=== PATIENT | male | born 1980 | race Caucasian/White ===

== ENCOUNTER → 2018-05-21 10:04 | Outpatient (CLI) | payer OTHER, SELFPAY ==
[2018-05-21 12:56] LABS: ALB/GLOB Ratio 1.1 RATIO (0.9-2.4); AST(SGOT) 20 U/L (15-37); Alanine Aminotransfer ALT/SGPT 34 U/L (16-61); Albumin, Serum 3.8 g/dL (3.2-5.0); Alkaline Phosphatase 89 U/L (45-117); Anion Gap 10 (5-15); BUN 19 mg/dL (7-18); BUN/Creat Ratio 19.7 RATIO (10-20); Chloride 105 mmol/L (98-107); Cholesterol 210 mg/dL (200); Creatinine, Serum 0.96 mg/dL (0.70-1.30); EST Glomerular Filtration Rate 94 mL/min (>60); Est Glom Filt Rate - Afr Amer 113 mL/min (>60); Globulin 3.5 g/dL (2.2-4.2); Glucose 100 mg/dL (74-106); High Density Lipoprotein 38 mg/dL; Potassium 3.9 mmol/L (3.5-5.1); Protein, Total 7.3 g/dL (6.4-8.2); Sodium Level 142 mmol/L (136-145); Triglycerides 190 mg/dL; Very Low Density Lipoprotein 38 mg/dL (5-40)
== END ==
PROVIDERS: Family Provider Family Medicine; PCP Family Medicine; Visit Provider Family Medicine
DX: E78.5 Hyperlipidemia, unspecified (principal)
CPT/HCPCS: 36415; 80053; 80061

== ENCOUNTER → 2018-12-18 00:30 | Outpatient (CLI) | payer OTHER, SELFPAY | PROVIDERS: Family Provider Family Medicine; PCP Family Medicine; Referring Provider Clinical Nurse Specialist Acute Care; Visit Provider Clinical Nurse Specialist Acute Care | DX: G47.10 Hypersomnia, unspecified (principal); G47.26 Circadian rhythm sleep disorder, shift work type | CPT/HCPCS: 95810 ==

== ENCOUNTER → 2019-03-20 10:08 | Outpatient (CLI) | payer OTHER, SELFPAY ==
[2017-10-09 11:15] VITALS: BMI 29.3
--- NOTE | 2019-03-20 10:14 | RAD_ITS ---
STUDY: X-RAY - RIGHT WRIST REASON FOR EXAM: Male, 39 years old. Wrist pain TECHNIQUE: 3 view(s) of the wrist were obtained. COMPARISON: None. FINDINGS: Normal visualized distal radius and ulna. Normal radiocarpal articulation. Normal distal radioulnar articulation. Normal carpal bones. Normal carpal articulations. Normal carpometacarpal articulation of the thumb. Normal second through fifth carpometacarpal articulations. Normal visualized metacarpal bones. The soft tissue structures are unremarkable. RAD/Wrist min 3 Views IMPRESSION: Normal x-ray examination of the wrist. Electronically Signed: Robert Sheppard DO at 8:36 EDT Tel , Service support ,
== END ==
PROVIDERS: Family Provider Family Medicine; PCP Family Medicine; Referring Provider Family Medicine; Visit Provider Family Medicine
DX: M25.531 Pain in right wrist (principal)
CPT/HCPCS: 73110

== ENCOUNTER → 2019-04-02 07:29 | Outpatient (CLI) | payer OTHER, SELFPAY ==
--- NOTE | 2019-04-02 07:45 | MRI_ITS ---
STUDY: MRI RIGHT WRIST WITHOUT CONTRAST REASON FOR EXAM: Male, 39 years old. Wrist pain, numbness, and tingling. TECHNIQUE: Standardized fat and water weighted pulse sequences were obtained in all 3 orthogonal planes. COMPARISON: None. FINDINGS: Normal visualized distal radius and ulna. Normal distal radioulnar Articulation (DRUJ). Normal triangular fibrocartilaginous complex (TFCC). Small erosions of the proximal aspect of the capitate and hamate. Normal radiocarpal, intercarpal and midcarpal articulations. Normal pisotriquetral articulation. Normal visualized interosseous scapholunate ligament. Normal visualized dorsal (extrinsic) ligaments. Normal visualized volar (extrinsic) ligaments. Normal extensor tendons. Normal flexor tendons. Normal carpal tunnel with a normal median nerve. Normal carpometacarpal articulation of the thumb. Normal second through fifth carpometacarpal articulations. Normal visualized metacarpal bones. There is no demonstrated soft tissue abnormality. MRI/Upper Ext Joint Only(Routine) IMPRESSION: Small erosions of the capitate and hamate but no other internal derangement or evidence of ganglion cyst. Electronically Signed: Jaciel Schwartz MD at 12:44 EDT Tel , Service support ,
== END ==
PROVIDERS: Family Provider Family Medicine; PCP Family Medicine; Referring Provider Family Medicine; Visit Provider Family Medicine
DX: M67.439 Ganglion, unspecified wrist (principal)
CPT/HCPCS: 73221

== ENCOUNTER → 2019-05-03 13:12 | Outpatient (CLI) | payer OTHER, SELFPAY ==
[2019-05-03 13:55] LABS: Amphetamine Urine VISTA POSITIVE (<1000 ng/mL); Barbiturate Urine VISTA NEGATIVE (< 200 ng/mL); Benzodiazepine Urine VISTA NEGATIVE (< 200 ng/mL); Cocaine Urine VISTA NEGATIVE (< 300 ng/mL); Ecstacy Urine VISTA NEGATIVE (< 500 ng/mL); Methadone Urine VISTA NEGATIVE (< 300 ng/mL); PCP Urine VISTA NEGATIVE (< 25 ng/mL); THC Urine VISTA NEGATIVE (< 50 ng/mL); Vista UDS pH Range 6
== END ==
PROVIDERS: Family Provider Family Medicine; PCP Family Medicine; Visit Provider Clinical Nurse Specialist Acute Care
DX: G47.10 Hypersomnia, unspecified (principal)
CPT/HCPCS: 80307

== ENCOUNTER → 2019-05-25 14:27 | Outpatient (CLI) | payer OTHER, SELFPAY ==
[2019-05-25 12:02] VITALS: BMI 29.3
== END ==
PROVIDERS: Family Provider Family Medicine; PCP Family Medicine; Referring Provider Physician Assistant; Visit Provider Physician Assistant
DX: J02.9 Acute pharyngitis, unspecified (principal)
CPT/HCPCS: 87081

== ENCOUNTER 2019-05-26 03:19 | Emergency (ER) | payer OTHER, SELFPAY ==
[2019-05-25 12:02] VITALS: BMI 29.3
[2019-05-26 03:20] VITALS: BP 146/91; PULSE 62; RESP 18; TEMP 36.6; O2SAT 98; BMI 29.1
--- NOTE | 2019-05-26 03:37 | ED.DCSUM_ITS ---
- ER Visit Summary Date of Service: 05/26/19 Chief Complaint: Allergic reaction History of Present Illness: The patient is a 39 M who presents with an allergic reaction. Symptoms began about 2 to 3 hours ago. He went to an urgent care yesterday for sore throat and was started on methylprednisolone. Tonight he began to have itching on both of his hands. He used the betamethasone steroid cream to see if this would help. He believes this may have made it worse. He also has developed hives. No fevers. No difficulty breathing. No nausea or vomiting. He does have a history of allergy to betamethasone. Physical Examination: Afebrile vitals unremarkable No distress Heart regular rate and rhythm Lungs are clear Abdomen soft Urticaria noted over the torso and arms Test Results: Not indicated Emergency Department Course and Treatment: Patient has previously tolerated Kenalog so was given intramuscular Kenalog here with some improvement of symptoms. He was advised to stop the methylprednisolone and was discharged home. He understands to return for new or worsening symptoms. Treatment Plan: [] Disposition: Discharge Impression: Allergic reaction This note was generated with [employer] dictation software. It may contain incorrect words, spelling, and punctuation that were not noted in review of the chart prior to signing ED Disposition - Plan for ED Patient: Referrals: Dmitry Aragon MD [Primary Care Provider] -
[2019-05-26] MEDS: Triamcinolone Acetonide 40 MG/ML Vial IM (04:01)
[2019-05-26 04:03] VITALS: BP 133/80; PULSE 77; RESP 16; O2SAT 96
--- NOTE | 2019-05-26 04:51 | ED.DEP ---
ED Disposition - Plan for ED Patient: Instructions: ALLERGIC REACTION, Drug Referrals: Dmitry Aragon MD [Primary Care Provider] -
[2019-05-26 04:58] VITALS: BP 126/83; PULSE 70; RESP 16; O2SAT 100
== END 2019-05-26 05:01 | disposition home or self-care (01) ==
LOC: ED 03:44
PROVIDERS: Emergency Provider Emergency Medicine; Family Provider Family Medicine; PCP Family Medicine
DX: T78.40XA Allergy, unspecified, initial encounter (principal); J02.9 Acute pharyngitis, unspecified; Z72.0 Tobacco use
CPT/HCPCS: 99282; A4216

== ENCOUNTER 2019-05-26 14:37 | Emergency (ER) | payer OTHER, SELFPAY ==
[2019-05-26 03:20] VITALS: BMI 29.1
[2019-05-26 14:38] VITALS: BP 129/81; PULSE 88; RESP 18; TEMP 36.6; O2SAT 98; BMI 29.2
[2019-05-26] MEDS: Famotidine 20 MG Tablet PO (15:34)
[2019-05-26] MEDS: DiphenhydrAMINE 50 MG/ML Syringe IV (15:40)
[2019-05-26 16:24] LABS: Internal QC Validated? YES +Cl - CLEAR BKGD; Monotest Negative (Negative)
--- NOTE | 2019-05-26 16:39 | ED.DCSUM_ITS ---
History of Present Illness Informant: Patient Narrative: 39-year-old male with no past medical history presents with concern for allergic reactions. States that last week he had a URI and was treated with prednisone 4 days ago. He states following taking that he began working out in hives and having pruritus. Was seen here last night given Kenalog. Continues to have itching and hives. Denies any fever, chills, shortness of breath, wheezing, difficulty swallowing. <Zachary Houser - Last Filed: 05/26/19 16:39> <Mitch Lambert - Last Filed: 05/26/19 23:30> Chief Complaint: Allergic Reaction Past Medical History Prior records reviewed: Yes Past Medical History: None Smoking Status: Never smoker <Zachary Houser - Last Filed: 05/26/19 16:39> <Mitch Lambert - Last Filed: 05/26/19 23:30> - Allergies and Home Meds Allergies/Adverse Reactions: Allergies betamethasone [From Celestone] Allergy (Verified 05/26/19 14:40) Unknown betamethasone sodium phosphate [From Celestone] Allergy (Verified 05/26/19 14:40) Unknown methyprednisolone Adverse Reaction (Uncoded 05/26/19 14:40) Hives Primary Care Physician: Dmitry Aragon MD [Primary Care Provider] - Review of Systems General: Denies: Chills, Fever, Sweats Eyes: Denies: Visual changes - bilaterally, Diplopia ENT: Denies: Rhinorrhea, Sore throat Cardiovascular: Denies: Chest pain, Palpitations Respiratory: Denies: Dyspnea, Cough, Dyspnea on exertion Gastrointestinal: Denies: Abdominal pain, Nausea, Vomiting, Diarrhea, Melena, Hematochezia Genitourinary: Denies: Dysuria, Hematuria, Frequency Musculoskeletal: Denies: Back pain, Extremity Pain Skin: Reports: Rash. Denies: Wounds Neurological: Denies: Headache, Weakness, Numbness <Zachary Houser - Last Filed: 05/26/19 16:39> Physical Exam Vital Signs/Narrative: Vital Signs Temp Pulse Resp BP Pulse Ox 05/26/19 14:38 98 F 88 18 129/81 H 98 Inital Vital Signs reviewed: Yes General: Well nourished, Well developed, No Acute Distress Head: Normocephalic, Atraumatic Eyes: Perrl, EOMI ENT: Moist mucous membranes, No rhinorrhea Neck: Supple, Nontender Cardiovascular: Regular rate, Regular rhythm, No murmurs Respiratory: No distress, CTA bilaterally, Chest nontender Abdomen: Soft, Nontender, Nondistended, Normal bowel sounds Back: Nontender, Normal Inspection Extremities: Nontender, No edema Skin: Normal color, - - Extensive urticarial rash. No surrounding cellulitis. Neurological: Alert, Oriented x3, Cranial nerves II-XII grossly intact, Normal Strength, Normal Sensation Psychological: Normal affect, Normal Mood <Zachary Hosuer - Last Filed: 05/26/19 16:39> Diagnostic/Tx/Re-eval - Medical Decision Making Appears well nontoxic. Vital signs within normal limits. Patient given IV Benadryl as well as Pepcid. Almost complete resolution of the rash. He will be given Pepcid and Benadryl for home and asked to follow-up with his primary care provider. Asked to return for new or worsening symptoms. Patient agrees with this plan and discharged home in stable condition. Home stable. Impression: Urticaria <Zachary Houser - Last Filed: 05/26/19 16:39> - Medical Decision Making I saw the patient independently and in conjunction with the resident. Patient presents with a diffuse itchy rash. Worse after exposure to steroids. He has been taking Benadryl, but it is not helping. Denies eye or mucous membrane involvement. Denies any other associated symptoms. Patient has wheals over his body and extremities. Palms and soles are unremarkable. HEENT exam unremarkable. Afebrile. Patient was treated with histamine blockers. Symptoms improved. Discontinue steroid use. Continue Benadryl and H2 anushka. Follow- up with primary care. <Mitch Lambert - Last Filed: 05/26/19 23:30> ED Disposition <Zachary Houser - Last Filed: 05/26/19 16:39> <Mitch Lambert - Last Filed: 05/26/19 23:30> - Plan for ED Patient: Disposition: Non-Skill NC/Intermediate Care Diagnosis: Allergic urticaria Instructions: ALLERGIC REACTION, Other (General) Prescriptions: DiphenhydrAMINE [Benadryl] 25 mg PO TID PRN PRN #20 cap PRN Reason: Itching Prescription Printed Famotidine [Pepcid] 20 mg PO BID #28 tab Prescription Printed Referrals: Dmitry Aragon MD [Primary Care Provider] -
[2019-05-26 16:47] VITALS: BP 113/68; PULSE 62; RESP 15; O2SAT 98
== END 2019-05-26 16:56 | disposition intermediate care facility (04) ==
PROVIDERS: Emergency Provider Emergency Medicine; Family Provider Family Medicine; PCP Family Medicine
DX: L50.0 Allergic urticaria (principal)
CPT/HCPCS: 86308; 99283; A4216

== ENCOUNTER → 2019-05-27 10:46 | Outpatient (CLI) | payer OTHER, SELFPAY ==
[2019-05-26 14:38] VITALS: BMI 29.2
[2019-05-27 12:26] LABS: Absolute Lymphocyte Count 2.33 X10^3/uL (0.83-4.51); Absolute Neutrophil Count 4.7 X10^3/uL (2.0-7.7); Basophil# 0.09 X10^3/uL; Basophil% 1.2 % (0-1); Eosinophil# 0.08 X10^3/uL; Hematocrit 49.5 % (40-54); Hemoglobin 16.3 g/dL (13.0-16.5); Lymphocyte # 2.33 X10^3/ul (4.0); Lymphocyte % 30.2 % (19-41); Mean Corp Hgb Conc 32.9 g/dL (32-36); Mean Corpuscular Hgb 29.1 pg (27.0-32.0); Mean Corpuscular Volume 88.4 fL (80-94); Mean Platelet Vol. 10.6 fl (6.2-12.0); Monocyte# 0.46 X10^3/uL; NRBC Flagged by Analyzer 0 % (0-5); POSITIVE MORPHOLOGY YES; Platelet Count 282 K/mm3 (150-450); RBC Distribution Width SD 38.5 fl (35.1-43.9); White Blood Count 7.7 K/mm3 (4.4-11.0)
[2019-05-27 12:39] LABS: Anion Gap 7 (5-15); BUN 21 mg/dL (7-18); BUN/Creat Ratio 17.8 RATIO (10-20); Calcium,Total 9.4 mg/dL (8.5-10.1); Chloride 103 mmol/L (98-107); Creatinine, Serum 1.18 mg/dL (0.70-1.30); EST Glomerular Filtration Rate 74 mL/min (>60); Est Glom Filt Rate - Afr Amer 89 mL/min (>60); Glucose 101 mg/dL (74-106); Potassium 4.1 mmol/L (3.5-5.1); Sodium Level 140 mmol/L (136-145)
[2019-05-27 13:09] LABS: Differential Indicated SCAN CRITERIA MET
[2019-05-27 13:10] LABS: Reactive Lymphocyte RARE
[2019-05-30 06:07] LABS: Immunoglobulin A 201 mg/dL (90-386); Immunoglobulin G 983 mg/dL (700-1600); Immunoglobulin M 66 mg/dL (20-172)
[2019-05-30 08:09] LABS: Immunoglobulin E 746 IU/mL (6-495)
== END ==
PROVIDERS: Family Provider Family Medicine; PCP Family Medicine; Visit Provider Nurse Practitioner Family
DX: T14.90XA Injury, unspecified, initial encounter (principal); W57.XXXA Bitten or stung by nonvenomous insect and other nonvenomous arthropods, initial encounter; Y93.9 Activity, unspecified; Y92.89 Other specified places as the place of occurrence of the external cause; Y99.8 Other external cause status
CPT/HCPCS: 36415; 80048; 82784; 82785; 85025

== ENCOUNTER → 2019-06-12 07:02 | Outpatient (CLI) | payer OTHER, SELFPAY ==
[2019-05-26 14:38] VITALS: BMI 29.2
--- NOTE | 2019-06-12 11:48 | NEURO ---
NCS and/or EMG Patient Report Ordering Doctor: Tristan Luu DATE OF SERVICE: 06/12/19 This is a nerve conduction study of the right upper extremity performed on this 39-year-old male with numbness tingling and weakness for 1 year. No history of neck pain or diabetes. Right upper extremity sensory and motor nerve conduction studies performed demonstrating moderate to severe prolongation of the median motor and sensory distal latency with absence of the median sensory response to digit 2. The ulnar motor and sensory and radial sensory responses normal. The median F wave is prolonged compared to the ulnar F-wave. Impression abnormal nerve conduction study of the right upper extremity consistent with moderate to severe carpal tunnel syndrome at the wrist. Dictated, not proofread
== END ==
PROVIDERS: Family Provider Family Medicine; PCP Family Medicine; Referring Provider Surgery; Visit Provider Surgery
DX: M25.531 Pain in right wrist (principal)
CPT/HCPCS: 95909

== ENCOUNTER → 2019-07-30 13:14 | Outpatient (CLI) | payer OTHER, SELFPAY ==
[2019-07-04 09:33] VITALS: BMI 29.2
[2019-07-30 14:57] LABS: Lyme Ab Screen Interpretation REF LAB
[2019-07-30 15:07] LABS: Absolute Lymphocyte Count 1.56 X10^3/uL (0.83-4.51); Absolute Neutrophil Count 5.5 X10^3/uL (2.0-7.7); Basophil# 0.04 X10^3/uL; Basophil% 0.5 % (0-1); Eosinophil# 0.12 X10^3/uL; Eosinophils% 1.6 % (0-5); Hematocrit 50.6 % (40-54); Hemoglobin 16.9 g/dL (13.0-16.5); Lymphocyte # 1.56 X10^3/ul (4.0); Lymphocyte % 20.4 % (19-41); Mean Corp Hgb Conc 33.4 g/dL (32-36); Mean Corpuscular Hgb 29.5 pg (27.0-32.0); Mean Corpuscular Volume 88.5 fL (80-94); Monocyte# 0.36 X10^3/uL; Monocyte% 4.7 % (0-10); NRBC Flagged by Analyzer 0 % (0-5); Neutrophil # 5.54 X10^3/uL (2.7-7.7); Neutrophil % 72.3 % (47-70); Platelet Count 268 K/mm3 (150-450); RBC Distribution Width CV 12.6 % (11.6-14.6); RBC Distribution Width SD 40.9 fl (35.1-43.9); Red Blood Count 5.72 M/mm3 (4.6-6.2); White Blood Count 7.7 K/mm3 (4.4-11.0)
[2019-08-01 21:06] LABS: Lyme Scn Total Ab w/Rflx <0.91 ISR (0.00-0.90)
== END ==
PROVIDERS: Visit Provider Family Medicine
DX: B88.2 Other arthropod infestations (principal)
CPT/HCPCS: 36415; 85025; 86618

== ENCOUNTER 2019-08-26 09:02 | Day surgery (SDC) | payer OTHER, SELFPAY ==
[2019-07-04 09:33] VITALS: BMI 29.2
[2019-08-26 09:24] VITALS: BP 129/83; PULSE 88; RESP 18; TEMP 36.8; O2SAT 100; BMI 30.4
[2019-08-26] MEDS: Lactated Ringers 1,000 ML 75 ML IV (09:57)
--- NOTE | 2019-08-26 10:02 | HP.PCM_ITS ---
Problem List (1) Numbness and tingling Status: Acute (2) Carpal tunnel syndrome Status: Acute Qualifiers: History and Physical Date of Admission: 08/26/19 [facility] [address] [place] [address] OFFICE VISIT Date of Service: 08/26/2019 MR#:[id number] Name: EDWARD BUTTS Rep #:[id number] : 1980 Provider:Edward Luu MD Age/Sex: 39/M Location:[facility] Status:Signed Intake Vital Signs 08/26/19 Body Mass Index (BMI) 30.4 kg 08/26/19 Height 5 ft 8 in 08/26/19 Weight: 199 lb 08/26/19 Body Mass Index (BMI) 30.4 kg 08/26/19 Blood Pressure 129/83 H 08/26/19 Blood Pressure Location Rt brachial 08/26/19 Respiratory Rate 18 08/26/19 Pulse Rate 88 08/26/19 Pulse Source Monitor 08/26/19 Temperature 98.3 F 08/26/19 Temperature Source Oral 08/26/19 Pulse Ox 100 08/26/19 Oxygen Delivery Method room air Intake Visit Reasons: CTS per Workload EMG 06/12 [facility] Viscosity Worker Required: No Is patient in pain?: No (on and off pain of Right wrist) Allergies betamethasone [From Celestone] Allergy (Verified 07/04/19 09:30) Unknown betamethasone sodium phosphate [From Celestone] Allergy (Verified 07/04/19 09:30) Unknown methyprednisolone Adverse Reaction (Uncoded 07/04/19 09:30) Hives Medications Cider Vinegar [Apple Cider Vinegar] 450 mg PO BID 09/19/17 [History Confirmed 07/04/19] Nortriptyline HCl 10 mg PO DAILY 09/19/17 [History Confirmed 07/04/19] Valacyclovir HCl [Valtrex] 500 mg PO DAILY 09/19/17 [History Confirmed 07/04/19] traMADol [Ultram (G)] 50 mg PO Q6H PRN PRN 09/19/17 [History Confirmed 07/04/19] Dextroamphetamine/Amphetamine [Adderall 30 mg Tablet] 30 mg PO DAILY 05/26/19 [History Confirmed 07/04/19] Sertraline HCl [Zoloft] 100 mg PO DAILY 05/26/19 [History Confirmed 07/04/19] gabapentin 100 mg capsule 100 mg PO DAILY 07/04/19 [History Confirmed 07/04/19] PFSH Medical History Numbness and tingling (Acute) Carpal tunnel syndrome (Acute) Shoulder pain (Acute) Knee pain (Acute) Limb weakness (Acute) Back pain (Acute) Influenza A (Acute) Surgical History History of ankle surgery (Acute) Hx of lymph node biopsy (Acute) Hx of colonoscopy (Acute) Lower extremity surgery planned (Acute) Normal colonoscopy (Acute) Family History Father Heart disease Hypertension Social History Smoking Status: Current some day smoker tobacco type: pipe second hand exposure: No alcohol intake: never substance use type: does not use caffeine: Yes what type of physical activity do you participate in: none frequency: does not exercise seatbelt use: always HPI Surgical H&P: Yes HPI: Patient is a 39 y/o M I am seeing for an update history and physical for right carpal tunnel surgery. Patient denies recent hospitalizations or illnesses. He denies recent hospitalizations. Patient denies difficulty with anesthesia. He notes during his dentist appointments they have to use more numbing medication than normal. Patient denies previous myocardial infarction, stroke or blood clots. Patient' s previous history per Dr. Luu: EDWARD BUTTS, is a 39 M who presents to the office today for surgical consultation regarding right greater than left carpal tunnel syndrome. The patient is referred by his primary care is Dr. Dmitry Aragon and a written copy of my surgical consult and recommendations will be returned to him. 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 He is right hand dominant. At least for the past year he has had problems with numbness tingling lack of fine motor coordination cramping of the right hand in particular. He has worn splints with only minimal improvement. He had nerve conduction test performed at the [facility] on June 12, 2019 consistent with moderate to severe right carpal tunnel syndrome. April 02, 2019 he had had a MRI of the right wrist. Small erosions of the capitate and hamate but no other internal ridge rearrangement no evidence of a ganglion cyst. This is significantly inhibiting his quality of life. He was placed on gabapentin which have eased some of his symptoms. He is investigating definitive treatment. He has heard about the potential for laser surgery. ROS General General: No weight change, appetite, fatigue, colon cancer, breast cancer or weakness HEENT HEENT: No difficulty swallowing, eye injury, eye surgery, swollen glands or hoarseness Endo Endocrine: No thyroid disease, diabetes mellitus, thyroid cancer, Hair loss, heat intolerance or cold intolerance Skin Skin: No rash or changing moles Musc Musculoskeletal: No back problems, arthritis, rheumatoid arthritis, gout or joint pain Cardio Cardiovascular: No murmur, pacemaker, heart disease, atrial fibrillation, high blood pressure, heart attack, heart stent, palpitations, shortness of breat with exertion or chest pain Psych Psychiatric: No depression, anxiety or hearing voices Resp Respiratory: No shortness of breath, No sleep apnea, No cough, No COPD, No asthma, No emphysema, No wheezing Gastro Gastrointestinal: Yes abdominal pain, No nausea or vomiting, No diarrhea, No constipation, No blood in stool, No acid reflux, No hemorrhoids, No ulcers, No gallbladder problem, No black,tarry stools Ponce Hematologic: No blood thinners, No blood disorders, No bleeding, No anemia, No blood clots Neuro Neurologic: Yes numbness, Yes tingling, No weakness Exam Const General: cooperative, healthy appearing, comfortable, no acute distress Nutritional Appearance: average body habitus Orientation: alert, awake [facility] Head: normal to inspection Eyes General: appearance normal, both eyes and all related structures Resp Effort & Inspection: normal respiratory effort Auscultation: clear to auscultation bilaterally Cardio Rate: regular rate Rhythm: regular rhythm Heart Sounds: no murmurs GI Palpation: soft, no hepatosplenomegaly Auscultation: normal bowel sounds Musc Cervical Spine: normal cervical lordosis Skin General: no rashes or lesions noted Neuro Cognition: normal cognition Extrem Other: Tinel's positive on the right absent on the left. Psych Affect: normal affect Assessment & Plan Problems 1. Bilateral carpal tunnel syndrome G56.03 Plan: Dr. Luu will plan to perform a right carpal tunnel release. Procedure details, risks and benefits have been reviewed. Patient and his spouse have had the opportunity to ask and have questions answered. Patient verbally understands and agrees with the plan. Code Visit Inpatient E&M: 28553 Subs Hosp L1 - Update H&P
[2019-08-26] MEDS: BACITRACIN/POLYMYXIN B 15 GM Tube 1 APPLIC (10:51)
--- NOTE | 2019-08-26 10:56 | HP.PCM_ITS ---
Problem List (1) Carpal tunnel syndrome Status: Acute Qualifiers: History and Physical Date of Admission: 08/26/19 History and Physical 08/26/19 1002 MR#: [id number] Acct: [id number] Name: EDWARD BUTTS Rep #:[id number] : 1980 39 From: Eliza Amaya PA-C PCP: Dmitry Aragon MD Status:REG SDC Y Location: [place] [address] Problem List (1) Numbness and tingling Status: Acute (2) Carpal tunnel syndrome Status: Acute Qualifiers: History and Physical Date of Admission: 08/26/19 [facility] [place] [address] OFFICE VISIT Date of Service: 08/26/2019 MR#:[id number] Name: EDWARD BUTTS Rep #:[id number] : 1980 Provider:Edward Luu MD Age/Sex: 39/M Location:[facility] Status:Signed Intake Vital Signs 08/26/19 Body Mass Index (BMI) 30.4 kg 08/26/19 Height 5 ft 8 in 08/26/19 Weight: 199 lb 08/26/19 Body Mass Index (BMI) 30.4 kg 08/26/19 Blood Pressure 129/83 H 08/26/19 Blood Pressure Location Rt brachial 08/26/19 Respiratory Rate 18 08/26/19 Pulse Rate 88 08/26/19 Pulse Source Monitor 08/26/19 Temperature 98.3 F 08/26/19 Temperature Source Oral 08/26/19 Pulse Ox 100 08/26/19 Oxygen Delivery Method room air Intake Visit Reasons: CTS per Workload EMG 06/12 [facility] Train Planner Required: No Is patient in pain?: No (on and off pain of Right wrist) Allergies betamethasone [From Celestone] Allergy (Verified 07/04/19 09:30) Unknown betamethasone sodium phosphate [From Celestone] Allergy (Verified 07/04/19 09:30) Unknown methyprednisolone Adverse Reaction (Uncoded 07/04/19 09:30) Hives Medications Cider Vinegar [Apple Cider Vinegar] 450 mg PO BID 09/19/17 [History Confirmed 07/04/19] Nortriptyline HCl 10 mg PO DAILY 09/19/17 [History Confirmed 07/04/19] Valacyclovir HCl [Valtrex] 500 mg PO DAILY 09/19/17 [History Confirmed 07/04/19] traMADol [Ultram (G)] 50 mg PO Q6H PRN PRN 09/19/17 [History Confirmed 07/04/19] Dextroamphetamine/Amphetamine [Adderall 30 mg Tablet] 30 mg PO DAILY 05/26/19 [History Confirmed 07/04/19] Sertraline HCl [Zoloft] 100 mg PO DAILY 05/26/19 [History Confirmed 07/04/19] gabapentin 100 mg capsule 100 mg PO DAILY 07/04/19 [History Confirmed 07/04/19] PFSH Medical History Numbness and tingling (Acute) Carpal tunnel syndrome (Acute) Shoulder pain (Acute) Knee pain (Acute) Limb weakness (Acute) Back pain (Acute) Influenza A (Acute) Surgical History History of ankle surgery (Acute) Hx of lymph node biopsy (Acute) Hx of colonoscopy (Acute) Lower extremity surgery planned (Acute) Normal colonoscopy (Acute) Family History Father Heart disease Hypertension Social History Smoking Status: Current some day smoker tobacco type: pipe second hand exposure: No alcohol intake: never substance use type: does not use caffeine: Yes what type of physical activity do you participate in: none frequency: does not exercise seatbelt use: always HPI Surgical H&P: Yes HPI: Patient is a 39 y/o M I am seeing for an update history and physical for right carpal tunnel surgery. Patient denies recent hospitalizations or illnesses. He denies recent hospitalizations. Patient denies difficulty with anesthesia. He notes during his dentist appointments they have to use more numbing medication than normal. Patient denies previous myocardial infarction, stroke or blood clots. Patient' s previous history per Dr. Luu: EDWARD BUTTS, is a 39 M who presents to the office today for surgical consultation regarding right greater than left carpal tunnel syndrome. The patient is referred by his primary care is Dr. Dmitry Aragon and a written copy of my surgical consult and recommendations will be returned to him. 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 He is right hand dominant. At least for the past year he has had problems with numbness tingling lack of fine motor coordination cramping of the right hand in particular. He has worn splints with only minimal improvement. He had nerve conduction test performed at the [facility] on June 12, 2019 consistent with moderate to severe right carpal tunnel syndrome. April 02, 2019 he had had a MRI of the right wrist. Small erosions of the capitate and hamate but no other internal ridge rearrangement no evidence of a ganglion cyst. This is significantly inhibiting his quality of life. He was placed on gabapentin which have eased some of his symptoms. He is investigating definitive treatment. He has heard about the potential for laser surgery. ROS General General: No weight change, appetite, fatigue, colon cancer, breast cancer or weakness HEENT HEENT: No difficulty swallowing, eye injury, eye surgery, swollen glands or hoarseness Endo Endocrine: No thyroid disease, diabetes mellitus, thyroid cancer, Hair loss, heat intolerance or cold intolerance Skin Skin: No rash or changing moles Musc Musculoskeletal: No back problems, arthritis, rheumatoid arthritis, gout or joint pain Cardio Cardiovascular: No murmur, pacemaker, heart disease, atrial fibrillation, high blood pressure, heart attack, heart stent, palpitations, shortness of breat with exertion or chest pain Psych Psychiatric: No depression, anxiety or hearing voices Resp Respiratory: No shortness of breath, No sleep apnea, No cough, No COPD, No as thma, No emphysema, No wheezing Gastro Gastrointestinal: Yes abdominal pain, No nausea or vomiting, No diarrhea, No constipation, No blood in stool, No acid reflux, No hemorrhoids, No ulcers, No gallbladder problem, No black,tarry stools Ponce Hematologic: No blood thinners, No blood disorders, No bleeding, No anemia, No blood clots Neuro Neurologic: Yes numbness, Yes tingling, No weakness Exam Const General: cooperative, healthy appearing, comfortable, no acute distress Nutritional Appearance: average body habitus Orientation: alert, awake [facility] Head: normal to inspection Eyes General: appearance normal, both eyes and all related structures Resp Effort & Inspection: normal respiratory effort Auscultation: clear to auscultation bilaterally Cardio Rate: regular rate Rhythm: regular rhythm Heart Sounds: no murmurs GI Palpation: soft, no hepatosplenomegaly Auscultation: normal bowel sounds Musc Cervical Spine: normal cervical lordosis Skin General: no rashes or lesions noted Neuro Cognition: normal cognition Extrem Other: Tinel's positive on the right absent on the left. Psych Affect: normal affect Assessment & Plan Problems 1. Bilateral carpal tunnel syndrome G56.03 Plan: Dr. Luu will plan to perform a right carpal tunnel release. Procedure details, risks and benefits have been reviewed. Patient and his spouse have had the opportunity to ask and have questions answered. Patient verbally understands and agrees with the plan. Code Visit Inpatient E&M: 51097 Subs Hosp L1 - Update H&P 08/26/19 1012 <Electronically signed by Eliza hartley PA-C> Date _ Eliza Amaya PA-C Cosigner Signature: Date (if applicable) CC: Eliza Amaya PA-C; Dmitry Aragon MD ~ Signed I have re-examined the patient. There are no clinical changes since date of exam.
--- NOTE | 2019-08-26 10:57 | DCINST_ITS ---
Discharge Diet: Light diet - advance as tolerated - if you have questions about your diet instructions, please talk to you doctor. Discharge Activity: May Not Drive - for 3-5 days or while taking narcotic pain medicine. May shower in (days): 1 Lifting Restrictions: 10 pounds Call your doctor if your incision/area has: Continuous Slow Oozing, Sudden Increased Bleeding, Increased Pain/ Swelling, Increased Redness, Foul Smelling Discharge Call your doctor if you observe: Fever of 101 or Higher Suture Line Care: Avoid Pulling/Pushing, Avoid Pinching/Bending Additional Dressing/Incision Instructions:: Elevate your right hand for comfort and to limit swelling. Please keep the dressings clean dry and intact. You may shower very carefully if you placed your arm in a watertight bag. Allergies/Adverse Reactions: Allergies betamethasone [From Celestone] Allergy (Verified 08/13/19 14:15) Unknown betamethasone sodium phosphate [From Celestone] Allergy (Verified 08/13/19 14:15) Unknown methyprednisolone Adverse Reaction (Uncoded 08/13/19 14:15) Hives Medications to take at Discharge Cider Vinegar [Apple Cider Vinegar] 450 mg PO BID 09/19/17 Nortriptyline HCl 10 mg PO DAILY 09/19/17 Valacyclovir HCl [Valtrex] 500 mg PO DAILY 09/19/17 traMADol [Ultram (G)] 50 mg PO Q6H PRN PRN 09/19/17 Dextroamphetamine/Amphetamine [Adderall 30 mg Tablet] 30 mg PO DAILY 05/26/19 Sertraline HCl [Zoloft] 100 mg PO DAILY 05/26/19 gabapentin 100 mg capsule 100 mg PO QHS 07/04/19 Primary Care Physician: Dmitry Aragon MD [Primary Care Provider] - Test Results: Test results from this visit will be discussed in further detail at your follow- up appointment, if applicable. Please Follow Up With: Tristan Luu MD - [phone] When: Call to make an appointment to be seen in 7 days.
[2019-08-26] MEDS: Bupivacaine Mpf 0.5% 30 ML VIAL (11:47)
--- NOTE | 2019-08-26 11:56 | OP.PCM_ITS ---
Problem List (1) Carpal tunnel syndrome Status: Acute Qualifiers: Laterality: right Qualified Code(s): G56.01 - Carpal tunnel syndrome, right upper limb Report of Operation Date of Procedure: 08/26/19 Pre-Operative Diagnosis: right carpal tunnel syndrome Post-Operative Diagnosis: Same Surgery/Procedure Performed:: Right carpal tunnel release Description of Surgical Findings:: Timeout and informed consent was obtained. 39-year-old gent was taken out from placement table underwent initially a [place] block anesthesia. Pressure to 250 mmHg pressure and held for 30 minutes total. The patient however did not get good results so he was then underwent general anesthesia via LMA. The right extremity sterilely prepped and draped. A curvilinear incision made the base of the right palm sharp dissection carried down through the subcutaneous tissue the palmar fascia was identified the median nerve identified and was carefully pr otected this palmar fascia was incised to the proximal wrist crease and then along the fourth ray to the mid palm. Very tough palmar fascia was encountered was carefully dissected free with curved Church scissors. Good release was felt to been achieved. Median nerve intact. Wound was closed with a deep layer of interrupted 3-0 chromic. Skin is approximated simple sutures of 5-0 nylon. Topical antibiotic ointment Telfa 4 x 4 soft roll Timothy wrap applied. It is of note that 0.5% Marcaine 6 cc was injected directly at the incision site. Sponge and instrument and needle counts were reported the surgeon for correct. Blood loss 0. He was taken to the recovery area in satisfactory condition without apparent complication Tristan Luu M.D., F.A.C.S. Type of Anesthesia:: BlockTaylor General Anesthesiologist: Jose Castorena
[2019-08-26 12:02] VITALS: BP 124/83; BP 129/83; PULSE 81; RESP 18; TEMP 36.4; O2SAT 95
[2019-08-26 12:15] VITALS: BP 106/74; BP 129/83; PULSE 78; RESP 18; O2SAT 94
[2019-08-26 12:20] VITALS: BP 109/76; BP 129/83; PULSE 78; RESP 18; TEMP 36.6; O2SAT 98
[2019-08-26 13:24] VITALS: BP 129/83
== END 2019-08-26 13:24 | disposition home or self-care (01) ==
LOC: SDC 09:02 → AC 09:03
PROVIDERS: Family Provider Family Medicine; PCP Family Medicine; Referring Provider Surgery; Visit Provider Surgery
PROC: (CPT 64721; principal; 2019-08-26 10:30)
DX: G56.03 Carpal tunnel syndrome, bilateral upper limbs (principal); F17.290 Nicotine dependence, other tobacco product, uncomplicated; Z82.49 Family history of ischemic heart disease and other diseases of the circulatory system
CPT/HCPCS: 01810; 64721; J7120; A4216; J2405

== ENCOUNTER → 2019-09-26 16:30 | Outpatient (CLI) | payer OTHER, SELFPAY ==
--- NOTE | 2019-09-26 16:34 | RAD_ITS ---
STUDY: X-RAY - CERVICAL SPINE REASON FOR EXAM: Male, 39 years old. Left-sided neck pain radiating to left shoulder TECHNIQUE: 6 view(s) of the cervical spine were obtained. COMPARISON: None FINDINGS: Normal anterior atlantoaxial articulation. Normal odontoid process. There is straightening of the normal cervical lordosis. Normal vertebral bodies and endplates. There is mild narrowing of the C4-5 and C5-6 disc spaces. Normal visualized intervertebral neuroforamina. The soft tissue structures are unremarkable. RAD/Cerv Spine 4 or 5 Views IMPRESSION: There is straightening of the normal lordotic curvature which may be positional in nature or due to muscular spasm. There is mild narrowing of the C4-5 and C5-6 disc spaces. Electronically Signed: Pavan Mckeon MD at 23:06 EST , Service support ,
== END ==
PROVIDERS: Family Provider Family Medicine; PCP Family Medicine; Referring Provider Family Medicine; Visit Provider Family Medicine
DX: M54.2 Cervicalgia (principal)
CPT/HCPCS: 72050

== ENCOUNTER → 2019-09-30 14:44 | Outpatient (CLI) | payer OTHER, SELFPAY ==
[2019-09-30 14:37] VITALS: BMI 30.4
--- NOTE | 2019-09-30 14:45 | RAD_ITS ---
STUDY: X-RAY - LEFT SHOULDER REASON FOR EXAM: Male, 39 years old. Pain. TECHNIQUE: 4 view(s) of the shoulder. COMPARISON: None. FINDINGS: Normal glenohumeral articulation. Normal acromioclavicular joint. Normal acromion. Normal humeral head and visualized proximal humerus. The soft tissue structures are unremarkable. There is no demonstrated fracture. Normal visualized pulmonary apex. RAD/Shoulder min 2 Views IMPRESSION: Normal x-ray examination of the shoulder. Electronically Signed: Lacy Winn MD at 22:41 EST , Service support ,
== END ==
PROVIDERS: Family Provider Family Medicine; PCP Family Medicine; Referring Provider Orthopaedic Surgery; Visit Provider Orthopaedic Surgery
DX: M25.512 Pain in left shoulder (principal)
CPT/HCPCS: 73030

== ENCOUNTER → 2019-10-14 07:23 | Outpatient (CLI) | payer OTHER, SELFPAY ==
[2019-09-30 14:37] VITALS: BMI 30.4
--- NOTE | 2019-10-14 07:24 | MRI_ITS ---
STUDY: MRI CERVICAL SPINE WITHOUT CONTRAST REASON FOR EXAM: Male, 39 years old. neck pain into L shoulder, unable to raise L arm, no injury TECHNIQUE: Standardized fat and water weighted pulse sequences were obtained in the sagittal and axial planes. COMPARISON: X-ray 09/26/2019 FINDINGS: Normal foramen magnum and brainstem-cervical cord junction. Normal craniovertebral junction. Normal anterior atlantoaxial articulation. Normal odontoid process. Normal cervical lordosis. Normal vertebral bodies and posterior osseous elements. C2-3: Normal endplates. Normal disc height, signal and morphology. Normal central canal and intervertebral neural foramina. C3-4: Normal endplates. Normal disc height, signal and morphology. Normal central canal and intervertebral neural foramina. C4-5: Moderate sized left paracentral and preforaminal disc osteophyte complex produces mild spinal stenosis but moderate left lateral recess stenosis with effacement of the left C5 nerve root laterally. C5-6: Mild broad disc osteophyte complex asymmetric to the right produces mild spinal stenosis and mild right lateral recess stenosis. C6-7: Normal endplates. Normal disc height, signal and morphology. Normal central canal and intervertebral neural foramina. C7-T1: Normal endplates. Normal disc height, signal and morphology. Normal central canal and intervertebral neural foramina. Normal cervical cord. Normal visualized soft tissue structures. MRI/Spine Cervical (Routine) IMPRESSION: Focal degenerative disc disease asymmetric to the left at C4/C5 as described above. Electronically Signed: Jaciel Schwartz MD at 10:26 EST Tel , Service support ,
--- NOTE | 2019-10-14 07:24 | RAD_ITS ---
NAME: Tristan Holguin PROCEDURE: IR Shoulder Arthrogram Examination ACCESSION NUMBER: [id number] CLINICAL HISTORY AND INDICATION: NECK PAIN AND WEAKNESS IN LEFT ARM -- 33.26 mGY COMPARISON: Procedure: The procedure with its potential risks was explained to the patient, all the questions and concerns were answered and written informed consent was obtained. A timeout was observed to confirm identity, procedure and site. Localization of the patient''s left shoulder was performed under fluoroscopy. The patient''s left shoulder was prepped and draped in the usual sterile fashion. Local anesthesia was achieved with subcutaneous injection of 1% lidocaine. Under fluoroscopic guidance, a 22-gauge needle was advanced into the left shoulder joint, and intra-articular location was confirmed with administration of 0.5 ml Isovue 300. Then 10 mL of diluted gadolinium based contrast ( 1:50:50 dilution of gadolinium contrast in Omnipaque 350 and normal saline, respectively ) was injected to the joint space. Intra-articular needle position was confirmed with intermittent fluoroscopy. The patient tolerated the procedure well, with no intermediate complications. The patient was escorted to the MR suite for further imaging. RAD/Arthrogram Shoulder w/ MRI IMPRESSION: Successful left shoulder joint arthrogram with injection of 10 mL of diluted Dotarem. Electronically Signed: Andre Pickens MD at 20:54 EST Tel [phone], Service support ,
--- NOTE | 2019-10-14 14:35 | MRI_ITS ---
STUDY: MRI LEFT SHOULDER ARTHROGRAM REASON FOR EXAM: Male, 39 years old. Pain. Weakness. Patient unable left arm. TECHNIQUE: Standardized fat and water weighted pulse sequences were obtained in all 3 orthogonal planes. COMPARISON: X-ray September 30, 2019 FINDINGS: There is undersurface fraying and partial humeral surface tear of the distal supraspinatus tendon, series 6 image 10/11. Normal infraspinatus tendon. Normal subscapularis tendon. Normal teres minor tendon. Normal supraspinatus muscle. Normal infraspinatus muscle. Normal subscapularis muscle. Normal teres minor muscle. Normal glenohumeral articulation. There is a cortical erosion at the insertion of the infraspinatus tendon. Normal biceps labral complex. Normal intracapsular long biceps tendon. Normal labrum. Normal capsulo- ligamentous complex. Normal rotator interval. Normal acromioclavicular articulation. There is a Type II morphology (curved) acromion, with a neutral orientation. There is no subacromial-subdeltoid bursal contrast or fluid. Normal visualized coracohumeral and coracoacromial ligaments. Normal quadrilateral space. Normal axillary space. Normal deltoid muscle. Normal trapezius muscle. MRI/Upper Ext Jt Only W/Contrast IMPRESSION: Fraying and partial tear of the distal supraspinatus tendon. No full-thickness rotator cuff tear. Electronically Signed: Hubert Bullard MD at 16:48 EST , Service support ,
== END ==
PROVIDERS: Family Provider Family Medicine; PCP Family Medicine; Referring Provider Orthopaedic Surgery; Visit Provider Orthopaedic Surgery
DX: M54.12 Radiculopathy, cervical region (principal); R29.898 Other symptoms and signs involving the musculoskeletal system; M67.912 Unspecified disorder of synovium and tendon, left shoulder
CPT/HCPCS: 23350; 72141; 73222; 77002; A9575; Q9967

== ENCOUNTER → 2019-11-05 14:46 | Outpatient (CLI) | payer OTHER, SELFPAY ==
[2019-11-05 14:23] VITALS: BMI 30.4
--- NOTE | 2019-11-05 14:47 | RAD_ITS ---
STUDY: X-RAY - CERVICAL SPINE REASON FOR EXAM: Male, 39 years old. Neck pain. TECHNIQUE: 4 view(s) of the cervical spine were obtained. COMPARISON: None FINDINGS: Normal anterior atlantoaxial articulation. Normal odontoid process. There is straightening of the normal cervical lordosis. Normal vertebral bodies and endplates. Normal disc space heights. There is no evidence of acute fracture or loss of vertebral axial height. There is maintenance of normal alignment. There is no change in alignment with flexion or extension. The soft tissue structures are unremarkable. RAD/Cerv Spine 4 or 5 Views IMPRESSION: Straightened cervical lordosis. There is no other evidence of cervical spine abnormality. Electronically Signed: Ryan Nye DO at 19:16 EST Tel [phone], Service support ,
== END ==
PROVIDERS: Family Provider Family Medicine; PCP Family Medicine; Referring Provider Orthopaedic Surgery; Visit Provider Orthopaedic Surgery
DX: M54.2 Cervicalgia (principal)
CPT/HCPCS: 72050

== ENCOUNTER → 2019-11-28 15:44 | Outpatient (CLI) | payer OTHER, SELFPAY ==
[2019-11-05 14:23] VITALS: BMI 30.4
--- NOTE | 2019-11-28 15:48 | RAD_ITS ---
STUDY: X-RAY - PARANASAL SINUSES REASON FOR EXAM: Male, 39 years old. Rhinitis TECHNIQUE: 3 view(s) of the paranasal sinuses were obtained. COMPARISON: None. FINDINGS: Normal visualized frontal, maxillary, ethmoidal and sphenoid sinuses. Normal visualized facial bones. The soft tissue structures are unremarkable. RAD/Sinuses min 3 Views IMPRESSION: Normal x-rays of the paranasal sinuses. Electronically Signed: Kash Lino MD at 11:41 EST , Service support ,
== END ==
PROVIDERS: PCP Family Medicine; Referring Provider Family Medicine; Visit Provider Family Medicine
DX: J31.0 Chronic rhinitis (principal)
CPT/HCPCS: 70220

== ENCOUNTER → 2019-12-24 20:07 | Outpatient (CLI) | payer OTHER, SELFPAY ==
[2019-11-05 14:23] VITALS: BMI 30.4
[2019-12-18 07:57] VITALS: BMI 30.9
[2019-12-24] MEDS: Zolpidem Tartrate 5 MG Tablet PO (21:30)
== END ==
PROVIDERS: PCP Family Medicine; Referring Provider Clinical Nurse Specialist Acute Care; Visit Provider Clinical Nurse Specialist Acute Care
DX: G47.10 Hypersomnia, unspecified (principal)
CPT/HCPCS: 95811

== ENCOUNTER → 2019-12-31 12:36 | Outpatient (CLI) | payer OTHER, SELFPAY ==
[2019-11-05 14:23] VITALS: BMI 30.4
[2019-12-03 13:23] VITALS: BP 124/87; PULSE 87; RESP 16; TEMP 36.3; O2SAT 97; BMI 30.9
[2019-12-03 13:43] LABS: Red Blood Cells-Urine 0 SEEN /hpf (0-5)
[2019-12-03 13:45] LABS: Bacteria 0 SEEN /hpf (None Seen); Squamous Epithelial Cells - UA 0 SEEN /hpf (0-5)
[2019-12-03 15:10] LABS: Absolute Lymphocyte Count 1.48 X10^3/uL (0.83-4.51); Basophil# 0.02 X10^3/uL; Basophil% 0.3 % (0-1); Eosinophil# 0.11 X10^3/uL; Eosinophils% 1.5 % (0-5); Hematocrit 46.5 % (40-54); Hemoglobin 15.9 g/dL (13.0-16.5); Lymphocyte # 1.48 X10^3/ul (4.0); Lymphocyte % 20.6 % (19-41); Mean Corp Hgb Conc 34.2 g/dL (32-36); Mean Corpuscular Hgb 29.5 pg (27.0-32.0); Mean Corpuscular Volume 86.3 fL (80-94); Mean Platelet Vol. 10.7 fl (6.2-12.0); Monocyte# 0.56 X10^3/uL; Monocyte% 7.8 % (0-10); NRBC Flagged by Analyzer 0 % (0-5); Neutrophil # 4.96 X10^3/uL (2.7-7.7); Neutrophil % 69.2 % (47-70); Platelet Count 264 K/mm3 (150-450); RBC Distribution Width CV 12.3 % (11.6-14.6); RBC Distribution Width SD 38.7 fl (35.1-43.9); Red Blood Count 5.39 M/mm3 (4.6-6.2); White Blood Count 7.2 K/mm3 (4.4-11.0)
[2019-12-03 15:34] LABS: Prothrombin Time (Protime)PT. 12.7 SECONDS (11.7-14.9)
[2019-12-03 15:35] LABS: Partial Thromboplast Time 25.4 Seconds (24.1-36.2)
[2019-12-03 16:04] LABS: Color, Urine Yellow (Yellow); Glucose, Dipstick Normal (Normal); Ketone-Dipstick 5 mg/dl (Negative); Leukocyte Esterase-Dipstick Negative /ul (Negative); Nitrite-Dipstick Negative (Negative); Occult Blood-Urine Negative /ul (Negative); Protein-Dipstick 15 mg/dl (Negative); Urine Bilirubin Dipstick Negative (Negative); Urine Clarity Clear (Clear); Urine Urobilinogen Normal (Normal)
[2019-12-03 16:30] LABS: ALB/GLOB Ratio 1.2 RATIO (0.9-2.4); AST(SGOT) 22 U/L (15-37); Alanine Aminotransfer ALT/SGPT 48 U/L (16-61); Albumin, Serum 4.2 g/dL (3.2-5.0); Alkaline Phosphatase 70 U/L (45-117); Anion Gap 10 (5-15); BUN 14 mg/dL (7-18); BUN/Creat Ratio 13.9 RATIO (10-20); Calcium,Total 9.6 mg/dL (8.5-10.1); Chloride 102 mmol/L (98-107); Creatinine, Serum 1.01 mg/dL (0.70-1.30); EST Glomerular Filtration Rate 88 mL/min (>60); Est Glom Filt Rate - Afr Amer 106 mL/min (>60); Estimated Creatinine Clearance 93.62 ml/min; Globulin 3.5 g/dL (2.2-4.2); Glucose 96 mg/dL (74-106); Potassium 3.5 mmol/L (3.5-5.1); Protein, Total 7.7 g/dL (6.4-8.2); Sodium Level 135 mmol/L (136-145)
[2019-12-03 16:31] LABS: Mucous, Urine 2+ /hpf (<or=2+)
[2019-12-03 16:33] LABS: White Blood Cells 0-5 SEEN /hpf (0-5)
[2019-12-18 07:57] VITALS: BMI 30.9
== END ==
LOC: SDC 12:36
PROVIDERS: PCP Family Medicine; Referring Provider Orthopaedic Surgery; Visit Provider Orthopaedic Surgery
DX: Z01.812 Encounter for preprocedural laboratory examination (principal)
CPT/HCPCS: 36415; 80053; 81001; 85025; 85610; 85730; 86850; 86900; 86901; 87077; 87081

== ENCOUNTER 2020-01-09 12:30 | Outpatient (RCR) | payer OTHER, SELFPAY ==
[2019-10-21 13:57] VITALS: BMI 30.4
--- NOTE | 2019-10-28 17:12 | HP.PTEVAL ---
Patient's Visit Information EDWARD BUTTS is a 39 year old M referred to Physical Therapy by Fabien Lynn DO with a diagnosis of NECK PAIN. Date of Evaluation: 10/28/19 Physical Therapist: Evelyne Li PT, Cert MDT - Visit Plan Frequency: 2-3x /Week Duration: 4-6 Weeks Plan: POSTURE CORRECTION/STRENGTHENING, INSTRUCTION IN APPROPRIATE BODY MECHANICS AND ACTIVITY MODIFICATIONS. TABITHA UE ROM, STRETCHING AND STRENGTHENING. HEP INSTRUCTION. - Subjective Findings: Diagnosis: C45 DISC HERNIATION. Work/Leisure: [employer]IVATE [employer]UR[employer]. HOURS VARY. 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 POTENTIAL FOR PHYSICAL WORK,. Disability: NO. Present symptoms: LEFT NECK PAIN. LEFT HAND INTERMITTENT NUMBNESS. RECENT RIGHT CTR SURGERY AUG 26 2019. LEFT SHOULDER AND BICEP PAIN. NO RIGHT UE SX'S. HEADACHES ONCE IN A WHILE. Present since: 4-5 MONTHS AGO WITH SHLD AND ARM SX'S STARTING END OF AUG 2019. Pain Scale: Worst - 7/10 Least - 0/10. Currently: 0/10. Commenced as a result of: NO APPARENT REASON. Symptoms at onset: NECK. Worse: MVMT, RAISING LEFT ARM HIGH, CERTAIN SLEEP POSITIONS, TRYING TO LIFT ANYTHING, LOOKING DOWN. Better: PAIN MEDICATION, CHANGING POSTION. Disturbed sleep: YES. Previous history/Previous treatment: UNREMARKABLE PRIOR TO THIS EPISODE. THIS EPISODE STEROID INJECTIONS - NE. MEDROL DOSE AIXA - NE. EX'S GIVEN BY CARDOZA - AGGREVATED IT BUT NO WORSE OVER-ALL. Dizziness: NO. Tinnitis: NO. Nausea: NO. Shortness of Breath: NO. Difficulty Swollowing: NO. Gait: NO. Accidents: NO. Unexplained weight loss: NO. Imaging: NECK X-RAYS. NECK AND LEFT SHLD MRI'S. PATIENT REPORTS THEY SAW SOME FRAYING IN HIS LEFT ROTATOR CUFF BUT ALSO A C45 DISC HERNATION. PMH/Recent major surgery: A PLATE AND 7 SCREWS IN LEFT LEG 2003 - BASKETBALL. OTHER: APPT PENDING WITH DR. LANDERS NOV 05 2017. - Objective Sitting Posture/Standing Posture: POOR. Active Correction of posture: NE. Other Observations: INDEP GAIT AND TRANSFERS. Motor deficit: RIGHT UE 5/5. LEFT SHLD FLEX 3-/5, ABD 2/5, ER 2/5 IR 3-/5. TABITHA SCIENTIFIC PROGRAMMER STRENGTH 80 LBS. NO PAIN WITH TESTING. Sensory deficit: TABITHA UE LIGHT TOUCH SENSATION INTACT AND SYMMETRICAL. ROM deficit: RIGHT UE WNL. LEFT SHLD FLEX 160 DEG, ABD 90 DEG. PAIN WITH TESTING. Reflexes: NT. Dural Signs: POSTIVE LUE. Cervical Mvmt Loss: Flex: NIL - INCREASES NECK PAIN. Pro: NIL. Ext: MIN - INCREASES NECK PAIN. EXT TO THE LEFT - INCREASES NECK AND LEFT SHLD PAIN. Ret: MOD - INCRASES NECK PAIN. RSB: MIN - LEFT NECK AND SHLD PAIN INCREASE. LSB: MIN - PRODUCES RIGHT NECK PAIN. R Rot: MIN - LEFT NECK PAIN. L Rot: MIN - NE. Postural strength: POOR - Goals Goal 1:: DECREASE C/O NECK AND LEFT UE SX'S. Goal Time Frame: 4-6 Weeks Goal 2:: IMPROVE PERSONAL CARE, LIFTING, READING, SLEEP, WORK, DRIVING AND RECREATIONAL FUNCTION. Goal Time Frame: 4-6 Weeks Goal 3:: INSTRUCT IN PROPHYLAXIS Goal Time Frame: 4-6 Weeks - Rehabilitation Potential Rehabilitation Potential: Fair - Anticipated Interventions Patient/Client Instruction: Educate patient on: Condition, Plan of Care, Risk Factors, Benefits of Fitness Program For the Purpose of:: To improve self management Therapeutic Exercise to Include: Strength training, Body mechanics, Postural training, Flexibilty training, Scapular Strength/Stabilization For the Purpose of:: To decrease pain, To increase ROM, To improve muscle performance and motor function, To increase tolerance to activity/condition/position, To improve ability of physical actions for home/community/work/leisure Cryotherapy (ice pack, ice massage): Yes Thermo therapy (hot pack): Yes Ultrasound (thermal/non thermal): Yes For the Purpose of:: To decrease pain, To improve nutrient delivery to tissue Thank you for the opportunity to evaluate your patient. For Medicare and Medicare HMO plans, please review the plan of care and approve it. It will need to be FAXED BACK to us at [phone] for Medicare purposes. For Medicare only, by signing this I certify the plan of care. Please let me know if there are questions or concerns regarding this plan of care. Physician Signature: Date:
--- NOTE | 2019-12-02 16:15 | HP.PTREVAL_ITS ---
Fabien Lynn, DO, It has been my pleasure to treat EDWARD BUTTS over the last 8 visits for NECK PAIN. Please see the progress note below for an update on the physical therapy plan of care! Subjective: PATIENT REPORTS HIS LEFT ARM FELT PRETTY GOOD AFTER LAST SESSION FOR ABOUT AN HOUR AND THEN IT WAS BACK TO HURTING LIKE NORMAL. DRIVING BACK AND FORTH TO [place] FOR WORK AND WENT TO FISHING EXPO. GOING BACK TO [place] AFTER PT TODAY FOR WORK AGAIN. WILLING TO DO TRACTION AGAIN. SLEEPING BETTER. Objective/Function: PATIENT WAS SEEN TODAY FOR RE-ASSESSMENT OF PROGRESS TOWARD THE SET PT GOALS AND THE NEED FOR FURTHER PHYSICAL THERAPY VS READINESS FOR DISCHARGE. PATIENT OVER ALL HAS SIMILAR COMPLAINTS COMPARED TO INITIAL EVAL. HIS LEFT SHOULDER ACTIVE ROM HAS IMRPOVED INTO ABD BUT HIS ARM IS STILL WEAK AND HE REPORTS NOT BEING ABLE TO EVEN LIFT A GALLON OF MILK WITH THAT ARM. HE CONTINUES TO HAVE COMPLAINT OF NECK AND SHOULDER PAIN WELL. UPON EXAM TODAY: Motor deficit: LEFT SHLD FLEX 3-/5, ABD 3-/5, ER 2/5 IR 3+/5. TABITHA SUPERVISOR LANDSCAPE STRENGTH GROSLY 80 LBS WHICH IS THE SAME AT EVAL. NO PAIN WITH TESTING OF SUPERVISOR LANDSCAPE BUT ROM AND STRENGTH TESTING OF LEFT UE PROVOKES PAIN. ROM deficit: RIGHT UE WNL. LEFT SHLD FLEX 160 DEG, ABD 158 DEG. SUPINE PASSIVE SHOULDER FLEXION IS ALSO 160 DEG. PAIN WITH TESTING. LEFT SHLD IR AND ER ARE WFL PASSIVELY IN SUPINE WITH 90 DEG ABD. Reflexes: NT. Dural Signs: POSTIVE LUE. Cervical Mvmt Loss: Flex: NIL - INCREASES NECK PAIN. Pro: NIL. Ext: MIN - INCREASES NECK PAIN. EXT TO THE LEFT - INCREASES NECK AND LEFT SHLD PAIN. Ret: MOD - MILDLY INCRASES NECK PAIN. RSB: MIN - LEFT NECK AND SHLD PAIN/ [place] INCREASE. LSB: MIN - PRODUCES RIGHT NECK STIFFNESS. R Rot: MIN - NO PAIN. L Rot: MIN - PRODUCES LEFT NECK PAIN. Postural strength: POOR. PATIENT REPORTS HE GETS THE MOST NECK PAIN WITH LOOKING DOWN. NECK OSWESTRY SCORE HAS IMPROVED FROM 26 TO 20 BUT STILL SHOWING SEVERE DISABILITY. Plan Plan: APOLLO'T WITH DR. LANDERS PENDING TOMORROW. CONTINUE PT MONDAY IF FURTHER TREATMENT ORDERED. Goals Goal 1:: DECREASE C/O NECK AND LEFT UE SX'S. Goal Time Frame: 4-6 Weeks Goal Progress: Not Progressing Goal 2:: IMPROVE PERSONAL CARE, LIFTING, READING, SLEEP, WORK, DRIVING AND RECREATIONAL FUNCTION. Goal Time Frame: 4-6 Weeks Goal Progress: Not Progressing Goal 3:: INSTRUCT IN PROPHYLAXIS Goal Time Frame: 4-6 Weeks Goal Progress: Not Progressing Anticipated Interventions Patient/Client Instruction: Educate patient on: Condition, Plan of Care, Risk Factors, Benefits of Fitness Program For the Purpose of:: To improve self management Therapeutic Exercise to Include: Strength training, Body mechanics, Postural training, Flexibilty training, Scapular Strength/Stabilization For the Purpose of:: To decrease pain, To increase ROM, To improve muscle performance and motor function, To increase tolerance to activity/condition/position, To improve ability of physical actions for home/community/work/leisure Cryotherapy (ice pack, ice massage): Yes Thermo therapy (hot pack): Yes Ultrasound (thermal/non thermal): Yes For the Purpose of:: To decrease pain, To improve nutrient delivery to tissue Please do not hesitate to contact me at [phone] by phone or if you have questions or concerns regarding this new plan of care! Sincerely, Evelyne Li, PT, Cert MDT
--- NOTE | 2020-02-23 12:28 | HP.PTDCSUM ---
It has been my pleasure to treat EDWARD BUTTS referred by Fabien Lynn DO, with the diagnosis of NECK PAIN for a total of 18 visit(s). Discharge Date: Please see the following information for a summary of their discharge status. Subjective: PATIENT REPORTS HIS LEFT SHOULDER IS A LITTLE SORE/STIFF TODAY BUT HE DOESN'T THINK HE OVER DID IT WITH EX LAST VISIT. LEFT SHOULDER Pain Intensity (Out of 10): 3 NECK PAIN Pain Intensity (Out of 10): Unrated % Improvement: 50 Objective/Function: SMOOTHER MOTION WITH WALL WIPES TODAY AND PATIENT REPORTS LESS DISCOMFORT WITH THIS EX ALSO. Goal 1:: DECREASE C/O NECK AND LEFT UE SX'S. Goal Progress: Not Progressing Goal 2:: IMPROVE PERSONAL CARE, LIFTING, READING, SLEEP, WORK, DRIVING AND RECREATIONAL FUNCTION. Goal Progress: Not Progressing Goal 3:: INSTRUCT IN PROPHYLAXIS Goal Progress: Not Progressing Plan: CONT PER POC INDICATED. If there are questions or concerns regarding this patient's physical therapy, please feel free to call me at [phone]. Thank you for the referral of this patient. Sincerely, Evelyne Li, PT, Cert MDT
== END 2020-01-09 19:00 | disposition home or self-care (01) ==
LOC: PT 12:30
PROVIDERS: Family Provider Family Medicine; PCP Family Medicine; Referring Provider Orthopaedic Surgery; Visit Provider Orthopaedic Surgery
DX: M50.221 Other cervical disc displacement at C4-C5 level (principal); M25.512 Pain in left shoulder
CPT/HCPCS: 97012; 97035; 97110; 97161; 97164; 97530

== ENCOUNTER → 2020-04-21 14:14 | Outpatient (CLI) | payer OTHER, SELFPAY ==
[2019-12-18 07:57] VITALS: BMI 30.9
== END ==
PROVIDERS: PCP Family Medicine; Visit Provider Clinical Nurse Specialist Acute Care
DX: Z46.89 Encounter for fitting and adjustment of other specified devices (principal)

== ENCOUNTER → 2020-04-23 13:00 | Outpatient (CLI) | payer OTHER, SELFPAY ==
[2019-12-18 07:57] VITALS: BMI 30.9
== END ==
PROVIDERS: PCP Family Medicine; Visit Provider Clinical Nurse Specialist Acute Care
DX: G47.33 Obstructive sleep apnea (adult) (pediatric) (principal)

== ENCOUNTER → 2020-07-14 16:57 | Outpatient (CLI) | payer BC, SELFPAY ==
[2020-07-14 16:48] VITALS: BMI 30.9
--- NOTE | 2020-07-14 16:58 | RAD_ITS ---
STUDY: X-RAY CHEST REASON FOR EXAM: Male, 40 years old. sob recently TECHNIQUE: PA and lateral COMPARISON: None. FINDINGS: There is very minor subtle reticulonodular interstitial thickening in left lower lobe possibly inflammatory. Right lung is clear.. There is no demonstrated pleural abnormality. Normal size heart. Normal mediastinum and shola. Normal visualized pulmonary arteries. Normal visualized aortic arch and descending thoracic aorta. Normal visualized thoracic spine. Normal visualized ribs, clavicles, and shoulders. There is no demonstrated abnormality of the visualized soft tissue structures of the upper abdomen. RAD/Chest PA and Lateral IMPRESSION: Mild asymmetric reticulonodular interstitial thickening in left lower lobe possibly inflammatory.. Clinical correlation recommended Electronically Signed: Rahul Xavier MD at 18:01 EDT , Service support ,
== END ==
PROVIDERS: PCP Family Medicine; Referring Provider Physician Assistant Surgical; Visit Provider Physician Assistant Surgical
DX: R06.02 Shortness of breath (principal)
CPT/HCPCS: 71046

== ENCOUNTER → 2020-08-06 07:02 | Outpatient (CLI) | payer BC, SELFPAY ==
[2020-07-14 16:48] VITALS: BMI 30.9
--- NOTE | 2020-08-06 08:15 | CT_ITS ---
STUDY: CT CHEST WITHOUT CONTRAST REASON FOR EXAM: Male, 40 years old. SOB SINCE June, patient THINKS HE ASPIRATED FROM HIS CPAP, F/U CXR SHOWING LLL INTERSTITIAL THICKENING RADIATION DOSAGE (If Supplied By Facility): CTDIvol = ( 13.73 ) mGy, DLP = ( 459.56 ) mGycm TECHNIQUE: Transaxial imaging was performed without the administration of intravenous contrast material. Multiplanar coronal and sagittal images were reformatted. Individualized dose optimization techniques were used for this CT. COMPARISON: Comparison is made with prior chest radiograph dated 07/14/2020. FINDINGS: Small benign-appearing bilateral axillary lymph nodes. The lungs are normal. There is no demonstrated pleural abnormality. Normal heart and pericardium. There are multiple small lymph nodes within the mediastinum, which are normal in size and morphology most compatible with reactive lymph hyperplasia. Normal hilar regions. Normal unenhanced pulmonary arteries. Normal aorta arch and descending thoracic aorta. Normal osseous structures. There is no demonstrated abnormality of the visualized upper abdomen. CT/Chest without Contrast IMPRESSION: Normal unenhanced CT Chest examination. Electronically Signed: Derrick Carl, at 8:46 EDT , Service support ,
--- NOTE | 2020-08-06 15:40 | PFTCOMP ---
COMPLETE PULMONARY FUNCTION TEST INTERPRETATION Brief HPI: Patient is a 40 year old male, currently under the care of Dr. Aragon, who presents to [facility] for complete pulmonary function tests secondary to diagnosis of dyspnea. Respiratory therapist reports good effort and reproducible results. Interpretation: Forced expiration spirometry shows no large airways obstructive ventilatory defect with an FEV1 of 124% predicted. There is no significant bronchodilator response by strict ATS criteria. Spirograms are of good quality and plateau normally. The respiratory flow volume loop shows a normal pattern. Lung volumes by body plethysmography show a normal total lung capacity at 6.83 L, 105% predicted. All other lung volumes are within normal limits. Diffusion capacity by carbon monoxide is normal at 122% predicted. The airway resistance is normal. No previous pulmonary function tests were available for review. Impression: These pulmonary function tests are within normal limits. Consider bronchoprovocation study if asthma is a consideration clinically.
== END ==
PROVIDERS: PCP Family Medicine; Visit Provider Family Medicine
DX: R06.02 Shortness of breath (principal)
CPT/HCPCS: 71250; 94060; 94726; 94729

== ENCOUNTER → 2021-06-14 09:35 | Outpatient (CLI) | payer BC, SELFPAY | PROVIDERS: PCP Family Medicine; Visit Provider Physician Assistant Surgical | DX: J02.9 Acute pharyngitis, unspecified (principal) | CPT/HCPCS: 87635; U0005; U0003 ==

== ENCOUNTER 2021-06-15 17:37 | Emergency (ER) | payer BC, SELFPAY ==
[2021-06-15 17:39] VITALS: BP 135/80; PULSE 107; RESP 22; TEMP 37.3; O2SAT 97; BMI 27.8
[2021-06-15 17:42] VITALS: BP 135/80; PULSE 107; RESP 22; TEMP 37.3; O2SAT 97
[2021-06-15 18:37] VITALS: O2SAT 98
[2021-06-15] MEDS: predniSONE 20 MG Tablet 60 MG PO (19:14)
[2021-06-15 19:30] LABS: Absolute Lymphocyte Count 0.77 X10^3/uL (0.83-4.51); Basophil# 0.01 X10^3/uL; Basophil% 0.1 % (0-1); Eosinophil# 0.02 X10^3/uL; Eosinophils% 0.3 % (0-5); Hematocrit 46.9 % (40-54); Hemoglobin 15.5 g/dL (13.0-16.5); Lymphocyte # 0.77 X10^3/ul (0.83-4.51); Lymphocyte % 10.6 % (19-41); Mean Corpuscular Hgb 29.3 pg (27.0-32.0); Mean Corpuscular Volume 88.7 fL (80-94); Mean Platelet Vol. 10.3 fl (6.2-12.0); Monocyte# 0.45 X10^3/uL; Monocyte% 6.2 % (0-10); NRBC Flagged by Analyzer 0 % (0-5); Neutrophil # 5.98 X10^3/uL (2.7-7.7); Neutrophil % 82.1 % (47-70); Platelet Count 213 K/mm3 (150-450); RBC Distribution Width CV 12.3 % (11.6-14.6); RBC Distribution Width SD 40.2 fl (35.1-43.9); Red Blood Count 5.29 M/mm3 (4.6-6.2); White Blood Count 7.3 K/mm3 (4.4-11.0)
[2021-06-15 19:37] VITALS: RESP 23
[2021-06-15 19:42] VITALS: BP 128/84; PULSE 95; RESP 23; TEMP 37.1; O2SAT 95
[2021-06-15 19:45] LABS: Anion Gap 7 (5-15); BUN 16 mg/dL (7-18); BUN/Creat Ratio 17.9 RATIO (10-20); Chloride 104 mmol/L (98-107); Creatinine, Serum 0.89 mg/dL (0.70-1.30); EST Glomerular Filtration Rate 101 mL/min (>60); Est Glom Filt Rate - Afr Amer 122 mL/min (>60); Estimated Creatinine Clearance 107.81 ml/min; Glucose 98 mg/dL (74-106); Sodium Level 137 mmol/L (136-145)
--- NOTE | 2021-06-15 21:41 | ED.VIS.DYS ---
HPI History of Present Illness Chief Complaint: Shortness of Breath Informant: patient Onset/Context/Timing Onset: Weeks Context: sudden Timing: Continuous and Waxes and wanes Quality: Positive for Dyspnea on exertion Current Severity: Mild Maximum Severity: Moderate Worsened by: Exertion and Coughing Relieved by: Nothing Associated Symptoms cough, rhinorrhea, post nasal drip, fever, chills and sweats; Negative for ear pain, clear sputum, white sputum, yellow sputum or green sputum Chest Pain: Positive for None Narrative Narrative: Patient is a 41-year-old male had a positive Covid test at the urgent care. His symptoms started on June 08. He presents with myalgias, arthralgias, headache, photophobia, sore throat and nonproductive cough. He also complains of chest tightness and shortness of breath. He has dyspnea on exertion. He does report nausea without vomiting diarrhea. He denies dysuria, frequency, urgency or hematuria. He reports decreased urine output. He denies skin lesions. Denies swelling of his joints. PE Risk Factors: Negative for Cancer, OCP + Smoking + > 35, Prior DVT or PE, Recent immobilization, Recent surgery and Recent travel Prior similar symptoms: Yes Recent Illness/Hospitalization: Yes [facility] Medical History (Updated 06/15/21 @ 21:[address] Jeremiah Bridges MD) Back pain Carpal tunnel syndrome Influenza A Knee pain Limb weakness Numbness and tingling Shoulder pain Home Medications apple cider vinegar 450 mg PO DAILY 09/19/17 [History Last Taken Unknown] nortriptyline 10 mg PO DAILY 09/19/17 [History Last Taken Unknown] tramadol 50 mg PO Q6H PRN PRN 09/19/17 [History Last Taken Unknown] valacyclovir 500 mg PO DAILY 09/19/17 [History Last Taken Unknown] sertraline 100 mg PO DAILY 05/26/19 [History Last Taken Unknown] dextroamphetamine-amphetamine 30 mg tablet 30 mg PO DAILY 10/21/19 [History Last Taken Unknown] dextroamphetamine-amphetamine 10 mg PO PRN PRN 12/03/19 [History Last Taken Unknown] valacyclovir 1,000 mg PO PRN PRN 12/03/19 [History Last Taken Unknown] Allergy/AdvReac Type Severity Reaction Status Date / Time betamethasone Allergy Unknown Verified 06/15/21 17:39 [From Celestone] betamethasone sodium Allergy Unknown Verified 06/15/21 17:39 phosphate [From Celestone] Family History Father Heart disease Hypertension Surgical History History of ankle surgery Hx of colonoscopy Hx of lymph node biopsy Lower extremity surgery planned Normal colonoscopy Social History Smoking Status: Current some day smoker tobacco type: pipe second hand exposure: No alcohol intake: never substance use type: does not use caffeine: Yes what type of physical activity do you participate in: none frequency: does not exercise seatbelt use: always ROS ROS ED Constitutional Constitutional ED: Reports chills, fever(s) and sweats; Denies weight loss Eyes Eyes: Denies blurry vision, change in vision or diplopia ENT ENT ED: Reports rhinorrhea and sore throat; Denies ear pain Cardiovascular Cardiovascular: Reports orthopnea and paroxysmal nocturnal dyspnea; Denies chest pain or palpitations Respiratory/Chest Respiratory/Chest: Reports cough, dyspnea, orthopnea and paroxysmal nocturnal dyspnea; Denies dyspnea on exertion or sputum Gastrointestinal Gastrointestinal: Reports nausea; Denies abdominal pain, diarrhea or vomiting Genitourinary Genitourinary ED: Reports dysuria, hematuria and urinary frequency Musculoskeletal Musculoskeletal: Reports arthralgias, back pain and myalgias Integumentary Reports rash Neurologic Neurologic: Reports headache(s) and weakness; Denies paresthesias Endocrine Endocrinology: Denies polydipsia, polyphagia or polyuria Hematologic/Lymphatic Hematologic/Lymphatic: Denies easy bruising EXAM Physical Exam Const Vital Signs: 06/15/21 17:39 06/15/21 17:42 06/15/21 18:37 Temperature 99.1 F 99.1 F Temperature Source Temporal Temporal Pulse Rate 107 H 107 H Respiratory Rate 22 H 22 H Respiratory Effort Normal Non-Labored Respiratory Depth Normal Respiratory Pattern Normal Blood Pressure 135/80 H 135/80 H Blood Pressure Mean 98 98 Pulse Ox 97 97 Oxygen Delivery Method Room Air Room Air Room Air 06/15/21 19:37 06/15/21 19:42 Temperature 98.8 F Temperature Source Temporal Pulse Rate 95 Respiratory Rate 23 H 23 H Respiratory Effort Respiratory Depth Respiratory Pattern Blood Pressure 128/84 H Blood Pressure Mean 98 Pulse Ox 95 Oxygen Delivery Method Room Air Positive well nourished and well developed General Appearance ED: well developed and other Patient looks ill but not toxic. HEENT Reports TM's clear and dry mucous membranes HEENT Narrative: Head is normocephalic. Ears are normal. Posterior pharynx unremarkable. atraumatic Tympanic Membrane ED: Yes TM's clear Mouth ED: Yes dry mucous membranes Mouth: dry mucous membranes Eyes PERRL and EOMs intact bilaterally General Eye ED: Negative for pale conjunctiva or scleral icterus Neck no lymphadenopathy, supple, no meningeal signs and no JVD Resp normal respiratory effort and No clear to auscultation bilaterally Auscultation: wheezes scattered wheezes Cardio regular rate, regular rhythm, S1 normal heart sound, S2 normal heart sound and no murmurs GI non-tender, non-distended and no masses Auscultation: normoactive bowel sounds Palpation: soft; Negative for hepatomegaly or splenomegaly Back/Spine normal to inspection; Negative for no CVA tenderness Extremity normal to inspection General Extremety ED: Negative for edema or tenderness General Extremity: Negative for edema Neuro oriented x3, CN's II-XII intact bilaterally and no sensory deficits noted Sensorium / Orientation: alert Motor Exam: strength 5/5 throughout Psych mental status grossly normal Thought Process: normal thought process Skin no wounds and skin turgor normal Lesions: no lesions Rashes: no rashes MDM MDM Lab Data Attestation: I reviewed the patient's lab results. Lab results narrative: CBC is a couple renal function electrolytes are unremarkable. Patient did feel slight improvement after fluids and medication. Labs: Laboratory Results - last 24 hr 06/15/21 06/15/21 19:10 19:10 WBC 7.3 RBC 5.29 Hgb 15.5 Hct 46.9 MCV 88.7 MCH 29.3 MCHC 33.0 RDW Std Deviation 40.2 RDW Coeff of Airam 12.3 Plt Count 213 MPV 10.3 Immature Gran % (Auto) 0.700 Neut % (Auto) 82.1 H Lymph % (Auto) 10.6 L [place] % (Auto) 6.2 Eos % (Auto) 0.3 Baso % (Auto) 0.1 Absolute Neuts (auto) 6.0 Absolute Lymphs (auto) 0.77 L Nucleated RBC % 0 Sodium 137 Potassium 4.0 Chloride 104 Carbon Dioxide 26.0 Anion Gap 7 BUN 16 Creatinine 0.89 Estim Creat Clear Calc 107.81 Est GFR (MDRD) Af Amer 122 Est GFR (MDRD) Non-Af 101 BUN/Creatinine Ratio 17.9 Glucose 98 Calcium 9.0 Discharge Plan Triage Chief Complaint: Shortness of Breath ED Provider: Jeremiah Bridges Dx/Rx/DC Orders Clinical Impression: COVID-19, Mild dehydration Instructions: Coronavirus Disease 2019 (COVID-19): Caring for Yourself or Others Prescriptions: No Action dextroamphetamine-amphetamine [Adderall] 30 mg tablet 30 mg PO DAILY RF: 0 valacyclovir 500 MG tablet 500 mg PO DAILY RF: 0 tramadol 50 MG tablet 50 mg PO Q6H PRN PRN (Reason: Pain) RF: 0 nortriptyline 10 MG capsule 10 mg PO DAILY RF: 0 apple cider vinegar 300 MG tablet 450 mg PO DAILY RF: 0 sertraline 100 MG tablet 100 mg PO DAILY RF: 0 valacyclovir 1,000 MG tablet 1,000 mg PO PRN PRN (Reason: PRN) RF: 0 dextroamphetamine-amphetamine 30 MG tablet 10 mg PO PRN PRN (Reason: ADHD) RF: 0 Other Ambulatory Orders: COVID Outpatient Monoclonal Antibody Referral (Routine) Location: None Selected Ordered By: Dr. Jeremiah Bridges Primary Care Provider: Dmitry Aragon Referrals: Dmitry Aragon MD [Primary Care Provider] - Disposition Disposition: Home, Self Care
[2021-06-15 21:53] VITALS: BP 117/73; PULSE 85; RESP 29; O2SAT 95
== END 2021-06-15 22:01 | disposition home or self-care (01) ==
PROVIDERS: Emergency Provider Emergency Medicine; PCP Family Medicine
DX: U07.1 COVID-19 (principal); E86.0 Dehydration
CPT/HCPCS: 80048; 85025; 96360; 96361; 99284; J7030; A4216

== ENCOUNTER 2021-06-17 15:28 | Outpatient (CLI) | payer BC, SELFPAY ==
--- NOTE | 2021-06-17 15:25 | NURSING ---
Pt called as he has not shown up yet. Pt directed to correct parking area and security contacted to pick him up.
[2021-06-17] MEDS: 0.9% Saline Lock 10 ML Syringe IV (15:48)
[2021-06-17 15:55] VITALS: BP 115/81; PULSE 85; RESP 24; TEMP 37.1; O2SAT 100; BMI 27.3
--- NOTE | 2021-06-17 16:20 | NURSING ---
Pt found walking in hallway w/ iv bleeding. Iv hub noted to have disconnected from tubing. Pt assisted back to chair and infusion reattached.
[2021-06-17 16:25] VITALS: BP 113/78; PULSE 88; RESP 18; TEMP 37.4; O2SAT 99
--- NOTE | 2021-06-17 16:36 | NURSING ---
Yesi Farmer [employer] contacted to report infusion incident where IV had become disconnected for unknown amount of time during tranfusion. No new orders.
[2021-06-17 17:25] VITALS: BP 112/73; PULSE 85; RESP 16; TEMP 37.1; O2SAT 100
== END 2021-06-17 17:30 | disposition home or self-care (01) ==
LOC: ICUOUT 15:28 → MS2 15:29
PROVIDERS: PCP Family Medicine; Referring Provider Nurse Practitioner Acute Care; Visit Provider Nurse Practitioner Acute Care
DX: Z23 Encounter for immunization (principal); U07.1 COVID-19
CPT/HCPCS: J7050; M0243; A4216; Q0244

== ENCOUNTER → 2022-09-07 | Outpatient (CLI) | payer BC, SELFPAY ==
[2022-09-07 12:35] LABS: Absolute Lymphocyte Count 2.37 X10^3/uL (0.83-4.51); Absolute Neutrophil Count 5.9 X10^3/uL (2.0-7.7); Basophil# 0.05 X10^3/uL; Basophil% 0.5 % (0-1); Eosinophil# 0.14 X10^3/uL; Eosinophils% 1.5 % (0-5); Hematocrit 51.4 % (40-54); Hemoglobin 17.4 g/dL (13.0-16.5); Lymphocyte # 2.37 X10^3/ul (0.83-4.51); Lymphocyte % 25.9 % (19-41); Mean Corp Hgb Conc 33.9 g/dL (32-36); Mean Corpuscular Hgb 29.5 pg (27.0-32.0); Mean Corpuscular Volume 87.1 fL (80-94); Mean Platelet Vol. 10.1 fl (6.2-12.0); Monocyte# 0.61 X10^3/uL; Monocyte% 6.7 % (0-10); NRBC Flagged by Analyzer 0 % (0-5); Neutrophil # 5.94 X10^3/uL (2.7-7.7); Platelet Count 281 K/mm3 (150-450); RBC Distribution Width CV 11.9 % (11.6-14.6); RBC Distribution Width SD 37.7 fl (35.1-43.9); White Blood Count 9.2 K/mm3 (4.4-11.0)
[2022-09-07 13:13] LABS: ALB/GLOB Ratio 1.1 RATIO (0.9-2.4); AST(SGOT) 21 U/L (15-37); Alanine Aminotransfer ALT/SGPT 51 U/L (16-61); Albumin, Serum 4.2 g/dL (3.2-5.0); Alkaline Phosphatase 81 U/L (45-117); Anion Gap 11 (5-15); BUN 17 mg/dL (7-18); BUN/Creat Ratio 16.7 RATIO (10-20); Calcium,Total 9.9 mg/dL (8.5-10.1); Chloride 103 mmol/L (98-107); Cholesterol 267 mg/dL (200); Creatinine, Serum 1.02 mg/dL (0.70-1.30); EST Glomerular Filtration Rate 86 mL/min (>60); Est Glom Filt Rate - Afr Amer 104 mL/min (>60); Globulin 3.8 g/dL (2.2-4.2); Glucose 106 mg/dL (74-106); High Density Lipoprotein 39 mg/dL; Potassium 3.8 mmol/L (3.5-5.1); Sodium Level 139 mmol/L (136-145); Triglycerides 292 mg/dL; Very Low Density Lipoprotein 58 mg/dL (5-40)
== END | disposition home or self-care (01) ==
LOC: LAB 09:16
PROVIDERS: PCP Family Medicine; Visit Provider Family Medicine
DX: Z00.00 Encounter for general adult medical examination without abnormal findings (principal)
CPT/HCPCS: 36415; 80053; 80061; 85025

== ENCOUNTER 2022-11-03 17:31 | Observation (INO) | payer BC, SELFPAY ==
[2022-11-03 17:32] VITALS: BP 147/98; PULSE 105; RESP 12; TEMP 36.4; O2SAT 99; BMI 29.9
[2022-11-03 17:52] VITALS: BP 131/97; PULSE 99; RESP 15
--- NOTE | 2022-11-03 18:09 | EKG12_ITS ---
Test Reason : PALP Blood Pressure : / mmHG Vent. Rate : 093 BPM Atrial Rate : 093 BPM P-R Int : 142 ms QRS Dur : 080 ms QT Int : 314 ms P-R-T Axes : 054 060 -58 degrees QTc Int : 390 ms Normal sinus rhythm ST & T wave abnormality, consider inferior ischemia ST & T wave abnormality, consider anterolateral ischemia Abnormal ECG Confirmed by DWAYNE FINCH, SUMANTH ([id number]), international editorial producer PRETTY FREDERICK ([id number]) on 11/07/2022 12:12:34 PM Referred By: FILIBERTO Confirmed By:SUMANTH RICE MD
--- NOTE | 2022-11-03 18:11 | EDS_ITS ---
HPI History of Present Illness Chief Complaint: Palpitations Narrative Narrative: Patient presents with on and off chest pain and palpitations. He was seen by PCP and sent to the emergency department for EKG changes. Currently he is asymptomatic, about 2 weeks ago he had palpitations he put an apple watch on and it read atrial fibrillation with a rate in the 140s. He has no pleuritic component no DVT or PE risk factors no lower extremity edema or calf pain. No back pain or tearing sensation PFSH PFS Medical History (Updated 11/03/22 @ 19:[address] Essence Lopez MD) Back pain Carpal tunnel syndrome Influenza A Knee pain Limb weakness Numbness and tingling Shoulder pain Home Medications nortriptyline 10 mg capsule 10 mg PO DAILY 09/19/17 [History Last Taken Unknown] tramadol 50 mg tablet 50 mg PO Q6H PRN PRN Pain 09/19/17 [History Last Taken Unknown] valacyclovir 500 mg tablet 500 mg PO DAILY 09/19/17 [History Last Taken Unknown] sertraline 100 mg tablet 100 mg PO DAILY 05/26/19 [History Last Taken Unknown] dextroamphetamine-amphetamine 30 mg tablet (Adderall) 30 mg PO DAILY 10/21/19 [History Last Taken Unknown] dextroamphetamine-amphetamine 30 mg tablet 10 mg PO PRN PRN ADHD 12/03/19 [History Last Taken Unknown] valacyclovir 1 gram tablet 1,000 mg PO PRN PRN PRN 12/03/19 [History Last Taken Unknown] aspirin 11/03/22 [History Last Taken Unknown] eluxadoline 100 mg tablet (Viberzi) mg 11/03/22 [History Last Taken Unknown] pravastatin 40 mg tablet mg 11/03/22 [History Last Taken Unknown] Allergy/AdvReac Type Severity Reaction Status Date / Time betamethasone Allergy Unknown Verified 11/03/22 17:32 [From Celestone] betamethasone sodium Allergy Unknown Verified 11/03/22 17:32 phosphate [From Celestone] Family History Father Heart disease Hypertension Surgical History History of ankle surgery Hx of colonoscopy Hx of lymph node biopsy Lower extremity surgery planned Normal colonoscopy Social History Smoking Status: Current some day smoker tobacco type: pipe second hand exposure: No alcohol intake: never substance use type: does not use caffeine: Yes what type of physical activity do you participate in: none frequency: does not exercise seatbelt use: always ROS ROS ED ROS Narrative Past medical history: Reviewed Medications: Reviewed Social history: Noncontributory Review of systems: All systems negative except as indicated General: No fever Eyes: No visual changes ENT: No upper airway congestion, normal voice Neck: No neck pain Cardiovascular: Chest pain as in HPI Respiratory: No shortness of breath or cough Gastrointestinal: No abdominal pain, nausea vomiting or diarrhea Genitourinary: No dysuria Musculoskeletal: Denies myalgias no difficulty with ambulation Skin: No rash Neurological: No memory loss, confusion or any focal weakness Psych: No recent behavioral changes Hematologic: No easy bleeding or easy bruising EXAM Physical Exam Narrative Exam Narrative: Physical exam General: Well nourished, Well developed, No Acute Distress Head: Normocephalic, Atraumatic Eyes: Conjunctiva not pale ENT: Moist mucous membranes Neck: Supple, Nontender, No lymphadenopathy Cardiovascular: Regular rate, Regular rhythm Respiratory: No distress, CTA bilaterally Abdomen: Soft, Nontender, Nondistended Back: Nontender, Normal Inspection. Negative for: CVA tenderness Extremities: Nontender, No edema Skin: Normal color, No rash Neurological: Alert, Normal Strength, Normal Sensation Psychological: Normal affect Const Vital Signs: 11/03/22 17:32 11/03/22 17:50 11/03/22 17:52 Temperature 97.6 F L Temperature Source Temporal Pulse Rate 105 H 99 Respiratory Rate 12 15 Respiratory Effort Normal Non-Labored Blood Pressure 147/98 H 131/97 H Blood Pressure Mean 114 108 Pulse Ox 99 Oxygen Delivery Method Room Air 11/03/22 18:21 Temperature Temperature Source Pulse Rate Respiratory Rate Respiratory Effort Blood Pressure Blood Pressure Mean Pulse Ox 95 Oxygen Delivery Method Room Air Heart Score History: Moderately Suspicious ECG: Significant ST-Depression Age: </= 45 years Risk Factors: >/= 3 Risk Factors or History of CAD Troponin: >/=3 x Normal Limit Score: 7 MDM MDM Lab Data Labs: Laboratory Results - last 24 hr 11/03/22 11/03/22 17:50 17:50 WBC 6.7 RBC 5.52 Hgb 16.1 Hct 49.0 MCV 88.8 MCH 29.2 MCHC 32.9 RDW Std Deviation 40.1 RDW Coeff of Airam 12.2 Plt Count 235 MPV 10.7 Immature Gran % (Auto) 0.200 Neut % (Auto) 65.2 Lymph % (Auto) 23.0 [place] % (Auto) 9.6 Eos % (Auto) 1.7 Baso % (Auto) 0.3 Absolute Neuts (auto) 4.3 Absolute Lymphs (auto) 1.53 Nucleated RBC % 0 Sodium 138 Potassium 3.3 L Chloride 104 Carbon Dioxide 29.0 Anion Gap 5 BUN 15 Creatinine 1.06 Estim Creat Clear Calc 89.62 Est GFR (MDRD) Af Amer 99 Est GFR (MDRD) Non-Af 82 BUN/Creatinine Ratio 14.2 Glucose 104 Calcium 9.7 Troponin I High Sens 4 Radiography Diagnostic Testing: Clinical Impression(s) from Imaging Studies Chest X-Ray 11/03/22 18:32 IMPRESSION: No radiographic evidence of acute cardiopulmonary disease. Electronically Signed: Rahul Xavier MD at 18:45 EST Reading Location ID and State: [facility] / [place] , Service support , Chest x-ray read by me and radiologist is unremarkable EKG Initial EKG: Comments: Sinus rhythm with a rate of 93. Normal MI interval. Normal QTc intervals. Patient has ST depression in V3 through V6 as well as T wave inversion and slight ST depression in the inferior leads II, III and aVF. There is no prior EKG. Interpreted by emergency doctor. Treatment and Re-Evaluation Narrative: A. Problems addressed ( does not have to be diagnoses) Chest pain EKG changes Palpitations B. Amount and/or complexity of the data (2 out of 3) 1. CBC, CMP and troponin were ordered by me I discussed the patient with who was in the room 2. Independent interpretation of test Telemetry: EKG Bedside ultrasound X-ray read by me I have thought about doing the following tests but the patient 3. Discussion of management with Dr. Dmitry Aragon who is the patient's PCP knows him well and is also worried about EKG changes. I discussed with hospitalist for admission. I also discussed the patient with cardiology, Dr. Strange who advised admission. C. Risk of complications and/or morbidity Differential diagnosis: I have considered PE, however the patient does not have any current chest pain he has no pleuritic component and no risk factors. I considered pneumothorax over the chest x-ray is negative. My worry is for ACS. Patient also had hypertension initially in the ED this will have to be monitored closely as he may have undiagnosed hypertension. He has a normal troponin here however because of his significant EKG changes and risk factors and the fact that his heart score is a 5 I will admit him. I talked to cardiology who agrees. Discharge Plan Triage Chief Complaint: Palpitations ED Provider: Otilio Thao Dx/Rx/DC Orders Clinical Impression: Chest pain, Acute electrocardiogram changes, Familial hypercholesterolemia, Hypertension Prescriptions: No Action dextroamphetamine-amphetamine [Adderall] 30 mg tablet 30 mg PO DAILY valacyclovir 500 MG tablet 500 mg PO DAILY tramadol 50 MG tablet 50 mg PO Q6H PRN PRN (Reason: Pain) nortriptyline 10 MG capsule 10 mg PO DAILY sertraline 100 MG tablet 100 mg PO DAILY Label Comments: TAKE 1 TABLET BY MOUTH EVERY DAY valacyclovir 1,000 MG tablet 1,000 mg PO PRN PRN (Reason: PRN) dextroamphetamine-amphetamine 30 MG tablet 10 mg PO PRN PRN (Reason: ADHD) pravastatin 40 mg tablet Label Comments: TAKE 1 TABLET BY MOUTH ONCE DAILY AROUND SUPPER/BEFORE BED TME Viberzi 100 mg tablet Label Comments: TAKE 1 TABLET BY MOUTH TWICE DAILY aspirin Primary Care Provider: Dmitry Aragon Referrals: Dmitry Aragon MD [Primary Care Provider] - Disposition Disposition: Acute Care Hospital [facility]
[2022-11-03 18:21] VITALS: O2SAT 95
[2022-11-03 18:27] LABS: Absolute Lymphocyte Count 1.53 X10^3/uL (0.83-4.51); Absolute Neutrophil Count 4.3 X10^3/uL (2.0-7.7); Basophil# 0.02 X10^3/uL; Basophil% 0.3 % (0-1); Eosinophil# 0.11 X10^3/uL; Eosinophils% 1.7 % (0-5); Hemoglobin 16.1 g/dL (13.0-16.5); Lymphocyte # 1.53 X10^3/ul (0.83-4.51); Mean Corp Hgb Conc 32.9 g/dL (32-36); Mean Corpuscular Hgb 29.2 pg (27.0-32.0); Mean Corpuscular Volume 88.8 fL (80-94); Mean Platelet Vol. 10.7 fl (6.2-12.0); Monocyte# 0.64 X10^3/uL; Monocyte% 9.6 % (0-10); NRBC Flagged by Analyzer 0 % (0-5); Neutrophil # 4.34 X10^3/uL (2.7-7.7); Neutrophil % 65.2 % (47-70); Platelet Count 235 K/mm3 (150-450); RBC Distribution Width CV 12.2 % (11.6-14.6); RBC Distribution Width SD 40.1 fl (35.1-43.9); Red Blood Count 5.52 M/mm3 (4.6-6.2); White Blood Count 6.7 K/mm3 (4.4-11.0)
--- NOTE | 2022-11-03 18:27 | ED.RN ---
PT TAKES FULL STRENGTH ASPIRIN DAILY, TOOK ONE THIS AM, DR. FRAZIER AWARE AND TO HOLD ASPIRIN ORDER.
--- NOTE | 2022-11-03 18:32 | RAD_ITS ---
INDICATION: chest pain EXAMINATION/TECHNIQUE: X-RAY - XR Chest 1 View COMPARISON: July 14, 2020 FINDINGS: LINES/DEVICES: None. LUNGS: No consolidation, edema or effusion. No pneumothorax. MEDIASTINUM AND CARDIOVASCULAR STRUCTURES: Cardiac silhouette not enlarged. Central airways and mediastinal contour are unremarkable. BONES AND SOFT TISSUES: Unremarkable. RAD/Chest 1 View (Portable) IMPRESSION: No radiographic evidence of acute cardiopulmonary disease. Electronically Signed: Rahul Xavier MD at 18:45 EST ,
[2022-11-03 18:49] LABS: Anion Gap 5 (5-15); BUN 15 mg/dL (7-18); BUN/Creat Ratio 14.2 RATIO (10-20); Calcium,Total 9.7 mg/dL (8.5-10.1); Chloride 104 mmol/L (98-107); Creatinine, Serum 1.06 mg/dL (0.70-1.30); EST Glomerular Filtration Rate 82 mL/min (>60); Est Glom Filt Rate - Afr Amer 99 mL/min (>60); Estimated Creatinine Clearance 89.62 ml/min; Glucose 104 mg/dL (74-106); Potassium 3.3 mmol/L (3.5-5.1); Sodium Level 138 mmol/L (136-145); Troponin-I HS (w/2H Reflex) 4 pg/mL (3.0-78.0)
--- NOTE | 2022-11-03 19:45 | HP.PCM.HOS_ITS ---
HPI - General General Date of Admission: 11/03/22 Date of Service: 11/03/22 Chief Complaint: palpitations HPI Narrative EDWARD BUTTS, is a 42 M with a PMh as outlined who presents via the ED on 11/03/2022 with a complaint of palpitations and associated chest pain. He said about 2 weeks ago he checked his apple watch and he was in afib with a rate in the 140s. Palpitations has been episodic. He denied any dizziness, lightheadedness, nausea or vomiting, but sometimes has associated chest pain. HE saw his PCP today and was sent in to the ED o/a of EKG done by PCP which showed lateral ST depression. He has a family history of heart disease, with his father having his first heart attack in his 40s. Review of systems is otherwise negativ e. Vitals in the ED were temp of 97.6F, WA of 105 and BP of 147/98. RR was 15 and she was saturating at 95% on room air. CBC was unremarkable and BMP showed potassium of 3.3, but was otherwise unremarkable. Chest x-ray showed no acute Process. He is being admitted to be managed for palpitations and chest pain, concerning for underlying ACS. ED doctor did speak to cardiology about possibility of patient being seen in the outpatient setting quickly for possible stress test but this would not likely happen so he has been admitted for further work-up. FOR[facility], [facility] Medical History (Updated 11/03/22 @ 19:[address] Essence Lopez MD) Back pain Carpal tunnel syndrome Influenza A Knee pain Limb weakness Numbness and tingling Shoulder pain Home Medications nortriptyline 10 mg capsule 10 mg PO DAILY 09/19/17 [History Last Taken Unknown] tramadol 50 mg tablet 50 mg PO Q6H PRN PRN Pain 09/19/17 [History Last Taken Unknown] valacyclovir 500 mg tablet 500 mg PO DAILY 09/19/17 [History Last Taken Unknown] sertraline 100 mg tablet 100 mg PO DAILY 05/26/19 [History Last Taken Unknown] dextroamphetamine-amphetamine 30 mg tablet (Adderall) 30 mg PO DAILY 10/21/19 [History Last Taken Unknown] dextroamphetamine-amphetamine 30 mg tablet 10 mg PO PRN PRN ADHD 12/03/19 [History Last Taken Unknown] valacyclovir 1 gram tablet 1,000 mg PO PRN PRN PRN 12/03/19 [History Last Taken Unknown] aspirin 11/03/22 [History Last Taken Unknown] eluxadoline 100 mg tablet (Viberzi) mg 11/03/22 [History Last Taken Unknown] pravastatin 40 mg tablet mg 11/03/22 [History Last Taken Unknown] Allergy/AdvReac Type Severity Reaction Status Date / Time betamethasone Allergy Unknown Verified 11/03/22 17:32 [From Celestone] betamethasone sodium Allergy Unknown Verified 11/03/22 17:32 phosphate [From Celestone] Family History Father Heart disease Hypertension Surgical History History of ankle surgery Hx of colonoscopy Hx of lymph node biopsy Lower extremity surgery planned Normal colonoscopy Social History Smoking Status: Current some day smoker tobacco type: pipe second hand exposure: No alcohol intake: never substance use type: does not use caffeine: Yes what type of physical activity do you participate in: none frequency: does not exercise seatbelt use: always ROS Review of Systems ROS Unobtainable: Denies due to encephalopathy Constitutional Constitutional: Denies anorexia, chills, fatigue, fever(s), malaise or weakness Eyes Eyes: Denies change in vision ENT HEENT: Denies ear pain, headache(s), hearing loss, nasal discharge or sore thr oat Cardiovascular Cardiovascular: Reports palpitations and rapid heart rate; Denies chest pain, dyspnea on exertion, edema, lightheadedness, orthopnea, paroxysmal nocturnal dyspnea or syncope Respiratory/Chest Respiratory/Chest: Denies cough, dyspnea, shortness of breath at rest or shortness of breath with exertion Gastrointestinal Gastrointestinal: Denies abdominal pain, constipation, hematochezia, nausea or other Genitourinary Genitourinary: Denies burning urination or dysuria Musculoskeletal Musculoskeletal: Denies arthralgias, joint pain or myalgias Neurologic Neurologic: Denies confusion, dizziness, focal weakness, headache(s) or seizures Psychiatric Psychiatric: Denies anxiety Hematologic/Lymphatic Hematologic/Lymphatic: Denies anemia Vital Signs Vital Signs Vital Signs: 11/03/22 17:32 11/03/22 17:50 11/03/22 17:52 Temperature 97.6 F L Temperature Source Temporal Pulse Rate 105 H 99 Respiratory Rate 12 15 Respiratory Effort Normal Non-Labored Blood Pressure 147/98 H 131/97 H Blood Pressure Mean 114 108 Pulse Ox 99 Oxygen Delivery Method Room Air 11/03/22 18:21 Temperature Temperature Source Pulse Rate Respiratory Rate Respiratory Effort Blood Pressure Blood Pressure Mean Pulse Ox 95 Oxygen Delivery Method Room Air Weight Weight: 197 lb Body Mass Index (BMI) 29.9 Physical Exam Const alert, oriented x3 and no apparent distress General Appearance: cooperative HEENT normocephalic, head/scalp atraumatic, hearing grossly normal bilaterally and moist oral mucous membranes Mouth: oral and palatal mucosa normal Eyes PERRL and EOMs intact bilaterally Neck no lymphadenopathy and supple Resp normal respiratory effort, no retractions, no use of accessory muscles and clear to auscultation bilaterally Cardio regular rate, regular rhythm, S1 normal heart sound, S2 normal heart sound and no murmurs GI normal to inspection, nondistended, normoactive bowel sounds, soft to palpation, non-tender and non-distended Extremity normal to inspection, full ROM and no clubbing, cyanosis or edema Neuro oriented x3, CN's II-XII intact bilaterally and moves all extremities Sensorium / Orientation: awake and alert Motor Exam: strength 5/5 throughout Psych affect normal Results Lab / Micro Data Result Diagrams: 11/03/22 17:50 11/03/22 17:50 Labs: Laboratory Results - last 24 hr 11/03/22 17:50: WBC 6.7, RBC 5.52, Hgb 16.1, Hct 49.0, MCV 88.8, MCH 29.2, MCHC 32.9, RDW Std Deviation 40.1, RDW Coeff of Airam 12.2, Plt Count 235, MPV 10.7, Immature Gran % (Auto) 0.200, Neut % (Auto) 65.2, Lymph % (Auto) 23.0, [place] % (Auto) 9.6, Eos % (Auto) 1.7, Baso % (Auto) 0.3, Absolute Neuts (auto) 4.3, Absolute Lymphs (auto) 1.53, Nucleated RBC % 0 11/03/22 17:50: Sodium 138, Potassium 3.3 L, Chloride 104, Carbon Dioxide 29.0, Anion Gap 5, BUN 15, Creatinine 1.06, Estim Creat Clear Calc 89.62, Est GFR (MDRD) Af Amer 99, Est GFR (MDRD) Non-Af 82, BUN/Creatinine Ratio 14.2, Glucose 104, Calcium 9.7, Troponin I High Sens 4 Radiology Impression Chest X-Ray 11/03/22 18:32 IMPRESSION: No radiographic evidence of acute cardiopulmonary disease. Electronically Signed: Rahul Xavier MD at 18:45 EST , Assessment & Plan Assessment/Plan (1) Shortness of breath on exertion: (2) Palpitation: (3) Chest pain: PLAN: Plan #palpitations and chest pain * to rule out ACS * admit to PCU * initial troponin was negative; EKG showed ST depression in lateral leads * SL nitroglycerin prn. PO aspirin 81mg daily * 2D echo tomorrow. for stress test tomorrow * #Hyperlipidemia: on statin DVT prophylaxis: lovenox Charges/Coding Visit Charges OBSV E&M: 46075 Observ/hosp same date L3
[2022-11-03 19:54] VITALS: BP 127/89; PULSE 94; RESP 16; O2SAT 97
[2022-11-03 20:22] LABS: Reflex Troponin-HS? (from REC) Y
[2022-11-03 20:31] VITALS: BP 127/89; PULSE 91; RESP 19; TEMP 36.7; O2SAT 97
[2022-11-03 20:33] VITALS: BMI 29.5
[2022-11-03 21:00] LABS: Troponin-I HS 4 pg/mL (3.0-78.0)
[2022-11-03 21:04] VITALS: BP 136/91; PULSE 85; RESP 16; TEMP 36.8; O2SAT 98
[2022-11-04] VITALS (15 sets, daily range): BP systolic 105–163; BP diastolic 74–94; PULSE 71–98; RESP 16–18; TEMP 36.6–36.8; O2SAT 95–98
[2022-11-04 00:35] LABS: Troponin-I HS 4 pg/mL (3.0-78.0)
[2022-11-04] MEDS: Potassium Chloride Oral Tablet 20 MEQ 40 MEQ PO (01:34)
[2022-11-04] MEDS: hydrALAZINE 20 MG/ML Vial 10 MG IV (02:51)
[2022-11-04 05:17] LABS: Absolute Lymphocyte Count 1.84 X10^3/uL (0.83-4.51); Absolute Neutrophil Count 4.6 X10^3/uL (2.0-7.7); Basophil# 0.03 X10^3/uL; Basophil% 0.4 % (0-1); Eosinophil# 0.13 X10^3/uL; Eosinophils% 1.8 % (0-5); Hemoglobin 15.9 g/dL (13.0-16.5); Lymphocyte # 1.84 X10^3/ul (0.83-4.51); Lymphocyte % 25.3 % (19-41); Mean Corp Hgb Conc 33.1 g/dL (32-36); Mean Corpuscular Volume 87.6 fL (80-94); Mean Platelet Vol. 10.3 fl (6.2-12.0); Monocyte# 0.62 X10^3/uL; Monocyte% 8.5 % (0-10); NRBC Flagged by Analyzer 0 % (0-5); Neutrophil # 4.62 X10^3/uL (2.7-7.7); Neutrophil % 63.6 % (47-70); Platelet Count 259 K/mm3 (150-450); RBC Distribution Width CV 12.1 % (11.6-14.6); RBC Distribution Width SD 39.1 fl (35.1-43.9); Red Blood Count 5.48 M/mm3 (4.6-6.2); White Blood Count 7.3 K/mm3 (4.4-11.0)
[2022-11-04] MEDS: traMADol 50 MG Tablet PO ×2 (05:23→12:07)
[2022-11-04 05:38] LABS: Anion Gap 8 (5-15); BUN 14 mg/dL (7-18); BUN/Creat Ratio 15.8 RATIO (10-20); Calcium,Total 9.1 mg/dL (8.5-10.1); Chloride 106 mmol/L (98-107); Creatinine, Serum 0.89 mg/dL (0.70-1.30); EST Glomerular Filtration Rate 101 mL/min (>60); Est Glom Filt Rate - Afr Amer 122 mL/min (>60); Estimated Creatinine Clearance 106.74 ml/min; Glucose 96 mg/dL (74-106); Potassium 3.9 mmol/L (3.5-5.1); Sodium Level 139 mmol/L (136-145)
--- NOTE | 2022-11-04 05:55 | ECHOCS_ITS ---
Reason For Study: PALPS Procedure This was a 2D Doppler, Color Flow transthoracic echocardiogram. The study was technically difficult. Contrast injection was performed. Exam performed in department. Left Ventricle Normal LV size. Left ventricular systolic function is normal. The estimated ejection fraction is 70 %. No regional wall motion abnormalities noted. Right Ventricle Normal RV size. Normal systolic function. Atria Normal left atrium. Normal right atrium. Mitral Valve Normal mitral valve. Tricuspid Valve Normal tricuspid valve. Aortic Valve Trisinus/trileaflet aortic valve. Pulmonic Valve The pulmonic valve is not well visualized. Great Vessels Normal aortic root. The pulmonary artery is normal size. Normal inferior vena cava. Pericardium/Pleural No pericardial effusion. MMode/2D Measurements & Calculations LVIDd: 4.0 cm IVSd: 1.1 cm Ao root diam: 3.3 cm LVIDs: 2.6 cm LVPWd: 1.3 cm RVDd: 2.7 cm FS: 36.7 % LAV(MOD-sp4): 24.2 ml LVAd ap4: 30.2 cm2 SV(MOD-sp4): 44.9 ml LVLd ap4: 9.7 cm EDV(MOD-sp4): 78.9 ml EDV(sp4-el): 80.2 ml LVAs ap4: 17.9 cm2 LVLs ap4: 8.6 cm ESV(MOD-sp4): 34.0 ml ESV(sp4-el): 31.4 ml EF(MOD-sp4): 56.9 % EF(sp4-el): 60.8 % SV(sp4-el): 48.8 ml LA A4 area: 12.2 cm2 LA dimension(2D): 3.5 cm RA A4 area: 13.8 cm2 Time Measurements MV dec time: 0.16 sec Doppler Measurements & Calculations MV E max parish: 57.1 cm/sec Lat Peak E' Parish: 19.2 cm/sec Med Peak E' Parish: 10.3 cm/sec MV A max parish: 39.1 cm/sec E/E' lat: 3.0 E/E' med: 5.5 MV E/A: 1.5 MV V2 max: 62.4 cm/sec Ao V2 max: 100.7 cm/sec MV max P.6 mmHg MV dec slope: 377.5 cm/sec2 Ao max P.1 mmHg MV V2 mean: 34.9 cm/sec Ao V2 mean: 71.2 cm/sec MV mean P.56 mmHg Ao mean P.3 mmHg MV V2 VTI: 16.9 cm Ao V2 VTI: 19.5 cm AV (velocity ratio): 0.80 LV V1 max: 87.8 cm/sec PA V2 max: 92.6 cm/sec LV V1 max P.1 mmHg PA V2 mean: 55.3 cm/sec LV V1 mean P.6 mmHg LV V1 mean: 58.4 cm/sec LV V1 VTI: 15.6 cm ECHO/Echo Complete W/ Contrast Interpretation Summary Normal LV size. Left ventricular systolic function is normal. The estimated ejection fraction is 70 %. Contrast injection was performed. Structurally normal valves. Ordering Physician: Essence Lopez Referring Physician: RXOY CARDOZA Performed By: Jerica Keller RCS
--- NOTE | 2022-11-04 05:55 | EKG12_ITS ---
Test Reason : AM EKG Blood Pressure : / mmHG Vent. Rate : 084 BPM Atrial Rate : 084 BPM P-R Int : 136 ms QRS Dur : 084 ms QT Int : 336 ms P-R-T Axes : 043 057 013 degrees QTc Int : 397 ms Normal sinus rhythm Nonspecific T wave abnormality Abnormal ECG Confirmed by FRANCO FINCH, GERARD ([id number]), development editor PRETTY FREDERICK ([id number]) on 11/09/2022 10:02:54 AM Referred By: Confirmed By:GERARD GAMEZ MD
--- NOTE | 2022-11-04 10:58 | DCINST_ITS ---
Discharge Instructions Diet Discharge Diet: Low fat / Low cholesterol and 2000 mg Sodium Diet Activity Discharge Activity: Return to Normal Activity Weight Bearing Status: Weight bearing as tolerated Dressing / Incision Call your doctor if you observe: Fever of 101 or Higher, Coldness, Increased Pain, Numbness or Tingling, Change in Color, Inability to urinate, Inability to have a bowel movement, Shortness of breath, Dizziness, Fainting spells, Swelling in the ankles, Chest pain, Prolonged hiccupping, Increased palpitations (irregular heartbeat) and Calf discomfort Follow Up Care When: IN 2 WEEKS Test Results: Test results from this visit will be discussed in further detail at your follow- up appointment, if applicable. Discharge Plan Admission Admit Date/Time: 11/03/22 19:56 Primary Reason for Your Visit: Atypical chest pain, ACS ruled out. Attending Provider: Joss Bill Primary Care Provider: Dmitry Aragon Consulting Providers: Essence Lopez Discharge Orders/Prescriptions Prescriptions: New rosuvastatin 20 mg tablet 20 mg PO QHS Qty: 30 2RF Continued dextroamphetamine-amphetamine [Adderall] 30 mg tablet 30 mg PO DAILY valacyclovir 500 MG tablet 500 mg PO DAILY tramadol 50 MG tablet 50 mg PO Q6H PRN PRN (Reason: Pain) nortriptyline 10 MG capsule 10 mg PO DAILY sertraline 100 MG tablet 100 mg PO DAILY Label Comments: TAKE 1 TABLET BY MOUTH EVERY DAY valacyclovir 1,000 MG tablet 1,000 mg PO PRN PRN (Reason: PRN) dextroamphetamine-amphetamine 30 MG tablet 10 mg PO PRN PRN (Reason: ADHD) Viberzi 100 mg tablet 100 mg BID Label Comments: TAKE 1 TABLET BY MOUTH TWICE DAILY aspirin 325 mg DAILY Discontinued pravastatin 40 mg tablet 40 mg DINNER Label Comments: TAKE 1 TABLET BY MOUTH ONCE DAILY AROUND SUPPER/BEFORE BED TME Referrals / Follow Up: Dmitry Aragon MD [Primary Care Provider] - Disposition Disposition (needs filled in before D/C Order can be placed): Home, Self Care
[2022-11-04 11:34] LABS: Cholesterol 217 mg/dL (200); High Density Lipoprotein 34 mg/dL; Thyroid Stim Hormone (TSH) 1.45 uIU/mL (0.358-3.74); Triglycerides 194 mg/dL; Very Low Density Lipoprotein 39 mg/dL (5-40)
[2022-11-04] MEDS: Sertraline 100 MG Tablet PO (11:55)
--- NOTE | 2022-11-04 13:10 | EKG12_ITS ---
Test Reason : cp Blood Pressure : / mmHG Vent. Rate : 075 BPM Atrial Rate : 075 BPM P-R Int : 138 ms QRS Dur : 086 ms QT Int : 368 ms P-R-T Axes : 050 053 015 degrees QTc Int : 410 ms Normal sinus rhythm Nonspecific ST and T wave abnormality Abnormal ECG When compared with ECG of 04-NOV-2022 05:00, No significant change was found Confirmed by SHANNAN FINCH, HAILEE ([id number]), editor school photograph PRETTY FREDERICK ([id number]) on 11/10/2022 1:53:14 PM Referred By: Confirmed By:CANDIS CAMPBELL MD
[2022-11-04] MEDS: Nitroglycerin (INPATIENT USE) 0.4 MG TAB.SUBL SL ×3 (13:16→13:31)
--- NOTE | 2022-11-04 14:05 | DS.PCM_ITS ---
Providers Date of Admission: 11/03/22 Date of Discharge: 11/04/22 Primary Care Physician: Dr. Dmitry Aragon MD Reason For Visit: CHEST PAIN AND PALPITATIONS Diagnosis Discharge Diagnosis (1) Shortness of breath on exertion: Status: Acute Code(s): R06.02 - Shortness of breath (2) Palpitation: Status: Acute Code(s): R00.2 - Palpitations (3) Chest pain: Status: Acute Code(s): R07.9 - Chest pain, unspecified Plan This 42-year-old gentleman was admitted with palpitations or chest pain ongoing for about 1 year but more frequently last 2 months. He also had palpitation about 2 weeks ago on apple watch showed A. fib in the 140s as per the patient. Palpitation and episodic. Patient was further admitted in PCU with a diagnosis of atypical chest pain and palpitation 1. Atypical chest pain and palpitation: Patient had multiple about 4 EKGs. First EKG showed slight ST depression in anterolateral inferior leads. Later 3 EKG does not show significant change. Serial troponin enzymes were negative. 2D echo shows EF 70% with normal LV size and systolic function. Patient had Treadmill myocardial perfusion stress test which was reported with preserved EF. Patient had hypertensive response to exercise. Blood pressure fluctuates at time of admission it was systolic 160s but now 107/76. Therefore I advised to follow with PCP to have home BP monitoring or ambulatory BP monitoring to diagnose hypertension and treat accordingly. 2. Palpitation: Patient had multiple EKGs which showed sinus rhythm therefore no evidence of A. fib during hospital stay 3. Dyslipidemia: LDL is high. Total cholesterol admitted. Patient on pravastatin. Plan change pravastatin to rosuvastatin 20 mg daily and advised follow-up lipid profile after 3 months. Patient has other multiple comorbidities includes knee pain carpal tunnel syndro me, shoulder pain and back pain: Follow-up PCP for adequate care. Discharge medication reconciliation done. Discharge follow-up instructions completed. Discharge process discussed with the patient and all questions were answered to patient's satisfaction. Total time spent, exact 35 minutes on discharge meds reconciliation, examination, coordination of care with nurses and ancillary staff, review of imaging and blood test and discussion with the patient on follow-up instructions. Clinical Impression(s) from Imaging Studies Chest X-Ray 11/03/22 18:32 IMPRESSION: No radiographic evidence of acute cardiopulmonary disease. Electronically Signed: Rahul Xavier MD at 18:45 EST Reading Location ID and State: [facility] / [place] , Service support , Echocardiogram 11/04/22 05:55 Interpretation Summary Normal LV size. Left ventricular systolic function is normal. The estimated ejection fraction is 70 %. Contrast injection was performed. Structurally normal valves. Twelve-lead EKG shows Medications at Discharge Home Medications nortriptyline 10 mg capsule 10 mg PO DAILY 09/19/17 tramadol 50 mg tablet 50 mg PO Q6H PRN PRN Pain 09/19/17 valacyclovir 500 mg tablet 500 mg PO DAILY virus infection 09/19/17 sertraline 100 mg tablet 100 mg PO DAILY 05/26/19 dextroamphetamine-amphetamine 30 mg tablet (Adderall) 30 mg PO DAILY 10/21/19 dextroamphetamine-amphetamine 30 mg tablet 10 mg PO PRN PRN ADHD 12/03/19 valacyclovir 1 gram tablet 1,000 mg PO PRN PRN PRN 12/03/19 aspirin 325 mg DAILY chest pain 11/03/22 eluxadoline 100 mg tablet (Viberzi) 100 mg BID IBS 11/03/22 rosuvastatin 20 mg tablet 20 mg PO QHS #30 tabs 11/04/22 Physical Exam Narrative Physical exam General: Alert, Oriented x3, Cooperative, mild overweight BMI 29.5 kg/m? HEENT: Atraumatic, PERRLA, EOMI, Normocephalic Oral: No Gingival or Mucosal Lesions/ Ulcerations Neck: Supple, No JVD, Negative Carotid Bruits Chest wall/lungs: No chest wall tenderness. No swelling palpable. Air entry equal in bilateral lung bases. No crepitation/rhonchi Cardiovascular: Regular rate, Regular Rhythm, Normal S1, Normal S2, No murmurs Abdomen: Bowel Sounds Present, Soft, Non Tender, Non-Distended : No renal angle tenderness. No suprapubic tenderness. Extremities: No edema, Capillary Refill Less than 3 Seconds Skin: No rashes, No breakdown Musculoskeletal: No Tenderness to Palpation of Joints or Extremities Neurological: Cranial nerves II-XII grossly intact, DTR 2+/4 and Symmetrical, Neuro grossly intact Psych/Mental Status: Normal Affect, Appropriate. Weight / BMI Weight Weight: 194 lb 0.108 oz Body Mass Index (BMI) 29.5 ABG / Lab / Microbiology Data Result Diagrams: 11/04/22 05:09 11/04/22 05:09 Laboratory: Laboratory Results - last 24 hr 11/03/22 17:50: WBC 6.7, RBC 5.52, Hgb 16.1, Hct 49.0, MCV 88.8, MCH 29.2, MCHC 32.9, RDW Std Deviation 40.1, RDW Coeff of Airam 12.2, Plt Count 235, MPV 10.7, Immature Gran % (Auto) 0.200, Neut % (Auto) 65.2, Lymph % (Auto) 23.0, [place] % (Auto) 9.6, Eos % (Auto) 1.7, Baso % (Auto) 0.3, Absolute Neuts (auto) 4.3, Ab solute Lymphs (auto) 1.53, Nucleated RBC % 0 11/03/22 17:50: Sodium 138, Potassium 3.3 L, Chloride 104, Carbon Dioxide 29.0, Anion Gap 5, BUN 15, Creatinine 1.06, Estim Creat Clear Calc 89.62, Est GFR (MDRD) Af Amer 99, Est GFR (MDRD) Non-Af 82, BUN/Creatinine Ratio 14.2, Glucose 104, Calcium 9.7, Troponin I High Sens 4 11/03/22 20:23: Troponin I High Sens 4 11/04/22 00:00: Troponin I High Sens 4 11/04/22 05:09: WBC 7.3, RBC 5.48, Hgb 15.9, Hct 48.0, MCV 87.6, MCH 29.0, MCHC 33.1, RDW Std Deviation 39.1, RDW Coeff of Airam 12.1, Plt Count 259, MPV 10.3, Immature Gran % (Auto) 0.400, Neut % (Auto) 63.6, Lymph % (Auto) 25.3, [place] % (Auto) 8.5, Eos % (Auto) 1.8, Baso % (Auto) 0.4, Absolute Neuts (auto) 4.6, Absolute Lymphs (auto) 1.84, Nucleated RBC % 0 11/04/22 05:09: Sodium 139, Potassium 3.9, Chloride 106, Carbon Dioxide 25.0, Anion Gap 8, BUN 14, Creatinine 0.89, Estim Creat Clear Calc 106.74, Est GFR (MDRD) Af Amer 122, Est GFR (MDRD) Non-Af 101, BUN/Creatinine Ratio 15.8, Glucose 96, Calcium 9.1 11/04/22 05:09: Triglycerides 194, Cholesterol 217 H, LDL Cholesterol 144 H, VLDL Cholesterol 39, HDL Cholesterol 34 L, TSH 1.45 Radiography Diagnostic Testing: Radiology Impression Chest X-Ray 11/03/22 18:32 IMPRESSION: No radiographic evidence of acute cardiopulmonary disease. Electronically Signed: Rahul Xavier MD at 18:45 EST Reading Location ID and State: [facility] / [place] , Service support , Meaningful Use Info Meaningful Use Diagnoses (Choose all that apply): None applicable Discharge Plan Admission Admit Date/Time: 11/03/22 19:56 Primary Reason for Your Visit: Atypical chest pain, ACS ruled out. Attending Provider: Joss Bill Primary Care Provider: Dmitry Aragon Consulting Providers: Essence Lopez Discharge Orders/Prescriptions Prescriptions: New rosuvastatin 20 mg tablet 20 mg PO QHS Qty: 30 2RF Continued dextroamphetamine-amphetamine [Adderall] 30 mg tablet 30 mg PO DAILY valacyclovir 500 MG tablet 500 mg PO DAILY tramadol 50 MG tablet 50 mg PO Q6H PRN PRN (Reason: Pain) nortriptyline 10 MG capsule 10 mg PO DAILY sertraline 100 MG tablet 100 mg PO DAILY Label Comments: TAKE 1 TABLET BY MOUTH EVERY DAY valacyclovir 1,000 MG tablet 1,000 mg PO PRN PRN (Reason: PRN) dextroamphetamine-amphetamine 30 MG tablet 10 mg PO PRN PRN (Reason: ADHD) Viberzi 100 mg tablet 100 mg BID Label Comments: TAKE 1 TABLET BY MOUTH TWICE DAILY aspirin 325 mg DAILY Discontinued pravastatin 40 mg tablet 40 mg DINNER Label Comments: TAKE 1 TABLET BY MOUTH ONCE DAILY AROUND SUPPER/BEFORE BED TME Referrals / Follow Up: Dmitry Aragon MD [Primary Care Provider] - Disposition Disposition (needs filled in before D/C Order can be placed): Home, Self Care Charges/Coding Visit Charges Inpatient E&M: 23384 Disch Hosp >30min
[2022-11-04] MEDS: Aspirin 325 MG Tablet PO (14:29)
[2022-11-04] MEDS: Metoprolol Tartrate 25 MG Tablet 12.5 MG PO (14:29)
--- NOTE | 2022-11-04 15:30 | EKG12_ITS ---
Test Reason : CP ADMIT Blood Pressure : / mmHG Vent. Rate : 075 BPM Atrial Rate : 075 BPM P-R Int : 140 ms QRS Dur : 084 ms QT Int : 350 ms P-R-T Axes : 045 057 024 degrees QTc Int : 390 ms Normal sinus rhythm Nonspecific T wave abnormality Abnormal ECG Confirmed by FRANCO FINCH, GERARD ([id number]), visual effects editor PRETTY FREDERICK ([id number]) on 11/09/2022 10:03:47 AM Referred By: Confirmed By:GERARD GAMEZ MD
--- NOTE | 2022-11-04 16:24 | STRESSREP_ITS ---
Stress Test Report Exercise myocardial perfusion stress test. 42-year-old male with a history of chest pain. Stress protocol: Resting EKG demonstrates normal sinus rhythm with a rate of 68 bpm resting blood pressure is 128/90 mmHg. The patient exercised according to the regular Eddi protocol for a total duration of 8 minutes attaining a maximum heart rate of 169 bpm which was 93% of max impacted heart rate the maximum workload was 10.1 metabolic equivalents. At rest there were no ST or T wave changes noted suggest ischemia and at peak exercise upsloping ST changes only were noted we did not meet the criteria for ischemia. During recovery there were some downsloping ST depression noted in the inferior lateral leads which did not meet the criteria f or ischemia. No clinical angina was noted the test was terminated due to the target heart rate being achieved. The peak blood pressure was 212/100 mmHg. hypertensive response to exercise was noted. Rate-pressure product was 35,800. Myocardial perfusion protocol. 12.0 mCi of technetium 99m sestamibi was injected at rest. The patient exercised according to regular Eddi protocol for total duration of 8 minutes and at peak exercise 36 mCi of technetium 99m sestamibi was injected stress images were obtained stress and rest images were reconstructed in comparing the short axis vertical long and horizontal long axis. Gated images were also obtained. Perfusion SPECT analysis: Review of the stress images demonstrate normal uptake of tracer noted in all areas of the myocardium. The resting images similarly demonstrate normal uptake of tracer noted in all areas of the myocardium. No areas of reversibility are noted to suggest ischemia no previous infarct was noted. Gated SPECT analysis: The gated ejection fraction is 60. Conclusion: Normal exercise myocardial perfusion stress test at a high workload. Preserved ejection fraction. Hypertensive response to exercise noted
--- NOTE | 2022-11-04 16:29 | CHAPLAIN ---
Type of Pastoral Visit _x__ Initial Visit ___ Follow-up Visit ___ On-call Visit ___ General Patient Visit ___ Spiritual Assessment ___ Family Conference ___ Bereavement ___ Rapid Response ___ Code Blue ___ Other (describe below) Pastoral Care Referral From _x__ Patient ___ Family ___ Nurse ___ Physician ___ Maintenance Operator ___ Logging Assistant ___ Other (describe below) Sacrament/Intervention _x__ Active listening ___ Anointing ___ Restoration ___ Bereavement ___ Communion ___ Alix exploration ___ ___ Life review _x__ Prayer ___ Reconciliation ___ Sacrament of Sick _x__ Supportive presence ___ Wedding ___ Other (describe below) Pastoral Comments patient admits to some health issues that have not yet been diagnosed and waiting for testing and hopefully some answers; pt welcomes supportive presence and prayer; family members present
== END 2022-11-04 17:19 | disposition home or self-care (01) ==
LOC: ED 19:55 → PCU 20:10
PROVIDERS: Admitting Provider Student in an Organized Health Care Education/Training Program; Emergency Provider Emergency Medicine; PCP Family Medicine; Visit Provider Internal Medicine
DX: R07.89 Other chest pain (principal); I48.91 Unspecified atrial fibrillation; E78.01 Familial hypercholesterolemia; I10 Essential (primary) hypertension; Z79.899 Other long term (current) drug therapy; R06.02 Shortness of breath; Z79.82 Long term (current) use of aspirin; F17.290 Nicotine dependence, other tobacco product, uncomplicated; Z82.49 Family history of ischemic heart disease and other diseases of the circulatory system; R94.31 Abnormal electrocardiogram [ECG] [EKG]
CPT/HCPCS: 36415; 71045; 78452; 80048; 80061; 84443; 84484; 85025; 93005; 93017; 93306; 96374; 99221; 99285; A9500; Q9957; A4216; C8929; G0378

== ENCOUNTER → 2022-12-27 | Outpatient (CLI) | payer BC, SELFPAY ==
[2022-12-27 08:09] LABS: Anion Gap 8 (5-15); BUN 21 mg/dL (7-18); BUN/Creat Ratio 20.4 RATIO (10-20); Chloride 104 mmol/L (98-107); Creatinine, Serum 1.03 mg/dL (0.70-1.30); EST Glomerular Filtration Rate 85 mL/min (>60); Est Glom Filt Rate - Afr Amer 102 mL/min (>60); Glucose 239 mg/dL (74-106); Potassium 3.8 mmol/L (3.5-5.1); Sodium Level 140 mmol/L (136-145)
== END | disposition home or self-care (01) ==
LOC: LAB 07:44
PROVIDERS: PCP Family Medicine; Visit Provider Internal Medicine Cardiovascular Disease
DX: R07.9 Chest pain, unspecified (principal)
CPT/HCPCS: 36415; 80048

== ENCOUNTER → 2023-01-17 | Outpatient (CLI) | payer BC, SELFPAY ==
--- NOTE | 2023-01-17 08:11 | CT_ITS ---
INDICATION: CP -------LIMITED OVERREAD ONLY EXAMINATION: CT CHEST WITHOUT CONTRAST - CT Chest W/O Contrast Injection TECHNIQUE: Helically acquired images were obtained of the chest. A radiation dose optimization technique was used for this scan. IV Contrast dosage and agent: None. COMPARISON: None. FINDINGS: LUNGS, PLEURA AND LARGE AIRWAYS: No masses, consolidation, or edema. No pleural effusion or thickening. No pneumothorax. THYROID: No thyroid lesions. HEART AND PERICARDIUM: Heart size is normal. No pericardial effusion. CORONARY ARTERIES: Coronary artery calcification is not seen. VESSELS: Thoracic aorta is not dilated. MEDIASTINUM AND RIVER: Small benign-appearing mediastinal lymph nodes. Esophagus is unremarkable. No hiatal hernia. UPPER ABDOMEN: No acute pathology. BONES: No suspicious lytic or blastic abnormality. CT/Limited Chest CT Cardiac Only IMPRESSION: Negative CT chest without contrast. Electronically Signed: Derrick Carl MD at 15:00 EDT ,
[2023-01-17 08:22] VITALS: BP 121/75; PULSE 76; RESP 16; O2SAT 96; BMI 29.6
[2023-01-17 08:25] VITALS: PULSE 68
[2023-01-17 08:30] VITALS: PULSE 73
[2023-01-17] MEDS: Metoprolol Tartrate 5 MG/5 ML Vial IV (08:30)
[2023-01-17 08:38] VITALS: BP 121/75; PULSE 68
[2023-01-17] MEDS: Nitroglycerin SL (ED/IMG/CATH) 0.4 MG TABLET SL (08:38)
[2023-01-17 08:45] VITALS: BP 108/56; PULSE 70; RESP 14; O2SAT 97
--- NOTE | 2023-01-18 07:36 | CCTA.WCONT ---
CCTA w/Cont Coronary Arteries Date of Study:: 01/17/23 Chest pain After informed consent was obtained the patient was brought to the radiology suite and appropriate positioning and gating was ensured. The patient was administered 100 cc of intravenous contrast agent with coronary gating. Postprocessing reconstruction was done and no significant motion artifact was present. LEFT MAIN CORONARY ARTERY: Arising from the left coronary cusp normal [] LEFT ANTERIOR DESCENDING CORONARY ARTERY: No significant atherosclerotic plaquing noted. The vessel continues up to the apex of the ventricle. [] LEFT CIRCUMFLEX CORONARY ARTERY: Nondominant vessel with 2 side branches as obtuse marginal branches with no significant plaquing present [] RIGHT CORONARY ARTERY: Arising from the right coronary cusp and giving of a posterior descending and posterolateral vessel with no significant atherosclerotic plaquing noted. [] THORACIC AORTA: Normal size [] PULMONARY ARTERY: Normal size [] LEFT ATRIUM/APPENDAGE: Not visualized [] MITRAL VALVE: Normal [] AORTIC VALVE: Trileaflet [] LEFT VENTRICLE: Normal size and function [] CORONARY CALCIUM SCORE: 0 Conclusion: Normal cardiac computed tomographic angiogram. No significant atherosclerotic plaquing noted.
== END | disposition home or self-care (01) ==
LOC: CT 08:01
PROVIDERS: PCP Family Medicine; Visit Provider Internal Medicine Cardiovascular Disease
DX: R07.9 Chest pain, unspecified (principal)
CPT/HCPCS: 75574; 76380; Q9967; A4216

== ENCOUNTER 2023-12-12 15:30 | Outpatient (RCR) | payer BC, SELFPAY ==
--- NOTE | 2023-11-28 17:20 | HP.PTEVAL ---
Patient's Visit Information Visit Information Visit Information: EDWARD BUTTS is a 43 year old M referred to Physical Therapy by Dr. Maurilio Fountain MD with a diagnosis of R supinator strain. Date of Evaluation: 11/28/23 Physical Therapist: Dmitry Wilson, KALET, OCS, CSCS Visit Plan Frequency: 3x /Week Duration: 4-6 Weeks Plan: 3x/week for 2-4 weeks for 1. R supinator nonthermal 2. STM to same stretch R supination elbow straight eccentric strength B supination ice massage as needed Subjective Subjective: R elbow pain anterior middle. L sidee hurts also medially. R hurt since spring for no apparent reason. Started [employer] a couple yrs ago and carries leafblower and back pack and sweeping motion with arm hurts. Tried compresion sleeves and icing which did not help. Thought off season would simmer down. But it did not. golf did not hurt last summer, brushing teeth hurts. Shooting basketball with dtr hurts. Fidgeting with phone hurts and makes it stiff to restraighten arm. pain to 6/10 and sometimes 0/10. Can hurt at night. Works in the winter at [employer]. Opening doors hurts. Sitting at desk with arm bent can hurt. Hobbies: outdoors golf and fish. Basketball. Basic aDLs : no problem. No numbness or tingling. No regular exercises. Pain R elbow: Pain Intensity (Out of 10): 0 Pain Intensity Range: 0 and 6 Objective Objective: L>R Walks I without gait deviations. Full cervical and scapular and shoulder AROM without pain today. Full wrist flex/ext without pain B and thumb without pain. R elbow hurts to supinate at end range but has full rOM, active supination is painful as is straightening the elbow with supination. strength is 4+ sup and pron, B pain supination. wrist flex and ext 5/5 no pain. elbow flex/ext 5/5 no pain. shoulder 4+/5 no pain flex aor extend. reflexes 2/3 bi and tri Overall both elbows hurt R centrally anterior and L closer to supinator origin laterally, R >L sensation WNL to gross light touch. - tinels - tennis elbow. Balance/Special Test Scores Quick DASH Score: 27.2725 Goals Goal 1:: full supoination R without pain Goal Time Frame: 4-6 Weeks Goal 2:: straighten arm with supination without noting pain Goal Time Frame: 4-6 Weeks Goal 3:: I management of condition with ecc adn stretching ex Goal Time Frame: 4-6 Weeks Goal 4:: qucikdashscore 15 or less Goal Time Frame: 4-6 Weeks Rehabilitation Potential Physical Therapy Diagnosis: R supinator strain with limtied motion and activity Rehabilitation Potential: Fair Anticipated Interventions Patient/Client Instruction: Educate patient on: Condition and Risk Factors For the Purpose of:: To decrease pain, To decrease swelling/inflammation, To improve nutrient delivery to tissue, To improve muscle performance and motor function and To increase tolerance to activity/condition/position Therapeutic Exercise to Include: Strength training and Flexibilty training For the Purpose of:: To decrease pain, To decrease swelling/inflammation, To increase ROM, To improve nutrient delivery to tissue and To improve muscle performance and motor function Manual Therapy Techniques to Include: Mobilization, Passive ROM and Soft tissue mobilization For the Purpose of:: To decrease pain, To decrease swelling/inflammation, To increase ROM and To improve nutrient delivery to tissue Cryotherapy (ice pack, ice massage): Yes Ultrasound (thermal/non thermal): Yes For the Purpose of:: To decrease pain and To decrease swelling/inflammation Text: Thank you for the opportunity to evaluate your patient. For Medicare and Medicare HMO plans, please review the plan of care and approve it. It will need to be FAXED BACK to us at [phone] for Medicare purposes. For Medicare only, by signing this I certify the plan of care. Please let me know if there are questions or concerns regarding this plan of care. Physician Signature: Date:
--- NOTE | 2023-12-19 16:53 | HP.PTDCSUM ---
Discharge Summary D/C summary: It has been my pleasure to treat EDWARD BUTTS referred by Dr. Maurilio Fountain MD, with the diagnosis of R supinator strain for a total of 8 visit(s). Discharge Date: 12/19/23 Please see the following information for a summary of their discharge status. Subjective Subjective: Was hopeful at first with new exercises but last night tried to lift a glass an it hurt bad to 7/10 until put glass down. Overall not much better last couple days. No f/u scheduled with Александр yet. Pain R elbow: Pain Intensity (Out of 10): 0 Overall Improvement % Improvement: 0 Objective Objective/Function: Good supination AROM and PROM today without pain with arm straight which is an improvement. Good strength in wrist without much discomfort. However, patient is max tender in extensor group R forearm and still having as many symptoms at home with simple every day activity. Goals Goal 1:: full supoination R without pain Goal Progress: Goal Met Goal 2:: straighten arm with supination without noting pain Goal Progress: Goal Met Goal 3:: I management of condition with ecc adn stretching ex Goal Progress: Not Progressing Goal 4:: qucikdashscore 15 or less Goal Progress: Not Progressing Plan Plan: d/c , pt to schedule with doctor , see d/c summary. D/C Information Discharge Comments: Pt is not improving and recommend return to doctor for next medical option. This therapist questions radial tunnel syndrome but we treated that while treating supinator without help. Possibly bracing would be effective but further diagnostics may be warranted due to lack of progress. d/c sentence: If there are questions or concerns regarding this patient's physical therapy, please feel free to call me at [phone]. Thank you for the referral of this patient. Sincerely, Dmitry Wilson, DPT, OCS, CSCS Balance/Gait/Functional tests Balance/Special Test Scores Quick DASH Score: 34.0900 Improvement % Improvement: 0
== END 2023-12-12 19:00 | disposition home or self-care (01) ==
LOC: PT 15:30
PROVIDERS: PCP Family Medicine; Referring Provider Family Medicine; Visit Provider Family Medicine
DX: S56.911D Strain of unspecified muscles, fascia and tendons at forearm level, right arm, subsequent encounter (principal)
CPT/HCPCS: 97035; 97140; 97161; 97530

== ENCOUNTER → 2024-01-01 | Outpatient (CLI) | payer BC, SELFPAY ==
--- NOTE | 2024-01-01 07:50 | MRI_ITS ---
STUDY: MRI RIGHT ELBOW REASON FOR EXAM: Male, 43 years old. Forearm strain right sequela, right elbow pain. TECHNIQUE: Standardized fat and water weighted pulse sequences were obtained in all 3 orthogonal planes. COMPARISON: None. FINDINGS: Normal radio-capitellum articulation. Normal radial collateral ligamentous complex. Normal common extensor tendon. Normal ulnotrochlear articulation. Normal ulnar collateral ligamentous complex. Normal common flexor tendon. The cubital tunnel is normal, with a normal ulnar nerve. Normal biceps tendon and distal insertion. Normal lacertus fibrosis. Normal brachialis musculotendinous insertion. Normal triceps tendon and teno-osseous insertion. Normal olecranon process. The visualized distal humerus, proximal radius, and ulna are normal. The visualized muscles of the distal arm and proximal forearm are normal. The soft tissue structures are unremarkable. MRI/Upper Ext Joint Only(Routine) IMPRESSION: Unremarkable MRI of the right elbow. No forearm muscle/tendon strain demonstrated. Electronically Signed: Brent Luis MD at 8:44 EDT ,
== END | disposition home or self-care (01) ==
PROVIDERS: PCP Family Medicine; Referring Provider Family Medicine; Visit Provider Family Medicine
DX: S56.91 Strain of unspecified muscles, fascia and tendons at forearm level (principal); M25.521 Pain in right elbow
CPT/HCPCS: 73221

== ENCOUNTER → 2024-02-29 | Outpatient (CLI) | payer BC, SELFPAY ==
[2024-02-29 07:40] LABS: Absolute Lymphocyte Count 2.07 X10^3/uL (0.83-4.51); Absolute Neutrophil Count 4.9 X10^3/uL (2.0-7.7); Basophil# 0.03 X10^3/uL; Basophil% 0.4 % (0-1); Eosinophil# 0.17 X10^3/uL; Eosinophils% 2.2 % (0-5); Hematocrit 47.9 % (40-54); Hemoglobin 15.5 g/dL (13.0-16.5); Lymphocyte # 2.07 X10^3/ul (0.83-4.51); Lymphocyte % 26.2 % (19-41); Mean Corp Hgb Conc 32.4 g/dL (32-36); Mean Corpuscular Hgb 29.1 pg (27.0-32.0); Mean Platelet Vol. 10.7 fl (6.2-12.0); Monocyte# 0.75 X10^3/uL; Monocyte% 9.5 % (0-10); NRBC Flagged by Analyzer 0 % (0-5); Neutrophil # 4.85 X10^3/uL (2.7-7.7); Neutrophil % 61.4 % (47-70); Platelet Count 234 K/mm3 (150-450); RBC Distribution Width CV 11.9 % (11.6-14.6); Red Blood Count 5.32 M/mm3 (4.6-6.2); White Blood Count 7.9 K/mm3 (4.4-11.0)
[2024-02-29 08:26] LABS: ALB/GLOB Ratio 1.1 RATIO (0.9-2.4); AST(SGOT) 22 U/L (15-37); Alanine Aminotransfer ALT/SGPT 36 U/L (16-61); Alkaline Phosphatase 82 U/L (45-117); Anion Gap 3 (5-15); BUN 15 mg/dL (7-18); BUN/Creat Ratio 15.6 RATIO (10-20); Calcium,Total 9.8 mg/dL (8.5-10.1); Chloride 104 mmol/L (98-107); Cholesterol 174 mg/dL (200); Creatinine, Serum 0.96 mg/dL (0.70-1.30); EST Glomerular Filtration Rate 91 mL/min (>60); Est Glom Filt Rate - Afr Amer 110 mL/min (>60); Globulin 3.6 g/dL (2.2-4.2); Glucose 101 mg/dL (74-106); High Density Lipoprotein 37 mg/dL; Potassium 4.4 mmol/L (3.5-5.1); Protein, Total 7.6 g/dL (6.4-8.2); Sodium Level 137 mmol/L (136-145); Triglycerides 202 mg/dL; Very Low Density Lipoprotein 40 mg/dL (5-40)
== END | disposition home or self-care (01) ==
LOC: LAB 07:29
PROVIDERS: PCP Family Medicine; Visit Provider Family Medicine
DX: M77.02 Medial epicondylitis, left elbow (principal); E78.00 Pure hypercholesterolemia, unspecified
CPT/HCPCS: 36415; 80053; 80061; 85025

== ENCOUNTER → 2024-07-11 | Outpatient (CLI) | payer BC, SELFPAY ==
[2024-07-13 16:09] LABS: Alternaria alternata <0.10 kU/L (Class 0); Bermuda Grass 1.16 kU/L (Class II); Cat Hair/Dander, Standard 0.31 kU/L (Class 0/I); D farinae Mite 2.24 kU/L (Class III); D pteronyssinus 1.57 kU/L (Class III); Dog Epithelia <0.10 kU/L (Class 0); Elm, American White <0.10 kU/L (Class 0); Mouse Urine <0.10 kU/L (Class 0); Oak, White <0.10 kU/L (Class 0); Plantain, English 0.19 kU/L (Class 0/I)
[2024-07-15 14:08] LABS: Beef <0.10 kU/L (Class 0); Chocolate <0.10 kU/L (Class 0); Codfish <0.10 kU/L (Class 0); Corn <0.10 kU/L (Class 0); Egg, Whole <0.10 kU/L (Class 0); Milk (Cow) <0.10 kU/L (Class 0); Mussels <0.10 kU/L (Class 0); Peanut <0.10 kU/L (Class 0); Pork <0.10 kU/L (Class 0); Salmon <0.10 kU/L (Class 0); Shrimp 0.78 kU/L (Class II); Soybean <0.10 kU/L (Class 0); Tuna <0.10 kU/L (Class 0); Wheat <0.10 kU/L (Class 0)
[2024-07-18 18:08] LABS: pH, Stool 6.5 (7.0-7.5)
[2024-07-20 17:07] LABS: Testosterone, % Free 3.54 % (1.50-4.20); Testosterone, Free 8.96 ng/dL (5.00-21.00); Testosterone, Total 253 ng/dL (264-916)
== END | disposition home or self-care (01) ==
LOC: LAB 07:44
PROVIDERS: PCP Family Medicine; Visit Provider Family Medicine
DX: K52.9 Noninfective gastroenteritis and colitis, unspecified (principal)
CPT/HCPCS: 83986; 84402; 84403; 86003; 86005

== ENCOUNTER → 2024-07-19 | Outpatient (CLI) | payer BC, SELFPAY ==
[2024-07-19 07:46] LABS: Absolute Lymphocyte Count 2.25 X10^3/uL (0.83-4.51); Basophil# 0.04 X10^3/uL; Basophil% 0.5 % (0-1); Eosinophils% 2.4 % (0-5); Hematocrit 47.3 % (40-54); Hemoglobin 15.3 g/dL (13.0-16.5); Lymphocyte # 2.25 X10^3/ul (0.83-4.51); Lymphocyte % 27.3 % (19-41); Mean Corp Hgb Conc 32.3 g/dL (32-36); Mean Corpuscular Hgb 28.9 pg (27.0-32.0); Mean Corpuscular Volume 89.2 fL (80-94); Monocyte# 0.78 X10^3/uL; Monocyte% 9.5 % (0-10); NRBC Flagged by Analyzer 0 % (0-5); Neutrophil # 4.95 X10^3/uL (2.7-7.7); Neutrophil % 60.1 % (47-70); Platelet Count 263 K/mm3 (150-450); RBC Distribution Width CV 12.2 % (11.6-14.6); RBC Distribution Width SD 39.9 fl (35.1-43.9); White Blood Count 8.2 K/mm3 (4.4-11.0)
[2024-07-19 08:38] LABS: ALB/GLOB Ratio 1.1 RATIO (0.9-2.4); AST(SGOT) 34 U/L (15-37); Alanine Aminotransfer ALT/SGPT 45 U/L (16-61); Alkaline Phosphatase 86 U/L (45-117); Anion Gap 4 (5-15); BUN 20 mg/dL (7-18); BUN/Creat Ratio 21.1 RATIO (10-20); Calcium,Total 9.3 mg/dL (8.5-10.1); Chloride 105 mmol/L (98-107); Creatinine, Serum 0.95 mg/dL (0.70-1.30); EST Glomerular Filtration Rate 92 mL/min (>60); Est Glom Filt Rate - Afr Amer 112 mL/min (>60); Globulin 3.7 g/dL (2.2-4.2); Glucose 96 mg/dL (74-106); Potassium 4.1 mmol/L (3.5-5.1); Protein, Total 7.7 g/dL (6.4-8.2); Sodium Level 138 mmol/L (136-145)
== END | disposition home or self-care (01) ==
PROVIDERS: PCP Family Medicine; Referring Provider Family Medicine; Visit Provider Family Medicine
DX: N39.0 Urinary tract infection, site not specified (principal); R82.90 Unspecified abnormal findings in urine
CPT/HCPCS: 36415; 80053; 85025; 87086

== ENCOUNTER → 2024-07-24 | Outpatient (CLI) | payer BC, SELFPAY ==
--- NOTE | 2024-07-24 16:24 | US_ITS ---
STUDY: RENAL ULTRASOUND - COMPLETE REASON FOR EXAM: Male, 44 years old. abn findings in urine TECHNIQUE: Ultrasound evaluation of the kidneys was performed with real-time and static khan-scale imaging. COMPARISON: None. FINDINGS: RIGHT KIDNEY: Normal location of the right kidney, which is normal in size. The right kidney measures 12.7 cm. There is a normal cortex of the right kidney. The renal cortex measures 2.2 cm. There is no right renal mass or cyst. There are no right renal calculi. There is no right hydronephrosis. DISTAL RIGHT URETER: There is non-visualization of the distal right ureter. There is no demonstrated right ureterovesical junction calculus. There is a visualized right ureteral jet. LEFT KIDNEY: Normal location of the left kidney, which is normal in size. The left kidney measures 11.8 cm. There is a normal cortex of the left kidney. The renal cortex measures 1.7 cm. There is no left renal mass or cyst. There are no left renal calculi. There is no left hydronephrosis. DISTAL LEFT URETER: There is non-visualization of the distal left ureter. There is no demonstrated left ureterovesical junction calculus. There is a visualized left ureteral jet. BLADDER: The distended urinary bladder has a volume of 40 ml. The empty urinary bladder has a volume of 2 ml. There is a normal wall thickness of the distended urinary bladder. There is no demonstrated mass within the urinary bladder. There are no demonstrated bladder calculi. US/Kidney and Bladder IMPRESSION: Normal ultrasound of the kidneys and urinary bladder. Electronically Signed: Jaciel Schwartz MD at 13:54 EDT ,
== END | disposition home or self-care (01) ==
PROVIDERS: PCP Family Medicine; Referring Provider Family Medicine; Visit Provider Family Medicine
DX: R82.90 Unspecified abnormal findings in urine (principal); R33.9 Retention of urine, unspecified
CPT/HCPCS: 76770

== ENCOUNTER → 2024-08-13 | Outpatient (CLI) | payer BC, SELFPAY ==
--- NOTE | 2024-08-13 16:31 | CT_ITS ---
STUDY: CT ABDOMEN AND PELVIS WITHOUT CONTRAST REASON FOR EXAM: Male, 44 years old. GROSS HEMATURIA RADIATION DOSAGE (If Supplied By Facility): CTDIvol = ( 9.32 ) mGy, DLP = ( 584.80 ) mGycm TECHNIQUE: Transaxial images were obtained from the dome of the diaphragm to the symphysis pubis without oral contrast, and without intravenous contrast. Sagittal and coronal images were reconstructed. Individualized dose optimization techniques were used for this CT. COMPARISON: None. FINDINGS: The visualized lung bases demonstrate bilateral small peripheral nodules likely granulomatous in nature. The visualized portions of the heart are within normal limits. Normal liver. Normal gallbladder and extrahepatic biliary system. Normal spleen. Normal pancreas. Normal bilateral adrenal glands. Mild hydronephrosis of the right kidney. Mild right hydroureter with a mid ureteral stone measuring 6 mm. Nonobstructive punctate stones in the left kidney. Normal visualized stomach. Normal small intestine. Diverticulosis of the colon. The appendix is visualized and appears normal. Normal abdominal aorta. Normal inferior vena cava. Normal retroperitoneum. Normal urinary bladder. Normal abdominal wall. Normal osseous structures. CT/Abdomen/Pelvis without Cont IMPRESSION: Mild right hydronephrosis and right hydroureter with a mid ureteral stone measuring 6 mm. Nonobstructive punctate stones in the left kidney. Colonic diverticulosis. Electronically Signed: Talon Brock DO at 17:49 EDT ,
== END | disposition home or self-care (01) ==
PROVIDERS: PCP Family Medicine; Referring Provider Urology; Visit Provider Urology
DX: R31.0 Gross hematuria (principal)
CPT/HCPCS: 74176

== ENCOUNTER 2024-08-20 13:17 | Observation (INO) | payer BC, SELFPAY ==
[2024-08-20 13:19] VITALS: BP 132/90; PULSE 93; RESP 22; TEMP 36.1; O2SAT 98; BMI 30.8
[2024-08-20 13:45] LABS: Mucous, Urine 0 SEEN /hpf (<or=2+)
[2024-08-20 13:49] LABS: Color, Urine Amber (Yellow); Glucose, Dipstick Normal (Normal); Ketone-Dipstick Negative (Negative); Leukocyte Esterase-Dipstick 25 /ul (Negative); Nitrite-Dipstick Positive (Negative); Occult Blood-Urine 150 /ul (Negative); Protein-Dipstick 100 mg/dl (Negative); Urine Bilirubin Dipstick 3 mg/dL (Negative); Urine Clarity Clear (Clear); Urine Urobilinogen 4 mg/dl (Normal)
--- NOTE | 2024-08-20 14:06 | CT_ITS ---
STUDY: CT ABDOMEN AND PELVIS WITHOUT CONTRAST REASON FOR EXAM: Male, 44 years old. Flank pain RADIATION DOSAGE (If Supplied By Facility): CTDIvol = ( 16.48 ) mGy, DLP = ( 918.95 ) mGycm TECHNIQUE: Transaxial images were obtained from the dome of the diaphragm to the symphysis pubis without oral contrast, and without intravenous contrast. Sagittal and coronal images were reconstructed. Individualized dose optimization techniques were used for this CT. COMPARISON: 08/13/2024. FINDINGS: The visualized lung bases are unremarkable. The visualized portions of the heart are within normal limits. Normal liver. Normal gallbladder and extrahepatic biliary system. Normal spleen. Normal pancreas. Normal bilateral adrenal glands. Increasing hydronephrosis of the right kidney. Increasing right hydroureter. Previously seen right ureteral stone is no longer present. Stable nonobstructing stones in the mid left kidney. No hydronephrosis. Evaluation of the GI tract is limited by absence of oral contrast. Cannot exclude stomach wall thickening. No dilated loops of bowel or evidence for obstruction. Cannot exclude segmental thickening of the davis of the small or large bowel. Cannot exclude enteritis or colitis. Moderate diffuse fecal retention. Diverticulosis without definite diverticulitis. Appendix within normal limits. Normal abdominal aorta. Normal inferior vena cava. Normal retroperitoneum. Normal urinary bladder. There is enlargement of the prostate gland. Normal abdominal wall. Normal osseous structures. CT/Abdomen/Pelvis without Cont IMPRESSION: Increased right hydronephrosis and dilated ureter but currently no ureteral stone is seen. Nonobstructing left renal stones are stable. Electronically Signed: Clemente Aguilar MD at 15:34 EDT ,
[2024-08-20] MEDS: 0.9% Normal Saline (1000mL) 1,000 ML 1000 ML IV (14:12)
[2024-08-20] MEDS: Morphine 4 MG/ML Syringe IV (14:13)
[2024-08-20] MEDS: Ketorolac 30 MG/ML Syringe IV (14:13)
[2024-08-20] MEDS: Ondansetron 4 MG/2 ML Vial IV (14:13)
[2024-08-20 14:17] LABS: Bacteria 1+ /hpf (None Seen); Red Blood Cells-Urine 0-5 SEEN /hpf (0-5); White Blood Cells 0-5 SEEN /hpf (0-5)
[2024-08-20 14:18] LABS: Squamous Epithelial Cells - UA 0-5 SEEN /hpf (0-5)
--- NOTE | 2024-08-20 14:24 | EX.ED.DYSGE1 ---
HPI History of Present Illness Chief Complaint: Flank Pain Informant: patient Onset/Context/Timing Onset: Today Context: Sudden Onset Timing: Continuous Quality: Aching Location: Right flank and right testicle Worsened by: Nothing Relieved by: Nothing Narrative Narrative: Patient presents with right lower flank pain that became worse today. Patient had a stent removal earlier today. Patient states he went home and was having mild pain. Patient states that the pain that became progressively worse. Patient describes it as aching. Patient states it radiates into his right testicle. Patient states nothing makes it worse and nothing makes it better. Patient denies any fevers or chills. Patient admits to some hematuria but denies any dysuria or frequency. The patient admits to some nausea but denies any vomiting. [facility] Medical History Inverted T wave Angina at rest Palpitations Chest pain Mild dehydration COVID-19 Acute pharyngitis Sore throat Poison amrit Contact with and (suspected) exposure to other viral communicable diseases Shortness of breath on exertion Numbness and tingling Carpal tunnel syndrome Influenza A Back pain Limb weakness Knee pain Shoulder pain Home Medications ?Medication ?Instructions ?Recorded ?Last Taken ?Type valacyclovir 500 mg tablet 500 mg PO DAILY virus infection 09/19/17 Unknown History sertraline 100 mg tablet 75 mg PO DAILY 05/26/19 Unknown History dextroamphetamine-amphetamine 30 30 mg PO DAILY 10/21/19 Unknown History mg tablet (Adderall) valacyclovir 1 gram tablet 1,000 mg PO PRN PRN PRN 12/03/19 Unknown History eluxadoline 100 mg tablet (Viberzi) 100 mg BID IBS 11/03/22 Unknown History rosuvastatin 20 mg tablet 20 mg PO QHS #30 tabs 11/04/22 Unknown Rx dextroamphetamine-amphetamine 10 10 mg PO DAILY PRN other 12/20/22 Unknown History mg tablet (Adderall) tramadol 50 mg tablet 50 mg PO BID PRN Pain 12/20/22 Unknown History valsartan 80 mg tablet (Diovan) 80 mg PO DAILY #30 tabs 12/20/22 Unknown Rx zolpidem 12.5 mg tablet,extended 12.5 mg PO QHS 12/20/22 Unknown History release,multiphase metoprolol succinate 50 mg 50 mg PO DAILY started by Dr. Andres 01/16/23 Unknown History tablet,extended release 24 hr Aragon oxycodone 5 mg tablet 5 mg PO Q6H PRN pain 3 days #14 08/16/24 Unknown Rx tabs Allergy/AdvReac Type Severity Reaction Status Date / Time betamethasone (From Allergy Unknown Verified 08/20/24 13:19 Celestone) betamethasone sodium Allergy Unknown Verified 08/20/24 13:19 phosphate (From Celestone) Family History Father Heart disease Hypertension Myocardial infarction, Onset Age: 72 Diabetes Surgical History History of ankle surgery Hx of lymph node biopsy Hx of colonoscopy Normal colonoscopy Lower extremity surgery planned Social History Smoking Status: Current some day smoker tobacco type: cigars per week: 1 second hand exposure: No alcohol intake: current alcohol intake frequency: holidays/special occasions only substance use type: does not use caffeine: Yes (energy drinks) Type: coffee and other what type of physical activity do you participate in: none frequency: does not exercise seatbelt use: always ROS ROS ED Constitutional Constitutional ED: Denies chills or fever(s) Eyes Eyes: Denies blurry vision or change in vision ENT ENT ED: Denies rhinorrhea or sore throat Cardiovascular Cardiovascular: Denies chest pain or palpitations Respiratory/Chest Respiratory/Chest: Denies cough or dyspnea Gastrointestinal Gastrointestinal: Reports nausea; Denies vomiting Genitourinary Genitourinary ED: Reports hematuria; Denies dysuria Musculoskeletal Musculoskeletal: Reports back pain; Denies neck pain Integumentary Denies abscess or rash Neurologic Neurologic: Denies headache(s) or weakness Allergic/Immunologic Allergic/Immunologic ED: Denies mouth swelling or urticaria EXAM Physical Exam Const Vital Signs: 08/20/24 13:19 08/20/24 15:17 Temperature 97 F L Temperature Source Temporal Pulse Rate 93 78 Respiratory Rate 22 H 16 Blood Pressure 132/90 H 134/78 H Blood Pressure Mean 104 96 Pulse Ox 98 98 Oxygen Delivery Method Room Air Room Air Positive well nourished and well developed General Appearance ED: well developed and NAD HEENT Reports moist mucous membranes Neck supple and no JVD Resp normal respiratory effort and clear to auscultation bilaterally Cardio regular rate and regular rhythm GI non-distended Palpation: soft and tender RLQ; Negative for guarding or rebound tenderness present Back/Spine General Back: CVA tenderness right (Lower right CVA) Neuro oriented x3, CN's II-XII intact bilaterally and no sensory deficits noted Sensorium / Orientation: alert Motor Exam: strength 5/5 throughout Psych mental status grossly normal MDM MDM MDM Narrative Medical decision making narrative: Differential diagnosis includes ureteral calculus, perforation, ureteral obstruction, urinary tract infection, and inguinal hernia. CT scan of the abdomen pelvis will be obtained to assess for ureteral calculus, obstruction, perforation, and inguinal hernia Lab Data Attestation: I reviewed the patient's lab results. Lab results narrative: Urinalysis was reviewed. Leukocyte esterase was 25. There are 0-5 red blood cells and 0-5 white blood cells. There is 1+ bacteria. There are positive nitrites. Urine bilirubin was 3. Urine urobilinogen was 4. CBC was reviewed and was within normal limits. Basic metabolic profile was reviewed and was within normal limits. Labs: Laboratory Results - last 24 hr 08/20/24 08/20/24 08/20/24 13:30 13:35 16:00 WBC 7.1 RBC 5.09 Hgb 14.6 Hct 44.3 MCV 87.0 MCH 28.7 MCHC 33.0 RDW Std Deviation 38.6 RDW Coeff of Airam 12.1 Plt Count 231 MPV 11.0 Immature Gran % (Auto) 0.400 Neut % (Auto) 66.9 Lymph % (Auto) 22.1 [place] % (Auto) 8.6 Eos % (Auto) 1.7 Baso % (Auto) 0.3 Absolute Neuts (auto) 4.8 Absolute Lymphs (auto) 1.57 Nucleated RBC % 0 Sodium 139 Potassium 4.0 Chloride 107 Carbon Dioxide 25.0 Anion Gap 7 BUN 21 H Creatinine 1.13 Estim Creat Clear Calc 93.73 Est GFR (MDRD) Af Amer 91 Est GFR (MDRD) Non-Af 75 BUN/Creatinine Ratio 18.6 Glucose 97 Calcium 9.1 Urine Color Rylee Urine Clarity Clear Urine pH 6.0 Ur Specific [place] 1.020 Urine Protein 100 H Urine Glucose (UA) Normal Urine Ketones Negative Urine Occult Blood 150 H Urine Nitrite Positive H Urine Bilirubin 3 H Urine Urobilinogen 4 H Ur Leukocyte Esterase 25 H Urine RBC 0-5 SEEN Urine WBC 0-5 SEEN Ur Squamous Epith Cells 0-5 SEEN Urine Bacteria 1+ Urine Mucus 0 SEEN Radiography Diagnostic Testing: Clinical Impression(s) from Imaging Studies Abdomen/Pelvis CT 08/20/24 14:06 IMPRESSION: Increased right hydronephrosis and dilated ureter but currently no ureteral stone is seen. Nonobstructing left renal stones are stable. Electronically Signed: Clemente Aguilar MD at 15:34 EDT , CT scan of the abdomen and pelvis was obtained. There is increased right hydronephrosis and hydroureter but there is no ureteral calculus noted. There is no evidence of obstruction or perforation. This was interpreted by the radiologist was also independently reviewed by myself. Treatment and Re-Evaluation :: Patient was given IV fluids, morphine, Zofran, and Toradol. Patient was given a dose of Dilaudid. Patient had minimal relief with this. Patient was given a repeat dose of Dilaudid. Patient states that he voided some tissue while he was here in the emergency department. Patient states that this did not change his pain. Patient was given a repeat dose of Dilaudid. Case was discussed with Dr. Zaman. He will admit the patient to his service for pain control. He will discuss replacing the stent with the patient. Patient understood and was agreeable with the plan. All questions were answered Discharge Plan Dx/Rx/DC Orders Clinical Impression: Right flank pain, Hypertension Disposition Disposition: Acute Care [facility]
[2024-08-20] MEDS: HYDROmorphone 0.5 MG/0.5 ML SYRINGE IV (14:31)
[2024-08-20 15:17] VITALS: BP 134/78; PULSE 78; RESP 16; O2SAT 98
[2024-08-20] MEDS: HYDROmorphone 1 MG/ML Syringe 0.5 MG IV ×2 (15:49→17:07)
--- NOTE | 2024-08-20 15:56 | NURSING ---
NEED GREEN TOP REDRAW
[2024-08-20 16:00] LABS: Absolute Lymphocyte Count 1.57 X10^3/uL (0.83-4.51); Absolute Neutrophil Count 4.8 X10^3/uL (2.0-7.7); Basophil# 0.02 X10^3/uL; Basophil% 0.3 % (0-1); Eosinophil# 0.12 X10^3/uL; Eosinophils% 1.7 % (0-5); Hematocrit 44.3 % (40-54); Hemoglobin 14.6 g/dL (13.0-16.5); Lymphocyte # 1.57 X10^3/ul (0.83-4.51); Lymphocyte % 22.1 % (19-41); Mean Corpuscular Hgb 28.7 pg (27.0-32.0); Monocyte# 0.61 X10^3/uL; Monocyte% 8.6 % (0-10); NRBC Flagged by Analyzer 0 % (0-5); Neutrophil # 4.75 X10^3/uL (2.7-7.7); Neutrophil % 66.9 % (47-70); Platelet Count 231 K/mm3 (150-450); RBC Distribution Width CV 12.1 % (11.6-14.6); RBC Distribution Width SD 38.6 fl (35.1-43.9); Red Blood Count 5.09 M/mm3 (4.6-6.2); White Blood Count 7.1 K/mm3 (4.4-11.0)
[2024-08-20 16:28] LABS: Anion Gap 7 (5-15); BUN 21 mg/dL (7-18); BUN/Creat Ratio 18.6 RATIO (10-20); Calcium,Total 9.1 mg/dL (8.5-10.1); Chloride 107 mmol/L (98-107); Creatinine, Serum 1.13 mg/dL (0.70-1.30); EST Glomerular Filtration Rate 75 mL/min (>60); Est Glom Filt Rate - Afr Amer 91 mL/min (>60); Estimated Creatinine Clearance 93.73 ml/min; Glucose 97 mg/dL (74-106); Sodium Level 139 mmol/L (136-145)
--- NOTE | 2024-08-20 16:30 | PCM.HP.STD ---
HPI - General General Date of Service: 08/20/24 Chief Complaint: renal colic HPI Narrative DEWARD BUTTS, is a 44 M who presents to hospital just had stent removed this morning for stent. and had stone lasered for ureteral stone. stent removed this am. was having a lot of pain from stent. warned him that could have severe spasm, presented to ER in renal colic repeat Ct scan with no stone some mild hydro ureter on the right side, jake admit for pain control, may need toplace a stent again? [facility] Medical History Inverted T wave Angina at rest Palpitations Chest pain Mild dehydration COVID-19 Acute pharyngitis Sore throat Poison amrit Contact with and (suspected) exposure to other viral communicable diseases Shortness of breath on exertion Numbness and tingling Carpal tunnel syndrome Influenza A Back pain Limb weakness Knee pain Shoulder pain Home Medications ?Medication ?Instructions ?Recorded ?Last Taken ?Type valacyclovir 500 mg tablet 500 mg PO DAILY virus infection 09/19/17 Unknown History sertraline 100 mg tablet 75 mg PO DAILY 05/26/19 Unknown History dextroamphetamine-amphetamine 30 30 mg PO DAILY 10/21/19 Unknown History mg tablet (Adderall) valacyclovir 1 gram tablet 1,000 mg PO PRN PRN PRN 12/03/19 Unknown History eluxadoline 100 mg tablet (Viberzi) 100 mg BID IBS 11/03/22 Unknown History rosuvastatin 20 mg tablet 20 mg PO QHS #30 tabs 11/04/22 Unknown Rx dextroamphetamine-amphetamine 10 10 mg PO DAILY PRN other 12/20/22 Unknown History mg tablet (Adderall) tramadol 50 mg tablet 50 mg PO BID PRN Pain 12/20/22 Unknown History valsartan 80 mg tablet (Diovan) 80 mg PO DAILY #30 tabs 12/20/22 Unknown Rx zolpidem 12.5 mg tablet,extended 12.5 mg PO QHS 12/20/22 Unknown History release,multiphase metoprolol succinate 50 mg 50 mg PO DAILY started by Dr. Andres 01/16/23 Unknown History tablet,extended release 24 hr Aragon oxycodone 5 mg tablet 5 mg PO Q6H PRN pain 3 days #14 08/16/24 Unknown Rx tabs Allergy/AdvReac Type Severity Reaction Status Date / Time betamethasone (From Allergy Unknown Verified 08/20/24 13:19 Celestone) betamethasone sodium Allergy Unknown Verified 08/20/24 13:19 phosphate (From Celestone) Family History Father Heart disease Hypertension Myocardial infarction, Onset Age: 72 Diabetes Surgical History History of ankle surgery Hx of lymph node biopsy Hx of colonoscopy Normal colonoscopy Lower extremity surgery planned Social History Smoking Status: Current some day smoker tobacco type: cigars per week: 1 second hand exposure: No alcohol intake: current alcohol intake frequency: holidays/special occasions only substance use type: does not use caffeine: Yes (energy drinks) Type: coffee and other what type of physical activity do you participate in: none frequency: does not exercise seatbelt use: always Vital Signs Vital Signs Vital Signs: 08/20/24 13:19 08/20/24 15:17 Temperature 97 F L Temperature Source Temporal Pulse Rate 93 78 Respiratory Rate 22 H 16 Blood Pressure 132/90 H 134/78 H Blood Pressure Mean 104 96 Pulse Ox 98 98 Oxygen Delivery Method Room Air Room Air Weight Weight: 91.943 kg Body Mass Index (BMI) 30.8 Results Lab / Micro Data 08/20/24 13:30 08/20/24 16:00 Labs: Laboratory Results - last 24 hr 08/20/24 13:30: WBC 7.1, RBC 5.09, Hgb 14.6, Hct 44.3, MCV 87.0, MCH 28.7, MCHC 33.0, RDW Std Deviation 38.6, RDW Coeff of Airam 12.1, Plt Count 231, MPV 11.0, Immature Gran % (Auto) 0.400, Neut % (Auto) 66.9, Lymph % (Auto) 22.1, [place] % (Auto) 8.6, Eos % (Auto) 1.7, Baso % (Auto) 0.3, Absolute Neuts (auto) 4.8, Absolute Lymphs (auto) 1.57, Nucleated RBC % 0 08/20/24 13:35: Urine Color Rylee, Urine Clarity Clear, Urine pH 6.0, Ur Specific [place] 1.020, Urine Protein 100 H, Urine Glucose (UA) Normal, Urine Ketones Negative, Urine Occult Blood 150 H, Urine Nitrite Positive H, Urine Bilirubin 3 H, Urine Urobilinogen 4 H, Ur Leukocyte Esterase 25 H, Urine RBC 0-5 SEEN, Urine WBC 0-5 SEEN, Ur Squamous Epith Cells 0-5 SEEN, Urine Bacteria 1+, Urine Mucus 0 SEEN 08/20/24 16:00: Sodium 139, Potassium 4.0, Chloride 107, Carbon Dioxide 25.0, Anion Gap 7, BUN 21 H, Creatinine 1.13, Estim Creat Clear Calc 93.73, Est GFR (MDRD) Af Amer 91, Est GFR (MDRD) Non-Af 75, BUN/Creatinine Ratio 18.6, Glucose 97, Calcium 9.1 Imaging Radiology Impression Abdomen/Pelvis CT 08/20/24 14:06 IMPRESSION: Increased right hydronephrosis and dilated ureter but currently no ureteral stone is seen. Nonobstructing left renal stones are stable. Electronically Signed: Clemente Aguilar MD at 15:34 EDT ,
[2024-08-20] MEDS: Ciprofloxacin 400 MG/200 ML BAG 200 MG IV (17:09)
[2024-08-20 17:20] VITALS: BP 138/78; PULSE 78; RESP 169; TEMP 36.6; O2SAT 98
[2024-08-20 17:45] VITALS: BP 145/93; PULSE 78; RESP 18; TEMP 36.4; O2SAT 98
[2024-08-20] MEDS: Morphine 2 MG/ML Syringe IV (17:54)
[2024-08-20] MEDS: Ketorolac 15 MG/ML Vial IV ×2 (17:54→22:42)
[2024-08-20 17:59] VITALS: BMI 30.8
[2024-08-20] MEDS: oxyCODONE 5 MG Tablet PO (18:11)
[2024-08-20] MEDS: Acetaminophen 325 MG Tablet 650 MG PO (18:11)
[2024-08-20] MEDS: Atorvastatin Calcium 20 MG Tablet PO (21:18)
[2024-08-20 21:22] VITALS: BP 122/75; PULSE 71; RESP 18; TEMP 36.4; O2SAT 97
[2024-08-21] MEDS: Acetaminophen 325 MG Tablet 650 MG PO (00:31)
[2024-08-21] MEDS: oxyCODONE 5 MG Tablet PO (00:32)
[2024-08-21 03:59] VITALS: BP 127/95; PULSE 70; RESP 18; TEMP 36.7; O2SAT 100
[2024-08-21] MEDS: 0.9% Saline Lock 10 ML Syringe IV (06:04)
[2024-08-21] MEDS: Ketorolac 15 MG/ML Vial IV (06:04)
--- NOTE | 2024-08-21 07:23 | PCM.DC.SUM ---
Providers Date of Admission: 08/20/24 Date of Discharge: 08/21/24 Primary Care Physician: Dr. Dmitry Aragon MD Reason For Visit: RENAL COLIC Medications at Discharge Home Medications valacyclovir 500 mg tablet 500 mg PO DAILY VIRUS INFECTION 09/19/17 sertraline 100 mg tablet 100 mg PO DAILY MOOD 05/26/19 tramadol 50 mg tablet 50 mg PO BID PRN PAIN 12/20/22 zolpidem 12.5 mg tablet,extended release,multiphase 12.5 mg PO QHS PRN SLEEP 12/20/22 metoprolol succinate 50 mg tablet,extended release 24 hr 50 mg PO DAILY BLOOD PRESSURE 01/16/23 oxycodone 5 mg tablet 5 mg PO Q6H PRN PAIN 3 days #14 tabs 08/16/24 aspirin 81 mg tablet,delayed release (Adult Aspirin Regimen) 81 mg PO DAILY HEART HEALTH 08/20/24 ciprofloxacin HCl 500 mg tablet 500 mg PO BID ANTIBIOTIC 08/20/24 fexofenadine 180 mg tablet (Jennifer Allergy) 180 mg PO DAILY allergies 08/20/24 ibuprofen 800 mg tablet 800 mg PO Q6H PRN PAIN 08/20/24 multivitamin (Daily Multi-Vitamin tablet) 1 tab PO DAILY HEALTH MAINTENANCE 08/20/24 nortriptyline 10 mg capsule 10 mg PO DAILY MOOD 08/20/24 rosuvastatin 10 mg tablet 10 mg PO DAILY CHOLESTEROL 08/20/24 tamsulosin 0.4 mg capsule 0.4 mg PO DAILY PROSTATE 08/20/24 oxycodone 5 mg tablet 5 mg PO Q4H PRN pain 3 days #20 tabs 08/21/24 Hospital Course Operations None Summary of Care Provided Minutes Spent on Discharge: 15 Hospital Course: 44-year-old male status post laser stone and stent stent was removed yesterday had severe renal colic afterwards was admitted for pain control overnight he passed some stuff possible stone fragments and now he feels much better so we will send him home today with some pain medicine and he feels much better this morning so we will cancel any planned procedures we are planning to possibly put the stent back in. Weight / BMI Weight Weight: 91.943 kg Body Mass Index (BMI) 30.8 ABG / Lab / Microbiology Data 08/20/24 13:30 08/20/24 16:00 Laboratory: Laboratory Results - last 24 hr 08/20/24 13:30: WBC 7.1, RBC 5.09, Hgb 14.6, Hct 44.3, MCV 87.0, MCH 28.7, MCHC 33.0, RDW Std Deviation 38.6, RDW Coeff of Airam 12.1, Plt Count 231, MPV 11.0, Immature Gran % (Auto) 0.400, Neut % (Auto) 66.9, Lymph % (Auto) 22.1, [place] % (Auto) 8.6, Eos % (Auto) 1.7, Baso % (Auto) 0.3, Absolute Neuts (auto) 4.8, Absolute Lymphs (auto) 1.57, Nucleated RBC % 0 08/20/24 13:35: Urine Color Rylee, Urine Clarity Clear, Urine pH 6.0, Ur Specific [place] 1.020, Urine Protein 100 H, Urine Glucose (UA) Normal, Urine Ketones Negative, Urine Occult Blood 150 H, Urine Nitrite Positive H, Urine Bilirubin 3 H, Urine Urobilinogen 4 H, Ur Leukocyte Esterase 25 H, Urine RBC 0-5 SEEN, Urine WBC 0-5 SEEN, Ur Squamous Epith Cells 0-5 SEEN, Urine Bacteria 1+, Urine Mucus 0 SEEN 08/20/24 16:00: Sodium 139, Potassium 4.0, Chloride 107, Carbon Dioxide 25.0, Anion Gap 7, BUN 21 H, Creatinine 1.13, Estim Creat Clear Calc 93.73, Est GFR (MDRD) Af Amer 91, Est GFR (MDRD) Non-Af 75, BUN/Creatinine Ratio 18.6, Glucose 97, Calcium 9.1 Radiography Diagnostic Testing: Radiology Impression Abdomen/Pelvis CT 08/20/24 14:06 IMPRESSION: Increased right hydronephrosis and dilated ureter but currently no ureteral stone is seen. Nonobstructing left renal stones are stable. Electronically Signed: Clemente Aguilar MD at 15:34 EDT , Meaningful Use Info Meaningful Use Meaningful Use Diagnoses (Choose all that apply): None applicable Ischemic Stroke Statin Dosing Therapy Reference: STATIN DOSE THERAPY REFERENCE: * Patients > 75 years receive moderate or high dose statin therapy. * Patients 75 years or YOUNGER should receive HIGH intensity statin dose unless contraindicated. You will be required to document reason for non-treatment if statin daily dose does not meet guidelines. HIGH DOSE STATIN THERAPY DAILY Atorvastatin > than or = to 40 mg Rosuvastatin > than or = to 20 mg Amlodipine + Atorvastatin > than or = to 2.5/40 mg Ezetimibe + Simvastatin 10/80 mg Simvastatin 80mg Discharge Plan Admission Admit Date/Time: 08/20/24 16:39 Primary Reason for Your Visit: Kidney stone Attending Provider: Al Zaman Primary Care Provider: Dmitry Aragon Discharge Orders/Prescriptions Prescriptions: New oxycodone 5 mg tablet 5 mg PO Q4H PRN (Reason: pain) 3 Days Qty: 20 0RF Continued zolpidem 12.5 mg tablet,ext release multiphase 12.5 mg PO QHS PRN (Reason: SLEEP ) valacyclovir 500 MG tablet 500 mg PO DAILY tramadol 50 mg tablet 50 mg PO BID PRN (Reason: PAIN ) sertraline 100 MG tablet 100 mg PO DAILY oxycodone 5 mg tablet 5 mg PO Q6H PRN (Reason: PAIN ) 3 Days Qty: 14 0RF nortriptyline 10 mg capsule 10 mg PO DAILY rosuvastatin 10 mg tablet 10 mg PO DAILY fexofenadine [Jennifer Allergy] 180 mg tablet 180 mg PO DAILY aspirin [Adult Aspirin Regimen] 81 mg tablet,delayed release (DR/EC) 81 mg PO DAILY multivitamin [Daily Multi-Vitamin] Tablet 1 tab PO DAILY tamsulosin 0.4 mg capsule 0.4 mg PO DAILY ibuprofen 800 mg tablet 800 mg PO Q6H PRN (Reason: PAIN ) ciprofloxacin HCl 500 mg tablet 500 mg PO BID metoprolol succinate 50 mg tablet extended release 24 hr 50 mg PO DAILY Referrals / Follow Up: Dmitry Aragon MD [Primary Care Provider] - Disposition Disposition (needs filled in before D/C Order can be placed): Home, Self Care
== END 2024-08-21 07:40 | disposition home or self-care (01) ==
LOC: ED 16:25 → MS3 16:54
PROVIDERS: Admitting Provider Urology; Emergency Provider Emergency Medicine; PCP Family Medicine; Visit Provider Urology
DX: N13.2 Hydronephrosis with renal and ureteral calculous obstruction (principal); I10 Essential (primary) hypertension; R11.0 Nausea; R31.9 Hematuria, unspecified; Z79.899 Other long term (current) drug therapy; Z79.82 Long term (current) use of aspirin; F17.290 Nicotine dependence, other tobacco product, uncomplicated
CPT/HCPCS: 74176; 80048; 81001; 85025; 96361; 96365; 96366; 96375; 96376; 99221; 99284; J7030; A4216; G0378; J0744; J2405

== ENCOUNTER → 2024-12-24 | Outpatient (CLI) | payer BC, SELFPAY ==
[2024-12-24 15:47] LABS: Absolute Neutrophil Count 4.7 X10^3/uL (2.0-7.7); Basophil# 0.03 X10^3/uL; Basophil% 0.4 % (0-1); Eosinophil# 0.12 X10^3/uL; Eosinophils% 1.7 % (0-5); Hematocrit 47.6 % (40-54); Hemoglobin 16.1 g/dL (13.0-16.5); Mean Corp Hgb Conc 33.8 g/dL (32-36); Mean Corpuscular Hgb 29.4 pg (27.0-32.0); Mean Platelet Vol. 10.5 fl (6.2-12.0); Monocyte# 0.52 X10^3/uL; Monocyte% 7.3 % (0-10); NRBC Flagged by Analyzer 0 % (0-5); Neutrophil % 66.3 % (47-70); Platelet Count 246 K/mm3 (150-450); RBC Distribution Width CV 11.8 % (11.6-14.6); RBC Distribution Width SD 37.5 fl (35.1-43.9); Red Blood Count 5.47 M/mm3 (4.6-6.2); White Blood Count 7.1 K/mm3 (4.4-11.0)
[2024-12-24 15:52] LABS: Erythrocyte Sedimentation Rate 13 mm/hr (0-20)
[2024-12-24 22:04] LABS: ALB/GLOB Ratio 1.6 RATIO (0.9-2.4); AST(SGOT) 25 U/L (<=37); Alanine Aminotransfer ALT/SGPT 33 U/L (<=46); Albumin, Serum 4.6 g/dL (3.5-5.0); Alkaline Phosphatase 73 U/L (40-129); Anion Gap 17 (5-15); BUN 21 mg/dL (4-19); BUN/Creat Ratio 22.9 RATIO (10-20); Calcium,Total 9.8 mg/dL (7.6-11.0); Carbon Dioxide 20.2 mmol/L (21.0-32.0); Chloride 100 mmol/L (98-108); Creatinine, Serum 0.92 mg/dL (0.70-1.20); EST Glomerular Filtration Rate 106 (>60); Globulin 2.9 g/dL (2.2-4.2); Glucose 102 mg/dL (70-99); Hepatitis B Surface Antibody Nonreactive; Hepatitis B Surface Antigen Nonreactive (Nonreactive); Hepatitis C Antibody Nonreactive (Nonreactive); Protein, Total 7.5 g/dL (5.9-8.4); Sodium Level 137 mmol/L (133-145); Total Bilirubin 0.32 mg/dL (0.00-1.30)
[2024-12-24 22:09] LABS: CRP < 3.00 mg/L (0.0-3.0); Rheumatoid Factor < 10.0 IU/mL (<15)
[2024-12-26 11:08] LABS: ANTINUCLEAR ANTIBODIES DIRECT Negative (Negative)
[2024-12-26 17:08] LABS: CCP IgG Antibodies 1 units (0-19)
== END | disposition home or self-care (01) ==
LOC: LAB 15:11
PROVIDERS: PCP Family Medicine; Visit Provider Internal Medicine Rheumatology
DX: M06.4 Inflammatory polyarthropathy (principal); M50.30 Other cervical disc degeneration, unspecified cervical region; M47.892 Other spondylosis, cervical region
CPT/HCPCS: 36415; 80053; 85025; 85652; 86038; 86140; 86200; 86431; 86706; 86803; 87340

== ENCOUNTER → 2025-01-07 | Outpatient (CLI) | payer BC, SELFPAY ==
[2025-01-07 18:02] LABS: Absolute Lymphocyte Count 1.27 X10^3/uL (0.83-4.51); Absolute Neutrophil Count 3.9 X10^3/uL (2.0-7.7); Basophil# 0.02 X10^3/uL; Basophil% 0.3 % (0-1); Eosinophils% 1.7 % (0-5); Hemoglobin 16.4 g/dL (13.0-16.5); Lymphocyte # 1.27 X10^3/ul (0.83-4.51); Lymphocyte % 21.9 % (19-41); Mean Corp Hgb Conc 34.2 g/dL (32-36); Mean Corpuscular Hgb 29.3 pg (27.0-32.0); Mean Corpuscular Volume 85.9 fL (80-94); Mean Platelet Vol. 10.8 fl (6.2-12.0); Monocyte# 0.46 X10^3/uL; Monocyte% 7.9 % (0-10); NRBC Flagged by Analyzer 0 % (0-5); Neutrophil # 3.93 X10^3/uL (2.7-7.7); Platelet Count 257 K/mm3 (150-450); RBC Distribution Width CV 11.8 % (11.6-14.6); RBC Distribution Width SD 36.7 fl (35.1-43.9); Red Blood Count 5.59 M/mm3 (4.6-6.2); White Blood Count 5.8 K/mm3 (4.4-11.0)
[2025-01-07 19:16] LABS: ALB/GLOB Ratio 1.7 RATIO (0.9-2.4); AST(SGOT) 32 U/L (<=37); Alanine Aminotransfer ALT/SGPT 38 U/L (<=46); Albumin, Serum 4.6 g/dL (3.5-5.0); Alkaline Phosphatase 75 U/L (40-129); Anion Gap 15 (5-15); BUN 18 mg/dL (4-19); BUN/Creat Ratio 17.7 RATIO (10-20); Calcium,Total 9.5 mg/dL (7.6-11.0); Carbon Dioxide 21.1 mmol/L (21.0-32.0); Chloride 102 mmol/L (98-108); Cholesterol 154 mg/dL (<=200); Creatinine, Serum 0.99 mg/dL (0.70-1.20); EST Glomerular Filtration Rate 97 (>60); Globulin 2.8 g/dL (2.2-4.2); Glucose 105 mg/dL (70-99); High Density Lipoprotein 37 mg/dL; Low Density Lipoprotein Calc. 73 mg/dL; PSA,Total- Diagnostic 2.53 ng/mL (0.00-4.00); Potassium 3.8 mmol/L (3.3-5.1); Protein, Total 7.4 g/dL (5.9-8.4); Sodium Level 138 mmol/L (133-145); Total Bilirubin 0.45 mg/dL (0.00-1.30); Triglycerides 219 mg/dL; Very Low Density Lipoprotein 44 mg/dL (5-40); cholesterol:hdl ratio screen 4.18
== END | disposition home or self-care (01) ==
PROVIDERS: PCP Family Medicine; Referring Provider Family Medicine; Visit Provider Family Medicine
DX: N20.0 Calculus of kidney (principal); R79.89 Other specified abnormal findings of blood chemistry
CPT/HCPCS: 80053; 80061; 84153; 84270; 84402; 84403; 85025

== ENCOUNTER → 2025-03-12 | Outpatient (CLI) | payer BC, SELFPAY ==
[2025-03-12 07:43] LABS: Absolute Lymphocyte Count 1.65 X10^3/uL (0.83-4.51); Absolute Neutrophil Count 4.3 X10^3/uL (2.0-7.7); Basophil# 0.02 X10^3/uL; Basophil% 0.3 % (0-1); Eosinophil# 0.17 X10^3/uL; Eosinophils% 2.6 % (0-5); Hematocrit 44.2 % (40-54); Lymphocyte # 1.65 X10^3/ul (0.83-4.51); Lymphocyte % 25.2 % (19-41); Mean Corp Hgb Conc 33.9 g/dL (32-36); Mean Corpuscular Hgb 29.9 pg (27.0-32.0); Mean Platelet Vol. 10.5 fl (6.2-12.0); Monocyte# 0.43 X10^3/uL; Monocyte% 6.6 % (0-10); NRBC Flagged by Analyzer 0 % (0-5); Neutrophil # 4.28 X10^3/uL (2.7-7.7); Neutrophil % 65.1 % (47-70); Platelet Count 256 K/mm3 (150-450); RBC Distribution Width CV 12.7 % (11.6-14.6); RBC Distribution Width SD 40.5 fl (35.1-43.9); Red Blood Count 5.02 M/mm3 (4.6-6.2); White Blood Count 6.6 K/mm3 (4.4-11.0)
[2025-03-12 08:10] LABS: ALB/GLOB Ratio 1.6 RATIO (0.9-2.4); AST(SGOT) 30 U/L (<=37); Alanine Aminotransfer ALT/SGPT 40 U/L (<=46); Albumin, Serum 4.3 g/dL (3.5-5.0); Alkaline Phosphatase 76 U/L (40-129); Anion Gap 12 (5-15); BUN 18 mg/dL (4-19); BUN/Creat Ratio 18.5 RATIO (10-20); Calcium,Total 9.1 mg/dL (7.6-11.0); Carbon Dioxide 21.5 mmol/L (21.0-32.0); Chloride 106 mmol/L (98-108); Creatinine, Serum 0.98 mg/dL (0.70-1.20); EST Glomerular Filtration Rate 99 (>60); Globulin 2.6 g/dL (2.2-4.2); Glucose 110 mg/dL (70-99); Potassium 4.1 mmol/L (3.3-5.1); Protein, Total 6.9 g/dL (5.9-8.4); Sodium Level 139 mmol/L (133-145); Total Bilirubin 0.32 mg/dL (0.00-1.30)
== END | disposition home or self-care (01) ==
LOC: LAB 07:36
PROVIDERS: PCP Family Medicine; Visit Provider Internal Medicine Rheumatology
DX: M06.4 Inflammatory polyarthropathy (principal); Z79.899 Other long term (current) drug therapy
CPT/HCPCS: 36415; 80053; 85025

== ENCOUNTER → 2025-05-12 | Outpatient (CLI) | payer BC, SELFPAY ==
[2025-05-12 07:40] LABS: Hematocrit 45.0 % (40-54); Hemoglobin 15.2 g/dL (13.0-16.5); Immature Granulocytes Count 0.020 X10^3/uL (0.0-0.0); Mean Corp Hgb Conc 33.8 g/dL (32-36); Mean Corpuscular Volume 91.1 fL (80-94); Mean Platelet Vol. 10.4 fl (6.2-12.0); NRBC Flagged by Analyzer 0 % (0-5); Platelet Count 249 K/mm3 (150-450); RBC Distribution Width CV 12.8 % (11.6-14.6); RBC Distribution Width SD 41.5 fl (35.1-43.9); Red Blood Count 4.94 M/mm3 (4.6-6.2); White Blood Count 6.8 K/mm3 (4.4-11.0)
[2025-05-12 08:24] LABS: AST(SGOT) 23 U/L (<=37); Alanine Aminotransfer ALT/SGPT 34 U/L (<=46); Albumin, Serum 4.4 g/dL (3.5-5.0); Alkaline Phosphatase 73 U/L (40-129); Anion Gap 11 (5-15); BUN 20 mg/dL (4-19); BUN/Creat Ratio 21.1 RATIO (10-20); Calcium,Total 9.7 mg/dL (7.6-11.0); Carbon Dioxide 25.6 mmol/L (21.0-32.0); Chloride 103 mmol/L (98-108); Globulin 2.5 g/dL (2.2-4.2); Glucose 100 mg/dL (70-99); Potassium 4.1 mmol/L (3.3-5.1)
== END | disposition home or self-care (01) ==
LOC: LAB 07:34
PROVIDERS: PCP Family Medicine; Visit Provider Internal Medicine Rheumatology
DX: M06.4 Inflammatory polyarthropathy (principal); Z79.899 Other long term (current) drug therapy
CPT/HCPCS: 36415; 80053; 85025

== ENCOUNTER → 2025-05-13 | Outpatient (CLI) | payer BC, SELFPAY | END | disposition home or self-care (01) | LOC: LAB 07:39 | PROVIDERS: PCP Family Medicine; Visit Provider Family Medicine | DX: R79.89 Other specified abnormal findings of blood chemistry (principal) | CPT/HCPCS: 36415; 84403 ==

== ENCOUNTER → 2025-05-27 | Outpatient (CLI) | payer BC, SELFPAY ==
--- OUTSIDE RECORDS SUMMARY | 2025-05-27 07:30 | XMS RPT_ITS | CCD ---
Author Organization [facility] Care Team Providers Care Box Car Washer Name Role Phone Arlet Horton LPN Unavailable Magdalena Hickman LPN Unavailable Unavailable Vazquez Rowe Unavailable Magdalena Hickman LPN Unavailable Unavailable Sunday De Anda MD Unavailable Dr. Dmitry Aragon Primary Care Provider 1([facility])[phone] Dr. Kelton Lema Attending Provider 1([facility])-[phone] Otilio Thao Emergency Provider 1([facility])[phone] Essence Lopez Admit Provider 1([facility])[phone] Essence renee Other Provider 1([facility])[phone] Joss Bill Attending Provider Dr. Joss Bill Other Provider 1([facility])[phone] Dmitry Aragon Primary Care Provider 1([facility])[phone] Dr. Otilio Lock Attending Provider 1([facility])[phone] Dr. Otilio Lock Referring Provider Dr. Dmitry Aragon Referring Provider 1([facility])[phone] Babar Landry Attending Provider Dr. Dmitry Aargon Primary Care Provider 1([facility])[phone] Dr. Otilio Lock Attending Provider Dr. Otilio Lock Referring Provider 1([facility])[phone] Dr. Kelton Lema Attending Provider 1([facility])[phone] Otilio Thao Emergency Provider 1([facility])[phone] Jessica, Dr. Essence Shaffer Admit Provider Jessica, Dr. Essence Shaffer Other Provider Fly, Dr. Coreas Attending Provider Fly, Dr. Coreas Other Provider Dr. Dmitry Aragon Referring Provider 1([facility])[phone] Frantz, Dr. Eckert Attending Provider Frantz, Dr. Eckert Other Provider Mahesh FINCH, Dr. Andres Primary Care Provider Shawnee FINCH, Dr. Ortiz Attending Provider Mahesh FINCH, Dr. Andres Attending Provider 1([facility])[phone] Mahesh FINCH, Dr. Andres Referring Provider 1([facility])[phone] Mahesh FINCH, Dr. Andres Primary Care Provider 1([facility])[phone] Shawnee FINCH, Dr. Ortiz Attending Provider Mahesh FINCH, Dr. Andres Attending Provider [phone] Aragon, Dmitry Attending Unavailable Aragon, Dmitry Referring Unavailable Aragon, Dmitry Primary Care Unavailable Vellanki, Diana Attending Unavailable Aragon, Dmitry Primary Care Unavailable Vellanki, Diana Attending Unavailable Aragon, Dmitry Primary Care Unavailable Vellanki, Diana Attending Unavailable Aragon, Dmitry Primary Care Unavailable Aragon, Dmitry Attending Unavailable Aragon, Dmitry Primary Care Unavailable Aragon, Dmitry Attending Unavailable Aragon, Dmitry Primary Care Unavailable Aragon, Dmitry Primary Care Unavailable Aragon, Dmitry Attending Unavailable Aragon, Dmitry Primary Care Unavailable Aragon, Dmitry Attending Unavailable Aragon, Dmitry Referring Unavailable Aragon, Dmitry Primary Care Unavailable Aragon, Dmitry Attending Unavailable Aragon, Dmitry Referring Unavailable Aragon, Dmitry Primary Care Unavailable Al Zaman Attending Unavailable AustynAl Referring Unavailable Aragon, Dmitry Primary Care Unavailable Al Zaman Admitting Unavailable AustynAl Attending Unavailable Vellanki, Diana Attending Unavailable Aragon, Dmitry Primary Care Unavailable Allergies Allergy Classification Reported Allergen(s) Allergy Type Date of Onset Reaction(s) Facility (3 sources) betamethasone drug allergy 7 weight gain [facility] Work Phone: (1 source) Betamethasone Drug Allergy 0 [facility] Work Phone: (1 source) [place] drug allergy 0 [facility] Work Phone: (1 source) PLANT POLLEN drug allergy 0 [facility] Work Phone: (1 source) STINGING INSECTS; Translations: [STINGING INSECTS] food allergy 0 [facility] Work Phone: (12 sources) Betamethasone Drug Allergy 2 Unknown [facility] (13 sources) Betamethasone; Translations: [betamethasone sodium phosphate] Drug Allergy 2 Unknown [facility] (1 source) Betamethasone Drug Allergy 4 [facility] Repository Medications Current Medications Medication Drug Class(es) Dates Sig (Normalized) Sig (Original) aspirin 81 mg delayed release oral tablet (20 sources) Platelet Aggregation Inhibitor, Nonsteroidal Anti-inflammatory Drug Start: 08-20-2024 take 1 tablet by mouth once daily Aspirin (Adult Aspirin Regimen) 81 mg tablet,delayed release (DR/EC) Active 81 mg PO DAILY August 20, 2024 12:00am ChiScan Start: 12-20-2022 End: 12-20-2022 take 1 tablet by mouth once daily Aspirin 325 mg tablet Discontinued 325 mg PO DAILY December 20, 2022 1:00am December 20, 2022 3:08pm Start: 11-03-2022 End: 12-20-2022 aspirin Discontinued 325 mg DAILY November 03, 2022 1:00am December 20, 2022 8:29am chest pain Start: 11-03-2022 End: 12-20-2022 aspirin Discontinued 325 mg DAILY November 03, 2022 1:00am December 20, 2022 8:29am Start: 11-03-2022 End: 12-20-2022 aspirin Discontinued 325 MG DAILY November 03, 2022 1:00am December 20, 2022 8:29am Start: 11-03-2022 End: 12-20-2022 aspirin Discontinued 325 MG DAILY November 03, 2022 12:00am December 20, 2022 7:29am Start: 11-03-2022 aspirin Active 325 MG DAILY November 03, 2022 12:00am Start: 11-03-2022 aspirin Active November 03, 2022 12:00am ciprofloxacin 500 mg oral tablet (5 sources) Quinolone Antimicrobial Start: 08-20-2024 take 1 tablet by mouth twice daily Ciprofloxacin Hcl 500 mg tablet Active 500 mg PO TWICE A DAY August 20, 2024 12:00am ANTIBIOTIC fexofenadine hydrochloride 180 mg oral tablet (5 sources) Histamine-1 Receptor Antagonist Start: 08-20-2024 take 1 tablet by mouth once daily Fexofenadine (Jennifer Allergy) 180 mg tablet Active 180 mg PO DAILY August 20, 2024 12:00am allergies ibuprofen 800 mg oral tablet (9 sources) Nonsteroidal Anti-inflammatory Drug Start: 08-20-2024 take 1 tablet by mouth every six hours as needed for pain Ibuprofen 800 mg tablet Active 800 mg PO EVERY 6 HOURS as needed for PAIN August 20, 2024 12:00am Start: 01-30-2017 ADDAPRIN 200 M G TABS IBUPROFEN [id number] Vazquez Rowe 24 hr metoprolol succinate 50 mg extended release oral tablet (8 sources) beta-Adrenergic Martell Start: 01-16-2023 take 1 tablet by mouth once daily Metoprolol Succinate 50 mg tablet extended release 24 hr Active 50 mg PO DAILY January 16, 2023 12:00am BLOOD PRESSURE Multivitamin (Daily Multi-Vitamin) tablet (5 sources) Start: 08-20-2024 Multivitamin (Daily Multi-Vitamin) tablet Active 1 {tbl} PO DAILY August 20, 2024 12:00am HEALTH MAINTENANCE Start: 08-20-2024 Multivitamin ( Daily Multi-Vitamin) tablet Active 1 {tbl} PO DAILY August 20, 2024 12:00am nortriptyline 10 mg oral capsule (14 sources) Tricyclic Antidepressant Start: 08-20-2024 take 1 capsule by mouth once daily Nortriptyline 10 mg capsule Active 10 mg PO DAILY August 20, 2024 12:00am MOOD Start: 09-19-2017 take 10 mg by mouth once daily Nortriptyline Active 10 MG PO DAILY September 19, 2017 12:00am Start: 01-30-2017 NORTRIPTYLINE HCL 50 MG CAPS NORTRIPTYLINE HCL [id number] Vazquez Mcintosh Jae oxyCODONE hydrochloride 5 mg oral tablet (10 sources) Opioid Agonist Start: 08-21-2024 take 1 tablet by mouth every four hours as needed for pain Oxycodone 5 mg tablet Active 5 mg PO Q4H as needed for pain 20 3 0 August 21, 2024 Right flank pain Unspecified abdominal pain Start: 08-16-2024 take 1 tablet by helena th every six hours as needed for pain Oxycodone 5 mg tablet Active 5 mg PO EVERY 6 HOURS as needed for PAIN 14 3 0 August 16, 2024 Calculus of kidney Calculus of kidney rosuvastatin calcium 10 mg oral tablet (15 sources) HMG-CoA Reductase Inhibitor Start: 08-20-2024 take 1 tablet by mouth once daily Rosuvastatin 10 mg tablet Active 10 mg PO DAILY August 20, 2024 12:00am CHOLESTEROL Start: 11-04-2022 End: 08-20-2024 take 1 tablet by mouth at bedtime Rosuvastatin 20 mg tablet Discontinued 20 mg PO AT BEDTIME 30 2 November 04, 2022 1:00am August 20, 2024 4:39pm sertraline 100 mg oral tablet (13 sources) Serotonin Reuptake Inhibitor Start: 05-26-2019 take 1 tablet by mouth once daily Sertraline 100 MG tablet Active 100 mg PO DAILY May 26, 2019 12:00am MOOD Start: 05-26-2019 take 75 mg by mouth once daily Sertraline Active 75 MG PO DAILY May 26, 2019 12:00am tamsulosin hydrochloride 0.4 mg oral capsule (5 sources) alpha-Adrenergic Martell Start: 08-20-2024 take 1 capsule by mouth once daily Tamsulosin 0.4 mg capsule Active 0.4 mg PO DAILY August 20, 2024 12:00am PROSTATE traMADol hydrochloride 50 mg oral tablet (20 sources) Opioid Agonist Start: 12-20-2022 take 1 tablet by mouth twice daily as needed for pain Tramadol 50 mg tablet Active 50 mg PO TWICE A DAY as needed for PAIN December 20, 2022 8:25am Start: 09-19-2017 End: 12-20-2022 take 1 tablet by mouth every six hours as needed for pain Tramadol 50 MG tablet Discontinued 50 mg PO EVERY 6 HOURS NEEDED as needed for Pain September 19, 2017 1:00am December 20, 2022 8:30am zolpidem tartrate 12.5 mg extended release oral tablet (20 sources) gamma-Aminobutyric Acid-ergic Agonist Start: 12-20-2022 take 1 tablet by mouth at bedtime as needed for sleep Zolpidem 12.5 mg tablet,ext release multiphase Active 12.5 mg PO AT BEDTIME as needed for SLEEP December 20, 2022 1:00am Start: 12-16-2019 AMBIEN CR 12.5 MG CR-TABS as needed ZOLPIDEM TARTRATE [id number] Sunday De Anda MD Start: 09-19-2017 End: 10-09-2017 take 1 tablet by mouth at bedtime as needed for sleep Zolpidem 12.5 MG tablet,ext release multiphase Discontinued 12.5 mg PO AT BEDTIME NEEDED as needed for Sleep September 19, 2017 1:00am October 09, 2017 12:17pm Start: 01-30-2017 End: 05-05-2017 ZOLPIDEM TARTRATE ER 12.5 MG CR-TABS ZOLPIDEM TARTRATE [id number] Magdalena Hickman LPN Completed/Discontinued Medications Medication Drug Class(es) Dates Sig (Normalized) Sig (Original) acetaminophen 325 mg / HYDROcodone bitartrate 5 mg oral tablet (20 sources) Opioid Agonist Start: 09-30-2019 End: 10-28-2019 Hydrocodone-Acetami nophen ([place]) 5-325 mg tablet Discontinued 1 {tbl} PO Q8H 21 0 September 30, 2019 October 28, 2019 4:48pm Other cervical disc displacement, unspecified cervical region Start: 08-26-2019 End: 09-01-2019 Hydrocodone-Acetaminophen 1 TABLET tablet Discontinued 1 {tbl} PO EVERY 6 HOURS NEEDED as needed for Pain 8 2 0 August 26, 2019 August 27, 2019 1:00am September 01, 2019 1:10am Postoperative pain Other acute postprocedural pain Start: 08-26-2019 End: 09-01-2019 take 1 tablet by mouth every six hours as needed Hydrocodone-Acetaminophen Discontinued 1 TABLET PO EVERY 6 HOURS NEEDED 8 2 August 26, 2019 September 01, 2019 1:10am amphetamine aspartate 2.5 mg / amphetamine sulfate 2.5 mg / dextroamphetamine saccharate 2.5 mg / dextroamphetamine sulfate 2.5 mg oral tablet (20 sources) Central Nervous System Stimulant Start: 12-20-2022 End: 08-20-2024 take 1 tablet by mouth once daily as needed Dextroamphetamine-Amphetamine (Adderall) 10 mg tablet Discontinued 10 mg PO DAILY as needed for other 0 December 20, 2022 1:00am August 20, 2024 4:48pm Start: 12-03-2019 End: 12-20-2022 Dextroamphetamine-Amphetamin e 30 MG tablet Discontinued 10 mg PO NEEDED as needed for ADHD December 03, 2019 1:00am December 20, 2022 8:27am Start: 12-03-2019 End: 12-20-2022 Dextroamphetamine-Amphetamin e Discontinued 10 MG PO NEEDED December 03, 2019 1:00am December 20, 2022 8:27am Start: 05-26-2019 End: 08-20-2024 take 1 tablet by mouth once daily Dextroamphetamine-Amphetamine (Adderall) 30 mg tablet Discontinued 30 mg PO DAILY 0 October 21, 2019 1:00am August 20, 2024 4:48pm APPLE CIDE VINEGAR (1 source) Start: 12-16-2019 APPLE CIDE VINEGAR APPLE CIDE VINEGAR Sunday De Anda MD 24 hr buPROPion hydrochloride 300 mg extended release oral tablet (4 sources) Aminoketone Start: 01-30-2017 BUPROPION HCL ER (XL) 300 MG [id number] BUPROPION HCL [id number] Vazquez Rowe diphenhydrAMINE hydrochloride 25 mg oral capsule (12 sources) Histamine-1 Receptor Antagonist Start: 05-26-2019 End: 07-04-2019 take 1 capsule by mouth three times daily as needed Diphenhydramine Hcl 25 MG capsule Discontinued 25 mg PO 3 TIMES DAILY NEEDED as needed for Itching 20 0 May 26, 2019 12:00am July 04, 2019 9:31am eluxadoline 100 mg oral tablet (11 sources) mu-Opioid Receptor Agonist Start: 11-03-2022 End: 08-20-2024 Eluxadoline (Viberzi) 100 mg tablet Discontinued 100 mg TWICE A DAY November 03, 2022 1:00am August 20, 2024 4:48pm IBS famotidine 20 mg oral tablet (12 sources) Histamine-2 Receptor Antagonist Start: 05-26-2019 End: 07-04-2019 take 1 tablet by mouth twice daily Famotidine 20 MG tablet Discontinued 20 mg PO TWICE A DAY 28 0 May 26, 2019 12:00am July 04, 2019 9:31am FLUoxetine (3 sources) Serotonin Reuptake Inhibitor Start: 05-05-2017 FLUOXETINE HCL (PMDD) CAPS take as directed FLUOXETINE HCL (PMDD) CAPS [id number] Magdalena Hickman LPN Start: 05-05-2017 FLUOXETINE HCL (PMDD) CAPS take as directed FLUOXETINE HCL (PMDD) CAPS [id number] Magdalena Hickman LPN gabapentin 100 mg oral capsule (14 sources) Anti-epileptic Agent Start: 12-16-2019 GABAPENTI N 100 MG CAPS with the 800 mg GABAPENTIN [id number] Sunday De Anda MD Start: 12-16-2019 GABAPENTIN 800 MG TABS 1x daily GABAPENTIN [id number] Sunday De Anda MD Start: 07-04-2019 End: 10-21-2019 take 1 capsule by mouth at bedtime Gabapentin 100 mg capsule Discontinued 100 mg PO AT BEDTIME July 04, 2019 12:00am October 21, 2019 2:40pm ISOtretinoin 40 mg oral capsule (16 sources) Retinoid Start: 09-19-2017 End: 10-09-2017 take 1 capsule by mouth twice daily Isotretinoin 40 MG capsule Discontinued 40 mg PO TWICE A DAY September 19, 2017 1:00am October 09, 2017 12:18pm Start: 01-30-2017 ABSORICA 40 MG CAPS ISOTRETINOIN [id number] Vazquez Rowe modafinil 200 mg oral tablet (7 sources) Sympathomimetic-like Agent Start: 01-30-2017 End: 05-05-2017 MODAFINIL 200 MG TABS MODAFINIL [id number] Magdalena Hickman LPN oseltamivir 75 mg oral capsule (12 sources) Neuraminidase Inhibitor Start: 10-09-2017 End: 10-14-2017 take 1 capsule by mouth every twelve hours Oseltamivir (Tamiflu) 75 mg capsule Discontinued 75 mg PO Q12H 10 5 0 October 09, 2017 1:00am October 13, 2017 1:00am October 14, 2017 1:05am pravastatin sodium 40 mg oral tablet (11 sources) HMG-CoA Reductase Inhibitor Start: 11-03-2022 End: 11-04-2022 Pravastatin 40 mg tablet Discontinued 40 mg WITH DINNER November 03, 2022 1:00am November 04, 2022 6:17pm cholesterol Start: 11-03-2022 End: 11-04-2022 Pravastatin Discontinued 40 MG WITH DINNER November 03, 2022 1:00am November 04, 2022 6:17pm Start: 11-03-2022 Pravastatin Ac tive MG November 03, 2022 12:00am 1 ml triamcinolone acetonide 40 mg/ml injection (3 sources) Corticosteroid Start: 05-05-2017 take 60 mg by intramuscular injection once KENALOG 40 MG/ML SUSP 60 mg IM once in office 05/05/2017 TRIAMCINOLONE ACETONIDE [id number] Kong Nael Bhavin CLEANER OPERATOR-C Start: 05-05-2017 inject 60 mg by intr amuscular injection once KENALOG 40 MG/ML SUSP 60 mg IM once in office 05/05/2017 TRIAMCINOLONE ACETONIDE [id number] Kong Nael Delcid CLEANER OPERATOR-C valACYclovir 1000 mg oral tablet (20 sources) Herpesvirus Nucleoside Analog DNA Polymerase Inhibitor, Herpes Simplex Virus Nucleoside Analog DNA Polymerase Inhibitor, Herpes Zoster Virus Nucleoside Analog DNA Polymerase Inhibitor Start: 12-03-2019 End: 08-20-2024 Valacyclovir 1,000 MG tablet Discontinued 1000 mg PO NEEDED as needed for PRN December 03, 2019 1:00am August 20, 2024 4:45pm Start: 09-19-2017 take 1 tablet by helena th once daily Valacyclovir 500 MG tablet Active 500 mg PO DAILY September 19, 2017 1:00am VIRUS INFECTION Start: 01-30-2017 End: 05-05-2017 VALACYCLOVIR HCL 500 MG TABS VALACYCLOVIR HCL [id number] Magdalena Hickman DOCTORATE OF CHIROPRACTIC valsartan 80 mg oral tablet (9 sources) Angiotensin 2 Receptor Martell Start: 12-20-2022 End: 08-20-2024 take 1 tablet by mouth once daily Valsartan (Diovan) 80 mg tablet Discontinued 80 mg PO DAILY 30 December 20, 2022 1:00am August 20, 2024 4:48pm Problems Active Problems Problem Classification Problem Date Documented Da te Episodic/Chronic Allergic reactions (20 sources) Contact dermatitis due to poison tami; Translations: [Allergic contact dermatitis due to plants, except food] Onset: 05-05-2017 05-05-2017 Episodic Cardiac dysrhythmias (20 sources) Palpitations; Translations: [Palpitations] Episodic Coronary atherosclerosis and other heart disease (9 sources) Angina pectoris; Translations: [Other forms of angina pectoris] 12-20-2022 Chronic Disorders of lipid metabolism (11 sources) Dyslipidemia; Translations: [Hyperlipidemia, unspecified] 12-20-2022 Chronic Essential hypertension (11 sources) Hypertensive disorder; Translations: [Essential (primary) hypertension] 12-20-2022 Chronic Fluid and electrolyte disorders (12 sources) Mild dehydration; Translations: [Dehydration] 12-20-2022 Episodic Immunizations and screening for infectious disease (12 sources) Contact with and (suspected) exposure to other viral communicable diseases; Translations: [Contact with or suspected exposure to other viral communicable disease] 12-20-2022 Episodic Influenza (12 sources) Influenza due to Influenza A virus; Translations: [Influenza due to other identified influenza virus with other respiratory manifestations] 12-20-2022 Episodic Nonspecific chest pain (20 sources) Chest pain; Translations: [Chest pain, unspecified] Episodic Other aftercare (1 source) Other buttermaker (current) drug therapy; Translations: [Other care home (current) drug therapy] Onset: 05-14-2025 Episodic Other connective tissue disease (12 sources) Muscle weakness of limb; Translations: [Other symptoms and signs involving the musculoskeletal system] 12-20-2022 Episodic Other gastrointestinal disorders (9 sources) History of irritable bowel syndrome; Translations: [Personal history of other diseases of the digestive system] 12-20-2022 Episodic Other gastrointestinal disorders (2 sources) Personal history of other diseases of the digestive system; Translations: [Personal history of other diseases of digestive system] 12-20-2022 Episodic Other lower respiratory disease (12 sources) Dyspnea on exertion; Translations: [Shortness of breath] 12-20-2022 Episodic Other lower respiratory disease (4 sources) Shortness of breath; Translations: [Shortness of breath] Episodic Other nervous system disorders (12 sources) Carpal tunnel syndrome; Translations: [Carpal tunnel syndrome, unspecified upper limb] 12-20-2022 Chronic Other nervous system disorders (12 sources) Numbness and tingling sensation of skin; Translations: [Anesthesia of skin] 12-20-2022 Episodic Other non-traumatic joint disorders (19 sources) Shoulder pain; Translations: [Impingement syndrome of shoulder region] Onset: 01-30-2017 02-13-2017 Episodic Other non-traumatic joint disorders (12 sources) Pain in unspecified knee; Translations: [Knee pain] 12-20-2022 Episodic Other screening for suspected conditions (not mental disorders or infectious disease) (2 sources) Other specified abnormal findings of blood chemistry; Translations: [Other specified abnormal findings of blood chemistry] Onset: 05-13-2025 Episodic Other upper respiratory infections (20 sources) Acute pharyngitis; Translations: [Acute pharyngitis, unspecified] 12-20-2022 Episodic Residual codes; unclassified (12 sources) History of ankle surgery; Translations: [Other specified postprocedural states] 12-20-2022 Episodic Comment on above: Left-2005 Residual codes; unclassified (12 sources) Past history of procedure; Translations: [Other specified postprocedural states] 12-20-2022 Episodic Comment on above: Right arm Residual codes; unclassified (12 sources) History of colonoscopy; Translations: [Other specified postprocedural states] 12-20-2022 Episodic Comment on above: 2016 Rheumatoid arthritis and related disease (2 sources) Inflammatory polyarthropathy; Translations: [Inflammatory polyarthropathy] Onset: 05-14-2025 Chronic Spondylosis; intervertebral disc disorders; other back problems (1 source) Herniation of nucleus pulposus; Translations: [Other cervical disc displacement, unspecified cervical region] Onset: 12-16-2019 12-16-2019 Chronic Spondylosis; intervertebral disc disorders; other back problems (12 sources) Backache; Translations: [Dorsalgia, unspecified] 12-20-2022 Episodic Substance-related disorders (11 sources) Nicotine dependence; Translations: [Nicotine dependence, unspecified, uncomplicated] 12-20-2022 Chronic Comment on above: Smokes cigars Viral infection (12 sources) Disease caused by 2019-nCoV; Translations: [COVID-19] 12-20-2022 Episodic Past or Other Problems Problem Classification Problem Date Documented Da te Episodic/Chronic Abdominal pain (7 sources) Acute abdominal pain; Translations: [Right flank pain] Onset: 06-01-2017 06-01-2017 Episodic Calculus of urinary tract (6 sources) Kidney stone; Translations: [Calculus of kidney] Onset: 01-16-2025 08-16-2024 Episodic Genitourinary symptoms and ill-defined conditions (2 sources) Gross hematuria; Translations: [Unspecified abnormal findings in urine] Onset: 08-15-2024 Episodic Noninfectious gastroenteritis (1 source) Noninfective gastroenteritis and colitis, unspecified; Translations: [Noninfective gastroenteritis and colitis, unspecified] Onset: 08-03-2024 Episodic Other aftercare (3 sources) Superior glenoid labrum lesion of right shoulder, subsequent encounter; Translations: [Superior glenoid labrum lesion of right shoulder, subsequent encounter] Onset: 02-27-2017 02-27-2017 Episodic Other connective tissue disease (1 source) Impingement syndrome of shoulder region; Translations: [Impingement syndrome of right shoulder] Onset: 01-30-2017 02-13-2017 Episodic Other gastrointestinal disorders (1 source) Diarrhea; Translations: [Diarrhea, unspecified] Onset: 06-01-2017 06-01-2017 Episodic Sprains and strains (5 sources) Superior glenoid labrum lesion of right shoulder, initial encounter; Translations: [Superior glenoid labrum lesion of right shoulder, subsequent encounter] Onset: 01-30-2017 02-13-2017 Episodic Unclassified (1 source) Problem Unclassified (12 sources) Operative procedure planned; Translations: [Lower extremity surgery planned] 12-20-2022 Comment on above: Left ankle- 2005 Urinary tract infections (1 source) Urinary tract infection, site not specified; Translations: [Urinary tract infection, site not specified] Onset: 08-12-2024 Episodic Results Test Name Value Interpretation Reference Range Facility L509.3001on 05-13-2025 Testosterone [Mass/Vol] 295.00 ng/dL Low 300-890 [facility] Comment on above: Performed By: #### L 509.3001 #### [facility] [address] [place], [place], [id number] Laboratory - Chemistry and C hemistry - challengeOrdered By: Dmitry Aragon on 05-13-2025 Testosterone [Mass/Vol] 295.00 ng/dL Low 300-890 [facility] Absolute lymphocyte countOrd ered By: Diana Mallory on 05-12-2025 Lymphocytes Auto (Unsp spec) [#/Vol] 1.54 10*3/uL 0.83-4.51 [facility] Absolute neutrophil countOrd ered By: Diana Mallory on 05-12-2025 Neutrophils (Bld) [#/Vol] 4.6 10*3/uL 2.0-7.7 [facility] Anion gap in Serum or Plasma Ordered By: Diana Mallory on 05-12-2025 Anion gap [Moles/Vol] 11 mmol/L 5-15 [facility] Automated blood erythrocyte countOrdered By: Diana Mallory on 05-12-2025 RBC (Bld) [#/Vol] 4.94 10*6/uL Normal 4.6-6.2 [facility] Comment on above: Performed By: #### L 100.0100, L500.4050 #### [facility] [address] [place], [address] Automated blood hematocrit ( percentage)Ordered By: Diana Mallory on 05-12-2025 Hematocrit (Bld) [Volume fraction] 45.0 % Normal 40-54 [facility] Comment on above: Performed By: #### L 100.0100, L500.4050 #### [facility] [address] [place], [address] Automated lymphocyte count a s percentage of total leukocytesOrdered By: Diana Mallory on 05-12-2025 Lymphocytes/100 WBC Auto (Unsp spec) 22.7 % 19-41 [facility] BUN/creatinine ratioOrdered By: Diana Mallory on 05-12-2025 Urea nitrogen/Creatinine [Mass ratio] 21.1 mg/mg High 10-20 [facility] Basophil percentageOrdered B y: Diana Mallory on 05-12-2025 Basophils/100 WBC (Bld) 0.4 % Normal 0-1 [facility] Comment on above: Performed By: #### L 100.0100, L500.4050 #### [facility] [address] [place], [address] Bilirubin, totalOrdered By: Diana Mallory on 05-12-2025 Bilirubin [Mass/Vol] 0.33 mg/dL Normal 0.00-1.30 [facility] Comment on above: Performed By: #### L 100.0100, L500.4050 #### [facility] [address] [place], [address] CBC W/Diff, Automatedon 04-23 Absolute Lymph 1.54 X10 3/uL Normal 0.83-4.51 [facility] Comment on above: Performed By: #### L 100.0100, L500.4050 #### [facility] [address] [place], [address] Absolute Neut 4.6 X10 3/uL Normal 2.0-7.7 [facility] Comment on above: Performed By: #### L 100.0100, L500.4050 #### [facility] [address] [place], [address] IG% 0.300 Normal 0.0-0.9 [facility] Comment on above: Result Comment: IG% - Immature Granulocytes (promyelocytes, myelocytes and metamyelocytes) > 1% indicates that a LEFT SHIFT is Present. Performed By: #### L 100.0100, L500.4050 #### [facility] [address] [place], [address] Lymphocytes/100 WBC (Bld) 22.7 % Normal 19-41 [facility] Comment on above: Performed By: #### L 100.0100, L500.4050 #### [facility] [address] [place], [address] Nucleated RBC (Bld) [#/Vol] 0 10*3/uL Normal 0-5 [facility] Comment on above: Performed By: #### L 100.0100, L500.4050 #### [facility] [address] [place], [address] RDW SD 41.5 fl Normal 35.1-43.9 [facility] Comment on above: Performed By: #### L 100.0100, L500.4050 #### [facility] [address] [place], [address] Carbon dioxide, total [Moles /volume] in Central venous bloodOrdered By: Diana Mallory on 05-12-2025 CO2 [Moles/Vol] 25.6 mmol/L Normal 21.0-32.0 [facility] Comment on above: Performed By: #### L 100.0100, L500.4050 #### [facility] [address] [place], [address] Chloride assayOrdered By: Alberto Mallory on 05-12-2025 Chloride [Moles/Vol] 103 mmol/L Normal 98-108 [facility] Comment on above: Performed By: #### L 100.0100, L500.4050 #### [facility] [address] [place], [address] Comprehensive Metabolic Prof ilon 05-12-2025 ALK PHOS 73 U/L Normal 40-129 [facility] Comment on above: Performed By: #### L 100.0100, L500.4050 #### [facility] [address] [place], [address] BUN/CRE 21.1 RATIO High 10-20 [facility] Comment on above: Performed By: #### L 100.0100, L500.4050 #### [facility] [address] [place], [address] GAP 11 Normal 5-15 [facility] Comment on above: Performed By: #### L 100.0100, L500.4050 #### [facility] [address] [place], [address] Potassium [Moles/Vol] 4.1 mmol/L Normal 3.3-5.1 [facility] Comment on above: Performed By: #### L 100.0100, L500.4050 #### [facility] [address] [place], [address] T PROT 6.9 g/dL Normal 5.9-8.4 [facility] Comment on above: Performed By: #### L 100.0100, L500.4050 #### [facility] [address] [place], [address] Comprehensive Metabolic Prof ilOrdered By: Diana Mallory on 05-12-2025 AST [Catalytic activity/Vol] 23 U/L Normal <=37 [facility] Comment on above: Performed By: #### L 100.0100, L500.4050 #### [facility] [address] [place], [address] Eosinophil percentageOrdered By: Diana Mallory on 05-12-2025 Eosinophils/100 WBC (Bld) 2.4 % Normal 0-5 [facility] Comment on above: Performed By: #### L 100.0100, L500.4050 #### [facility] [address] [place], [address] Erythrocyte distribution wid th ratioOrdered By: Diana Mallory on 05-12-2025 Erythrocyte distribution width (RBC) [Ratio] 12.8 % Normal 11.6-14.6 [facility] Comment on above: Performed By: #### L 100.0100, L500.4050 #### [facility] [address] [place], [address] Erythrocyte distribution wid th standard deviationOrdered By: Diana Mallory on 05-12-2025 Erythrocyte distribution width (RBC) [Ratio] 41.5 fl 35.1-43.9 [facility] Glomerular filtration rate ( GFR) estimation/1.73 sq m using serum, plasma, or whole bOrdered By: Diana Mallory on 05-12-2025 GFR/1.73 sq M.predicted among non-blacks MDRD (S/P/Bld) [Vol rate/Area] 100 mL/min/{1.73_m2} Normal >60 [facility] Comment on above: mL/min/1.73m2 CKD-EP I Creatinine Equation (2020) Result Comment: mL/m in/1.73m2 CKD-EPI Creatinine Equation (2020) Performed By: #### L 100.0100, L500.4050 #### [facility] [address] [place], [address] Hemoglobin measurementOrdere d By: Diana Mallory on 05-12-2025 Hemoglobin (Bld) [Mass/Vol] 15.2 g/dL Normal 13.0-16.5 [facility] Comment on above: Performed By: #### L 100.0100, L500.4050 #### [facility] [address] [place], [address] Immature granulocytes/100 WB C Auto (Bld)Ordered By: Diana Mallory on 05-12-2025 Immature granulocytes/100 WBC (Bld) 0.300 % 0.0-0.9 [facility] Comment on above: IG% - Immature Granu locytes (promyelocytes, myelocytes and metamyelocytes) > 1% indicates that a LEFT SHIFT is Present. MCV (mean corpuscular volume ) determinationOrdered By: Diana Mallory on 05-12-2025 MCV (RBC) [Entitic vol] 91.1 fL Normal 80-94 [facility] Comment on above: Performed By: #### L 100.0100, L500.4050 #### [facility] [address] [place], [address] Mean corpuscular hemoglobin (MCH) determinationOrdered By: Diana Mallory on 05-12-2025 MCH (RBC) [Entitic mass] 30.8 pg Normal 27.0-32.0 [facility] Comment on above: Performed By: #### L 100.0100, L500.4050 #### [facility] [address] [place], [address] Mean corpuscular hemoglobin concentration (MCHC) determinationOrdered By: Diana Mallory on 05-12-2025 MCHC (RBC) [Mass/Vol] 33.8 g/dL Normal 32-36 [facility] Comment on above: Performed By: #### L 100.0100, L500.4050 #### [facility] [address] [place], [address] Mean platelet volume determi nationOrdered By: Diana Mallory on 05-12-2025 Platelet mean volume (Bld) [Entitic vol] 10.4 fL Normal 6.2-12.0 [facility] Comment on above: Performed By: #### L 100.0100, L500.4050 #### [facility] [address] [place], [address] Monocyte percentageOrdered B y: Diana Mallory on 05-12-2025 Monocytes/100 WBC (Bld) 6.4 % Normal 0-10 [facility] Comment on above: Performed By: #### L 100.0100, L500.4050 #### [facility] [address] [place], [address] Neutrophil percentageOrdered By: Diana Mallory on 05-12-2025 Neutrophils/100 WBC (Bld) 67.8 % Normal 47-70 [facility] Comment on above: Performed By: #### L 100.0100, L500.4050 #### [facility] [address] [place], [address] Nucleated red blood cell per centageOrdered By: Diana Mallory on 05-12-2025 Nucleated RBC/100 WBC (Bld) [Ratio] 0 % 0-5 [facility] Platelet countOrdered By: Alberto Mallory on 05-12-2025 Platelets (Bld) [#/Vol] 249 10*3/uL Normal 150-450 [facility] Comment on above: Performed By: #### L 100.0100, L500.4050 #### [facility] [address] [place], [address] Potassium measurement (mass/ volume)Ordered By: Diana Mallory on 05-12-2025 Potassium (Unsp spec) [Mass/Vol] 4.1 mmol/L 3.3-5.1 [facility] Serum creatinine measurement (mass/volume)Ordered By: Diana Mallory on 05-12-2025 Creatinine [Mass/Vol] 0.96 mg/dL Normal 0.70-1.20 [facility] Comment on above: Performed By: #### L 100.0100, L500.4050 #### [facility] [address] [place], [address] Serum globulin measurementOr dered By: Diana Mallory on 05-12-2025 Globulin (S) [Mass/Vol] 2.5 g/dL Normal 2.2-4.2 [facility] Comment on above: Performed By: #### L 100.0100, L500.4050 #### [facility] [address] [place], [address] Serum glucose measurement (m ass/volume)Ordered By: Diana Mallory on 05-12-2025 Glucose [Mass/Vol] 100 mg/dL High 70-99 [facility] Comment on above: Performed By: #### L 100.0100, L500.4050 #### [facility] [address] [place], [address] Serum or plasma alanine martinez otransferase (ALT) measurementOrdered By: Diana Mallory on 05-12-2025 ALT [Catalytic activity/Vol] 34 U/L Normal <=46 [facility] Comment on above: Performed By: #### L 100.0100, L500.4050 #### [facility] [address] [place], [address] Serum or plasma albumin florentin urement (mass/volume)Ordered By: Diana Mallory on 05-12-2025 Albumin [Mass/Vol] 4.4 g/dL Normal 3.5-5.0 [facility] Comment on above: Performed By: #### L 100.0100, L500.4050 #### [facility] [address] [place], [address] Serum or plasma albumin/glob ulin mass ratioOrdered By: Diana Mallory on 05-12-2025 Albumin/Globulin [Mass ratio] 1.8 {ratio} Normal 0.9-2.4 [facility] Comment on above: Performed By: #### L 100.0100, L500.4050 #### [facility] [address] [place], [address] Serum or plasma alkaline geri sphatase measurementOrdered By: Diana Mallory on 05-12-2025 ALP [Catalytic activity/Vol] 73 U/L 40-129 [facility] Serum or plasma calcium florentin urement (mass/volume)Ordered By: Diana Mallory on 05-12-2025 Calcium [Mass/Vol] 9.7 mg/dL Normal 7.6-11.0 [facility] Comment on above: Performed By: #### L 100.0100, L500.4050 #### [facility] [address] [place], [address] Serum or plasma urea nitroge n measurement (mass/volume)Ordered By: Diana Mallory on 05-12-2025 Urea nitrogen [Mass/Vol] 20 mg/dL High 4-19 [facility] Comment on above: Performed By: #### L 100.0100, L500.4050 #### [facility] [address] [place], [address] Sodium levelOrdered By: Jimena Mallory on 05-12-2025 Sodium [Moles/Vol] 140 mmol/L Normal 133-145 [facility] Comment on above: Performed By: #### L 100.0100, L500.4050 #### [facility] [address] [place], [address] Total proteinOrdered By: Omer Mallory on 05-12-2025 Protein [Mass/Vol] 6.9 g/dL 5.9-8.4 [facility] White blood cell (WBC) count Ordered By: Diana Mallory on 05-12-2025 WBC (Bld) [#/Vol] 6.8 10*3/uL Normal 4.4-11.0 [facility] Comment on above: Performed By: #### L 100.0100, L500.4050 #### [facility] [address] [place], [address] Absolute lymphocyte countOrd ered By: Diana Mallory on 03-12-2025 Lymphocytes Auto (Unsp spec) [#/Vol] 1.65 10*3/uL 0.83-4.51 [facility] Absolute neutrophil countOrd ered By: Diana Mallory on 03-12-2025 Neutrophils (Bld) [#/Vol] 4.3 10*3/uL 2.0-7.7 [facility] Anion gap in Serum or Plasma Ordered By: Diana Mallory on 03-12-2025 Anion gap [Moles/Vol] 12 mmol/L 5-15 [facility] Automated blood erythrocyte countOrdered By: Diana Mallory on 03-12-2025 RBC (Bld) [#/Vol] 5.02 10*6/uL Normal 4.6-6.2 [facility] Comment on above: Performed By: #### L 3100.5310, L7000.0600 #### [facility] [address] [place], [place], [address] Automated blood hematocrit ( percentage)Ordered By: Diana Mallory on 03-12-2025 Hematocrit (Bld) [Volume fraction] 44.2 % Normal 40-54 [facility] Comment on above: Performed By: #### L 3100.5310, L7000.0600 #### [facility] [address] [place], [place], [address] Automated lymphocyte count a s percentage of total leukocytesOrdered By: Diana Mallory on 03-12-2025 Lymphocytes/100 WBC Auto (Unsp spec) 25.2 % 19- [facility] BUN/creatinine ratioOrdered By: Diana Mallory on 03-12-2025 Urea nitrogen/Creatinine [Mass ratio] 18.5 mg/mg 10-20 [facility] Basophil percentageOrdered B y: Diana Mallory on 03-12-2025 Basophils/100 WBC (Bld) 0.3 % Normal 0-1 [facility] Comment on above: Performed By: #### L 3100.5310, L7000.0600 #### [facility] [address] [place], [address] Bilirubin, totalOrdered By: Diana Mallory on 03-12-2025 Bilirubin [Mass/Vol] 0.32 mg/dL Normal 0.00-1.30 [facility] Comment on above: Performed By: #### L 3100.5310, L7000.0600 #### [facility] [address] [place], [address] CBC W/Diff, Automatedon 05- Absolute Lymph 1.65 X10 3/uL Normal 0.83-4.51 [facility] Comment on above: Performed By: #### L 3100.5310, L7000.0600 #### [facility] [address] [place], [address] Absolute Neut 4.3 X10 3/uL Normal 2.0-7.7 [facility] Comment on above: Performed By: #### L 3100.5310, L7000.0600 #### [facility] [address] [place], [address] IG% 0.200 Normal 0.0-0.9 [facility] Comment on above: Result Comment: IG% - Immature Granulocytes (promyelocytes, myelocytes and metamyelocytes) > 1% indicates that a LEFT SHIFT is Present. Performed By: #### L 3100.5310, L7000.0600 #### [facility] [address] [place], [address] Lymphocytes/100 WBC (Bld) 25.2 % Normal 19-41 [facility] Comment on above: Performed By: #### L 3100.5310, L7000.0600 #### [facility] [address] [place], [address] Nucleated RBC (Bld) [#/Vol] 0 10*3/uL Normal 0-5 [facility] Comment on above: Performed By: #### L 3100.5310, L7000.0600 #### [facility] [address] [place], [address] RDW SD 40.5 fl Normal 35.1-43.9 [facility] Comment on above: Performed By: #### L 3100.5310, L7000.0600 #### [facility] [address] [place], [address] Carbon dioxide, total [Moles /volume] in Central venous bloodOrdered By: Diana Mallory on 03-12-2025 CO2 [Moles/Vol] 21.5 mmol/L Normal 21.0-32.0 [facility] Comment on above: Performed By: #### L 3100.5310, L7000.0600 #### [facility] [address] [place], [address] Chloride assayOrdered By: Alberto Mallory on 03-12-2025 Chloride [Moles/Vol] 106 mmol/L Normal 98-108 [facility] Comment on above: Performed By: #### L 3100.5310, L7000.0600 #### [facility] [address] [place], [address] Comprehensive Metabolic Prof ilon 03-12-2025 ALK PHOS 76 U/L Normal 40-129 [facility] Comment on above: Performed By: #### L 3100.5310, L7000.0600 #### [facility] [address] [place], [address] BUN/CRE 18.5 RATIO Normal 10-20 [facility] Comment on above: Performed By: #### L 3100.5310, L7000.0600 #### [facility] [address] [place], [address] GAP 12 Normal 5-15 [facility] Comment on above: Performed By: #### L 3100.5310, L7000.0600 #### [facility] [address] [place], [address] Potassium [Moles/Vol] 4.1 mmol/L Normal 3.3-5.1 [facility] Comment on above: Performed By: #### L 3100.5310, L7000.0600 #### [facility] [address] [place], [address] T PROT 6.9 g/dL Normal 5.9-8.4 [facility] Comment on above: Performed By: #### L 3100.5310, L7000.0600 #### [facility] [address] [place], [address] Comprehensive Metabolic Prof ilOrdered By: Diana Mallory on 03-12-2025 AST [Catalytic activity/Vol] 30 U/L Normal <=37 [facility] Comment on above: Performed By: #### L 3100.5310, L7000.0600 #### [facility] [address] [place], [address] Eosinophil percentageOrdered By: Diana Mallory on 03-12-2025 Eosinophils/100 WBC (Bld) 2.6 % Normal 0-5 [facility] Comment on above: Performed By: #### L 3100.5310, L7000.0600 #### [facility] [address] [place], [address] Erythrocyte distribution wid th ratioOrdered By: Diana Mallory on 03-12-2025 Erythrocyte distribution width (RBC) [Ratio] 12.7 % Normal 11.6-14.6 [facility] Comment on above: Performed By: #### L 3100.5310, L7000.0600 #### [facility] [address] [place], [address] Erythrocyte distribution wid th standard deviationOrdered By: Diana Mallory on 03-12-2025 Erythrocyte distribution width (RBC) [Ratio] 40.5 fl 35.1-43.9 [facility] Glomerular filtration rate ( GFR) estimation/1.73 sq m using serum, plasma, or whole bOrdered By: Diana Mallory on 03-12-2025 GFR/1.73 sq M.predicted among non-blacks MDRD (S/P/Bld) [Vol rate/Area] 99 mL/min/{1.73_m2} Normal >60 [facility] Comment on above: mL/min/1.73m2 CKD-EP I Creatinine Equation (2020) Result Comment: mL/m in/1.73m2 CKD-EPI Creatinine Equation (2020) Performed By: #### L 3100.5310, L7000.0600 #### [facility] [address] [place], [place], [address] Hemoglobin measurementOrdere d By: Diana Mallory on 03-12-2025 Hemoglobin (Bld) [Mass/Vol] 15.0 g/dL Normal 13.0-16.5 [facility] Comment on above: Performed By: #### L 3100.5310, L7000.0600 #### [facility] [address] [place], [address] Immature granulocytes/100 WB C Auto (Bld)Ordered By: Diana Mallory on 03-12-2025 Immature granulocytes/100 WBC (Bld) 0.200 % 0.0-0.9 [facility] Comment on above: IG% - Immature Granu locytes (promyelocytes, myelocytes and metamyelocytes) > 1% indicates that a LEFT SHIFT is Present. MCV (mean corpuscular volume ) determinationOrdered By: Diana Mallory on 03-12-2025 MCV (RBC) [Entitic vol] 88.0 fL Normal 80-94 [facility] Comment on above: Performed By: #### L 3100.5310, L7000.0600 #### [facility] [address] [place], [place], [id number] Mean corpuscular hemoglobin (MCH) determinationOrdered By: Diana Mallory on 03-12-2025 MCH (RBC) [Entitic mass] 29.9 pg Normal 27.0-32.0 [facility] Comment on above: Performed By: #### L 3100.5310, L7000.0600 #### [facility] [address] [place], [place], [address] Mean corpuscular hemoglobin concentration (MCHC) determinationOrdered By: Diana Mallory on 03-12-2025 MCHC (RBC) [Mass/Vol] 33.9 g/dL Normal 32-36 [facility] Comment on above: Performed By: #### L 3100.5310, L7000.0600 #### [facility] [address] [place], [address] Mean platelet volume determi nationOrdered By: Diana Mallory on 03-12-2025 Platelet mean volume (Bld) [Entitic vol] 10.5 fL Normal 6.2-12.0 [facility] Comment on above: Performed By: #### L 3100.5310, L7000.0600 #### [facility] [address] [place], [address] Monocyte percentageOrdered B y: Diana Mallory on 03-12-2025 Monocytes/100 WBC (Bld) 6.6 % Normal 0-10 [facility] Comment on above: Performed By: #### L 3100.5310, L7000.0600 #### [facility] [address] [place], [address] Neutrophil percentageOrdered By: Diana Mallory on 03-12-2025 Neutrophils/100 WBC (Bld) 65.1 % Normal 47-70 [facility] Comment on above: Performed By: #### L 3100.5310, L7000.0600 #### [facility] [address] [place], [address] Nucleated red blood cell per centageOrdered By: Diana Mallory on 03-12-2025 Nucleated RBC/100 WBC (Bld) [Ratio] 0 % 0-5 [facility] Platelet countOrdered By: Alberto Mallory on 03-12-2025 Platelets (Bld) [#/Vol] 256 10*3/uL Normal 150-450 [facility] Comment on above: Performed By: #### L 3100.5310, L7000.0600 #### [facility] [address] [place], [address] Potassium measurement (mass/ volume)Ordered By: Diana Mallory on 03-12-2025 Potassium (Unsp spec) [Mass/Vol] 4.1 mmol/L 3.3-5.1 [facility] Serum creatinine measurement (mass/volume)Ordered By: Diana Mallory on 03-12-2025 Creatinine [Mass/Vol] 0.98 mg/dL Normal 0.70-1.20 [facility] Comment on above: Performed By: #### L 3100.5310, L7000.0600 #### [facility] [address] [place], [address] Serum globulin measurementOr dered By: Diana Mallory on 03-12-2025 Globulin (S) [Mass/Vol] 2.6 g/dL Normal 2.2-4.2 [facility] Comment on above: Performed By: #### L 3100.5310, L7000.0600 #### [facility] [address] [place], [address] Serum glucose measurement (m ass/volume)Ordered By: Diana Mallory on 03-12-2025 Glucose [Mass/Vol] 110 mg/dL High 70-99 [facility] Comment on above: Performed By: #### L 3100.5310, L7000.0600 #### [facility] [address] [place], [address] Serum or plasma alanine martinez otransferase (ALT) measurementOrdered By: Diana Mallory on 03-12-2025 ALT [Catalytic activity/Vol] 40 U/L Normal <=46 [facility] Comment on above: Performed By: #### L 3100.5310, L7000.0600 #### [facility] [address] [facility] [place], [address] Serum or plasma albumin florentin urement (mass/volume)Ordered By: Diana Mallory on 03-12-2025 Albumin [Mass/Vol] 4.3 g/dL Normal 3.5-5.0 [facility] Comment on above: Performed By: #### L 3100.5310, L7000.0600 #### [facility] [address] [place], [address] Serum or plasma albumin/glob ulin mass ratioOrdered By: Diana Mallory on 03-12-2025 Albumin/Globulin [Mass ratio] 1.6 {ratio} Normal 0.9-2.4 [facility] Comment on above: Performed By: #### L 3100.5310, L7000.0600 #### [facility] [address] [place], [address] Serum or plasma alkaline geri sphatase measurementOrdered By: Diana Mallory on 03-12-2025 ALP [Catalytic activity/Vol] 76 U/L 40-129 [facility] Serum or plasma calcium florentin urement (mass/volume)Ordered By: Diana Mallory on 03-12-2025 Calcium [Mass/Vol] 9.1 mg/dL Normal 7.6-11.0 [facility] Comment on above: Performed By: #### L 3100.5310, L7000.0600 #### [facility] [address] [place], [address] Serum or plasma urea nitroge n measurement (mass/volume)Ordered By: Diana Mallory on 03-12-2025 Urea nitrogen [Mass/Vol] 18 mg/dL Normal 4-19 [facility] Comment on above: Performed By: #### L 3100.5310, L7000.0600 #### [facility] [address] [place], [address] Sodium levelOrdered By: Jimena Mallory on 03-12-2025 Sodium [Moles/Vol] 139 mmol/L Normal 133-145 [facility] Comment on above: Performed By: #### L 3100.5310, L7000.0600 #### [facility] [address] [place], [address] Total proteinOrdered By: Omer Mallory on 03-12-2025 Protein [Mass/Vol] 6.9 g/dL 5.9-8.4 [facility] White blood cell (WBC) count Ordered By: Diana Mallory on 03-12-2025 WBC (Bld) [#/Vol] 6.6 10*3/uL Normal 4.4-11.0 [facility] Comment on above: Performed By: #### L 3100.5310, L7000.0600 #### [facility] [address] [place], [place], [address] Sex Hormone-binding Globulin on 01-17-2025 SHBG 18.0 nmol/L Normal 16.5-55.9 [facility] Comment on above: Order Comment: Test( s) 024320-kC, Stool was developed and its performance characteristics determined by [facility]. It has not been cleared or approved by the Food and Drug Administration. Result Comment: Perf ormed at: [facility] [address] [id number] [place] Supervisor: Jorge A Flower PhD, Phone: [phone] Performed at: [facility] [address] [id number] [place] Supervisor: Sarah Damon MD, Phone: [phone] Performed By: #### L 3100.5310, L7000.0600 #### [facility] [address] [place], [place], [address] Testosterone, Total / Freeon 01-17-2025 TESTOSTER,FREE 6.68 ng/dL Normal 5.00-21.00 [facility] Comment on above: Order Comment: Test( s) [id number]-rM, Stool was developed and its performance characteristics determined by [facility]. It has not been cleared or approved by the Food and Drug Administration. Performed By: #### L 3100.5310, L7000.0600 #### [facility] [address] [place], [address] TESTOSTER,TOTAL 181 ng/dL Low 264-916 [facility] Comment on above: Order Comment: Test( s) [id number]-zG, Stool was developed and its performance characteristics determined by [facility]. It has not been cleared or approved by the Food and Drug Administration. Result Comment: Adul t male reference interval is based on a population of healthy nonobese males (BMI <30) between 19 and 39 years old. Janice, et.al. JCEM 2017,102;5861-2734. PMID: [id number]. Performed By: #### L 3100.5310, L7000.0600 #### [facility] [address] [place], [place], [address] TESTOSTERONE,%F 3.69 Normal 1.50-4.20 [facility] Comment on above: Order Comment: Test( s) [id number]-eM, Stool was developed and its performance characteristics determined by [facility]. It has not been cleared or approved by the Food and Drug Administration. Performed By: #### L 3100.5310, L7000.0600 #### [facility] [address] [place], [place], [address] Absolute lymphocyte countOrd ered By: Dmitry Aragon on 01-07-2025 Lymphocytes Auto (Unsp spec) [#/Vol] 1.27 10*3/uL 0.83-4.51 [facility] Absolute neutrophil countOrd ered By: Dmitry Aragon on 01-07-2025 Neutrophils (Bld) [#/Vol] 3.9 10*3/uL 2.0-7.7 [facility] Anion gap in Serum or Plasma Ordered By: Dmitry Aragon on 01-07-2025 Anion gap [Moles/Vol] 15 mmol/L 5-15 [facility] Automated lymphocyte count a s percentage of total leukocytesOrdered By: Dmitry Aragon on 01-07-2025 Lymphocytes/100 WBC Auto (Unsp spec) 21.9 % 19-41 [facility] BUN/creatinine ratioOrdered By: Dmitry Aragon on 01-07-2025 Urea nitrogen/Creatinine [Mass ratio] 17.7 mg/mg 10-20 [facility] Basophil percentageOrdered B y: Dmitry Aragon on 01-07-2025 Basophils/100 WBC (Bld) 0.3 % 0-1 [facility] Bilirubin, totalOrdered By: Dmitry Aragon on 01-07-2025 Bilirubin [Mass/Vol] 0.45 mg/dL 0.00-1.30 [facility] CBC W/Diff, Automatedon 12-21 Absolute Lymph 1.27 X10 3/uL Normal 0.83-4.51 [facility] Comment on above: Order Comment: Test( s) [id number]-vK, Stool was developed and its performance characteristics determined by [facility]. It has not been cleared or approved by the Food and Drug Administration. Performed By: #### L 3100.5310, L7000.0600 #### [facility] [address] [place], [address] Absolute Neut 3.9 X10 3/uL Normal 2.0-7.7 [facility] Comment on above: Order Comment: Test( s) 763681-jH, Stool was developed and its performance characteristics determined by [facility]. It has not been cleared or approved by the Food and Drug Administration. Performed By: #### L 3100.5310, L7000.0600 #### [facility] [address] [place], [address] Basophils/100 WBC (Bld) 0.3 % Normal 0-1 [facility] Comment on above: Order Comment: Test( s) [id number]-jX, Stool was developed and its performance characteristics determined by [facility]. It has not been cleared or approved by the Food and Drug Administration. Performed By: #### L 3100.5310, L7000.0600 #### [facility] [address] [place], [address] Eosinophils/100 WBC (Bld) 1.7 % Normal 0-5 [facility] Comment on above: Order Comment: Test( s) 118963-tD, Stool was developed and its performance characteristics determined by [facility]. It has not been cleared or approved by the Food and Drug Administration. Performed By: #### L 3100.5310, L7000.0600 #### [facility] [address] [place], [address] (147) Erythrocyte distribution width (RBC) [Ratio] 11.8 % Normal 11.6-14.6 [facility] Comment on above: Order Comment: Test( s) [id number]-sW, Stool was developed and its performance characteristics determined by [facility]. It has not been cleared or approved by the Food and Drug Administration. Performed By: #### L 3100.5310, L7000.0600 #### [facility] [address] [place], [address] (677) Hematocrit (Bld) [Volume fraction] 48.0 % Normal 40-54 [facility] Comment on above: Order Comment: Test( s) [id number]-yO, Stool was developed and its performance characteristics determined by [facility]. It has not been cleared or approved by the Food and Drug Administration. Performed By: #### L 3100.5310, L7000.0600 #### [facility] [address] [place], [address] (811) Hemoglobin (Bld) [Mass/Vol] 16.4 g/dL Normal 13.0-16.5 [facility] Comment on above: Order Comment: Test( s) [id number]-oB, Stool was developed and its performance characteristics determined by [facility]. It has not been cleared or approved by the Food and Drug Administration. Performed By: #### L 3100.5310, L7000.0600 #### [facility] [address] [place], [address] (796) IG% 0.200 Normal 0.0-0.9 [facility] Comment on above: Order Comment: Test( s) [id number]-wU, Stool was developed and its performance characteristics determined by [facility]. It has not been cleared or approved by the Food and Drug Administration. Result Comment: IG% - Immature Granulocytes (promyelocytes, myelocytes and metamyelocytes) > 1% indicates that a LEFT SHIFT is Present. Performed By: #### L 3100.5310, L7000.0600 #### [facility] [address] [place], [address] Lymphocytes/100 WBC (Bld) 21.9 % Normal 19-41 [facility] Comment on above: Order Comment: Test( s) 436525-dB, Stool was developed and its performance characteristics determined by [facility]. It has not been cleared or approved by the Food and Drug Administration. Performed By: #### L 3100.5310, L70.0600 #### [facility] [address] [place], [address] MCH (RBC) [Entitic mass] 29.3 pg Normal 27.0-32.0 [facility] Comment on above: Order Comment: Test( s) 861331-pP, Stool was developed and its performance characteristics determined by [facility]. It has not been cleared or approved by the Food and Drug Administration. Performed By: #### L 0.5310, L70.0600 #### [facility] [address] [place], [address] MCHC (RBC) [Mass/Vol] 34.2 g/dL Normal 32-36 [facility] Comment on above: Order Comment: Test( s) 490412-gT, Stool was developed and its performance characteristics determined by [facility]. It has not been cleared or approved by the Food and Drug Administration. Performed By: #### L 0.5310, L70.0600 #### [facility] [address] [place], [address] MCV (RBC) [Entitic vol] 85.9 fL Normal 80-94 [facility] Comment on above: Order Comment: Test( s) 221536-wV, Stool was developed and its performance characteristics determined by [facility]. It has not been cleared or approved by the Food and Drug Administration. Performed By: #### L 3100.5310, L70.0600 #### [facility] [address] [place], [address] Monocytes/100 WBC (Bld) 7.9 % Normal 0-10 [facility] Comment on above: Order Comment: Test( s) [id number]-lL, Stool was developed and its performance characteristics determined by [facility]. It has not been cleared or approved by the Food and Drug Administration. Performed By: #### L 3100.5310, L7000.0600 #### [facility] [address] [place], [address] Neutrophils/100 WBC (Bld) 68.0 % Normal 47-70 [facility] Comment on above: Order Comment: Test( s) 478356-sG, Stool was developed and its performance characteristics determined by [facility]. It has not been cleared or approved by the Food and Drug Administration. Performed By: #### L 3100.5310, L70.0600 #### [facility] [address] [place], [address] Nucleated RBC (Bld) [#/Vol] 0 10*3/uL Normal 0-5 [facility] Comment on above: Order Comment: Test( s) 058396-wW, Stool was developed and its performance characteristics determined by [facility]. It has not been cleared or approved by the Food and Drug Administration. Performed By: #### L 3100.5310, L70.0600 #### [facility] [address] [place], [address] Platelet mean volume (Bld) [Entitic vol] 10.8 fL Normal 6.2-12.0 [facility] Comment on above: Order Comment: Test( s) 732660-xQ, Stool was developed and its performance characteristics determined by [facility]. It has not been cleared or approved by the Food and Drug Administration. Performed By: #### L 3100.5310, L7000.0600 #### [facility] [address] [place], [address] Platelets (Bld) [#/Vol] 257 10*3/uL Normal 150-450 [facility] Comment on above: Order Comment: Test( s) 950367-jP, Stool was developed and its performance characteristics determined by [facility]. It has not been cleared or approved by the Food and Drug Administration. Performed By: #### L 3100.5310, L7000.0600 #### [facility] [address] [place], [address] RBC (Bld) [#/Vol] 5.59 10*6/uL Normal 4.6-6.2 [facility] Comment on above: Order Comment: Test( s) 612290-jI, Stool was developed and its performance characteristics determined by [facility]. It has not been cleared or approved by the Food and Drug Administration. Performed By: #### L 3100.5310, L7000.0600 #### [facility] [address] [place], [address] RDW SD 36.7 fl Normal 35.1-43.9 [facility] Comment on above: Order Comment: Test( s) 289740-qW, Stool was developed and its performance characteristics determined by [facility]. It has not been cleared or approved by the Food and Drug Administration. Performed By: #### L 3100.5310, L7000.0600 #### [facility] [address] [place], [address] WBC (Bld) [#/Vol] 5.8 10*3/uL Normal 4.4-11.0 [facility] Comment on above: Order Comment: Test( s) 811561-kM, Stool was developed and its performance characteristics determined by [facility]. It has not been cleared or approved by the Food and Drug Administration. Performed By: #### L 3100.5310, L7000.0600 #### [facility] [address] [place], [address] Calculated very low density lipoprotein (VLDL) cholesterol measurementOrdered By: Dmitry Aragon on 01-07-2025 Calculated very low density lipoprotein (VLDL) cholesterol measurement 44 mg/dL High 5-40 [facility] VLDL Cholesterol 44 mg/dL High 5-40 [facility] Carbon dioxide, total [Moles /volume] in Central venous bloodOrdered By: Dmitry Aragon on 01-07-2025 CO2 [Moles/Vol] 21.1 mmol/L 21.0-32.0 [facility] Chloride assayOrdered By: Yosi Aragon on 01-07-2025 Chloride [Moles/Vol] 102 mmol/L 98-108 [facility] Comprehensive Metabolic Prof ilon 01-07-2025 Albumin [Mass/Vol] 4.6 g/dL Normal 3.5-5.0 [facility] Comment on above: Order Comment: Test( s) [id number]-wY, Stool was developed and its performance characteristics determined by [facility]. It has not been cleared or approved by the Food and Drug Administration. Performed By: #### L 3100.5310, L7000.0600 #### [facility] [address] [place], [place], [id number] Albumin/Globulin [Mass ratio] 1.7 {ratio} Normal 0.9-2.4 [facility] Comment on above: Order Comment: Test( s) 666453-kQ, Stool was developed and its performance characteristics determined by [facility]. It has not been cleared or approved by the Food and Drug Administration. Performed By: #### L 3100.5310, L7000.0600 #### [facility] [address] [place], [address] ALK PHOS 75 U/L Normal 40-129 [facility] Comment on above: Order Comment: Test( s) 757992-rO, Stool was developed and its performance characteristics determined by [facility]. It has not been cleared or approved by the Food and Drug Administration. Performed By: #### L 3100.5310, L7000.0600 #### [facility] [address] [place], [address] ALT [Catalytic activity/Vol] 38 U/L Normal <=46 [facility] Comment on above: Order Comment: Test( s) 501728-cL, Stool was developed and its performance characteristics determined by [facility]. It has not been cleared or approved by the Food and Drug Administration. Performed By: #### L 3100.5310, L7000.0600 #### [facility] [address] [place], [address] AST [Catalytic activity/Vol] 32 U/L Normal <=37 [facility] Comment on above: Order Comment: Test( s) 401320-tL, Stool was developed and its performance characteristics determined by [facility]. It has not been cleared or approved by the Food and Drug Administration. Performed By: #### L 3100.5310, L7000.0600 #### [facility] [address] [place], [address] Bilirubin [Mass/Vol] 0.45 mg/dL Normal 0.00-1.30 [facility] Comment on above: Order Comment: Test( s) 424117-qM, Stool was developed and its performance characteristics determined by [facility]. It has not been cleared or approved by the Food and Drug Administration. Performed By: #### L 3100.5310, L7000.0600 #### [facility] [address] [place], [address] BUN/CRE 17.7 RATIO Normal 10-20 [facility] Comment on above: Order Comment: Test( s) 619502-tU, Stool was developed and its performance characteristics determined by [facility]. It has not been cleared or approved by the Food and Drug Administration. Performed By: #### L 3100.5310, L7000.0600 #### [facility] [address] [place], [address] Calcium [Mass/Vol] 9.5 mg/dL Normal 7.6-11.0 [facility] Comment on above: Order Comment: Test( s) 428212-oP, Stool was developed and its performance characteristics determined by [facility]. It has not been cleared or approved by the Food and Drug Administration. Performed By: #### L 3100.5310, L7000.0600 #### [facility] [address] [place], [place], [id number] (102) Chloride [Moles/Vol] 102 mmol/L Normal 98-108 [facility] Comment on above: Order Comment: Test( s) [id number]-wN, Stool was developed and its performance characteristics determined by [facility]. It has not been cleared or approved by the Food and Drug Administration. Performed By: #### L 3100.5310, L7000.0600 #### [facility] [address] [facility] [address] CO2 [Moles/Vol] 21.1 mmol/L Normal 21.0-32.0 [facility] Comment on above: Order Comment: Test( s) 285930-qF, Stool was developed and its performance characteristics determined by [facility]. It has not been cleared or approved by the Food and Drug Administration. Performed By: #### L 3100.5310, L7000.0600 #### [facility] [address] [facility] [id number] (969) Creatinine [Mass/Vol] 0.99 mg/dL Normal 0.70-1.20 [facility] Comment on above: Order Comment: Test( s) 075629-pS, Stool was developed and its performance characteristics determined by [facility]. It has not been cleared or approved by the Food and Drug Administration. Performed By: #### L 3100.5310, L7000.0600 #### [facility] [address] [place], [address] GAP 15 Normal 5-15 [facility] Comment on above: Order Comment: Test( s) 194775-aV, Stool was developed and its performance characteristics determined by [facility]. It has not been cleared or approved by the Food and Drug Administration. Performed By: #### L 3100.5310, L7000.0600 #### [facility] [address] [place], [address] GFR/1.73 sq M.predicted among non-blacks MDRD (S/P/Bld) [Vol rate/Area] 97 mL/min/{1.73_m2} Normal >60 [facility] Comment on above: Order Comment: Test( s) 085314-tX, Stool was developed and its performance characteristics determined by [facility]. It has not been cleared or approved by the Food and Drug Administration. Result Comment: mL/m in/1.73m2 CKD-EPI Creatinine Equation (2020) Performed By: #### L 3100.5310, L7000.0600 #### [facility] [address] [place], [address] Globulin (S) [Mass/Vol] 2.8 g/dL Normal 2.2-4.2 [facility] Comment on above: Order Comment: Test( s) 774287-gX, Stool was developed and its performance characteristics determined by [facility]. It has not been cleared or approved by the Food and Drug Administration. Performed By: #### L 3100.5310, L7000.0600 #### [facility] [address] [place], [address] Glucose [Mass/Vol] 105 mg/dL High 70-99 [facility] Comment on above: Order Comment: Test( s) 842654-rD, Stool was developed and its performance characteristics determined by [facility]. It has not been cleared or approved by the Food and Drug Administration. Performed By: #### L 3100.5310, L7000.0600 #### [facility] [address] [place], [address] Potassium [Moles/Vol] 3.8 mmol/L Normal 3.3-5.1 [facility] Comment on above: Order Comment: Test( s) 932200-wV, Stool was developed and its performance characteristics determined by [facility]. It has not been cleared or approved by the Food and Drug Administration. Performed By: #### L 3100.5310, L7000.0600 #### [facility] [address] [place], [place], [address] Sodium [Moles/Vol] 138 mmol/L Normal 133-145 [facility] Comment on above: Order Comment: Test( s) 582677-tT, Stool was developed and its performance characteristics determined by [facility]. It has not been cleared or approved by the Food and Drug Administration. Performed By: #### L 3100.5310, L7000.0600 #### [facility] [address] [place], [place], [id number] T PROT 7.4 g/dL Normal 5.9-8.4 [facility] Comment on above: Order Comment: Test( s) 354085-qC, Stool was developed and its performance characteristics determined by [facility]. It has not been cleared or approved by the Food and Drug Administration. Performed By: #### L 3100.5310, L7000.0600 #### [facility] [address] [place], [place], [address] Urea nitrogen [Mass/Vol] 18 mg/dL Normal 4-19 [facility] Comment on above: Order Comment: Test( s) 515862-vR, Stool was developed and its performance characteristics determined by [facility]. It has not been cleared or approved by the Food and Drug Administration. Performed By: #### L 3100.5310, L7000.0600 #### [facility] [address] [place], [address] Diagnostic total prostate sp ecific antigen (PSA) measurementOrdered By: Dmitry Aragon on 01-07-2025 Prostate Specific Antigen Total 2.53 ng/mL 0.00-4.00 [facility] Comment on above: This test was perfor med using the [facility] tPSA method. Measured values of a patient sample can vary depending on the testing procedure used. PSA values determined on patient samples by different testing procedures cannot be used interchangeably. If there is a change in PSA assays while monitoring therapy, sequential testing should be performed to confirm baseline values. Eosinophil percentageOrdered By: Dmitry Aragon on 01-07-2025 Eosinophils/100 WBC (Bld) 1.7 % 0-5 [facility] Erythrocyte distribution wid th ratioOrdered By: Dmitry Aragon on 01-07-2025 Erythrocyte distribution width (RBC) [Ratio] 11.8 % 11.6-14.6 [facility] Erythrocyte distribution wid th standard deviationOrdered By: Dmitry Aragon on 01-07-2025 Erythrocyte distribution width (RBC) [Entitic vol] 36.7 fL 35.1-43.9 [facility] Erythrocyte distribution width (RBC) [Ratio] 36.7 fl 35.1-43.9 [facility] Free testosterone percentage Ordered By: Dmitry Aragon on 01-07-2025 Testosterone Free/Testosterone.total [Mass fraction] 3.69 % 1.50-4.20 [facility] GFR/1.73 sq M.predicted [place] g non-blacks MDRD (S/P/Bld) [Vol rate/Area]Ordered By: Dmitry Aragon on 01-07-2025 Estimated GFR (MDRD) Non-Af Amer 97 >60 [facility] Comment on above: mL/min/1.73m2 CKD-EP I Creatinine Equation (2020) Glomerular filtration rate ( GFR) estimation/1.73 sq m using serum, plasma, or whole bOrdered By: Dmitry Aragon on 01-07-2025 GFR/1.73 sq M.predicted among non-blacks MDRD (S/P/Bld) [Vol rate/Area] 97 mL/min/{1.73_m2} >60 [facility] Comment on above: mL/min/1.73m2 CKD-EP I Creatinine Equation (2020) Hematocrit Auto (Bld) [Volum e fraction]Ordered By: Dmitry Aragon on 01-07-2025 Hematocrit (Bld) [Volume fraction] 48.0 % 40-54 [facility] Hemoglobin measurementOrdere d By: Dmitry Aragon on 01-07-2025 Hemoglobin (Bld) [Mass/Vol] 16.4 g/dL 13.0-16.5 [facility] Immature granulocytes/100 WB C Auto (Bld)Ordered By: Dmitry Aragon on 01-07-2025 Immature granulocytes/100 WBC (Bld) 0.200 % 0.0-0.9 [facility] Comment on above: IG% - Immature Granu locytes (promyelocytes, myelocytes and metamyelocytes) > 1% indicates that a LEFT SHIFT is Present. LDL calc ser/plasOrdered By: Dmitry Aragon on 01-07-2025 Cholesterol in LDL [Mass/Vol] 73 mg/dL [facility] Comment on above: Npsyfyuncl=463-271 m g/dL & Higher Xgxi=820 mg/dL or greater LDL Cholesterol, Calculated 73 mg/dL [facility] Comment on above: Vvpckwhadm=229-694 m g/dL & Higher Ntlb=876 mg/dL or greater Laboratory - Chemistry and C hemistry - challengeOrdered By: Dmitry Aragon on 01-07-2025 AST [Catalytic activity/Vol] 32 U/L <38 [facility] Lipid Profileon 01-07-2025 CHOL:HDL 4.18 Normal [facility] Comment on above: Order Comment: Test( s) 214473-tB, Stool was developed and its performance characteristics determined by [facility]. It has not been cleared or approved by the Food and Drug Administration. Performed By: #### L 3100.5310, L7000.0600 #### [facility] [address] [place], [address] Cholesterol [Mass/Vol] 154 mg/dL Normal <=200 [facility] Comment on above: Order Comment: Test( s) 872891-eB, Stool was developed and its performance characteristics determined by [facility]. It has not been cleared or approved by the Food and Drug Administration. Result Comment: Chol esterol level, Desirable <200 mg/dL Borderline high cholesterol 200-239 mg/dL High cholesterol >=240 mg/dL Recommendations of the NCEP Adult Treatment Panel for the following risk-cutoff thresholds for the [place] population. Performed By: #### L 3100.5310, L7000.0600 #### [facility] [address] [place], [address] Cholesterol in HDL [Mass/Vol] 37 mg/dL Low [facility] Comment on above: Order Comment: Test( s) 482363-cV, Stool was developed and its performance characteristics determined by [facility]. It has not been cleared or approved by the Food and Drug Administration. Result Comment: Izzy onal Cholesterol Education Program (NCEP) guidelines: <40 mg/dL: Low HDL-cholesterol (major risk factor for CHD) >= 60 mg/dL: High HDL-cholesterol (negative risk factor for CHD) HDL-cholesterol is affected by a number of factors, e.g. smoking, exercise, hormones, sex and age. Performed By: #### L 3100.5310, L7000.0600 #### [facility] [address] [place], [address] Cholesterol in LDL [Mass/Vol] 73 mg/dL Normal [facility] Comment on above: Order Comment: Test( s) 944013-zT, Stool was developed and its performance characteristics determined by [facility]. It has not been cleared or approved by the Food and Drug Administration. Result Comment: Bord mwcafk=469-439 mg/dL Higher Oczm=655 mg/dL or greater Performed By: #### L 3100.5310, L7000.0600 #### [facility] [address] [place], [address] Cholesterol in VLDL [Mass/Vol] 44 mg/dL High 5-40 [facility] Comment on above: Order Comment: Test( s) 892315-pB, Stool was developed and its performance characteristics determined by [facility]. It has not been cleared or approved by the Food and Drug Administration. Performed By: #### L 3100.5310, L7000.0600 #### [facility] [address] [place], [address] Triglyceride [Mass/Vol] 219 mg/dL High [facility] Comment on above: Order Comment: Test( s) [id number], Stool was developed and its performance characteristics determined by [facility]. It has not been cleared or approved by the Food and Drug Administration. Result Comment: The drugs N-Acetylcysteine and Metamizole may falsely depress this assay. Normal range: <150 mg/dL Borderline High: 150-199 mg/dL High: 200-499 mg/dL Very High: >500 mg/dL Performed By: #### L 3100.5310, L7000.0600 #### [facility] [address] [place], [address] Lymphocytes Auto (Unsp spec) [#/Vol]Ordered By: Dmitry Aragon on 01-07-2025 Lymphocytes (Bld) [#/Vol] 1.27 10*3/uL 0.83-4.51 [facility] Lymphocytes/100 WBC Auto (Un sp spec)Ordered By: Dmitry Aragon on 01-07-2025 Lymphocytes/100 WBC (Bld) 21.9 % 19-41 [facility] MCV (mean corpuscular volume ) determinationOrdered By: Dmitry Aragon on 01-07-2025 MCV (RBC) [Entitic vol] 85.9 fL 80-94 [facility] Mean corpuscular hemoglobin (MCH) determinationOrdered By: Dmitry Aragon on 01-07-2025 MCH (RBC) [Entitic mass] 29.3 pg 27.0-32.0 [facility] Mean corpuscular hemoglobin concentration (MCHC) determinationOrdered By: Dmitry Aragon on 01-07-2025 MCHC (RBC) [Mass/Vol] 34.2 g/dL 32-36 [facility] Mean platelet volume determi nationOrdered By: Dmitry Aragon on 01-07-2025 Platelet mean volume (Bld) [Entitic vol] 10.8 fL 6.2-12.0 [facility] Monocyte percentageOrdered B y: Dmitry Aragon on 01-07-2025 Monocytes/100 WBC (Bld) 7.9 % 0-10 [facility] Neutrophil percentageOrdered By: Dmitry Aragon on 01-07-2025 Neutrophils/100 WBC (Bld) 68.0 % 47-70 [facility] Nucleated red blood cell per centageOrdered By: Dmitry Aragon on 01-07-2025 Nucleated RBC/100 WBC (Bld) [Ratio] 0 % 0-5 [facility] PSA,Total- Diagnosticon 12-21 PSA, DIAGNOSTIC 2.53 ng/mL Normal 0.00-4.00 [facility] Comment on above: Order Comment: Test( s) [id number], Stool was developed and its performance characteristics determined by [facility]. It has not been cleared or approved by the Food and Drug Administration. Result Comment: This test was performed using the [facility] tPSA method. Measured values of a patient??sample can vary depending on the testing procedure used. PSA values determined on patient samples by different testing procedures cannot be used interchangeably. If there is a change in PSA assays while monitoring therapy, sequential testing should be performed to confirm baseline values. Performed By: #### L 3100.5310, L7000.0600 #### [facility] [address] [place], [address] Platelet countOrdered By: Yosi Aragon on 01-07-2025 Platelets (Bld) [#/Vol] 257 10*3/uL 150-450 [facility] Potassium (Unsp spec) [Mass/ Vol]Ordered By: Dmitry Aragon on 01-07-2025 Potassium [Moles/Vol] 3.8 mmol/L 3.3-5.1 [facility] Potassium measurement (mass/ volume)Ordered By: Dmitry Aragon on 01-07-2025 Potassium (Unsp spec) [Mass/Vol] 3.8 mmol/L 3.3-5.1 [facility] RBC Auto (Bld) [#/Vol]Ordere d By: Dmitry Aragon on 01-07-2025 RBC (Bld) [#/Vol] 5.59 10*6/uL 4.6-6.2 [facility] Scre[facility] total cholesterol/ high density lipoprotein (HDL) cholesterol ratioOrdered By: Dmitry Aragon on 01-07-2025 Cholesterol.total/Jolanta sterol in HDL [Mass ratio] 4.18 {ratio} [facility] Serum creatinine measurement (mass/volume)Ordered By: Dmitry Aragon on 01-07-2025 Creatinine [Mass/Vol] 0.99 mg/dL 0.70-1.20 [facility] Serum globulin measurementOr dered By: Dmitry Aragon on 01-07-2025 Globulin (S) [Mass/Vol] 2.8 g/dL 2.2-4.2 [facility] Serum glucose measurement (m ass/volume)Ordered By: Dmitry Aragon on 01-07-2025 Glucose [Mass/Vol] 105 mg/dL High 70-99 [facility] Serum or plasma alanine martinez otransferase (ALT) measurementOrdered By: Dmitry Aragon on 01-07-2025 ALT [Catalytic activity/Vol] 38 U/L <47 [facility] Serum or plasma albumin florentin urement (mass/volume)Ordered By: Dmitry Aragon on 01-07-2025 Albumin [Mass/Vol] 4.6 g/dL 3.5-5.0 [facility] Serum or plasma albumin/glob ulin mass ratioOrdered By: Dmitry Aragon on 01-07-2025 Albumin/Globulin [Mass ratio] 1.7 {ratio} 0.9-2.4 [facility] Serum or plasma alkaline geri sphatase measurementOrdered By: Dmitry Aragon on 01-07-2025 ALP [Catalytic activity/Vol] 75 U/L 40-129 [facility] Serum or plasma calcium florentin urement (mass/volume)Ordered By: Dmitry Aragon on 01-07-2025 Calcium [Mass/Vol] 9.5 mg/dL 7.6-11.0 [facility] Serum or plasma cholesterol in HDL measurement (mass/volume)Ordered By: Dmitry Aragon on 01-07-2025 Cholesterol in HDL [Mass/Vol] 37 mg/dL Low >40 [facility] Comment on above: National Cholesterol Education Program (NCEP) guidelines:<40 mg/dL: Low HDL-cholesterol (major risk factor for CHD)>= 60 mg/dL: High HDL-cholesterol (negative risk factor for CHD)HDL-cholesterol is affected by a number of factors, e.g. smoking, exercise, hormones, sex and age. Serum or plasma cholesterol measurement (mass/volume)Ordered By: Dmitry Aragon on 01-07-2025 Cholesterol [Mass/Vol] 154 mg/dL <201 [facility] Comment on above: Cholesterol level, D esirable <200 mg/dLBorderline high cholesterol 200-239 mg/dLHigh cholesterol >=240 mg/dLRecommendations of the NCEP Adult Treatment Panel for the following risk-cutoff thresholds for the [place] population. Serum or plasma free testost erjorgito measurement (mass/volume)Ordered By: Dmitry Aragon on 01-07-2025 Testosterone Free [Mass/Vol] 6.68 ng/dL 5.00-21.00 [facility] Serum or plasma sex hormone binding globulin measurement (moles/volume)Ordered By: Dmitry Aragon on 01-07-2025 Sex hormone binding globulin [Moles/Vol] 18.0 nmol/L 16.5-55.9 [facility] Comment on above: Performed at: [facility] [employer] [address] [id number] Director: Jorge A Flower PhD, Phone: [phone] at: - [facility] [id number] Director: Sarah Damon MD, Phone: [phone] Serum or plasma urea nitroge n measurement (mass/volume)Ordered By: Dmitry Aragon on 01-07-2025 Urea nitrogen [Mass/Vol] 18 mg/dL 4-19 [facility] Sodium levelOrdered By: Dmitry Aragon on 01-07-2025 Sodium [Moles/Vol] 138 mmol/L 133-145 [facility] Testosterone, totalOrdered B y: Dmitry Aragon on 01-07-2025 Testosterone [Mass/Vol] 181 ng/dL Low 264-916 [facility] Comment on above: Adult male reference interval is based on a population ofhealthy nonobese males (BMI <30) between 19 and 39 yearsold. Janice, et.al. JCEM 2017,102;0627-6186. PMID:[id number]. Total proteinOrdered By: Shantelle Aragon on 01-07-2025 Protein [Mass/Vol] 7.4 g/dL 5.9-8.4 [facility] Triglycerides measurementOrd ered By: Dmitry Aragon on 01-07-2025 Triglyceride [Mass/Vol] 219 mg/dL High <199 [facility] Comment on above: The drugs N-Acetylcy steine and Metamizole may falsely depress this assay. Normal range: <150 mg/dLBorderline High: 150-199 mg/dLHigh: 200-499 mg/dLVery High: >500 mg/dL White blood cell (WBC) count Ordered By: Dmitry Aragon on 01-07-2025 WBC (Bld) [#/Vol] 5.8 10*3/uL 4.4-11.0 [facility] ANTINUCLEAR ANTIBODIES DIREC Ton 12-26-2024 CINTIA,DIRECT Negative Normal Negative [facility] Comment on above: Result Comment: Perf ormed at: [facility] [employer] [id number] [place] Supervisor: Jorge A Flower PhD, Phone: [phone] Performed By: #### L 3100.5310, L7000.0600 #### [facility] [address] [facility] [place], [address] CCP IgG Antibodieson 025 CCP IgG Ab. 1 units Normal 0-19 [facility] Comment on above: Result Comment: Nega tive <20 Weak positive 20 - 39 Moderate positive 40 - 59 Strong positive >59 Performed at: [facility] [employer] [id number] [place] Supervisor: Jorge A Flower PhD, Phone: [phone] Performed By: #### L 3100.5310, L7000.0600 #### [facility] [address] [place], [address] CINTIA serumOrdered By: Diana prasad on 12-24-2024 Anti-Nuclear Antibody Screen Negative Negative [facility] Comment on above: Performed at: [facility] [id number] Director: Jorge A Flower PhD, Phone: [phone] Absolute lymphocyte countOrd ered By: Diana Mallory on 12-24-2024 Lymphocytes Auto (Unsp spec) [#/Vol] 1.70 10*3/uL 0.83-4.51 [facility] Absolute neutrophil countOrd ered By: Diana Mallory on 12-24-2024 Neutrophils (Bld) [#/Vol] 4.7 10*3/uL 2.0-7.7 [facility] Anion gap in Serum or Plasma Ordered By: Diana Mallory on 12-24-2024 Anion gap [Moles/Vol] 17 mmol/L High 5-15 [facility] Automated lymphocyte count a s percentage of total leukocytesOrdered By: Diana Mallory on 12-24-2024 Lymphocytes/100 WBC Auto (Unsp spec) 24.0 % 19-41 [facility] BUN/creatinine ratioOrdered By: Diana Mallory on 12-24-2024 Urea nitrogen/Creatinine [Mass ratio] 22.9 mg/mg High 10-20 [facility] Basophil percentageOrdered B y: Diana Mallory on 12-24-2024 Basophils/100 WBC (Bld) 0.4 % 0-1 [facility] Bilirubin, totalOrdered By: Diana Mallory on 12-24-2024 Bilirubin [Mass/Vol] 0.32 mg/dL 0.00-1.30 [facility] CBC W/Diff, Automatedon Absolute Lymph 1.70 X10 3/uL Normal 0.83-4.51 [facility] Comment on above: Performed By: #### L 509.3001 #### [facility] [address] [place], [address] Absolute Neut 4.7 X10 3/uL Normal 2.0-7.7 [facility] Comment on above: Performed By: #### L 509.3001 #### [facility] [address] [place], [address] Basophils/100 WBC (Bld) 0.4 % Normal 0-1 [facility] Comment on above: Performed By: #### L 509.3001 #### [facility] [address] [place], [address] Eosinophils/100 WBC (Bld) 1.7 % Normal 0-5 [facility] Comment on above: Performed By: #### L 509.3001 #### [facility] [address] [place], [address] Erythrocyte distribution width (RBC) [Ratio] 11.8 % Normal 11.6-14.6 [facility] Comment on above: Performed By: #### L 509.3001 #### [facility] [address] [place], [address] Hematocrit (Bld) [Volume fraction] 47.6 % Normal 40-54 [facility] Comment on above: Performed By: #### L 509.3001 #### [facility] [address] [place], [address] Hemoglobin (Bld) [Mass/Vol] 16.1 g/dL Normal 13.0-16.5 [facility] Comment on above: Performed By: #### L 509.3001 #### [facility] [address] [place], [address] IG% 0.300 Normal 0.0-0.9 [facility] Comment on above: Result Comment: IG% - Immature Granulocytes (promyelocytes, myelocytes and metamyelocytes) > 1% indicates that a LEFT SHIFT is Present. Performed By: #### L 509.3001 #### [facility] [address] [place], [address] Lymphocytes/100 WBC (Bld) 24.0 % Normal 19-41 [facility] Comment on above: Performed By: #### L 509.3001 #### [facility] [address] [place], [address] MCH (RBC) [Entitic mass] 29.4 pg Normal 27.0-32.0 [facility] Comment on above: Performed By: #### L 509.3001 #### [facility] [address] [place], [address] MCHC (RBC) [Mass/Vol] 33.8 g/dL Normal 32-36 [facility] Comment on above: Performed By: #### L 509.3001 #### [facility] [address] [place], [address] MCV (RBC) [Entitic vol] 87.0 fL Normal 80-94 [facility] Comment on above: Performed By: #### L 509.3001 #### [facility] [address] [place], [address] Monocytes/100 WBC (Bld) 7.3 % Normal 0-10 [facility] Comment on above: Performed By: #### L 509.3001 #### [facility] [address] [place], [address] Neutrophils/100 WBC (Bld) 66.3 % Normal 47-70 [facility] Comment on above: Performed By: #### L 509.3001 #### [facility] [address] [place], [address] Nucleated RBC (Bld) [#/Vol] 0 10*3/uL Normal 0-5 [facility] Comment on above: Performed By: #### L 509.3001 #### [facility] [address] [place], [address] Platelet mean volume (Bld) [Entitic vol] 10.5 fL Normal 6.2-12.0 [facility] Comment on above: Performed By: #### L 509.3001 #### [facility] [address] [place], [address] Platelets (Bld) [#/Vol] 246 10*3/uL Normal 150-450 [facility] Comment on above: Performed By: #### L 509.3001 #### [facility] [address] [place], [address] RBC (Bld) [#/Vol] 5.47 10*6/uL Normal 4.6-6.2 [facility] Comment on above: Performed By: #### L 509.3001 #### [facility] [address] [place], [address] RDW SD 37.5 fl Normal 35.1-43.9 [facility] Comment on above: Performed By: #### L 509.3001 #### [facility] [address] [place], [address] WBC (Bld) [#/Vol] 7.1 10*3/uL Normal 4.4-11.0 [facility] Comment on above: Performed By: #### L 509.3001 #### [facility] [address] [place], [address] CRPon 12-24-2024 C-REACTIVE PROT < 3.00 Normal 0.0-3.0 [facility] Comment on above: Performed By: #### L 509.3001 #### [facility] [address] [place], [address] CRP [Mass/Vol]Ordered By: Alberto Mallory on 12-24-2024 C-Reactive Protein Extended Range < 3.00 mg/L 0.0-3.0 [facility] Carbon dioxide, total [Moles /volume] in Central venous bloodOrdered By: Diana Mallory on 12-24-2024 CO2 [Moles/Vol] 20.2 mmol/L Low 21.0-32.0 [facility] Chloride assayOrdered By: Alberto Mallory on 12-24-2024 Chloride [Moles/Vol] 100 mmol/L 98-108 [facility] Comprehensive Metabolic Prof ilon 12-24-2024 Albumin [Mass/Vol] 4.6 g/dL Normal 3.5-5.0 [facility] Comment on above: Performed By: #### L 509.3001 #### [facility] [address] [place], [address] Albumin/Globulin [Mass ratio] 1.6 {ratio} Normal 0.9-2.4 [facility] Comment on above: Performed By: #### L 509.3001 #### [facility] [address] [place], [address] ALK PHOS 73 U/L Normal 40-129 [facility] Comment on above: Performed By: #### L 509.3001 #### [facility] [address] [place], [address] ALT [Catalytic activity/Vol] 33 U/L Normal <=46 [facility] Comment on above: Performed By: #### L 509.3001 #### [facility] [address] [place], [address] AST [Catalytic activity/Vol] 25 U/L Normal <=37 [facility] Comment on above: Performed By: #### L 509.3001 #### [facility] [address] [place], [address] Bilirubin [Mass/Vol] 0.32 mg/dL Normal 0.00-1.30 [facility] Comment on above: Performed By: #### L 509.3001 #### [facility] [address] [place], [address] BUN/CRE 22.9 RATIO High 10-20 [facility] Comment on above: Performed By: #### L 509.3001 #### [facility] [address] [place], [address] Calcium [Mass/Vol] 9.8 mg/dL Normal 7.6-11.0 [facility] Comment on above: Performed By: #### L 509.3001 #### [facility] [address] [place], [address] Chloride [Moles/Vol] 100 mmol/L Normal 98-108 [facility] Comment on above: Performed By: #### L 509.3001 #### [facility] [address] [place], [address] CO2 [Moles/Vol] 20.2 mmol/L Low 21.0-32.0 [facility] Comment on above: Performed By: #### L 509.3001 #### [facility] [address] [place], [address] Creatinine [Mass/Vol] 0.92 mg/dL Normal 0.70-1.20 [facility] Comment on above: Performed By: #### L 509.3001 #### [facility] [address] [place], [address] GAP 17 High 5-15 [facility] Comment on above: Performed By: #### L 509.3001 #### [facility] [address] [place], [address] GFR/1.73 sq M.predicted among non-blacks MDRD (S/P/Bld) [Vol rate/Area] 106 mL/min/{1.73_m2} Normal >60 [facility] Comment on above: Result Comment: mL/m in/1.73m2 CKD-EPI Creatinine Equation (2020) Performed By: #### L 509.3001 #### [facility] [address] [place], [address] Globulin (S) [Mass/Vol] 2.9 g/dL Normal 2.2-4.2 [facility] Comment on above: Performed By: #### L 509.3001 #### [facility] [address] [place], [address] Glucose [Mass/Vol] 102 mg/dL High 70-99 [facility] Comment on above: Performed By: #### L 509.3001 #### [facility] [address] [place], [address] Potassium [Moles/Vol] 4.0 mmol/L Normal 3.3-5.1 [facility] Comment on above: Performed By: #### L 509.3001 #### [facility] [address] [place], [address] Sodium [Moles/Vol] 137 mmol/L Normal 133-145 [facility] Comment on above: Performed By: #### L 509.3001 #### [facility] [address] [place], [address] T PROT 7.5 g/dL Normal 5.9-8.4 [facility] Comment on above: Performed By: #### L 509.3001 #### [facility] [address] [place], [address] Urea nitrogen [Mass/Vol] 21 mg/dL High 4-19 [facility] Comment on above: Performed By: #### L 509.3001 #### [facility] [address] [place], [address] Cyclic citrullinated peptide IgG QnOrdered By: Diana Mallory on 12-24-2024 Cyclic Citrullinated Peptide IgG Ab 1 units 0-19 [facility] Comment on above: Negative <20 Weak po sitive 20 - 39 Moderate positive 40 - 59 Strong positive >59Performed at: [facility] [address] [id number] Director: Jorge A Flower PhD, Phone: [phone] Eosinophil percentageOrdered By: Diana Mallory on 12-24-2024 Eosinophils/100 WBC (Bld) 1.7 % 0-5 [facility] Erythrocyte Sed Rateon 12-24 SED RATE 13 mm/hr Normal 0-20 [facility] Comment on above: Performed By: #### L 509.3001 #### [facility] [address] [place], [address] Erythrocyte distribution wid th ratioOrdered By: Diana Mallory on 12-24-2024 Erythrocyte distribution width (RBC) [Ratio] 11.8 % 11.6-14.6 [facility] Erythrocyte distribution wid th standard deviationOrdered By: Diana Mallory on 12-24-2024 Erythrocyte distribution width (RBC) [Entitic vol] 37.5 fL 35.1-43.9 [facility] Erythrocyte distribution width (RBC) [Ratio] 37.5 fl 35.1-43.9 [facility] Erythrocyte sedimentation ra teOrdered By: Diana Mallory on 12-24-2024 ESR (Bld) [Velocity] 13 mm/h 0-20 [facility] GFR/1.73 sq M.predicted [place] g non-blacks MDRD (S/P/Bld) [Vol rate/Area]Ordered By: Diana Mallory on 12-24-2024 Estimated GFR (MDRD) Non-Af Amer 106 >60 [facility] Comment on above: mL/min/1.73m2 CKD-EP I Creatinine Equation (2020) Glomerular filtration rate ( GFR) estimation/1.73 sq m using serum, plasma, or whole bOrdered By: Diana Mallory on 12-24-2024 GFR/1.73 sq M.predicted among non-blacks MDRD (S/P/Bld) [Vol rate/Area] 106 mL/min/{1.73_m2} >60 [facility] Comment on above: mL/min/1.73m2 CKD-EP I Creatinine Equation (2020) HBV surface Ab Ql (S)Ordered By: Diana Mallory on 12-24-2024 Hepatitis B Surface Antibody Non-Reactive [facility] Comment on above: <8.5 mIU/mL: Non-Siobhan ctive8.5<= x <11.5 mIU/mL: Indeterminate>=11.5 mIU/mL: Reactive Non Reactive: Inconsistent with immunity less than <10 mIU/mL Reactive: Consistent with immunity greater than or equal to 10 mIU/mL HBV surface Ag Ql (S)Ordered By: Diana Mallory on 12-24-2024 Hepatitis B Surface Antigen Non-Reactive Nonreactive [facility] Comment on above: Reactive: Presumptiv e evidence of HBV. Repeatedly reactive samples must be confirmed using a neutralization test ([facility] HBsAg Confirmatory Test)Non-Reactive: HBsAg not detected; does not exclude the possibility of exposure to HBV Hematocrit Auto (Bld) [Volum e fraction]Ordered By: Diana Mallory on 12-24-2024 Hematocrit (Bld) [Volume fraction] 47.6 % 40-54 [facility] Hemoglobin measurementOrdere d By: Diana Mallory on 12-24-2024 Hemoglobin (Bld) [Mass/Vol] 16.1 g/dL 13.0-16.5 [facility] Hepatitis C antibodyOrdered By: Diana Mallory on 12-24-2024 Hepatitis C Antibody Non-Reactive Nonreactive [facility] Comment on above: Reactive: Presumptiv e evidence of antibodies to HCV. Follow CDC recommendations for supplemental testing.Non-Reactive: Antibodies to HCV were not detected; does not exclude the possibility of exposure to HCVReactive Results are presumptive evidence of antibodies to HCV. Follow CDC recommendations for supplemental testing.Order confirmation testing: HCV Quant by PCR testing - HCVPCR #[id number] Non Reactive: < 0.8 Equivocal: >/= 0.8 to < 1.0 Reactive: >/= 1.0The [facility] requires that a reactive/equivocal HCV antibody result be sent out for confirmation. HCV Quant by PCR testing. Immature granulocytes/100 WB C Auto (Bld)Ordered By: iDana Mallory on 12-24-2024 Immature granulocytes/100 WBC (Bld) 0.300 % 0.0-0.9 [facility] Comment on above: IG% - Immature Granu locytes (promyelocytes, myelocytes and metamyelocytes) > 1% indicates that a LEFT SHIFT is Present. L3890.6102on 12-24-2024 HEP B Surf Ag Non-Reactive Normal Nonreactive [facility] Comment on above: Result Comment: Reac tive: Presumptive evidence of HBV. Repeatedly reactive samples must be confirmed using a neutralization test ([facility] HBsAg Confirmatory Test) Non-Reactive: HBsAg not detected; does not exclude the possibility of exposure to HBV Performed By: #### L 509.3001 #### [facility] [place], [address] L3890.6202on 12-24-2024 HEP B Surf Ab Non-Reactive Normal [facility] Comment on above: Result Comment: <8.5 mIU/mL: Non-Reactive 8.5<= x <11.5 mIU/mL: Indeterminate >=11.5 mIU/mL: Reactive Non Reactive: Inconsistent with immunity less than <10 mIU/mL Reactive: Consistent with immunity greater than or equal to 10 mIU/mL Performed By: #### L 509.3001 #### [facility] [address] [place], [place], [address] L3890.6301on 12-24-2024 Hepatitis C Ab Non-Reactive Normal Nonreactive [facility] Comment on above: Result Comment: Reac tive: Presumptive evidence of antibodies to HCV. Follow CDC recommendations for supplemental testing. Non-Reactive: Antibodies to HCV were not detected; does not exclude the possibility of exposure to HCV Reactive Results are presumptive evidence of antibodies to HCV. Follow CDC recommendations for supplemental testing. Order confirmation testing: HCV Quant by PCR testing - HCVPCR #[id number] Non Reactive: < 0.8 Equivocal: >/= 0.8 to < 1.0 Reactive: >/= 1.0 The [facility] requires that a reactive/equivocal HCV antibody result be sent out for confirmation. HCV Quant by PCR testing. Performed By: #### L 509.3001 #### [facility] [address] [place], [place], [address] Laboratory - Chemistry and C hemistry - challengeOrdered By: Diana Mallory on 12-24-2024 AST [Catalytic activity/Vol] 25 U/L <38 [facility] - Microbiology an d Antimicrobial susceptibilityOrdered By: Diana Mallory on 12-24-2024 HBV surface Ag Ql (S) Non-Reactive Nonreactive [facility] Comment on above: Reactive: Presumptiv e evidence of HBV. Repeatedly reactive samples must be confirmed using a neutralization test ([facility] HBsAg Confirmatory Test)Non-Reactive: HBsAg not detected; does not exclude the possibility of exposure to HBV Lymphocytes Auto (Unsp spec) [#/Vol]Ordered By: Diana Mallory on 12-24-2024 Lymphocytes (Bld) [#/Vol] 1.70 10*3/uL 0.83-4.51 [facility] Lymphocytes/100 WBC Auto (Un sp spec)Ordered By: Diana Mallory on 12-24-2024 Lymphocytes/100 WBC (Bld) 24.0 % 19-41 [facility] MCV (mean corpuscular volume ) determinationOrdered By: Diana Mallory on 12-24-2024 MCV (RBC) [Entitic vol] 87.0 fL 80-94 [facility] Mean corpuscular hemoglobin (MCH) determinationOrdered By: Diana Mallory on 12-24-2024 MCH (RBC) [Entitic mass] 29.4 pg 27.0-32.0 [facility] Mean corpuscular hemoglobin concentration (MCHC) determinationOrdered By: Diana Mallory on 12-24-2024 MCHC (RBC) [Mass/Vol] 33.8 g/dL 32-36 [facility] Mean platelet volume determi nationOrdered By: Diana Mallory on 12-24-2024 Platelet mean volume (Bld) [Entitic vol] 10.5 fL 6.2-12.0 [facility] Monocyte percentageOrdered B y: Diana Mallory on 12-24-2024 Monocytes/100 WBC (Bld) 7.3 % 0-10 [facility] Neutrophil percentageOrdered By: Diana Mallory on 12-24-2024 Neutrophils/100 WBC (Bld) 66.3 % 47-70 [facility] Nucleated red blood cell per centageOrdered By: Diana Mallory on 12-24-2024 Nucleated RBC/100 WBC (Bld) [Ratio] 0 % 0-5 [facility] Platelet countOrdered By: Ablerto Mallory on 12-24-2024 Platelets (Bld) [#/Vol] 246 10*3/uL 150-450 [facility] Potassium (Unsp spec) [Mass/ Vol]Ordered By: Diana Mallory on 12-24-2024 Potassium [Moles/Vol] 4.0 mmol/L 3.3-5.1 [facility] Potassium measurement (mass/ volume)Ordered By: Diana Mallory on 12-24-2024 Potassium (Unsp spec) [Mass/Vol] 4.0 mmol/L 3.3-5.1 [facility] RBC Auto (Bld) [#/Vol]Ordere d By: Diana Mallory on 12-24-2024 RBC (Bld) [#/Vol] 5.47 10*6/uL 4.6-6.2 [facility] Rheumatoid Factoron 12-25-19 25 RHEUMATOID FAC < 10.0 Normal <15 [facility] Comment on above: Performed By: #### L 3100.5310, L7000.0600 #### [facility] [address] [place], [address] Rheumatoid factor Ql (S)Orde red By: Diana Mallory on 12-24-2024 Rheumatoid Factor < 10.0 IU/mL <15 [facility] Serum creatinine measurement (mass/volume)Ordered By: Diana Mallory on 12-24-2024 Creatinine [Mass/Vol] 0.92 mg/dL 0.70-1.20 [facility] Serum globulin measurementOr dered By: Diana Mallory on 12-24-2024 Globulin (S) [Mass/Vol] 2.9 g/dL 2.2-4.2 [facility] Serum glucose measurement (m ass/volume)Ordered By: Diana Mallory on 12-24-2024 Glucose [Mass/Vol] 102 mg/dL High 70-99 [facility] Serum hepatitis B virus surf cachorro antibody detectionOrdered By: Diana Mallory on 12-24-2024 HBV surface Ab Ql (S) Non-Reactive [facility] Comment on above: <8.5 mIU/mL: Non-Siobhan ctive8.5<= x <11.5 mIU/mL: Indeterminate>=11.5 mIU/mL: Reactive Non Reactive: Inconsistent with immunity less than <10 mIU/mL Reactive: Consistent with immunity greater than or equal to 10 mIU/mL Serum or plasma C reactive p rotein measurement (mass/volume)Ordered By: Diana Mallory on 12-24-2024 CRP [Mass/Vol] mg/L 0.0-3.0 [facility] Serum or plasma alanine martinez otransferase (ALT) measurementOrdered By: Diana Mallory on 12-24-2024 ALT [Catalytic activity/Vol] 33 U/L <47 [facility] Serum or plasma albumin florentin urement (mass/volume)Ordered By: Diana Mallory on 12-24-2024 Albumin [Mass/Vol] 4.6 g/dL 3.5-5.0 [facility] Serum or plasma albumin/glob ulin mass ratioOrdered By: Diana Mallory on 12-24-2024 Albumin/Globulin [Mass ratio] 1.6 {ratio} 0.9-2.4 [facility] Serum or plasma alkaline geri sphatase measurementOrdered By: Diana Mallory on 12-24-2024 ALP [Catalytic activity/Vol] 73 U/L 40-129 [facility] Serum or plasma calcium florentin urement (mass/volume)Ordered By: Diana Mallory on 12-24-2024 Calcium [Mass/Vol] 9.8 mg/dL 7.6-11.0 [facility] Serum or plasma cyclic citru llinated peptide IgG antibody assay (units/volume)Ordered By: Diana Mallory on 12-24-2024 Cyclic citrullinated peptide IgG Qn 1 units 0-19 [facility] Comment on above: Negative <20 Weak po sitive 20 - 39 Moderate positive 40 - 59 Strong positive >59Performed at: [facility] [id number] Director: Jorge A Flower PhD, Phone: [phone] Serum or plasma urea nitroge n measurement (mass/volume)Ordered By: Diana Mallory on 12-24-2024 Urea nitrogen [Mass/Vol] 21 mg/dL High 4-19 [facility] Serum rheumatoid factor dete ctionOrdered By: Diana Mallory on 12-24-2024 Rheumatoid factor Ql (S) < 10.0 IU/mL <15 [facility] Sodium levelOrdered By: Jimena Mallory on 12-24-2024 Sodium [Moles/Vol] 137 mmol/L 133-145 [facility] Total proteinOrdered By: Omer Mallory on 12-24-2024 Protein [Mass/Vol] 7.5 g/dL 5.9-8.4 [facility] White blood cell (WBC) count Ordered By: Diana Mallory on 12-24-2024 WBC (Bld) [#/Vol] 7.1 10*3/uL 4.4-11.0 [facility] Abdomen/Pelvis without Conto n 08-20-2024 Abdomen/Pelvis without Cont [facility] Imaging Services [address] [place], [place] [address] Abdomen/Pelvis without Cont MR#: [id number] Acct: [id number] Name: EDWARD HOLGUIN Rep #: [id number] : 1980 M 44 From: Clemente sanchez MD PCP: Dr. Dmitry Aragon MD Status: REG ER Study: Abdomen/Pelvis without Cont Date of Exam: 07/24 07/16 Exam# [id number] Ordering Dr: Dmitry Caraballo DO [id number] STUDY: CT ABDOMEN AND PELVIS WITHOUT CONTRAST REASON FOR EXAM: Male, 44 years old. Flank pain RADIATION DOSAGE (If Supplied By Facility): CTDIvol = ( 16.48 ) mGy, DLP = ( 918.95 ) mGycm TECHNIQUE: Transaxial images were obtained from the dome of the diaphragm to the symphysis pubis without oral contrast, and without intravenous contrast. Sagittal and coronal images were reconstructed. Individualized dose optimization techniques were used for this CT. COMPARISON: 08/13/2024. FINDINGS: The visualized lung bases are unremarkable. The visualized portions of the heart are within normal limits. Normal liver. Normal gallbladder and extrahepatic biliary system. Normal spleen. Normal pancreas. Normal bilateral adrenal glands. Increasing hydronephrosis of the right kidney. Increasing right hydroureter. Previously seen right ureteral stone is no longer present. Stable nonobstructing stones in the mid left kidney. No hydronephrosis. Evaluation of the GI tract is limited by absence of oral contrast. Cannot exclude stomach wall thickening. No dilated loops of bowel or evidence for obstruction. Cannot exclude segmental thickening of the davis of the small or large bowel. Cannot exclude enteritis or colitis. Moderate diffuse fecal retention. Diverticulosis without definite diverticulitis. Appendix within normal limits. Normal abdominal aorta. Normal inferior vena cava. Normal retroperitoneum. Normal urinary bladder. There is enlargement of the prostate gland. Normal abdominal wall. Normal osseous structures. CT/Abdomen/Pelvis without Cont IMPRESSION: Increased right hydronephrosis and dilated ureter but currently no ureteral stone is seen. Nonobstructing left renal stones are stable. Electronically Signed: Clemente Aguilar MD at 15:34 EDT , CC: Dr. Dmitry Caraballo DO; Dr. Dmitry Aragon MD Studio Operator: Signed Normal [facility] Basic Metabolic Profile (BMP )on 08-20-2024 BUN/CRE 18.6 RATIO Normal -20 [facility] Comment on above: Performed By: #### L 100.0100, L500.2500 #### [facility] [address] [place], [address] CA,Total 9.1 mg/dL Normal 8.5-10.1 [facility] Comment on above: Performed By: #### L 100.0100, L500.2500 #### [facility] [address] [place], [address] Chloride [Moles/Vol] 107 mmol/L Normal 98-107 [facility] Comment on above: Performed By: #### L 100.0100, L500.2500 #### [facility] [address] [place], [address] CO2 [Moles/Vol] 25.0 mmol/L Normal 21.0-32.0 [facility] Comment on above: Performed By: #### L 100.0100, L500.2500 #### [facility] [address] [place], [address] Creatinine [Mass/Vol] 1.13 mg/dL Normal 0.70-1.30 [facility] Comment on above: Result Comment: The validity of the calculated GFR GFRAA in patients over 70 years has not been determined. Clinical correlation is essential. Performed By: #### L 100.0100, L500.2500 #### [facility] [address] [place], [address] ECRCL 93.73 ml/min Normal [facility] Comment on above: Performed By: #### L 100.0100, L500.2500 #### [facility] [address] [place], [address] EST GFR - AA 91 mL/min Normal >60 [facility] Comment on above: Result Comment: Afri can Jordanian GFR Calc Performed By: #### L 100.0100, L500.2500 #### [facility] [address] [place], [address] GAP 7 Normal 5-15 [facility] Comment on above: Performed By: #### L 100.0100, L500.2500 #### [facility] [address] [place], [address] GFR/1.73 sq M.predicted among non-blacks MDRD (S/P/Bld) [Vol rate/Area] 75 mL/min/{1.73_m2} Normal >60 [facility] Comment on above: Result Comment: Non- GFR Calc Performed By: #### L 100.0100, L500.2500 #### [facility] [address] [place], [address] Glucose [Mass/Vol] 97 mg/dL Normal 74-106 [facility] Comment on above: Performed By: #### L 100.0100, L500.2500 #### [facility] [address] [place], [address] Potassium [Moles/Vol] 4.0 mmol/L Normal 3.5-5.1 [facility] Comment on above: Performed By: #### L 100.0100, L500.2500 #### [facility] [address] [place], [address] Sodium [Moles/Vol] 139 mmol/L Normal 136-145 [facility] Comment on above: Performed By: #### L 100.0100, L500.2500 #### [facility] [address] [place], [address] Urea nitrogen [Mass/Vol] 21 mg/dL High 7-18 [facility] Comment on above: Performed By: #### L 100.0100, L500.2500 #### [facility] [address] [place], [address] CBC W/Diff, Automatedon 10- Absolute Lymph 1.57 X10 3/uL Normal 0.83-4.51 [facility] Comment on above: Performed By: #### L 100.0100, L500.2500 #### [facility] [address] [place], [address] Absolute Neut 4.8 X10 3/uL Normal 2.0-7.7 [facility] Comment on above: Performed By: #### L 100.0100, L500.2500 #### [facility] [address] [place], [address] Basophils/100 WBC (Bld) 0.3 % Normal 0-1 [facility] Comment on above: Performed By: #### L 100.0100, L500.2500 #### [facility] [address] [place], [address] Eosinophils/100 WBC (Bld) 1.7 % Normal 0-5 [facility] Comment on above: Performed By: #### L 100.0100, L500.2500 #### [facility] [address] [place], [address] Erythrocyte distribution width (RBC) [Ratio] 12.1 % Normal 11.6-14.6 [facility] Comment on above: Performed By: #### L 100.0100, L500.2500 #### [facility] [address] [place], [address] Hematocrit (Bld) [Volume fraction] 44.3 % Normal 40-54 [facility] Comment on above: Performed By: #### L 100.0100, L500.2500 #### [facility] [address] [place], [address] Hemoglobin (Bld) [Mass/Vol] 14.6 g/dL Normal 13.0-16.5 [facility] Comment on above: Performed By: #### L 100.0100, L500.2500 #### [facility] [address] [place], [address] IG% 0.400 Normal 0.0-0.9 [facility] Comment on above: Result Comment: IG% - Immature Granulocytes (promyelocytes, myelocytes and metamyelocytes) > 1% indicates that a LEFT SHIFT is Present. Performed By: #### L 100.0100, L500.2500 #### [facility] [address] [place], [address] Lymphocytes/100 WBC (Bld) 22.1 % Normal 19-41 [facility] Comment on above: Performed By: #### L 100.0100, L500.2500 #### [facility] [address] [place], [address] MCH (RBC) [Entitic mass] 28.7 pg Normal 27.0-32.0 [facility] Comment on above: Performed By: #### L 100.0100, L500.2500 #### [facility] [address] [place], [address] MCHC (RBC) [Mass/Vol] 33.0 g/dL Normal 32-36 [facility] Comment on above: Performed By: #### L 100.0100, L500.2500 #### [facility] [address] [place], [address] MCV (RBC) [Entitic vol] 87.0 fL Normal 80-94 [facility] Comment on above: Performed By: #### L 100.0100, L500.2500 #### [facility] [address] [place], [address] Monocytes/100 WBC (Bld) 8.6 % Normal 0-10 [facility] Comment on above: Performed By: #### L 100.0100, L500.2500 #### [facility] [address] [place], [address] Neutrophils/100 WBC (Bld) 66.9 % Normal 47-70 [facility] Comment on above: Performed By: #### L 100.0100, L500.2500 #### [facility] [address] [place], [address] Nucleated RBC (Bld) [#/Vol] 0 10*3/uL Normal 0-5 [facility] Comment on above: Performed By: #### L 100.0100, L500.2500 #### [facility] [address] [place], [address] Platelet mean volume (Bld) [Entitic vol] 11.0 fL Normal 6.2-12.0 [facility] Comment on above: Performed By: #### L 100.0100, L500.2500 #### [facility] [address] [place], [address] Platelets (Bld) [#/Vol] 231 10*3/uL Normal 150-450 [facility] Comment on above: Performed By: #### L 100.0100, L500.2500 #### [facility] [address] [place], [address] RBC (Bld) [#/Vol] 5.09 10*6/uL Normal 4.6-6.2 [facility] Comment on above: Performed By: #### L 100.0100, L500.2500 #### [facility] [address] [place], [address] RDW SD 38.6 fl Normal 35.1-43.9 [facility] Comment on above: Performed By: #### L 100.0100, L500.2500 #### [facility] [address] [place], [address] WBC (Bld) [#/Vol] 7.1 10*3/uL Normal 4.4-11.0 [facility] Comment on above: Performed By: #### L 100.0100, L500.2500 #### [facility] [address] [place], [address] Emergency Department Summary on 08-20-2024 Emergency Department Summary [facility] Medical Records Department [address] [place] [address] Emergency Department Summary 08/20/24 MR#: [id number] Acct: [id number] Name: EDWARD HOLGUIN Rep #: [id number] : 1980 44 From: Dmitry Caraballo DO PCP: Dr. Dmitry Aragon MD Status:ADM CHANTAL Location: [address] History of Present Illness Chief Complaint: Flank Pain Informant: patient Onset/Context/Timing Onset: Today Context: Sudden Onset Timing: Continuous Quality: Aching Location: Right flank and right testicle Worsened by: Nothing Relieved by: Nothing Narrative Narrative: Patient presents with right lower flank pain that became worse today. Patient had a stent removal earlier today. Patient states he went home and was having mild pain. Patient states that the pain that became progressively worse. Patient describes it as aching. Patient states it radiates into his right testicle. Patient states nothing makes it worse and nothing makes it better. Patient denies any fevers or chills. Patient admits to some hematuria but denies any dysuria or frequency. The patient admits to some nausea but denies any vomiting. [facility] Medical History Inverted T wave Angina at rest Palpitations Chest pain Mild dehydration COVID-19 Acute pharyngitis Sore throat Poison tami Contact with and (suspected) exposure to other viral communicable diseases Shortness of breath on exertion Numbness and tingling Carpal tunnel syndrome Influenza A Back pain Limb weakness Knee pain Shoulder pain Home Medications ???Medication ???Instructions ???Recorded ???Last Taken ???Type valacyclovir 500 mg tablet 500 mg PO DAILY virus infection 09/19/17 Unknown History sertraline 100 mg tablet 75 mg PO DAILY 05/26/19 Unknown History dextroamphetamine-amp hetamine 30 30 mg PO DAILY 10/21/19 Unknown History mg tablet (Adderall) valacyclovir 1 gram tablet 1,000 mg PO PRN PRN PRN 12/03/19 Unknown History eluxadoline 100 mg tablet (Viberzi) 100 mg BID IBS 11/03/22 Unknown History rosuvastatin 20 mg tablet 20 mg PO QHS #30 tabs 11/04/22 Unknown Rx dextroamphetamine-amp hetamine 10 10 mg PO DAILY PRN other 12/20/22 Unknown History mg tablet (Adderall) tramadol 50 mg tablet 50 mg PO BID PRN Pain 12/20/22 Unknown History valsartan 80 mg tablet (Diovan) 80 mg PO DAILY #30 tabs 12/20/22 Unknown Rx zolpidem 12.5 mg tablet,extended 12.5 mg PO QHS 12/20/22 Unknown History release,multiphase metoprolol succinate 50 mg 50 mg PO DAILY started by Dr. Andres 01/16/23 Unknown History tablet,extended release 24 hr Aragon oxycodone 5 mg tablet 5 mg PO Q6H PRN pain 3 days #14 08/16/24 Unknown Rx tabs Allergy/AdvReac Type Severity Reaction Status Date / Time betamethasone (From Allergy Unknown Verified 08/20/24 13:19 Celestone) betamethasone sodium Allergy Unknown Verified 08/20/24 13:19 phosphate (From Celestone) Family History Father Heart disease Hypertension Myocardial infarction, Onset Age: 72 Diabetes Surgical History History of ankle surgery Hx of lymph node biopsy Hx of colonoscopy Normal colonoscopy Lower extremity surgery planned Social History Smoking Status: Current some day smoker tobacco type: cigars per week: 1 second hand exposure: No alcohol intake: current alcohol intake frequency: holidays/special occasions only substance use type: does not use caffeine: Yes (energy drinks) Type: coffee and other what type of physical activity do you participate in: none frequency: does not exercise seatbelt use: always ROS ROS ED Constitutional Constitutional ED: Denies chills or fever(s) Eyes Eyes: Denies blurry vision or change in vision ENT ENT ED: Denies rhinorrhea or sore throat Cardiovascular Cardiovascular: Denies chest pain or palpitations Respiratory/Chest Respiratory/Chest: Denies cough or dyspnea Gastrointestinal Gastrointestinal: Reports nausea; Denies vomiting Genitourinary Genitourinary ED: Reports hematuria; Denies dysuria Musculoskeletal Musculoskeletal: Reports back pain; Denies neck pain Integumentary Denies abscess or rash Neurologic Neurologic: Denies headache(s) or weakness Allergic/Immunologic Allergic/Immunologic ED: Denies mouth swelling or urticaria EXAM Physical Exam Const Vital Signs: 08/20/24 13:19 08/20/24 15:17 Temperature 97 F L Temperature Source Temporal Pulse Rate 93 78 Respiratory Rate 22 H 16 Blood Pressure 132/90 H 134/78 H Blood Pressure Mean 104 96 Pulse Ox 98 98 Oxygen Delivery Method Room Air Room Air Positive well nouris (more content not included)... Normal [facility] Urinalysis, Completeon 08-20 EPI,SQUAMOUS 0-5 SEEN Normal 0-5 [facility] Comment on above: Order Comment: COLOR OF URINE MAY AFFECT DIPSTICK RESULTS.CLEAN CATCH Performed By: #### L 509.3001 #### [facility] [address] [place], [address] BACTERIA 1+ /hpf Normal None Seen [facility] Comment on above: Order Comment: COLOR OF URINE MAY AFFECT DIPSTICK RESULTS.CLEAN CATCH Performed By: #### L 509.3001 #### [facility] [address] [place], [address] RBC 0-5 SEEN Normal 0-5 [facility] Comment on above: Order Comment: COLOR OF URINE MAY AFFECT DIPSTICK RESULTS.CLEAN CATCH Performed By: #### L 509.3001 #### [facility] [address] [place], [address] WBC 0-5 SEEN Normal 0-5 [facility] Comment on above: Order Comment: COLOR OF URINE MAY AFFECT DIPSTICK RESULTS.CLEAN CATCH Performed By: #### L 509.3001 #### [facility] [address] [place], [address] Mucus Ql (Urine sed) 0 SEEN Normal [facility] Comment on above: Order Comment: COLOR OF URINE MAY AFFECT DIPSTICK RESULTS.CLEAN CATCH Performed By: #### L 509.3001 #### [facility] [address] [place], [address] Abdomen/Pelvis without Conto n 08-13-2024 Abdomen/Pelvis without Cont [facility] Imaging Services [address] [place] [address] Abdomen/Pelvis without Cont MR#: [id number] Acct: [id number] Name: EDWARD HOLGUIN Rep #: [id number] : 1980 M 44 From: Talon Brock DO PCP: Dr. Dmitry Aragon MD Status: REG CLI Study: Abdomen/Pelvis without Cont Date of Exam: 07/24 12/16 Exam# [id number] Ordering Dr: Al Zaman MD [id number] STUDY: CT ABDOMEN AND PELVIS WITHOUT CONTRAST REASON FOR EXAM: Male, 44 years old. GROSS HEMATURIA RADIATION DOSAGE (If Supplied By Facility): CTDIvol = ( 9.32 ) mGy, DLP = ( 584.80 ) mGycm TECHNIQUE: Transaxial images were obtained from the dome of the diaphragm to the symphysis pubis without oral contrast, and without intravenous contrast. Sagittal and coronal images were reconstructed. Individualized dose optimization techniques were used for this CT. COMPARISON: None. FINDINGS: The visualized lung bases demonstrate bilateral small peripheral nodules likely granulomatous in nature. The visualized portions of the heart are within normal limits. Normal liver. Normal gallbladder and extrahepatic biliary system. Normal spleen. Normal pancreas. Normal bilateral adrenal glands. Mild hydronephrosis of the right kidney. Mild right hydroureter with a mid ureteral stone measuring 6 mm. Nonobstructive punctate stones in the left kidney. Normal visualized stomach. Normal small intestine. Diverticulosis of the colon. The appendix is visualized and appears normal. Normal abdominal aorta. Normal inferior vena cava. Normal retroperitoneum. Normal urinary bladder. Normal abdominal wall. Normal osseous structures. CT/Abdomen/Pelvis without Cont IMPRESSION: Mild right hydronephrosis and right hydroureter with a mid ureteral stone measuring 6 mm. Nonobstructive punctate stones in the left kidney. Colonic diverticulosis. Electronically Signed: Talon Brock DO at 17:49 EDT Reading Location ID and State: [facility] / [place] Tel [phone], Service support , CC: Dr. Dmitry Aragon MD; Dr. Al Zaman MD Studio Operator: Signed Normal [facility] Kidney and Bladderon 024 Kidney and Bladder [facility] Imaging Services [address] [place] [id number] Kidney and Bladder MR#: [id number] Acct: [id number] Name: EDWARD HOLGUIN Rep #: [id number] : 1980 M 44 From: Jaciel Schwartz MD PCP: Dr. Dmitry Aragon MD Status: [facility] Study: Kidney and Bladder Date of Exam: 07/24/24 Exam# [id number] Ordering Dr: Dmitry Aragon MD [id number] STUDY: RENAL ULTRASOUND - COMPLETE REASON FOR EXAM: Male, 44 years old. abn findings in urine TECHNIQUE: Ultrasound evaluation of the kidneys was performed with real-time and static khan-scale imaging. COMPARISON: None. FINDINGS: RIGHT KIDNEY: Normal location of the right kidney, which is normal in size. The right kidney measures 12.7 cm. There is a normal cortex of the right kidney. The renal cortex measures 2.2 cm. There is no right renal mass or cyst. There are no right renal calculi. There is no right hydronephrosis. DISTAL RIGHT URETER: There is non-visualization of the distal right ureter. There is no demonstrated right ureterovesical junction calculus. There is a visualized right ureteral jet. LEFT KIDNEY: Normal location of the left kidney, which is normal in size. The left kidney measures 11.8 cm. There is a normal cortex of the left kidney. The renal cortex measures 1.7 cm. There is no left renal mass or cyst. There are no left renal calculi. There is no left hydronephrosis. DISTAL LEFT URETER: There is non-visualization of the distal left ureter. There is no demonstrated left ureterovesical junction calculus. There is a visualized left ureteral jet. BLADDER: The distended urinary bladder has a volume of 40 ml. The empty urinary bladder has a volume of 2 ml. There is a normal wall thickness of the distended urinary bladder. There is no demonstrated mass within the urinary bladder. There are no demonstrated bladder calculi. US/Kidney and Bladder IMPRESSION: Normal ultrasound of the kidneys and urinary bladder. Electronically Signed: Jaciel Schwartz MD at 13:54 EDT , CC: Dr. Dmitry Aragon MD Studio Operator: Signed Normal [facility], Total / Freeon 07-20-2024 TESTOSTER,FREE 8.96 ng/dL Normal 5.00-21.00 [facility] Comment on above: Order Comment: Order Date: 07/08/24 Order Info: 0024-1 - TESTF N Performed By: #### L 3100.5310, L7000.0600 #### [facility] [address] [place], [address] TESTOSTERONE, T 253 ng/dL Low 264-916 [facility] Comment on above: Order Comment: Order Date: 07/08/24 Order Info: 0024-1 - TESTF N Result Comment: Adul t male reference interval is based on a population of healthy nonobese males (BMI <30) between 19 and 39 years old. reid Camacho.al. JCEM 2017,102;1988-9634. PMID: [id number]. Performed By: #### L 3100.5310, L7000.0600 #### [facility] [address] [place], [place], [address] TESTOSTERONE,%F 3.54 Normal 1.50-4.20 [facility] Comment on above: Order Comment: Order Date: 07/08/24 Order Info: 0024-1 - TESTF N Result Comment: Perf ormed at: [facility] [address] [id number] Cook Supervisor: Jorge A Flower PhD, Phone: [phone] Performed at: [facility] [address] [id number] Cook Supervisor: Sarah Damon MD, Phone: [phone] Performed By: #### L 3100.5310, L7000.0600 #### [facility] [address] [place], [address] Urine Cultureon 07-20-2024 URC Culture exhibits no growth. Normal [facility] Comment on above: Performed By: #### L 3100.5310, L7000.0600 #### [facility] [address] [place], [address] CBC W/Diff, Automatedon 06-24 Absolute Lymph 2.25 X10 3/uL Normal 0.83-4.51 [facility] Comment on above: Order Comment: Order Date: 07/18/24 Order Info: 0184-1 - CBCD Performed By: #### L 100.0100, L500.4050 #### [facility] [address] [place], [address] Absolute Neut 5.0 X10 3/uL Normal 2.0-7.7 [facility] Comment on above: Order Comment: Order Date: 07/18/24 Order Info: 0184-1 - CBCD Performed By: #### L 100.0100, L500.4050 #### [facility] [address] [place], [address] Basophils/100 WBC (Bld) 0.5 % Normal 0-1 [facility] Comment on above: Order Comment: Order Date: 07/18/24 Order Info: 0184-1 - CBCD Performed By: #### L 100.0100, L500.4050 #### [facility] [address] [place], [address] Eosinophils/100 WBC (Bld) 2.4 % Normal 0-5 [facility] Comment on above: Order Comment: Order Date: 07/18/24 Order Info: 0184-1 - CBCD Performed By: #### L 100.0100, L500.4050 #### [facility] [address] [place], [address] Erythrocyte distribution width (RBC) [Ratio] 12.2 % Normal 11.6-14.6 [facility] Comment on above: Order Comment: Order Date: 07/18/24 Order Info: 0184-1 - CBCD Performed By: #### L 100.0100, L500.4050 #### [facility] [address] [place], [address] Hematocrit (Bld) [Volume fraction] 47.3 % Normal 40-54 [facility] Comment on above: Order Comment: Order Date: 07/18/24 Order Info: 018- - CBCD Performed By: #### L 100.0100, L500.4050 #### [facility] [address] [place], [address] Hemoglobin (Bld) [Mass/Vol] 15.3 g/dL Normal 13.0-16.5 [facility] Comment on above: Order Comment: Order Date: 07/18/24 Order Info: 018- - CBCD Performed By: #### L 100.0100, L500.4050 #### [facility] [address] [place], [address] IG% 0.200 Normal 0.0-0.9 [facility] Comment on above: Order Comment: Order Date: 07/18/24 Order Info: 018- - CBCD Result Comment: IG% - Immature Granulocytes (promyelocytes, myelocytes and metamyelocytes) > 1% indicates that a LEFT SHIFT is Present. Performed By: #### L 100.0100, L500.4050 #### [facility] [address] [place], [address] Lymphocytes/100 WBC (Bld) 27.3 % Normal 19-41 [facility] Comment on above: Order Comment: Order Date: 07/18/24 Order Info: 018- - CBCD Performed By: #### L 100.0100, L500.4050 #### [facility] [address] [place], [address] MCH (RBC) [Entitic mass] 28.9 pg Normal 27.0-32.0 [facility] Comment on above: Order Comment: Order Date: 07/18/24 Order Info: 018- - CBCD Performed By: #### L 100.0100, L500.4050 #### [facility] [address] [place], [address] MCHC (RBC) [Mass/Vol] 32.3 g/dL Normal 32-36 [facility] Comment on above: Order Comment: Order Date: 07/18/24 Order Info: 0184-1 - CBCD Performed By: #### L 100.0100, L500.4050 #### [facility] [address] [place], [address] MCV (RBC) [Entitic vol] 89.2 fL Normal 80-94 [facility] Comment on above: Order Comment: Order Date: 07/18/24 Order Info: 0184-1 - CBCD Performed By: #### L 100.0100, L500.4050 #### [facility] [address] [place], [address] Monocytes/100 WBC (Bld) 9.5 % Normal 0-10 [facility] Comment on above: Order Comment: Order Date: 07/18/24 Order Info: 0184-1 - CBCD Performed By: #### L 100.0100, L500.4050 #### [facility] [address] [place], [address] Neutrophils/100 WBC (Bld) 60.1 % Normal 47-70 [facility] Comment on above: Order Comment: Order Date: 07/18/24 Order Info: 0184-1 - CBCD Performed By: #### L 100.0100, L500.4050 #### [facility] [address] [place], [address] Nucleated RBC (Bld) [#/Vol] 0 10*3/uL Normal 0-5 [facility] Comment on above: Order Comment: Order Date: 07/18/24 Order Info: 0184-1 - CBCD Performed By: #### L 100.0100, L500.4050 #### [facility] [address] [place], [address] Platelet mean volume (Bld) [Entitic vol] 11.0 fL Normal 6.2-12.0 [facility] Comment on above: Order Comment: Order Date: 07/18/24 Order Info: 0184-1 - CBCD Performed By: #### L 100.0100, L500.4050 #### [facility] [address] [place], [address] Platelets (Bld) [#/Vol] 263 10*3/uL Normal 150-450 [facility] Comment on above: Order Comment: Order Date: 07/18/24 Order Info: 0184-1 - CBCD Performed By: #### L 100.0100, L500.4050 #### [facility] [address] [place], [address] RBC (Bld) [#/Vol] 5.30 10*6/uL Normal 4.6-6.2 [facility] Comment on above: Order Comment: Order Date: 07/18/24 Order Info: 0184-1 - CBCD Performed By: #### L 100.0100, L500.4050 #### [facility] [address] [place], [address] RDW SD 39.9 fl Normal 35.1-43.9 [facility] Comment on above: Order Comment: Order Date: 07/18/24 Order Info: 0184-1 - CBCD Performed By: #### L 100.0100, L500.4050 #### [facility] [address] [place], [address] WBC (Bld) [#/Vol] 8.2 10*3/uL Normal 4.4-11.0 [facility] Comment on above: Order Comment: Order Date: 07/18/24 Order Info: 0184-1 - CBCD Performed By: #### L 100.0100, L500.4050 #### [facility] [address] [place], [address] Comprehensive Metabolic Prof ilon 07-19-2024 Albumin [Mass/Vol] 4.0 g/dL Normal 3.2-5.0 [facility] Comment on above: Order Comment: Order Date: 07/18/24 Order Info: 0786-1 - CMP possible liver irritation Performed By: #### L 100.0100, L500.4050 #### [facility] [address] [place], [address] Albumin/Globulin [Mass ratio] 1.1 {ratio} Normal 0.9-2.4 [facility] Comment on above: Order Comment: Order Date: 07/18/24 Order Info: 0786-1 - CMP possible liver irritation Performed By: #### L 100.0100, L500.4050 #### [facility] [address] [place], [address] ALK P 86 U/L Normal 45-117 [facility] Comment on above: Order Comment: Order Date: 07/18/24 Order Info: 0786-1 - CMP possible liver irritation Performed By: #### L 100.0100, L500.4050 #### [facility] [address] [place], [address] ALT [Catalytic activity/Vol] 45 U/L Normal 16-61 [facility] Comment on above: Order Comment: Order Date: 07/18/24 Order Info: 0786-1 - CMP possible liver irritation Performed By: #### L 100.0100, L500.4050 #### [facility] [address] [place], [address] AST [Catalytic activity/Vol] 34 U/L Normal 15-37 [facility] Comment on above: Order Comment: Order Date: 07/18/24 Order Info: 0786-1 - CMP possible liver irritation Result Comment: Mode rate Hemolysis, Result may be falsely increased. Performed By: #### L 100.0100, L500.4050 #### [facility] [address] [place], [address] Bilirubin [Mass/Vol] 1.00 mg/dL Normal 0.20-1.00 [facility] Comment on above: Order Comment: Order Date: 07/18/24 Order Info: 0786-1 - CMP possible liver irritation Result Comment: For patients on eltrombopag therapy, use of Dimension [place] TBIL is not recommended. Performed By: #### L 100.0100, L500.4050 #### [facility] [address] [place], [address] BUN/CRE 21.1 RATIO High 10-20 [facility] Comment on above: Order Comment: Order Date: 07/18/24 Order Info: 0786-1 - CMP possible liver irritation Performed By: #### L 100.0100, L500.4050 #### [facility] [address] [place], [address] CA,Total 9.3 mg/dL Normal 8.5-10.1 [facility] Comment on above: Order Comment: Order Date: 07/18/24 Order Info: 0786-1 - CMP possible liver irritation Performed By: #### L 100.0100, L500.4050 #### [facility] [address] [place], [address] Chloride [Moles/Vol] 105 mmol/L Normal 98-107 [facility] Comment on above: Order Comment: Order Date: 07/18/24 Order Info: 0786-1 - CMP possible liver irritation Performed By: #### L 100.0100, L500.4050 #### [facility] [address] [place], [address] CO2 [Moles/Vol] 29.0 mmol/L Normal 21.0-32.0 [facility] Comment on above: Order Comment: Order Date: 07/18/24 Order Info: 0786-1 - CMP possible liver irritation Performed By: #### L 100.0100, L500.4050 #### [facility] [address] [place], [address] Creatinine [Mass/Vol] 0.95 mg/dL Normal 0.70-1.30 [facility] Comment on above: Order Comment: Order Date: 07/18/24 Order Info: 0786-1 - CMP possible liver irritation Result Comment: The validity of the calculated GFR GFRAA in patients over 70 years has not been determined. Clinical correlation is essential. Performed By: #### L 100.0100, L500.4050 #### [facility] [address] [place], [address] EST GFR - AA 112 mL/min Normal >60 [facility] Comment on above: Order Comment: Order Date: 07/18/24 Order Info: 0786-1 - CMP possible liver irritation Result Comment: Afri can Jordanian GFR Calc Performed By: #### L 100.0100, L500.4050 #### [facility] [address] [place], [address] GAP 4 Low 5-15 [facility] Comment on above: Order Comment: Order Date: 07/18/24 Order Info: 0786-1 - CMP possible liver irritation Performed By: #### L 100.0100, L500.4050 #### [facility] [address] [place], [address] GFR/1.73 sq M.predicted among non-blacks MDRD (S/P/Bld) [Vol rate/Area] 92 mL/min/{1.73_m2} Normal >60 [facility] Comment on above: Order Comment: Order Date: 07/18/24 Order Info: 0786-1 - CMP possible liver irritation Result Comment: Non- GFR Calc Performed By: #### L 100.0100, L500.4050 #### [facility] [address] [place], [address] Globulin (S) [Mass/Vol] 3.7 g/dL Normal 2.2-4.2 [facility] Comment on above: Order Comment: Order Date: 07/18/24 Order Info: 0786-1 - CMP possible liver irritation Performed By: #### L 100.0100, L500.4050 #### [facility] [address] [place], [address] Glucose [Mass/Vol] 96 mg/dL Normal 74-106 [facility] Comment on above: Order Comment: Order Date: 07/18/24 Order Info: 0786-1 - CMP possible liver irritation Performed By: #### L 100.0100, L500.4050 #### [facility] [address] [place], [address] Potassium [Moles/Vol] 4.1 mmol/L Normal 3.5-5.1 [facility] Comment on above: Order Comment: Order Date: 07/18/24 Order Info: 0786-1 - CMP possible liver irritation Result Comment: Mode rate Hemolysis, Result may be falsely increased. Performed By: #### L 100.0100, L500.4050 #### [facility] [address] [place], [address] Sodium [Moles/Vol] 138 mmol/L Normal 136-145 [facility] Comment on above: Order Comment: Order Date: 07/18/24 Order Info: 0786-1 - CMP possible liver irritation Performed By: #### L 100.0100, L500.4050 #### [facility] [address] [place], [address] T PROT 7.7 g/dL Normal 6.4-8.2 [facility] Comment on above: Order Comment: Order Date: 07/18/24 Order Info: 0786-1 - CMP possible liver irritation Performed By: #### L 100.0100, L500.4050 #### [facility] [address] [place], [address] Urea nitrogen [Mass/Vol] 20 mg/dL High 7-18 [facility] Comment on above: Order Comment: Order Date: 07/18/24 Order Info: 0786-1 - CMP possible liver irritation Performed By: #### L 100.0100, L500.4050 #### [facility] [address] [place], [address] pH, Stoolon 07-18-2024 pH, STOOL 6.5 Low 7.0-7.5 [facility] Comment on above: Order Comment: Test( s) 272534-dA, Stool was developed and its performance characteristics determined by [facility]. It has not been cleared or approved by the Food and Drug Administration. Result Comment: Perf ormed at: [facility] [address] [id number] Cook Supervisor: Jorge A Flower PhD, Phone: [phone] Performed By: #### L 3100.5310, L7000.0600 #### [facility] [address] [place], [address] L5500.0550on 07-15-2024 BEEF <0.10 Normal Class 0 [facility] Comment on above: Order Comment: Speci men Comment: A duplicate report has been generateddue to demographicSpecimen Comment: updates. Performed By: #### L 509.3001 #### [facility] [address] [place], [address] CHOCOLATE <0.10 Normal Class 0 [facility] Comment on above: Order Comment: Speci men Comment: A duplicate report has been generateddue to demographicSpecimen Comment: updates. Performed By: #### L 509.3001 #### [facility] [address] [place], [address] CODFISH <0.10 Normal Class 0 [facility] Comment on above: Order Comment: Speci men Comment: A duplicate report has been generateddue to demographicSpecimen Comment: updates. Performed By: #### L 509.3001 #### [facility] [address] [place], [address] CORN <0.10 Normal Class 0 [facility] Comment on above: Order Comment: Speci men Comment: A duplicate report has been generateddue to demographicSpecimen Comment: updates. Performed By: #### L 509.3001 #### [facility] [address] [place], [address] EGG, WHOLE <0.10 Normal Class 0 [facility] Comment on above: Order Comment: Speci men Comment: A duplicate report has been generateddue to demographicSpecimen Comment: updates. Performed By: #### L 509.3001 #### [facility] [address] [place], [address] MUSSELS <0.10 Normal Class 0 [facility] Comment on above: Order Comment: Speci men Comment: A duplicate report has been generateddue to demographicSpecimen Comment: updates. Performed By: #### L 509.3001 #### [facility] [address] [place], [address] PEANUT <0.10 Normal Class 0 [facility] Comment on above: Order Comment: Speci men Comment: A duplicate report has been generateddue to demographicSpecimen Comment: updates. Performed By: #### L 509.3001 #### [facility] [address] [place], [address] PORK <0.10 Normal Class 0 [facility] Comment on above: Order Comment: Speci men Comment: A duplicate report has been generateddue to demographicSpecimen Comment: updates. Performed By: #### L 509.3001 #### [facility] [address] [place], [address] SALMON <0.10 Normal Class 0 [facility] Comment on above: Order Comment: Speci men Comment: A duplicate report has been generateddue to demographicSpecimen Comment: updates. Performed By: #### L 509.3001 #### [facility] [address] [place], [address] SHRIMP 0.78 kU/L Abnormal Class II [facility] Comment on above: Order Comment: Speci men Comment: A duplicate report has been generateddue to demographicSpecimen Comment: updates. Performed By: #### L 509.3001 #### [facility] [address] [place], [address] SOYBEAN <0.10 Normal Class 0 [facility] Comment on above: Order Comment: Speci men Comment: A duplicate report has been generateddue to demographicSpecimen Comment: updates. Performed By: #### L 509.3001 #### [facility] [address] [place], [address] TUNA <0.10 Normal Class 0 [facility] Comment on above: Order Comment: Speci men Comment: A duplicate report has been generateddue to demographicSpecimen Comment: updates. Performed By: #### L 509.3001 #### [facility] [address] [place], [address] WHEAT <0.10 Normal Class 0 [facility] Comment on above: Order Comment: Speci men Comment: A duplicate report has been generateddue to demographicSpecimen Comment: updates. Performed By: #### L 509.3001 #### [facility] [address] [place], [address] Allergen, Mini-Raston 2023 A. ALTERNATA <0.10 Normal Class 0 [facility] Comment on above: Performed By: #### L 509.3001 #### [facility] [address] [place], [address] BERMUDA GRASS 1.16 kU/L Abnormal Class II [facility] Comment on above: Performed By: #### L 509.3001 #### [facility] [address] [place], [address] [place], [place] [address] kU/L Abnormal Class V [facility] Comment on above: Performed By: #### L 509.3001 #### [facility] [address] [facility] [address] CAT HAIR/DANDER 0.31 kU/L Abnormal Class 0/I [facility] Comment on above: Performed By: #### L 509.3001 #### [facility] [address] [place], [address] COMMENT Comment Normal . [facility] Comment on above: Result Comment: Hemalatha peralta of Specific IgE Class Description of Class ----- < 0.10 0 Negative 0.10 - 0.31 0/I Equivocal/Low 0.32 - 0.55 I Low 0.56 - 1.40 II Moderate 1.41 - 3.90 III High 3.91 - 19.00 IV Very High 19.01 - 100.00 V Very High >100.00 Very High Performed By: #### L 509.3001 #### [facility] [address] [place], [place], [address] D FARINAE MITE 2.24 kU/L Abnormal Class III [facility] Comment on above: Performed By: #### L 509.3001 #### [facility] [address] [place] [id number] D PTERONYSSINUS 1.57 kU/L Abnormal Class III [facility] Comment on above: Performed By: #### L 509.3001 #### [facility] [address] [place] [id number] DOG EPITHELIA <0.10 Normal Class 0 [facility] Comment on above: Performed By: #### L 509.3001 #### [facility] [address] [place], [place], [address] ELM,AMER WHITE <0.10 Normal Class 0 [facility] Comment on above: Performed By: #### L 509.3001 #### [facility] [address] [place], [place], [address] Mouse Urine <0.10 Normal Class 0 [facility] Comment on above: Result Comment: Perf ormed at: - [facility] [address] [id number] Cook Supervisor: Sarah Damon MD, Phone: [phone] Performed By: #### L 509.3001 #### [facility] [address] [place], [place], [id number] OAK, WHITE <0.10 Normal Class 0 [facility] Comment on above: Performed By: #### L 509.3001 #### [facility] [address] [place], [place], [id number] PLANTAIN,CAIOLSH 0.19 kU/L Abnormal Class 0/I [facility] Comment on above: Performed By: #### L 509.3001 #### [facility] [address] [place], [place], [address] RAGWEED SH/COM 39.50 kU/L Abnormal Class V [facility] Comment on above: Performed By: #### L 509.3001 #### [facility] [address] [place], [place], [id number] Basophil percentageOrdered B y: Dr. Landry on 12-27-2022 Chloride [Moles/Vol] 104 mmol/L 98-107 [facility] Glucose [Mass/Vol] 239 mg/dL 74-106 [facility] Comment on above: Glucose result great er than or equal to 200 mg/dLsuggests DIABETES MELLITUS per A.D.A. criteria. Potassium [Moles/Vol] 3.8 mmol/L 3.5-5.1 [facility] Sodium [Moles/Vol] 140 mmol/L 136-145 [facility] - Chemistry and C hemistry - challengeOrdered By: Dr. Landry on 12-27-2022 CO2 [Moles/Vol] 28.0 mmol/L 21.0-32.0 [facility] Urea nitrogen/Creatinine [Mass ratio] 20.4 mg/mg 10-20 [facility] No Panel InformationOrdered By: Dr. Landry on 12-27-2022 Estimated GFR (MDRD) Amer 102 mL/min >60 [facility] Comment on above: GFR Calc Estimated GFR (MDRD) Non-Af Amer 85 mL/min >60 [facility] Comment on above: Non- GFR Calc Serum or plasma calcium florentin urement (mass/volume)Ordered By: Dr. Landry on 12-27-2022 Calcium [Mass/Vol] 9.0 mg/dL 8.5-10.1 [facility] Serum or plasma creatinine m easurement (mass/volume)Ordered By: Dr. Landry on 12-27-2022 Creatinine [Mass/Vol] 1.03 mg/dL 0.70-1.30 [facility] Comment on above: The validity of the calculated GFR & GFRAA in patients over 70 years has not been determined. Clinical correlation is essential. Serum or plasma urea nitroge n measurement (mass/volume)Ordered By: Dr. Landry on 12-27-2022 Urea nitrogen [Mass/Vol] 21 mg/dL 7-18 [facility] Thin prep Papanicolaou smear with manual screeningOrdered By: Dr. Landry on 12-27-2022 Thin prep Papanicolaou smear with manual screening 8 5-15 [facility] Absolute lymphocyte countOrd ered By: Dr. Lopez on 11-04-2022 Lymphocytes Auto (Unsp spec) [#/Vol] 1.84 10*3/uL 0.83-4.51 [facility] Basophil percentageOrdered B y: Dr. Lopez on 11-04-2022 Basophils/100 WBC (Bld) 0.4 % 0-1 [facility] Chloride [Moles/Vol] 106 mmol/L 98-107 [facility] Eosinophils/100 WBC (Bld) 1.8 % 0-5 [facility] Glucose [Mass/Vol] 96 mg/dL 74-106 [facility] Neutrophils (Bld) [#/Vol] 4.6 10*3/uL 2.0-7.7 [facility] Neutrophils/100 WBC (Bld) 63.6 % 47-70 [facility] Potassium [Moles/Vol] 3.9 mmol/L 3.5-5.1 [facility] Sodium [Moles/Vol] 139 mmol/L 136-145 [facility] WBC (Bld) [#/Vol] 7.3 10*3/uL 4.4-11.0 [facility] Basophil percentageOrdered B y: Dr. Bill on 11-04-2022 Cholesterol [Mass/Vol] 217 mg/dL <200 [facility] Comment on above: <200 mg/dL Desirable 200-240 mg/dL Borderline >240 mg/dL High Risk Triglyceride [Mass/Vol] 194 mg/dL <199 [facility] Comment on above: The drugs N-Acetylcy steine and Metamizole may falsely depress this assay.Serum Triglycerides Reference Interval Normal <150 mg/dL Borderline high 150 - 199 mg/dL High 200 - 499 mg/dL Very High > or = 500 mg/dL Blood erythrocytes count (nu mber/volume)Ordered By: Dr. Lopez on 11-04-2022 RBC (Bld) [#/Vol] 5.48 10*6/uL 4.6-6.2 [facility] Blood hemoglobin measurement (mass/volume)Ordered By: Dr. Lopez on 11-04-2022 Hemoglobin (Bld) [Mass/Vol] 15.9 g/dL 13.0-16.5 [facility] Blood lymphocytes/100 leukoc ytesOrdered By: Dr. Lopez on 11-04-2022 Lymphocytes/100 WBC (Bld) 25.3 % 19-41 [facility] Blood monocytes/100 leukocyt esOrdered By: Dr. Lopez on 11-04-2022 Monocytes/100 WBC (Bld) 8.5 % 0-10 [facility] [facility] Blood platelet mean volumeOr dered By: Dr. Lopez on 11-04-2022 Platelet mean volume (Bld) [Entitic vol] 10.3 fL 6.2-12.0 [facility] Determination of erythrocyte mean corpuscular volume (MCV)Ordered By: Dr. Lopez on 11-04-2022 MCV (RBC) [Entitic vol] 87.6 fL 80-94 [facility] Hematocrit Auto (Bld) [Volum e fraction]Ordered By: Dr. Lopez on 11-04-2022 Hematocrit (Bld) [Volume fraction] 48.0 % 40-54 [facility] Laboratory - Chemistry and C hemistry - challengeOrdered By: Dr. Lopez on 11-04-2022 CO2 [Moles/Vol] 25.0 mmol/L 21.0-32.0 [facility] Urea nitrogen/Creatinine [Mass ratio] 15.8 mg/mg 10-20 [facility] Laboratory - Hematology and Cell countsOrdered By: Dr. Lopez on 11-04-2022 Erythrocyte distribution width (RBC) [Entitic vol] 39.1 fL 35.1-43.9 [facility] Erythrocyte distribution width (RBC) [Ratio] 12.1 % 11.6-14.6 [facility] Immature granulocytes/100 WBC (Bld) 0.400 % 0.0-0.9 [facility] Comment on above: IG% - Immature Granu locytes (promyelocytes, myelocytes and metamyelocytes) > 1% indicates that a LEFT SHIFT is Present. MCH (RBC) [Entitic mass] 29.0 pg 27.0-32.0 [facility] Nucleated RBC/100 WBC (Bld) [Ratio] 0 % 0-5 [facility] MCHC Auto (RBC) [Mass/Vol]Or dered By: Dr. Lopez on 11-04-2022 MCHC (RBC) [Mass/Vol] 33.1 g/dL 32-36 [facility] No Panel InformationOrdered By: Dr. Lopez on 11-04-2022 Estimated Creatinine Clearance Calc 106.74 ml/min [facility] Estimated GFR (MDRD) Amer 122 mL/min >60 [facility] Comment on above: GFR Calc Estimated GFR (MDRD) Non-Af Amer 101 mL/min >60 [facility] Comment on above: Non- GFR Calc No Panel InformationOrdered By: Dr. Bill on 11-04-2022 Thyroid Stimulating Hormone (TSH) 1.45 uIU/mL 0.358-3.74 [facility] Platelets bldOrdered By: Dr. Lopez on 11-04-2022 Platelets (Bld) [#/Vol] 259 10*3/uL 150-450 [facility] Serum or plasma calcium florentin urement (mass/volume)Ordered By: Dr. Lopez on 11-04-2022 Calcium [Mass/Vol] 9.1 mg/dL 8.5-10.1 [facility] Serum or plasma cholesterol in HDL measurement (mass/volume)Ordered By: Dr. Bill on 11-04-2022 Cholesterol in HDL [Mass/Vol] 34 mg/dL >40 [facility] Comment on above: The drugs N-Acetylcy steine and Metamizole may falsely depress this assay. Reference Range HDL <40 mg/dL Low HDL Cholesterol HDL >or= 60 mg/dL High HDL Cholesterol Serum or plasma cholesterol in VLDL measurement (mass/volume)Ordered By: Dr. Bill on 11-04-2022 Cholesterol in VLDL [Mass/Vol] 39 mg/dL 5-40 [facility] Serum or plasma creatinine m easurement (mass/volume)Ordered By: Dr. Lopez on 11-04-2022 Creatinine [Mass/Vol] 0.89 mg/dL 0.70-1.30 [facility] Comment on above: The validity of the calculated GFR & GFRAA in patients over 70 years has not been determined. Clinical correlation is essential. Serum or plasma low density lipoprotein (LDL) cholesterol measurement (mass/volume)Ordered By: Dr. Bill on 11-04-2022 Cholesterol in LDL [Mass/Vol] 144 mg/dL 0-130 [facility] Serum or plasma urea nitroge n measurement (mass/volume)Ordered By: Dr. Lopez on 11-04-2022 Urea nitrogen [Mass/Vol] 14 mg/dL 7-18 [facility] Thin prep Papanicolaou smear with manual screeningOrdered By: Dr. Lopez on 11-04-2022 Thin prep Papanicolaou smear with manual screening 8 5-15 [facility] Absolute lymphocyte counton 11-03-2022 Lymphocytes Auto (Unsp spec) [#/Vol] 1.53 10*3/uL 0.83-4.51 [facility] Work Phone: Basophil percentageon 2022 Basophils/100 WBC (Bld) 0.3 % 0-1 [facility] Work Phone: [phone] Chloride [Moles/Vol] 104 mmol/L 98-107 [facility] Work Phone: [phone] Eosinophils/100 WBC (Bld) 1.7 % 0-5 [facility] Work Phone: Glucose [Mass/Vol] 104 mg/dL 74-106 [facility] Work Phone: [phone] Comment on above: Fasting Glucose resu lt from 100 to 125 mg/dL suggests IMPAIRED HOMEOSTASIS per A.D.A. criteria. Neutrophils (Bld) [#/Vol] 4.3 10*3/uL 2.0-7.7 [facility] Work Phone: Neutrophils/100 WBC (Bld) 65.2 % 47-70 [facility] Work Phone: Potassium [Moles/Vol] 3.3 mmol/L 3.5-5.1 [facility] Work Phone: [phone] Sodium [Moles/Vol] 138 mmol/L 136-145 [facility] Work Phone: [phone] WBC (Bld) [#/Vol] 6.7 10*3/uL 4.4-11.0 [facility] Work Phone: Blood erythrocytes count (nu mber/volume)on 11-03-2022 RBC (Bld) [#/Vol] 5.52 10*6/uL 4.6-6.2 [facility] Work Phone: [phone] Blood hemoglobin measurement (mass/volume)on 11-03-2022 Hemoglobin (Bld) [Mass/Vol] 16.1 g/dL 13.0-16.5 [facility] Work Phone: [phone] Blood lymphocytes/100 leukoc yteson 11-03-2022 Lymphocytes/100 WBC (Bld) 23.0 % 19-41 [facility] Work Phone: Blood monocytes/100 leukocyt eson 11-03-2022 Monocytes/100 WBC (Bld) 9.6 % 0-10 [facility] Work Phone: Blood platelet mean volumeon 11-03-2022 Platelet mean volume (Bld) [Entitic vol] 10.7 fL 6.2-12.0 [facility] Work Phone: Determination of erythrocyte mean corpuscular volume (MCV)on 11-03-2022 MCV (RBC) [Entitic vol] 88.8 fL 80-94 [facility] Work Phone: Hematocrit Auto (Bld) [Volum e fraction]on 11-03-2022 Hematocrit (Bld) [Volume fraction] 49.0 % 40-54 [facility] Work Phone: Laboratory - Chemistry and C hemistry - challengeon 11-03-2022 CO2 [Moles/Vol] 29.0 mmol/L 21.0-32.0 [facility] Work Phone: Urea nitrogen/Creatinine [Mass ratio] 14.2 mg/mg 10-20 [facility] Work Phone: Laboratory - Hematology and Cell countson 11-03-2022 Erythrocyte distribution width (RBC) [Entitic vol] 40.1 fL 35.1-43.9 [facility] Work Phone: Erythrocyte distribution width (RBC) [Ratio] 12.2 % 11.6-14.6 [facility] Work Phone: Immature granulocytes/100 WBC (Bld) 0.200 % 0.0-0.9 [facility] Work Phone: Comment on above: IG% - Immature Granu locytes (promyelocytes, myelocytes and metamyelocytes) > 1% indicates that a LEFT SHIFT is Present. MCH (RBC) [Entitic mass] 29.2 pg 27.0-32.0 [facility] Work Phone: Nucleated RBC/100 WBC (Bld) [Ratio] 0 % 0-5 [facility] Work Phone: MCHC Auto (RBC) [Mass/Vol]on 11-03-2022 MCHC (RBC) [Mass/Vol] 32.9 g/dL 32-36 [facility] Work Phone: No Panel Informationon 11-03 Estimated Creatinine Clearance Calc 89.62 ml/min [facility] Work Phone: Estimated GFR (MDRD) Amer 99 mL/min >60 [facility] Work Phone: Comment on above: GFR Calc Estimated GFR (MDRD) Non-Af Amer 82 mL/min >60 [facility] Work Phone: Comment on above: Non- GFR Calc No Panel InformationOrdered By: Dr. Lopze on 11-03-2022 Troponin I High Sensitivity 4 pg/mL 3.0-78.0 [facility] Comment on above: Please Note: New Dominga t Units and Gender Specific Reference Ranges. For more information see Policy Stat Procedure [place] High Sensitivity Troponin (TNIH) and attachments. Platelets bldon 11-03-2022 Platelets (Bld) [#/Vol] 235 10*3/uL 150-450 [facility] Work Phone: Serum or plasma calcium florentin urement (mass/volume)on 11-03-2022 Calcium [Mass/Vol] 9.7 mg/dL 8.5-10.1 [facility] Work Phone: Serum or plasma creatinine m easurement (mass/volume)on 11-03-2022 Creatinine [Mass/Vol] 1.06 mg/dL 0.70-1.30 [facility] Work Phone: Comment on above: The validity of the calculated GFR & GFRAA in patients over 70 years has not been determined. Clinical correlation is essential. Serum or plasma urea nitroge n measurement (mass/volume)on 11-03-2022 Urea nitrogen [Mass/Vol] 15 mg/dL 7-18 [facility] Work Phone: Thin prep Papanicolaou smear with manual screeningon 11-03-2022 Thin prep Papanicolaou smear with manual screening 5 5-15 [facility] Work Phone: Absolute lymphocyte countOrd ered By: Dr. Aragon on 09-07-2022 Lymphocytes Auto (Unsp spec) [#/Vol] 2.37 10*3/uL 0.83-4.51 [facility] Basophil percentageOrdered B y: Dr. Aragon on 09-07-2022 Basophils/100 WBC (Bld) 0.5 % 0-1 [facility] Bilirubin [Mass/Vol] 0.50 mg/dL 0.20-1.00 [facility] Comment on above: For patients on eltr ombopag therapy, use of Dimension [place] TBIL is not recommended. Chloride [Moles/Vol] 103 mmol/L 98-107 [facility] Cholesterol [Mass/Vol] 267 mg/dL <200 [facility] Comment on above: <200 mg/dL Desirable 200-240 mg/dL Borderline >240 mg/dL High Risk Eosinophils/100 WBC (Bld) 1.5 % 0-5 [facility] Glucose [Mass/Vol] 106 mg/dL 74-106 [facility] Comment on above: Fasting Glucose resu lt from 100 to 125 mg/dL suggests IMPAIRED HOMEOSTASIS per A.D.A. criteria. Neutrophils (Bld) [#/Vol] 5.9 10*3/uL 2.0-7.7 [facility] Neutrophils/100 WBC (Bld) 65.0 % 47-70 [facility] Potassium [Moles/Vol] 3.8 mmol/L 3.5-5.1 [facility] Protein [Mass/Vol] 8.0 g/dL 6.4-8.2 [facility] Sodium [Moles/Vol] 139 mmol/L 136-145 [facility] Triglyceride [Mass/Vol] 292 mg/dL <199 [facility] Comment on above: The drugs N-Acetylcy steine and Metamizole may falsely depress this assay.Serum Triglycerides Reference Interval Normal <150 mg/dL Borderline high 150 - 199 mg/dL High 200 - 499 mg/dL Very High > or = 500 mg/dL WBC (Bld) [#/Vol] 9.2 10*3/uL 4.4-11.0 [facility] Blood erythrocytes count (nu mber/volume)Ordered By: Dr. Aragon on 09-07-2022 RBC (Bld) [#/Vol] 5.90 10*6/uL 4.6-6.2 [facility] Blood hemoglobin measurement (mass/volume)Ordered By: Dr. Aragon on 09-07-2022 Hemoglobin (Bld) [Mass/Vol] 17.4 g/dL 13.0-16.5 [facility] Blood lymphocytes/100 leukoc ytesOrdered By: Dr. Aragon on 09-07-2022 Lymphocytes/100 WBC (Bld) 25.9 % 19-41 [facility] Blood monocytes/100 leukocyt esOrdered By: Dr. Aragon on 09-07-2022 Monocytes/100 WBC (Bld) 6.7 % 0-10 [facility] Blood platelet mean volumeOr dered By: Dr. Aragon on 09-07-2022 Platelet mean volume (Bld) [Entitic vol] 10.1 fL 6.2-12.0 [facility] Determination of erythrocyte mean corpuscular volume (MCV)Ordered By: Dr. Aragon on 09-07-2022 MCV (RBC) [Entitic vol] 87.1 fL 80-94 [facility] Hematocrit Auto (Bld) [Volum e fraction]Ordered By: Dr. Aragon on 09-07-2022 Hematocrit (Bld) [Volume fraction] 51.4 % 40-54 [facility] Laboratory - Chemistry and C hemistry - challengeOrdered By: Dr. Aragon on 09-07-2022 ALP [Catalytic activity/Vol] 81 U/L 45-117 [facility] ALT [Catalytic activity/Vol] 51 U/L 16-61 [facility] CO2 [Moles/Vol] 25.0 mmol/L 21.0-32.0 [facility] Globulin (S) [Mass/Vol] 3.8 g/dL 2.2-4.2 [facility] Urea nitrogen/Creatinine [Mass ratio] 16.7 mg/mg 10-20 [facility] Laboratory - Hematology and Cell countsOrdered By: Dr. Aragon on 11-16-2022 Erythrocyte distribution width (RBC) [Entitic vol] 37.7 fL 35.1-43.9 [facility] Erythrocyte distribution width (RBC) [Ratio] 11.9 % 11.6-14.6 [facility] Immature granulocytes/100 WBC (Bld) 0.400 % 0.0-0.9 [facility] Comment on above: IG% - Immature Granu locytes (promyelocytes, myelocytes and metamyelocytes) > 1% indicates that a LEFT SHIFT is Present. MCH (RBC) [Entitic mass] 29.5 pg 27.0-32.0 [facility] Nucleated RBC/100 WBC (Bld) [Ratio] 0 % 0-5 [facility] MCHC Auto (RBC) [Mass/Vol]Or dered By: Dr. Aragon on 09-07-2022 MCHC (RBC) [Mass/Vol] 33.9 g/dL 32-36 [facility] No Panel InformationOrdered By: Dr. Aragon on 09-07-2022 Estimated GFR (MDRD) Amer 104 mL/min >60 [facility] Comment on above: GFR Calc Estimated GFR (MDRD) Non-Af Amer 86 mL/min >60 [facility] Comment on above: Non- GFR Calc Platelets bldOrdered By: Dr. Aragon on 09-07-2022 Platelets (Bld) [#/Vol] 281 10*3/uL 150-450 [facility] Serum or plasma albumin florentin urement (mass/volume)Ordered By: Dr. Aragon on 09-07-2022 Albumin [Mass/Vol] 4.2 g/dL 3.2-5.0 [facility] Serum or plasma albumin/glob ulin mass ratioOrdered By: Dr. Aragon on 09-07-2022 Albumin/Globulin [Mass ratio] 1.1 {ratio} 0.9-2.4 [facility] Serum or plasma calcium florentin urement (mass/volume)Ordered By: Dr. Aragon on 09-07-2022 Calcium [Mass/Vol] 9.9 mg/dL 8.5-10.1 [facility] Serum or plasma cholesterol in HDL measurement (mass/volume)Ordered By: Dr. Aragon on 09-07-2022 Cholesterol in HDL [Mass/Vol] 39 mg/dL >40 [facility] Comment on above: The drugs N-Acetylcy steine and Metamizole may falsely depress this assay. Reference Range HDL <40 mg/dL Low HDL Cholesterol HDL >or= 60 mg/dL High HDL Cholesterol Serum or plasma cholesterol in VLDL measurement (mass/volume)Ordered By: Dr. Aragon on 09-07-2022 Cholesterol in VLDL [Mass/Vol] 58 mg/dL 5-40 [facility] Serum or plasma creatinine m easurement (mass/volume)Ordered By: Dr. Aragon on 09-07-2022 Creatinine [Mass/Vol] 1.02 mg/dL 0.70-1.30 [facility] Comment on above: The validity of the calculated GFR & GFRAA in patients over 70 years has not been determined. Clinical correlation is essential. Serum or plasma low density lipoprotein (LDL) cholesterol measurement (mass/volume)Ordered By: Dr. Aragon on 09-07-2022 Cholesterol in LDL [Mass/Vol] 170 mg/dL 0-130 [facility] Serum or plasma urea nitroge n measurement (mass/volume)Ordered By: Dr. Aragon on 09-07-2022 Urea nitrogen [Mass/Vol] 17 mg/dL 7-18 [facility] Thin prep Papanicolaou smear with manual screeningOrdered By: Dr. Aragon on 09-07-2022 Thin prep Papanicolaou smear with manual screening 21 U/L 15-37 [facility] Thin prep Papanicolaou smear with manual screening 11 5-15 [facility] PROGRESSon 01-22-2020 PROGRESS HNO ID: [id number] Author: Pavan Rosa Service: ? Author Type: Physician Type: Progress Notes Filed: 01/22/2020 2:31 PM Note Text: Called patient to postpone appointment due to pandemic. In August suddenly could not lift left arm. No pain initially. Tried meds and medrol dose pack. prior to this stiff neck. MRI demonstrates partial tear of rotator cup and C45 left HNP. [facility] spine surgeon, not helpful - would not give an opinion. Has been doing PT as well. Arm now stronger. Has regained strength. Can now lift but not hold. Improving ever so slightly now. Left biceps slightly smaller. 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 Will order emg to be performed prior to a visit with me. Will call in 6-8 weeks for appointments. 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 Blayne Rosa Duration of call and preparation - 25 minutes. [id number] Normal [facility] Clinical Summary: HMSPatient IDon 12-16-2019 OOP [facility] Work Phone: Office Visit: New - visi t with practice, Rm: 12-16-2019 NEGATED: Highlighted rowTobacco smoking status NHIS Tobacco smoking status NHIS [facility] Work Phone: NEGATED: Highlighted rowTSH Qn of the Cervical Spine on 10/14/2019 at [facility], of the Left Shoulder on 10/14/2019 at [facility] Work Phone: NEGATED: Highlighted rowxray history of the Cervical Spine on 10/26/2019 at [facility] Work Phone: PROGRESSon 12-06-2019 PROGRESS HNO ID: [id number] Author: Tahira Manrique Service: ? Author Type: Physician Pharmacy Technology Instructor Type: Progress Notes Filed: 12/06/2019 3:57 PM Note Text: Per Triage: Edward Holguin is a 39 year old male that requests evaluation of cervical spine. Per review, they have symptoms of arm weakness that began in August, difficulty raising arm above head. Positive for numbness and weakness. CMT: injections Oral steroids Physical therapy Gabapentin Studies (Reports unless indicated) MRI left shoulder: There is undersurface fraying and partial humeral surface tear of the distal supraspinatus tendon. Everything else appears normal. MRI cervical: C4/5 moderate sized left paracentral and pre-foraminal disc osteophyte complex produces mild spinal canal stenosis and moderate left lateral recess stenosis with an effacement of the left C5 nerve root laterally. Disposition: Please schedule with Dr. Gallagher or can see first available surgeon for cervical spine. Normal [facility] PROGRESS HNO ID: [id number] Author: Caleb Wellington Service: ? Author Type: ? Type: Progress Notes Filed: 12/06/2019 3:57 PM Note Text: Patient name: Edward Holguin Are you being referred by a [facility] Provider or Pain Management Provider at [facility]? No If answer is YES please schedule directly with surgeon, triage does not need to be completed. Is this a self-referral Yes If not, who is the Referring Provider MRI/CT/myelogram within 12 months: Yes If No, please refer to medical spine or PCP to complete above imaging, triage does not need to be completed Imaging viewable in Epic: No If not, please provide [phone] to fax in imaging reports for review. Also, please inform patient to hand carry imaging disc to appointment. Requested provider (First and Last name): Aileen 1. Where are you having symptoms related to this visit? Started end of august, couldn't lift left arm, since then has regained strength to lift above head but substantially weaker than before 2. Are you having any of the following symptoms: Difficulty walking No Numbness Yes Weakness Yes Trouble using your hands? No 3. What kind of non-surgical treatment have you tried in last 12 months (For example: NSAIDS, Muscle relaxants, Analgesics, Physical therapy, Oral steroids, Trigger point injection, Epidural blocks, Chiropractor and Acupuncture)? Cortisone injections, medrol dose pack, physical therapy, gabapentin 4. Are you currently taking daily prescribed narcotic medications for your current symptoms (For example Oxycodone, Hydrocodone, Tramadol, Morphine, Other)? No 5. Have you had previous spinal surgery for this same symptoms? No Additional Comments Normal [facility] Office Visit: [facility]: Flu like s xon 06-01-2017 Documentation of current medications (procedure) Done Invalid Interpretation Code [facility] Work Phone: Smoking cessation education (procedure) yes Invalid Interpretation Code [facility] Work Phone: Tobacco smoking status NHIS Unknown Invalid Interpretation Code [facility] Work Phone: Tobacco use HS Current every day smoker Invalid Interpretation Code [facility] Work Phone: Office Visit: [facility]: Poison Tami on 05-05-2017 Documentation of current medications (procedure) Done Invalid Interpretation Code [facility] Work Phone: Fall risk assessment No Invalid Interpretation Code [facility] Work Phone: Protein mass conc yes [facility] Work Phone: Protein mass conc Done [facility] Work Phone: Smoking cessation education (procedure) yes Invalid Interpretation Code [facility] Work Phone: Tobacco smoking status NHIS Unknown [facility] Work Phone: Tobacco smoking status NHIS Current every day smoker [facility] Work Phone: Tobacco use [facility] Current every day smoker Invalid Interpretation Code [facility] Work Phone: Office Visiton 02-27-2017 Documentation of current medications (procedure) Done Invalid Interpretation Code [facility] Work Phone: Tobacco smoking status NHIS Unknown Invalid Interpretation Code [facility] Work Phone: Tobacco use [facility] Never smoker Invalid Interpretation Code [facility] Work Phone: Vital Signs Date Time Vital Sign Value Performing Clinician Facility 01-17-2023 08:45-0400 Diastolic blood pressure 56 mm[Hg] Dr. Dmitry Aragon Work Phone: [facility] 01-17-2023 08:45-0400 Heart rate 70 /min Dr. Dmitry Aragon Work Phone: [facility] 01-17-2023 08:45-0400 Respiratory rate 14 /min Dr. Dmitry Aragon Work Phone: [facility] 01-17-2023 08:45-0400 SaO2% (BldA) [Mass fraction] 97 % Dr. Dmitry Aragon Work Phone: [facility] 01-17-2023 08:45-0400 Systolic blood pressure 108 mm[Hg] Dr. Dmitry Aragon Work Phone: [facility] 01-17-2023 08:22-0400 Body height 172.[address] Dmitry Aragon Work Phone: [facility] 01-17-2023 08:22-0400 Body mass index (BMI) [Ratio] 29.6 kg/m2 Dr. Dmitry Aragon Work Phone: [facility] 01-17-2023 08:22-0400 Body weight 88.[address] Dmitry Aragon Work Phone: [facility] 12-20-2022 14:07-0500 Body height 172.[address] Dmitry Aragon Work Phone: [facility] 12-20-2022 14:07-0500 Body mass index (BMI) [Ratio] 30.1 kg/m2 Dr. Dmitry Aragon Work Phone: [facility] 12-20-2022 14:07-0500 Body weight 89.[address] Dmitry Aragon Work Phone: [facility] 12-20-2022 14:07-0500 Diastolic blood pressure 95 mm[Hg] Dr. Dmitry Aragon Work Phone: [facility] 12-20-2022 14:07-0500 Heart rate 77 /min Dr. Dmitry Aragon Work Phone: [facility] 12-20-2022 14:07-0500 Respiratory rate 18 /min Dr. Dmitry Aragon Work Phone: [facility] 12-20-2022 14:07-0500 Systolic blood pressure 152 mm[Hg] Dr. Dmitry Aragon Work Phone: [facility] 11-04-2022 17:38-0500 Diastolic blood pressure 79 mm[Hg] Dr. Dmitry Aragon Work Phone: [facility] 11-04-2022 17:38-0500 Heart rate 76 /min Dr. Dmitry Aragon Work Phone: [facility] 11-04-2022 17:38-0500 Respiratory rate 16 /min Dr. Dmitry Aragon Work Phone: [facility] 11-04-2022 17:38-0500 SaO2% (BldA) [Mass fraction] 95 % Dr. Dmitry Aragon Work Phone: [facility] 11-04-2022 17:38-0500 Systolic blood pressure 105 mm[Hg] Dr. Dmitry Aragon Work Phone: [facility] 11-04-2022 14:33-0500 Body temperature 97.9 [degF] Dr. Dmitry Aragon Work Phone: [facility] 11-03-2022 20:33-0500 Body height 172.[address] Dmitry Aragon Work Phone: [facility] Work Phone: 11-03-2022 20:33-0500 Body mass index (BMI) [Ratio] 29.5 kg/m2 Dr. Dmitry Aragon Work Phone: [facility] 11-03-2022 20:33-0500 Body weight [address] Dmitry Aragon Work Phone: [facility] 11-03-2022 20:31-0500 Body temperature 98.1 [degF] [facility] Work Phone: 11-03-2022 20:31-0500 Diastolic blood pressure 89 mm[Hg] [facility] Work Phone: 11-03-2022 20:31-0500 Heart rate 91 /min [facility] Work Phone: 11-03-2022 20:31-0500 Respiratory rate 19 /min [facility] Work Phone: 11-03-2022 20:31-0500 SaO2% (BldA) [Mass fraction] 97 % [facility] Work Phone: 11-03-2022 20:31-0500 Systolic blood pressure 127 mm[Hg] [facility] Work Phone: 11-03-2022 17:32-0500 Body height 172.72 cm [facility] Work Phone: 11-03-2022 17:32-0500 Body mass index (BMI) [Ratio] 29.9 kg/m2 [facility] Work Phone: 11-03-2022 17:32-0500 Body weight 89.35 kg [facility] Work Phone: 06-01-2017 09:37-0400 BMI (Body Mass Index) 28.13 kg/m2 Arlet Mossar [facility] Work Phone: 06-01-2017 09:37-0400 Body Temperature 98.6 [degF] Arlet Mossar [facility] Work Phone: 06-01-2017 09:37-0400 BP Diastolic 88 mm[Hg] Arlet Mossar [facility] Work Phone: 06-01-2017 09:37-0400 BP Systolic 126 mm[Hg] Arlet Mossar [facility] Work Phone: 06-01-2017 09:37-0400 Height 172.72 cm Arlet Mossar [facility] Work Phone: 06-01-2017 09:37-0400 Pulse (Heart Rate) 105 /min Arlet Mossar [facility] Work Phone: 06-01-2017 09:37-0400 Respiratory Rate 16 /min Arlet Mossar [facility] Work Phone: 06-01-2017 09:37-0400 Weight 83.92 kg Arlet Cogar [facility] Work Phone: 05-05-2017 12:37-0400 BMI (Body Mass Index) 28.58 kg/m2 Magdalena Hickman LPN [facility] Work Phone: 05-05-2017 12:37-0400 Body Temperature 98.1 [degF] Magdalena Hickman [facility] Work Phone: 05-05-2017 12:37-0400 BP Diastolic 76 mm[Hg] Magdalena Hickman LPN [facility] Work Phone: 05-05-2017 12:37-0400 BP Systolic 140 mm[Hg] Magdalena Hickman LPN [facility] Work Phone: 05-05-2017 12:37-0400 Height 172.72 cm Magdalena Hickman LPN [facility] Work Phone: 05-05-2017 12:37-0400 Pulse (Heart Rate) 103 /min Magdalena Hickman LPN [facility] Work Phone: 05-05-2017 12:37-0400 Respiratory Rate 16 /min Magdalena Hickman LPN [facility] Work Phone: 05-05-2017 12:37-0400 Weight 85.28 kg Magdalena Hickman LPN [facility] Work Phone: 01-30-2017 09:48-0400 BMI (Body Mass Index) 29.49 kg/m2 [facility] Work Phone: 01-30-2017 09:48-0400 Height 172.72 cm [facility] Work Phone: 01-30-2017 09:48-0400 Weight 88 kg [facility] Work Phone: NEGATED: Highlighted [id number] 10:07-0500 BMI (Body Mass Index) 31.44 kg/m2 Rianna Reynoso AT [facility] Work Phone: NEGATED: Highlighted [id number] 10:07-0500 Body weight 93.44 kg Rianna Reynoso AT [facility] Work Phone: NEGATED: Highlighted [id number] 10:07-0500 Body weight 94 kg Rianna Reynoso AT [facility] Work Phone: NEGATED: Highlighted [id number] 10:07-0500 BP Diastolic 89 mm[Hg] Rianna AbouAbdallah AT [facility] Work Phone: NEGATED: Highlighted [id number] 10:07-0500 BP Diastolic 77 mm[Hg] Rianna AbouAbdallah AT [facility] Work Phone: NEGATED: Highlighted [id number] 10:07-0500 BP Systolic 140 mm[Hg] Rianna AbouAbdallah AT [facility] Work Phone: NEGATED: Highlighted [id number] 10:07-0500 BP Systolic 130 mm[Hg] Rianna AbouAbdallah AT [facility] Work Phone: NEGATED: Highlighted [id number] 10:07-0500 Height 172.72 cm Rianna AbouAbdallah AT [facility] Work Phone: NEGATED: Highlighted [id number] 10:07-0500 Height 173 cm Rianna AbouAbdallah AT [facility] Work Phone: NEGATED: Highlighted [id number] 10:07-0500 Pulse (Heart Rate) 97 /min Rianna AbouAbdallah AT [facility] Work Phone: Encounters Encounter Date Encounter Type Care Provider Facility Start: 07-14-2025 ambulatory Diana Mallory Facility :[facility] Start: 05-26-2025 ambulatory Dmitry Aragon Facility:[facility] Start: 05-13-2025 End: 05-13-[address] Dmitry Aragon MD Work Phone: -Laboratory Start: 05-13-2025 End: 05-13-[address] Dmitry Aragon MD -Laboratory Work Phone: Start: 05-12-2025 End: 05-13-[address] Dmitry Aragon MD Work Phone: -Laboratory Start: 05-12-2025 End: 05-12-[address] Diana Mallory MD -Laboratory Work Phone: Start: 05-12-2025 End: 05-12-2025 ambulatory [facility] Facility:[facility] Start: 03-12-2025 End: 03-12-[address] Dmitry Aragon MD Work Phone: [facility] Work Phone: Start: 03-12-2025 End: 03-12-[address] Diana Mallory MD -Laboratory Work Phone: Start: 03-12-2025 End: 03-12-2025 ambulatory [facility] Facility:[facility] Start: 01-07-2025 End: 01-07-[address] Dmitry Aragon MD Work Phone: [facility] Work Phone: Start: 01-07-2025 End: 01-07-[address] Dmitry Aragon MD -Laboratory, Specimen Work Phone: Start: 01-07-2025 End: 01-07-2025 ambulatory Dmitry Aragon Facility:[facility] Start: 12-24-2024 End: 12-24-[address] Dmitry Aragon MD Work Phone: [facility] Work Phone: Start: 12-24-2024 End: 12-24-[address] Diana Mallory MD -Laboratory Work Phone: Start: 12-24-2024 End: 12-24-2024 ambulatory [facility] Facility:[facility] Start: 08-20-2024 End: 08-21-2024 ambulatory Dmitry Aragon Facility:[facility] Start: 08-13-2024 End: 08-13-2024 ambulatory [facility] Facility:[facility] Start: 07-24-2024 End: 07-24-2024 ambulatory Dmitry Aragon Facility:[facility] Start: 07-19-2024 End: 07-19-2024 ambulatory Dmitry Aragon Facility:[facility] Start: 07-11-2024 End: 07-11-2024 ambulatory Dmitry Aragon Facility:[facility] Start: 01-01-2024 End: 01-01-2024 ambulatory [facility] Work Phone: Start: 01-01-2024 End: 01-01-2024 Patient encounter procedure [facility] Work Phone: Start: 12-12-2023 End: 12-12-2023 ambulatory [facility] Work Phone: Start: 12-12-2023 End: 12-12-2023 Discharged Recurring [facility]-Physical Therapy Work Phone: Start: 01-18-2023 Non-patient / Non-visit Dr. Yosi Aragon Work Phone: [facility] Start: 01-17-2023 End: 01-17-[address] Dmitry Aragon Work Phone: [facility] Work Phone: Start: 01-17-2023 End: 01-17-[address] Dmitry Aragon Work Phone: [facility] Start: 12-27-2022 End: 12-27-[address] Dmitry Aragon Work Phone: [facility] Work Phone: Start: 12-27-2022 End: 12-27-[address] Dmitry Aragon Work Phone: [facility]-Laboratory Start: 12-20-2022 End: 12-20-[address] Dmitry Aragon Work Phone: [facility] Start: 11-04-2022 Non-patient / Non-visit Dr. Yosi Aragon Work Phone: [facility] Start: 11-03-2022 End: 11-03-2022 Non-patient / Non-visit Dr. Dmitry Aragon Work Phone: [facility] Start: 11-03-2022 End: 11-04-2022 Evaluation and management of inpatient [facility]-Progressive Care Unit Start: 11-03-2022 End: 11-04-[address] Dmitry Aragon Work Phone: [facility] Work Phone: Start: 09-07-2022 End: 09-07-2022 ambulatory [facility] Work Phone: Start: 09-07-2022 End: 09-07-2022 Patient encounter procedure [facility]-Laboratory Start: 10-09-2017 Colonoscopy normal [facility] Procedures Date Procedure Procedure Detail Performing Clinician Start: 01-07-2025 Assay of prostate specific antigen total Dr. Dmitry Aragon MD Work Phone: Comment on above: This test was perfor med using the [employer] tPSA method. Measured values of a patient sample can vary depending on the testing procedure used. PSA values determined on patient samples by different testing procedures cannot be used interchangeably. If there is a change in PSA assays while monitoring therapy, sequential testing should be performed to confirm baseline values. Start: 12-24-[address] Shantelle Aragon MD Work Phone: Comment on above: Performed at: [address] [id number] Director: Jorge A Flower PhD, Phone: [phone] Start: 12-24-2024 Hepatitis C antibody measurement Dr. Dmitry Aragon MD Work Phone: Comment on above: Reactive: Presumptiv e evidence of antibodies to HCV. Follow CDC recommendations for supplemental testing.Non-Reactive: Antibodies to HCV were not detected; does not exclude the possibility of exposure to HCVReactive Results are presumptive evidence of antibodies to HCV. Follow CDC recommendations for supplemental testing.Order confirmation testing: HCV Quant by PCR testing - HCVPCR #[id number] Non Reactive: < 0.8 Equivocal: >/= 0.8 to < 1.0 Reactive: >/= 1.0The CDC requires that a reactive/equivocal HCV antibody result be sent out for confirmation. HCV Quant by PCR testing. Start: 01-01-2024 MRI of joint of lowe r extremity Start: 01-17-2023 CT angiography of coronary arteries Dr. Dmitry Aragon Work Phone: Start: 11-04-2022 Radionuclide imaging of perfusion of myocardium under exercise stress Dr. Dmitry Aragon Work Phone: Start: 11-03-2022 Plain chest X-ray Start: 01-30-2017 End: 02-13-2017 Drain/inject, joint/bursa Vazquez Rowe Work Phone: NEGATED: Highlighted rowStart: 12-16-2019 End: 12-16-2019 Documentation of current medications Rianna Reynoso AT Plan of Treatment Date Care Activity Detail Author Start: 01-17-2023 Following clinical pathway protocol [facility] Start: 11-04-2022 Patient discharge [facility] Start: 11-03-2022 Following clinical pathway protocol [facility] Start: 11-03-2022 Assessment of risk of venous thromboembolism [facility] Start: 11-03-2022 Insertion of catheter into peripheral vein [facility] Start: 11-03-2022 Measuring intake and output [facility] Start: 11-03-2022 Oxygen therapy [facility] Start: 11-03-2022 Providing care according to standard [facility] Start: 11-03-2022 Provision of activity privileges [facility] Start: 11-03-2022 Referral to occupational therapist [facility] Start: 11-03-2022 Referral to service [facility] Start: 11-03-2022 [facility] Start: 11-03-2022 Troponin I measurement [facility] Work Phone: Start: 11-03-2022 Verification routine [facility] Work Phone: Start: 11-03-2022 Admission procedure [facility] Start: 11-03-2022 [facility] Work Phone: Start: 12-16-2019 End: 12-16-2019 Appointment Appointment [facility] Work Phone: Start: 06-01-2017 End: 06-01-2017 Appointment [facility] Work Phone: Start: 06-01-2017 End: 06-01-2017 Follow-up visit Follow Up as needed [facility] Work Phone: Start: 05-05-2017 End: 05-05-2017 Appointment Appointment [facility] Work Phone: Start: 04-10-2017 End: 04-10-[address] [facility] Work Phone: CTA Heart and [place] ry arteries W contrast IV [facility] Patient Education [facility] w Clinic Work Phone: Patient referral [facility] Work Phone: Serum testosterone measurement [facility] Sex hormone binding globulin [Moles/volume] in Serum or Plasma [facility] Testosterone Free [Mass/volume] in Serum or Plasma [facility] Testosterone measurement [facility] Troponin I measurement [facility] Work Phone: Payers Date Payer Category Payer Self-pay [id number] 2024 Unknown [id number] 2016 Private Health Insurance [id number] Unknown [id number] Unknown [id number] 2.16.8 [id number] Unknown [id number] 2.16.8 [id number] Unknown [id number] 2.16.8 [id number] Unknown [id number] 2.16.8 [id number] Unknown [id number] 2.16.8 [id number] Unknown [id number] 2.16.8 [id number] Unknown [id number] 2.16.8 [id number] Unknown [id number] 2.16.8 [id number] Unknown [id number] 2.16.8 [id number] Unknown [id number] 2.16.8 [id number] Unknown [id number] 2.16.8 [id number] Unknown [id number] 2.16.8 [id number] Social History Date Type Detail Facility Start: 04-10-2022 End: 12-20-2022 Tobacco smoking status FLIS Unknown if ever smoked [facility] Start: 12-03-2019 Cigars [facility] Start: 1980 Sex Assigned At Male [facility] Start: 08-20-2024 Tobacco smoking status FLIS Current some day smoker [facility] Start: 01-06-2025 End: 01-16-2025 Sex Male (finding) [facility] NEGATED: Highlighted rowStart: 12-16-2019 End: 12-16-2019 Alcohol use Alcohol use [facility] Work Phone: NEGATED: Highlighted rowStart: 12-16-2019 End: 12-16-2019 Details of drug misuse behavior Details of drug misuse behavior [facility] Work Phone: NEGATED: Highlighted rowStart: 12-16-2019 End: 12-16-2019 Employment detail Employment detail [facility] Work Phone: NEGATED: Highlighted rowStart: 12-16-2019 End: 12-16-2019 Assertion Never smoker [facility] Work Phone: Functional Status Date Assessment Result Facility 11-04-2022 Functional status Ambulates;Up ad casa [facility] Work Phone: Mental Status Date Assessment Result Facility 01-17-2023 Cognitive function Awake;Alert;Appropriat e [facility] Work Phone: 11-03-2022 Cognitive function Awake;Alert;A ppropriate;Fol lows Commands [facility] Work Phone: Discharge summary note 08-21-2024 Note Date & Type Note Facility 08-21-2024 Note [facility] Medical Records Department [address] [place] [address] Discharge Summary 08/21/24 0723 MR#: [id number] Acct: [id number] Name: EDWARD HOLGUIN Rep #: [id number] : 1980 44 From: Al Zaman MD PCP: Dr. Dmitry Aragon MD Status:ADM CHANTAL Location: [place] [address] Providers Date of Admission: 08/20/24 Date of Discharge: 08/21/24 Primary Care Physician: Dr. Dmitry Aragon MD Reason For Visit: RENAL COLIC Medications at Discharge Home Medications valacyclovir 500 mg tablet 500 mg PO DAILY VIRUS INFECTION 09/19/17 sertraline 100 mg tablet 100 mg PO DAILY MOOD 05/26/19 tramadol 50 mg tablet 50 mg PO BID PRN PAIN 12/20/22 zolpidem 12.5 mg tablet,extended release,multiphase 12.5 mg PO QHS PRN SLEEP 12/20/22 metoprolol succinate 50 mg tablet,extended release 24 hr 50 mg PO DAILY BLOOD PRESSURE 01/16/23 oxycodone 5 mg tablet 5 mg PO Q6H PRN PAIN 3 days #14 tabs 08/16/24 aspirin 81 mg tablet,delayed release (Adult Aspirin Regimen) 81 mg PO DAILY HEART HEALTH 08/20/24 ciprofloxacin HCl 500 mg tablet 500 mg PO BID ANTIBIOTIC 08/20/24 fexofenadine 180 mg tablet (Jennifer Allergy) 180 mg PO DAILY allergies 08/20/24 ibuprofen 800 mg tablet 800 mg PO Q6H PRN PAIN 08/20/24 multivitamin (Daily Multi-Vitamin tablet) 1 tab PO DAILY HEALTH MAINTENANCE 08/20/24 nortriptyline 10 mg capsule 10 mg PO DAILY MOOD 08/20/24 rosuvastatin 10 mg tablet 10 mg PO DAILY CHOLESTEROL 08/20/24 tamsulosin 0.4 mg capsule 0.4 mg PO DAILY PROSTATE 08/20/24 oxycodone 5 mg tablet 5 mg PO Q4H PRN pain 3 days #20 tabs 08/21/24 Hospital Course Operations None Summary of Care Provided Minutes Spent on Discharge: 15 Hospital Course: 44-year-old male status post laser stone and stent stent was removed yesterday had severe renal colic afterwards was admitted for pain control overnight he passed some stuff possible stone fragments and now he feels much better so we will send him home today with some pain medicine and he feels much better this morning so we will cancel any planned procedures we are planning to possibly put the stent back in. Weight / BMI Weight Weight: 91.943 kg Body Mass Index (BMI) 30.8 ABG / Lab / Microbiology Data 08/20/24 13:30 08/20/24 16:00 Laboratory: Laboratory Results - last 24 hr 08/20/24 13:30: WBC 7.1, RBC 5.09, Hgb 14.6, Hct 44.3, MCV 87.0, MCH 28.7, MCHC 33.0, RDW Std Deviation 38.6, RDW Coeff of Airam 12.1, Plt Count 231, MPV 11.0, Immature Gran % (Auto) 0.400, Neut % (Auto) 66.9, Lymph % (Auto) 22.1, Rush % (Auto) 8.6, Eos % (Auto) 1.7, Baso % (Auto) 0.3, Absolute Neuts (auto) 4.8, Absolute Lymphs (auto) 1.57, Nucleated RBC % 0 08/20/24 13:35: Urine Color Rylee, Urine Clarity Clear, Urine pH 6.0, Ur Specific [place] 1.020, U rine Protein 100 H, Urine Glucose (UA) Normal, Urine Ketones Negative, Urine Occult Blood 150 H, U rine Nitrite Positive H, Urine Bilirubin 3 H, Urine Urobilinogen 4 H, Ur Leukocyte Esterase 25 H, Urine RBC 0-5 SEEN, Urine WBC 0-5 SEEN, Ur Squamous Epith Cells 0-5 SEEN, Urine Bacteria 1+, Urine Mucus 0 SEEN 08/20/24 16:00: Sodium 139, Potassium 4.0, Chloride 107, Carbon Dioxide 25.0, Anion Gap 7, BUN 21 H, Creatinine 1.13, Estim Creat Clear Calc 93.73, Est GFR (MDRD) Af Amer 91, Est GFR (MDRD) Non-Af 75, BUN/Creatinine Ratio 18.6, Glucose 97, Calcium 9.1 Radiography Diagnostic Testing: Radiology Impression Abdomen/Pelvis CT 08/20/24 14:06 IMPRESSION: Increased right hydronephrosis and dilated ureter but currently no ureteral stone is seen. Nonobstructing left renal stones are stable. Electronically Signed: Clemente Aguilar MD at 15:34 EDT , Meaningful Use Info Meaningful Use Meaningful Use Diagnoses (Choose all that apply): None applicable Ischemic Stroke Statin Dosing Therapy Reference: STATIN DOSE THERAPY REFERENCE: * Patients > 75 years receive moderate or high dose statin therapy. * Patients 75 years or YOUNGER should receive HIGH intensity statin dose unless contraindicated. You will be required to document reason for non-treatment if statin daily dose does not meet guidelines. HIGH DOSE STATIN THERAPY DAILY Atorvastatin > than or = to 40 mg Rosuvastatin > than or = to 20 mg Amlodipine + Atorvastatin > than or = to 2.5/40 mg Ezetimibe + Simvastatin 10/80 mg Simvastatin 80mg Discharge Plan Admission Admit Date/Time: 08/20/24 16:39 Primary Reason for Your Visit: Kidney stone Attending Provider: Al Zaman Primary Care Provider: Dmitry Aragon Discharge Orders/Prescriptions Prescriptions: New oxycodone 5 mg tablet 5 mg PO Q4H PRN (Reason: pain) 3 Days Qty: 20 0RF Continued zolpidem 12.5 mg tablet,ext release multiphase 1 (more content not included)... [facility] Clinical Note 08-20-2024 Note Date & Type Note Facility 08-20-2024 Note [facility] Medical Records Department [address] [place] [address] History Physical Exam 08/20/24 1630 MR#: [id number] Acct: [id number] Name: EDWARD HOLGUIN Rep #: [id number] : 1980 44 From: Al Zaman MD PCP: Dr. Dmitry Aragon MD Status:REG ER Location: ED HPI - General General Date of Service: 08/20/24 Chief Complaint: renal colic HPI Narrative EDWARD HOLGUIN, is a 44 M who presents to hospital just had stent removed this morning for stent. and had stone lasered for ureteral stone. stent removed this am. was having a lot of pain from stent. warned him that could have severe spasm, presented to ER in renal colic repeat Ct scan with no stone some mild hydro ureter on the right side, jake admit for pain control, may need toplace a stent again? [facility] Medical History Inverted T wave Angina at rest Palpitations Chest pain Mild dehydration COVID-19 Acute pharyngitis Sore throat Poison tami Contact with and (suspected) exposure to other viral communicable diseases Shortness of breath on exertion Numbness and tingling Carpal tunnel syndrome Influenza A Back pain Limb weakness Knee pain Shoulder pain Home Medications ???Medication ???Instructions ???Recorded ???Last Taken ???Type valacyclovir 500 mg tablet 500 mg PO DAILY virus infection 09/19/17 Unknown History sertraline 100 mg tablet 75 mg PO DAILY 05/26/19 Unknown History dextroamphetamine-amphetamine 30 30 mg PO DAILY 10/21/19 Unknown History mg tablet (Adderall) valacyclovir 1 gram tablet 1,000 mg PO PRN PRN PRN 12/03/19 Unknown History eluxadoline 100 mg tablet (Viberzi) 100 mg BID IBS 11/03/22 Unknown History rosuvastatin 20 mg tablet 20 mg PO QHS #30 tabs 11/04/22 Unknown Rx dextroamphetamine-amphetamine 10 10 mg PO DAILY PRN other 12/20/22 Unknown History mg tablet (Adderall) tramadol 50 mg tablet 50 mg PO BID PRN Pain 12/20/22 Unknown History valsartan 80 mg tablet (Diovan) 80 mg PO DAILY #30 tabs 12/20/22 Unknown Rx zolpidem 12.5 mg tablet,extended 12.5 mg PO QHS 12/20/22 Unknown History release,multiphase metoprolol succinate 50 mg 50 mg PO DAILY started by Dr. Andres 01/16/23 Unknown History tablet,extended release 24 hr Aragon oxycodone 5 mg tablet 5 mg PO Q6H PRN pain 3 days #14 08/16/24 Unknown Rx tabs Allergy/AdvReac Type Severity Reaction Status Date / Time betamethasone (From Allergy Unknown Verified 08/20/24 13:19 Celestone) betamethasone sodium Allergy Unknown Verified 08/20/24 13:19 phosphate (From Celestone) Family History Father Heart disease Hypertension Myocardial infarction, Onset Age: 72 Diabetes Surgical History History of ankle surgery Hx of lymph node biopsy Hx of colonoscopy Normal colonoscopy Lower extremity surgery planned Social History Smoking Status: Current some day smoker tobacco type: cigars per week: 1 second hand exposure: No alcohol intake: current alcohol intake frequency: holidays/special occasions only substance use type: does not use caffeine: Yes (energy drinks) Type: coffee and other what type of physical activity do you participate in: none frequency: does not exercise seatbelt use: always Vital Signs Vital Signs Vital Signs: 08/20/24 13:19 08/20/24 15:17 Temperature 97 F L Temperature Source Temporal Pulse Rate 93 78 Respiratory Rate 22 H 16 Blood Pressure 132/90 H 134/78 H Blood Pressure Mean 104 96 Pulse Ox 98 98 Oxygen Delivery Method Room Air Room Air Weight Weight: 91.943 kg Body Mass Index (BMI) 30.8 Results Lab / Micro Data 08/20/24 13:30 08/20/24 16:00 Labs: Laboratory Results - last 24 hr 08/20/24 13:30: WBC 7.1, RBC 5.09, Hgb 14.6, Hct 44.3, MCV 87.0, MCH 28.7, MCHC 33.0, RDW Std Deviation 38.6, RDW Coeff of Airam 12.1, Plt Count 231, MPV 11.0, Immature Gran % (Auto) 0.400, Neut % (Auto) 66.9, Lymph % (Auto) 22.1, Rush % (Auto) 8.6, Eos % (Auto) 1.7, Baso % (Auto) 0.3, Absolute Neuts (auto) 4.8, Absolute Lymphs (auto) 1.57, Nucleated RBC % 0 08/20/24 13:35: Urine Color Rylee, Urine Clarity Clear, Urine pH 6.0, Ur Specific [place] 1.020, U rine Protein 100 H, Urine Glucose (UA) Normal, Urine Ketones Negative, Urine Occult Blood 150 H, U rine Nitrite Positive H, Urine Bilirubin 3 H, Urine Urobilinogen 4 H, Ur Leukocyte Esterase 25 H, Urine RBC 0-5 SEEN, Urine WBC 0-5 SEEN, Ur Squamous Epith Cells 0-5 SEEN, Urine Bacteria 1+, Urine Mucus 0 SEEN 08/20/24 16:00: Sodium 139, Potassium 4.0, Chloride 107, Carbon Dioxide 25.0, Anion Gap 7, BUN 21 H, Creatinine 1.13, Estim Creat C (more content not included)... [facility] Discharge summary 12-19-2023 Note Date & Type Note Facility 12-19-2023 Discharge summary Note Date/Time December 19, 2023 4:53pm [facility] Physical Therapy [facility] [facility] [place] [address] / REHABILITATION SERVICES DISCHARGE SUMMARY MR#: [id number] Acct: [id number] Name: EDWARD HOLGUIN Rep #: [id number] : 1980 43 From: Dmitry Wilson DPT, OCS, CSCS Referring Dr.: Dr. Maurilio Fountain MD Statu s: REG RCR Insurance: [employer] Discharge Summary D/C summary: It has been my pleasure to treat EDWARD HOLGUIN referred by Dr. Maurilio Fountain MD, with the diagnosis of R supinator strain for a total of 8 visit(s). Discharge Date: 02/27/24 Please see the following information for a summary of their discharge status. Subjective Subjective: Was hopeful at first with new exercises but last night tried to lifta glass an it hurt bad to 7/10 until put glass down. Overall not much better last couple days. No f/u scheduled with Александр yet. Pain R elbow: Pain Intensity (Out of 10): 0 Overall Improvement % Improvement: 0 Objective Objective/Function: Good supination AROM and PROM today without pain with arm straight which is an improvement. Good strength in wrist without much discomfort. However, patient is max tender in extensor group R forearm and stillhaving as many symptoms at home with simple every day activity. Goals Goal 1:: full supoination R without pain Goal Progress: Goal Met Goal 2:: straighten arm with supination without noting pain Goal Progress: Goal Met Goal 3:: I management of condition with ecc adn stretching ex Goal Progress: Not Progressing Goal 4:: qucikdashscore 15 or less Goal Progress: Not Progressing Plan Plan: d/c , pt to schedule with doctor , see d/c summary. D/C Information Discharge Comments: Pt is not improving and recommend return to doctor for next medical option. This therapist questions radial tunnel syndrome but we treated that while treating supinator without help. Possibly bracing would be effectivebut further diagnostics may be warranted due to lack of progress. d/c sentence: If there are questions or concerns regarding this patient's physical therapy, please feel free to call me at [phone]. Thank you for the referral of thispatient. Sincerely, Dmitry Wilson, FELTON, OCS, CSCS Balance/Gait/Functional tests Balance/Special Test Scores Quick DASH Score: 34.0900 Improvement % Improvement: 0 <Electronically signed by Dmitry Wilson DPT, OCS, CSCS> 12/19/23 [id number] CC: Dr. Maurilio Fountain MD; Dr. Dmitry Aragon MD ~ [facility] Signed [facility] Work Phone: Hospital Discharge instructions 11-04-2022 Note Date & Type Note Facility 11-04-2022 Hospital Discharg e instructions Additional Instructions Date of Discharge: 11/04/22 [facility] Work Phone: Evaluation note Note Date & Type Note Facility Evaluation note No assessment information availa ble [facility] Work Phone: Evaluation note Note Date & Type Note Facility Evaluation note Diagnosis Onset Date Chest pain acute Palpitation acute Shortness of breath on exertion acute [facility] Work Phone: Evaluation note Note Date & Type Note Facility Evaluation note Diagnosis Onset Date Shortness of breath on exertion acute Chest pain resolved Palpitation resolved Chest pain chronic Dyslipidemia chronic History of irritable bowel syndrome chronic Hypertension chronic Nicotine dependence chronic [facility] Work Phone: Reason for referral (narrative) Note Date & Type Note Facility Reason for referral (narrative) No reason for referral information available [facility] Work Phone: Summary Purpose Family History No Family History Records Found Relationship Condition Age at Onset Recorded Date/T talib father Cardiac disease Unknown Hypertension Unknown Relationship Condition Age at Onset Recorded Date/T talib father Cardiac disease Unknown Hypertension Unknown Myocardial infarction 74 Diabetes mellitus Unknown Advance Directives No Advanced Directives Records Found Advance Directive Response Recorded Date/ Time Living Will No June 15 5:37pm Power of Pipe Line Gauger No June 15 021 5:37pm Advance Directive Response Recorded Date/ Time Living Will No November 03 5:50pm Power of Pipe Line Gauger No November 03, 2022 5:50pm Advance Directive Response Recorded Date/ Time Living Will No November 03 8:33pm Power of Pipe Line Gauger No November 03, 2022 8:33pm Advance Directive Response Recorded Date/ Time Living Will No November 03 9:33pm Power of Pipe Line Gauger No November 03, 2022 9:33pm Chief Complaint Chief Complaint Description Start Date neck pain Preliminary chief co mplaint data, not yet signed by the author as of Instructions Instruction Description Start Date Patient advised to follow-up with Primary Care Physician for BMI management. Assessments There may be information available, but it has not been provided by the sender. Review of System There may be information available, but it has not been provided by the sender. History of Present Illness There may be information available, but it has not been provided by the sender. Chief Complaint and Reason for Visit Chief Complaint CHEST PAIN AND PALPI TATIONS Reason for Visit Chest pain Palpitation Shortness of breath on exertion Chief Complaint CHEST PAIN AND PALPI TATIONS CHEST PAIN AND PALPITATIONS Reason for Visit Chest pain Palpitation Shortness of breath on exertion Chief Complaint CHEST PAIN AND PALPI TATIONS CP CHEST PAIN AND PALPITATIONS CP/ HTN/ EKG CHANGES (MAHESH) Reason for Visit Shortness of breath on exertion Chest pain Palpitation Chest pain Dyslipidemia History of irritable bowel syndrome Hypertension Nicotine dependence Chief Complaint CHEST PAIN AND PALPI TATIONS CP CHEST PAIN AND PALPITATIONS CP/ HTN/ EKG CHANGES (MAHESH) CP CP Reason for Visit Shortness of breath on exertion Chest pain Palpitation Chest pain Dyslipidemia History of irritable bowel syndrome Hypertension Nicotine dependence Chief Complaint R SUPINATOR STRAIN/R X HERE Chief Complaint R SUPINATOR STRAIN/R X HERE RIGHT ELBOW PAIN Additional Source Comments (unrecognized sect ion and content) No Status Records FoundNo Status Records Found INFORMATION SOURCE (unrecogn ized section and content) DATE CREATED AUTHOR 01/22/2020 [facility] DATE CREATED AUTHOR AUTHOR'S ORGANIZ ATION 05/20/2025 [facility] Reason for Visit (unrecogniz ed section and content) Reason For Visit Description New - 1st visit with practice Preliminary reason f or visit data, not yet signed by the author as of neck pain Goals (unrecognized section and content) Goals may be documented in a n alternate sectionGoals may be documented in an alternate sectionGoals may be documented in an alternate sectionGoals may be documented in an alternate sectionGoals may be documented in an alternate sectionGoals may be documented in an alternate sectionGoals may be documented in an alternate sectionGoals may be documented in an alternate sectionGoals may be documented in an alternate sectionGoals may be documented in an alternate sectionGoals may be documented in an alternate sectionGoals may be documented in an alternate section Care Teams (unrecognized sec tion and content) Team Status: Active Member Role Status Dates Dr. Dmitry Aragon MD Family Provider Active Dr. Dmitry Aragon MD Primary Care Provider Active Team Status: Active Member Role Status Dates Dr. Dmitry Aragon MD Primary Care Provider Active Dr. Kelton Lema MD Attending Provider Active Team Status: Active Member Role Status Dates Dr. Dmitry Aragon MD Primary Care Provider Active Dr. Otilio Thao MD Emergency Provider Active Dr. Essence Lopez MD Admit Provider, Other Provider Active Dr. Joss Bill MD Attending Provider, Other Provi cuate Active Team Status: Inactive Member Role Status Dates Dr. Dmitry Aragon MD Primary Care Provider, Referring P rovider Active Dr. Babar Landry MD Attending Provider Active Team Status: Active Member Role Status Dates Dr. Dmitry Aragon MD Primary Care Provider Active Dr. Otilio Lock MD Attending Provider, Referring Provider Active Team Status: Inactive Member Role Status Dates Dr. Dmitry Aragon MD Primary Care Provider, Attending P rovider Active Team Status: Inactive Member Role Status Dates Dr. Dmitry Aragon MD Primary Care Provider Active Dr. Otilio Thao MD Emergency Provider Active Dr. Essence Lopez MD Admit Provider, Other Provider Active Dr. Joss Bill MD Attending Provider Active Team Status: Inactive Member Role Status Dates Dr. Dmitry Aragon MD Primary Care Provider Active Dr. Babar Landry MD Attending Provider Active Team Status: Active Member Role Status Dates Dr. Dmitry Aragon MD Primary Care Provider Active Dr. Babar Landry MD Other Provider Active Dr. Kelton Lema MD Attending Provider Active Team Status: Inactive Member Role Status Dates Dr. Dmitry Aragon MD Primary Care Provider Active Dr. Maurilio Fountain MD Attending Provider, Referri ng Provider Active Team Status: Inactive Member Role Status Dates Dr. Dmitry Aragon MD Primary Care Provider Active Start: December 24, 2024 End: December 24, 2024 Dr. Diana Mallory MD Attending Provider Active Start: December 24, 2024 End: December 24, 2024 Team Status: Inactive Member Role Status Dates Dr. Dmitry Aragon MD Primary Care Provider Active Start: January 07, 2025 End: January 07, 2025 Dr. Dmitry Aragon MD Attending Provider Active St art: January 07, 2025 End: January 07, 2025 Dr. Dmitry Aragon MD Referring Provider Active St art: January 07, 2025 End: January 07, 2025 Team Status: Active Member Role Status Dates Dr. Dmitry Aragon MD Primary Care Provider Active Team Status: Inactive Member Role Status Dates Dr. Dmitry Aragon MD Primary Care Provider Active Start: March 12, 2025 End: March 12, 2025 Dr. Diana Mallory MD Attending Provider Active Start: March 12, 2025 End: March 12, 2025 Team Status: Active Member Role/Relationship Status Dates Dr. Dmitry Aragon MD Primary Care Provider Active Team Status: Inactive Member Role/Relationship Status Dates Dr. Dmitry Aragon MD Primary Care Provider Active Start: March 12, 2025 End: March 12, 2025 Dr. Diana Mallory MD Attending Provider Active Start: March 12, 2025 End: March 12, 2025 Team Status: Inactive Member Role/Relationship Status Dates Dr. Dmitry Aragon MD Primary Care Provider Active Start: May 12, 2025 End: May 12, 2025 Dr. Diana Mallory MD Attending Provider Active Start: May 12, 2025 End: May 12, 2025 Team Status: Active Member Role/Relationship Status Dates Dr. Dmitry Aragon MD Primary Care Provider Active Start: May 13, 2025 Dr. Dmitry Aragon MD Attending Provider Active St art: May 13, 2025 Team Status: Inactive Member Role/Relationship Status Dates Dr. Dmitry Aragon MD Primary Care Provider Active Start: May 13, 2025 End: May 13, 2025 Dr. Dmitry Aragon MD Attending Provider Active St art: May 13, 2025 End: May 13, 2025 FOR RECORDS PERTAINING TO PATIENTS WHO ARE OR HAVE BEEN ENROLLED IN A CHEMICAL DEPENDENCY/SUBSTANCEABUSE PROGRAM, SOME INFORMATION MAY BE OMITTED. This clinical summary was aggregated from multiple sources. Caution should be exercised in using it in the provision of clinical care. This summary normalizes information from multiple sources, and as a consequence, information in this document may materially change the coding, format and clinical context of patient data. In addition, data may be omitted in some cases. CLINICAL DECISIONS SHOULD BE BASED ON THE PRIMARY CLINICAL RECORDS. [employer] provides no warranty or guarantee of the accuracy or completeness of information in this document.
== END | disposition home or self-care (01) ==
LOC: LAB 07:26
PROVIDERS: PCP Family Medicine; Visit Provider Family Medicine
DX: R79.89 Other specified abnormal findings of blood chemistry (principal)
CPT/HCPCS: 36415; 84403

== ENCOUNTER → 2025-06-30 | Outpatient (CLI) | payer BC, SELFPAY ==
[2025-06-30 09:41] LABS: Hematocrit 47.1 % (40-54); Hemoglobin 15.8 g/dL (13.0-16.5); Immature Granulocytes Count 0.030 X10^3/uL (0.0-0.0); Mean Corp Hgb Conc 33.5 g/dL (32-36); Mean Corpuscular Volume 92.2 fL (80-94); Mean Platelet Vol. 9.9 fl (6.2-12.0); NRBC Flagged by Analyzer 0 % (0-5); Platelet Count 290 K/mm3 (150-450); RBC Distribution Width CV 13.0 % (11.6-14.6); RBC Distribution Width SD 43.2 fl (35.1-43.9); Red Blood Count 5.11 M/mm3 (4.6-6.2); White Blood Count 8.9 K/mm3 (4.4-11.0)
[2025-06-30 10:14] LABS: Cholesterol 158 mg/dL (<=200); Low Density Lipoprotein Calc. 83 mg/dL; PSA,Total- Diagnostic 2.20 ng/mL (0.00-4.00); Triglycerides 157 mg/dL; Very Low Density Lipoprotein 31 mg/dL (5-40); cholesterol:hdl ratio screen 3.66
== END | disposition home or self-care (01) ==
LOC: LAB 09:03
PROVIDERS: PCP Family Medicine; Visit Provider Family Medicine
DX: R79.89 Other specified abnormal findings of blood chemistry (principal)
CPT/HCPCS: 36415; 80061; 84153; 84403; 85025

== ENCOUNTER → 2025-07-11 | Outpatient (CLI) | payer BC, SELFPAY ==
[2025-07-11 07:41] LABS: Hematocrit 45.4 % (40-54); Hemoglobin 15.0 g/dL (13.0-16.5); Immature Granulocytes Count 0.040 X10^3/uL (0.0-0.0); Mean Corp Hgb Conc 33.0 g/dL (32-36); Mean Corpuscular Volume 92.7 fL (80-94); Mean Platelet Vol. 10.9 fl (6.2-12.0); NRBC Flagged by Analyzer 0 % (0-5); Platelet Count 272 K/mm3 (150-450); RBC Distribution Width CV 12.9 % (11.6-14.6); RBC Distribution Width SD 43.5 fl (35.1-43.9); Red Blood Count 4.90 M/mm3 (4.6-6.2); White Blood Count 9.8 K/mm3 (4.4-11.0)
--- OUTSIDE RECORDS SUMMARY | 2025-07-11 07:44 | XMS RPT_ITS | CCD ---
Author Organization [facility] Care Team Providers Care Staff Development Manager Name Role Phone Arlet Horton LPN Unavailable Magdalena Hickman LPN Unavailable Unavailable Vazquez Rowe Unavailable Magdalena Hickman LPN Unavailable Unavailable Sunday De Anda MD Unavailable Dr. Dmitry Aragon Primary Care Provider 1([facility])[phone] Dr. Kelton Lema Attending Provider 1([facility])-[phone] Otilio Thao Emergency Provider 1([facility])[phone] Essence Lopez Admit Provider 1([facility])[phone] Essence renee Other Provider 1([facility])[phone] Joss Bill Attending Provider Dr. Joss Bill Other Provider 1([facility])[phone] Dmitry Aragon Primary Care Provider 1([facility])[phone] Dr. Otilio Lock Attending Provider 1([facility])[phone] Dr. Otilio Lock Referring Provider 1([facility])[phone] Dr. Dmitry Aragon Referring Provider 1([facility])[phone] Babar Landry Attending Provider Dr. Dmitry Aragon Primary Care Provider 1([facility])[phone] Dr. Otilio Lock Attending Provider Dr. Otilio Lock Referring Provider 1([facility])[phone] Dr. Kelton Lema Attending Provider 1([facility])[phone] Otilio Thao Emergency Provider 1([facility])[phone] Jessica, Dr. Essence Shaffer Admit Provider Jessica, Dr. Essence Shaffer Other Provider Fly, Dr. Coreas Attending Provider Fly, Dr. Coreas Other Provider 1([facility])[phone] Dmitry Aragon Referring Provider 1([facility])[phone] Frantz, Dr. Eckert Attending Provider 1([facility])[phone] Frantz, Dr. Eckert Other Provider Mahesh FINCH, Dr. Andres Primary Care Provider 1([facility])[phone] [place] FINCH, Dr. Ortiz Attending Provider Mahesh FINCH, Dr. Andres Attending Provider 1([facility])[phone] Mahesh FINCH, Dr. Andres Referring Provider 1([facility])[phone] Mahesh FINCH, Dr. Andres Primary Care Provider 1([facility])[phone] Shawnee FINCH, Dr. Ortiz Attending Provider Mahesh FINCH, Dr. Andres Attending Provider 1([facility])[phone] Aragon, Dmitry Primary Care Unavailable Aragon, Dmitry Attending Unavailable Aragon, Dmitry Attending Unavailable Aragon, Dmitry Primary Care Unavailable Aragon, Dmitry Primary Care Unavailable Vellanki, Diana Attending Unavailable Aragon, Dmitry Primary Care Unavailable Aragon, Dmitry Attending Unavailable Aragon, Dmitry Referring Unavailable Aragon, Dmitry Attending Unavailable Aragon, Dmitry Primary Care Unavailable Aragon, Dmitry Referring Unavailable Aragon, Dmitry Primary Care Unavailable AustynAl reyes Attending Unavailable AustynAlPatel Referring Unavailable Vellanki, Diana Attending Unavailable Aragon, Dmitry Primary Care Unavailable Aragon, Dmitry Attending Unavailable Aragon, Dmitry Referring Unavailable Aragon, Dmitry Primary Care Unavailable Vellanki, Diana Attending Unavailable Aragon, Dmitry Primary Care Unavailable Aragon, Dmitry Primary Care Unavailable Austyn Patel Admitting Unavailable Austyn, Patel Attending Unavailable Aragon, Dmitry Primary Care Unavailable Vellanki, Diana Attending Unavailable Aragon, Dmitry Attending Unavailable Aragon, Dmitry Primary Care Unavailable Aragon, Dmitry Attending Unavailable Aragon, Dmitry Primary Care Unavailable Allergies Allergy Classification Reported Allergen(s) Allergy Type Date of Onset Reaction(s) Facility (3 sources) betamethasone drug allergy 7 weight gain [facility] Work Phone: (1 source) Betamethasone Drug Allergy 0 [facility] Work Phone: (1 source) [place] drug allergy 0 [facility] Work Phone: (1 source) PLANT POLLEN drug allergy 0 [facility] Work Phone: (1 source) STINGING INSECTS; Translations: [STINGING INSECTS] food allergy 0 [facility] Work Phone: (13 sources) Betamethasone Drug Allergy 2 Unknown [facility] (14 sources) Betamethasone; Translations: [betamethasone sodium phosphate] Drug Allergy 2 Unknown [facility] (1 source) Betamethasone Drug Allergy 4 [facility] Repository Medications Current Medications Medication Drug Class(es) Dates Sig (Normalized) Sig (Original) aspirin 81 mg delayed release oral tablet (20 sources) Platelet Aggregation Inhibitor, Nonsteroidal Anti-inflammatory Drug Start: 08-20-2024 take 1 tablet by mouth once daily Aspirin (Adult Aspirin Regimen) 81 mg tablet,delayed release (DR/EC) Active 81 mg PO DAILY August 20, 2024 12:00am [facility] Start: 12-20-2022 End: 12-20-2022 take 1 tablet [...] 2022 12:00am ciprofloxacin 500 mg oral tablet (6 sources) Quinolone Antimicrobial Start: 08-20-2024 take 1 tablet by mouth twice daily Ciprofloxacin Hcl 500 mg tablet Active 500 mg PO TWICE A DAY August 20, 2024 12:00am ANTIBIOTIC fexofenadine hydrochloride 180 mg oral tablet (6 sources) Histamine-1 Receptor Antagonist Start: 08-20-2024 take 1 tablet by mouth once daily Fexofenadine (Jennifer Allergy) 180 mg tablet Active 180 mg PO DAILY August 20, 2024 12:00am allergies ibuprofen 800 mg oral tablet (10 sources) Nonsteroidal Anti-inflammatory Drug Start: 08-20-2024 take 1 tablet by mouth every six hours as needed for pain Ibuprofen 800 mg tablet Active 800 mg PO EVERY 6 HOURS as needed for PAIN August 20, 2024 12:00am Start: 01-30-2017 ADDAPRIN 200 M G TABS IBUPROFEN [id number] Vazquez Rowe 24 hr metoprolol succinate 50 mg extended release oral tablet (9 sources) beta-Adrenergic Martell Start: 01-16-2023 take 1 tablet by mouth once daily Metoprolol Succinate 50 mg tablet extended release 24 hr Active 50 mg PO DAILY January 16, 2023 12:00am BLOOD PRESSURE Multivitamin (Daily Multi-Vitamin) tablet (6 sources) Start: 08-20-2024 Multivitamin (Daily Multi-Vitamin) tablet Active 1 {tbl} PO DAILY August 20, 2024 12:00am HEALTH MAINTENANCE Start: 08-20-2024 Multivitamin ( Daily Multi-Vitamin) tablet Active 1 {tbl} PO DAILY August 20, 2024 12:00am nortriptyline 10 mg oral capsule (15 sources) Tricyclic Antidepressant Start: 08-20-2024 take 1 capsule by mouth once daily Nortriptyline 10 mg capsule Active 10 mg PO DAILY August 20, 2024 12:00am MOOD Start: 09-19-2017 take 10 mg by mouth once daily Nortriptyline Active 10 MG PO DAILY September 19, 2017 12:00am Start: 01-30-2017 NORTRIPTYLINE HCL 50 MG CAPS NORTRIPTYLINE HCL [id number] Vazquez Rowe oxyCODONE hydrochloride 5 mg oral tablet (12 sources) Opioid Agonist Start: 08-21-2024 take 1 [...] kidney rosuvastatin calcium 10 mg oral tablet (17 sources) HMG-CoA Reductase Inhibitor Start: 08-20-2024 take 1 tablet by mouth once daily Rosuvastatin 10 mg tablet Active 10 mg PO DAILY August 20, 2024 12:00am CHOLESTEROL Start: 11-04-2022 End: 08-20-2024 take 1 tablet by mouth at bedtime Rosuvastatin 20 mg tablet Discontinued 20 mg PO AT BEDTIME 30 2 November 04, 2022 1:00am August 20, 2024 4:39pm sertraline 100 mg oral tablet (14 sources) Serotonin Reuptake Inhibitor Start: 05-26-2019 take 1 tablet by mouth once daily Sertraline 100 MG tablet Active 100 mg PO DAILY May 26, 2019 12:00am MOOD Start: 05-26-2019 take 75 mg by mouth once daily Sertraline Active 75 MG PO DAILY May 26, 2019 12:00am tamsulosin hydrochloride 0.4 mg oral capsule (6 sources) alpha-Adrenergic Martell Start: 08-20-2024 take 1 [...] 12.5 MG CR-TABS as needed ZOLPIDEM TARTRATE [id number] Sunday De Anda MD Start: 09-19-2017 End: 10-09-2017 take 1 tablet by mouth at bedtime as needed for sleep Zolpidem 12.5 MG tablet,ext release multiphase Discontinued 12.5 mg PO AT BEDTIME NEEDED as needed for Sleep September 19, 2017 1:00am October 09, 2017 12:17pm Start: 01-30-2017 End: 05-05-2017 ZOLPIDEM TARTRATE ER 12.5 MG CR-TABS ZOLPIDEM TARTRATE [id number] Magdalena Hickman LPN Completed/Discontinued Medications Medication Drug Class(es) Dates Sig (Normalized) Sig (Original) acetaminophen 325 mg / HYDROcodone bitartrate 5 mg oral tablet (20 sources) Opioid Agonist Start: 09-30-2019 End: 10-28-2019 Hydrocodone-Acetami nophen ([place]) 5-325 mg tablet Discontinued 1 {tbl} PO [...] 01-30-2017 BUPROPION HCL ER (XL) 300 MG [id number] BUPROPION HCL [id number] Vazquez Rowe diphenhydrAMINE hydrochloride 25 mg oral capsule (13 sources) Histamine-1 Receptor Antagonist Start: 05-26-2019 End: 07-04-2019 take 1 capsule by mouth three times daily as needed Diphenhydramine Hcl 25 MG capsule Discontinued 25 mg PO 3 TIMES DAILY NEEDED as needed for Itching 20 0 May 26, 2019 12:00am July 04, 2019 9:31am eluxadoline 100 mg oral tablet (12 sources) mu-Opioid Receptor Agonist Start: 11-03-2022 End: 08-20-2024 Eluxadoline (Viberzi) 100 mg tablet Discontinued 100 mg TWICE A DAY November 03, 2022 1:00am August 20, 2024 4:48pm IBS famotidine 20 mg oral tablet (13 sources) Histamine-2 Receptor Antagonist Start: 05-26-2019 End: 07-04-2019 take 1 tablet by mouth twice daily Famotidine 20 MG tablet Discontinued 20 mg PO TWICE A DAY 28 0 May 26, 2019 12:00am July 04, 2019 9:31am FLUoxetine (3 sources) Serotonin Reuptake Inhibitor Start: 05-05-2017 FLUOXETINE HCL (PMDD) CAPS take as directed FLUOXETINE HCL (PMDD) CAPS [id number] Magdalena Hickman LPN Start: 05-05-2017 FLUOXETINE HCL (PMDD) CAPS take as directed FLUOXETINE HCL (PMDD) CAPS [id number] Magdalena Hickman LPN gabapentin 100 mg oral capsule (15 sources) Anti-epileptic Agent Start: 12-16-2019 GABAPENTI N 100 MG CAPS with the 800 mg GABAPENTIN [id number] Sunday De Anda MD Start: 12-16-2019 GABAPENTIN 800 MG TABS 1x daily GABAPENTIN [id number] Sunday De Anda MD Start: 07-04-2019 End: 10-21-2019 take 1 capsule by mouth at bedtime Gabapentin 100 mg capsule Discontinued 100 mg PO AT BEDTIME July 04, 2019 12:00am October 21, 2019 2:40pm ISOtretinoin 40 mg oral capsule (17 sources) Retinoid Start: 09-19-2017 End: 10-09-2017 take 1 capsule by mouth twice daily Isotretinoin 40 MG capsule Discontinued 40 mg PO TWICE A DAY September 19, 2017 1:00am October 09, 2017 12:18pm Start: 01-30-2017 ABSORICA 40 MG CAPS ISOTRETINOIN [id number] Vazquez Rowe modafinil 200 mg oral tablet (7 sources) Sympathomimetic-like Agent Start: 01-30-2017 End: 05-05-2017 MODAFINIL 200 MG TABS MODAFINIL [id number] Magdalena Hickman LPN oseltamivir 75 mg oral capsule (13 sources) Neuraminidase Inhibitor Start: 10-09-2017 End: 10-14-2017 take 1 capsule by mouth every twelve hours Oseltamivir (Tamiflu) 75 mg capsule Discontinued 75 mg PO Q12H 10 5 0 October 09, 2017 1:00am October 13, 2017 1:00am October 14, 2017 1:05am pravastatin sodium 40 mg oral tablet (12 sources) HMG-CoA Reductase Inhibitor Start: 11-03-2022 End: [...] IM once in office 05/05/2017 TRIAMCINOLONE ACETONIDE [id number] Kong Delcid [employer]BILE SALES TECHNICIAN-C Start: 05-05-2017 inject 60 mg by intr amuscular injection once KENALOG 40 MG/ML SUSP 60 mg IM once in office 05/05/2017 TRIAMCINOLONE ACETONIDE [id number] Kong Delcid [employer]BI[employer] SALES TECHNICIAN-C valACYclovir 1000 mg oral tablet (20 sources) [...] VALACYCLOVIR HCL 500 MG TABS VALACYCLOVIR HCL [id number] Magdalena Stevens Vick SHOPPER'S AIDE valsartan 80 mg oral tablet (10 sources) Angiotensin 2 Receptor Martell Start: 12-20-2022 [...] Episodic Coronary atherosclerosis and other heart disease (10 sources) Angina pectoris; Translations: [Other forms of angina pectoris] 12-20-2022 Chronic Disorders of lipid metabolism (12 sources) Dyslipidemia; Translations: [Hyperlipidemia, unspecified] 12-20-2022 Chronic Essential hypertension (12 sources) Hypertensive disorder; Translations: [Essential (primary) hypertension] 12-20-2022 Chronic Fluid and electrolyte disorders (13 sources) Mild dehydration; Translations: [Dehydration] 12-20-2022 Episodic Immunizations and screening for infectious disease (13 sources) Contact with and (suspected) exposure to other viral communicable diseases; Translations: [Contact with or suspected exposure to other viral communicable disease] 12-20-2022 Episodic Influenza (13 sources) Influenza due to Influenza A virus; Translations: [Influenza due to other identified influenza virus with other respiratory manifestations] 12-20-2022 Episodic Nonspecific chest pain (20 sources) Chest pain; Translations: [Chest pain, unspecified] Episodic Other aftercare (1 source) Other electrophysiology technologist (current) drug therapy; Translations: [Other fpc (current) drug therapy] Onset: 05-14-2025 Episodic Other connective tissue disease (13 sources) Muscle weakness of limb; Translations: [Other symptoms and signs involving the musculoskeletal system] 12-20-2022 Episodic Other gastrointestinal disorders (10 sources) History of irritable bowel syndrome; Translations: [Personal history of other diseases of the digestive system] 12-20-2022 Episodic Other gastrointestinal disorders (2 sources) Personal history of other diseases of the digestive system; Translations: [Personal history of other diseases of digestive system] 12-20-2022 Episodic Other lower respiratory disease (13 sources) Dyspnea on exertion; Translations: [Shortness of breath] 12-20-2022 Episodic Other lower respiratory disease (4 sources) Shortness of breath; Translations: [Shortness of breath] Episodic Other nervous system disorders (13 sources) Carpal tunnel syndrome; Translations: [Carpal tunnel syndrome, unspecified upper limb] 12-20-2022 Chronic Other nervous system disorders (13 sources) Numbness and tingling sensation of skin; Translations: [Anesthesia of skin] 12-20-2022 Episodic Other non-traumatic joint disorders (20 sources) Shoulder pain; Translations: [Impingement syndrome of shoulder region] Onset: 01-30-2017 02-13-2017 Episodic Other non-traumatic joint disorders (13 sources) Pain in unspecified knee; Translations: [Knee pain] 12-20-2022 Episodic Other screening for suspected conditions (not mental disorders or infectious disease) (2 sources) Other specified abnormal findings of blood chemistry; Translations: [Other specified abnormal findings of blood chemistry] Onset: 06-04-2025 Episodic Other upper respiratory infections (20 sources) Acute pharyngitis; Translations: [Acute pharyngitis, unspecified] 12-20-2022 Episodic Residual codes; unclassified (13 sources) History of ankle surgery; Translations: [Other specified postprocedural states] 12-20-2022 Episodic Comment on above: Left-2005 Residual codes; unclassified (13 sources) Past history of procedure; Translations: [Other specified postprocedural states] 12-20-2022 Episodic Comment on above: Right arm Residual codes; unclassified (13 sources) History of colonoscopy; Translations: [Other specified postprocedural states] 12-20-2022 Episodic Comment on above: 2016 Rheumatoid arthritis and related disease (2 sources) Inflammatory polyarthropathy; Translations: [Inflammatory polyarthropathy] Onset: 05-14-2025 Chronic Spondylosis; intervertebral disc disorders; other back problems (1 source) Herniation of nucleus pulposus; Translations: [Other cervical disc displacement, unspecified cervical region] Onset: 12-16-2019 12-16-2019 Chronic Spondylosis; intervertebral disc disorders; other back problems (13 sources) Backache; Translations: [Dorsalgia, unspecified] 12-20-2022 Episodic Substance-related disorders (12 sources) Nicotine dependence; Translations: [Nicotine dependence, unspecified, uncomplicated] 12-20-2022 Chronic Comment on above: Smokes cigars Viral infection (13 sources) Disease caused by 2019-nCoV; Translations: [COVID-19] 12-20-2022 Episodic Past or Other Problems Problem Classification Problem Date Documented Da te Episodic/Chronic Abdominal pain (8 sources) Acute abdominal pain; Translations: [Right flank pain] Onset: 06-01-2017 06-01-2017 Episodic Calculus of urinary tract (7 sources) Kidney stone; Translations: [Calculus of kidney] [...] 02-13-2017 Episodic Unclassified (1 source) Problem Unclassified (13 sources) Operative procedure planned; Translations: [Lower extremity surgery planned] 12-20-2022 Comment on above: Left ankle- 2005 Urinary tract infections (1 source) Urinary tract infection, site not specified; Translations: [Urinary tract infection, site not specified] Onset: 08-12-2024 Episodic Results Test Name Value Interpretation Reference Range Facility CBC W/Diff, Automatedon 09-0 Absolute Lymph 1.81 X10 3/uL Normal 0.83-4.51 [facility] Comment on above: Order Comment: Order Date: 06/02/25 Order Info: [id number] - CBCD Performed By: #### L 500.4100, L100.0100, L501.9940 #### [facility] [address] [place], [address] Absolute Neut 5.9 X10 3/uL Normal 2.0-7.7 [facility] Comment on above: Order Comment: Order Date: 06/02/25 Order Info: 018- - CBCD Performed By: #### L 500.4100, L100.0100, L501.9940 #### [facility] [address] [place], [address] Basophils/100 WBC (Bld) 0.2 % Normal 0-1 [facility] Comment on above: Order Comment: Order Date: 06/02/25 Order Info: 018- - CBCD Performed By: #### L 500.4100, L100.0100, L501.9940 #### [facility] [address] [place], [address] Eosinophils/100 WBC (Bld) 2.1 % Normal 0-5 [facility] Comment on above: Order Comment: Order Date: 06/02/25 Order Info: [id number]- - CBCD Performed By: #### L 500.4100, L100.0100, [id number] #### [facility] [address] [place], [address] Erythrocyte distribution width (RBC) [Ratio] 13.0 % Normal 11.6-14.6 [facility] Comment on above: Order Comment: Order Date: 06/02/25 Order Info: [id number] - CBCD Performed By: #### L 500.4100, L100.0100, L501.9940 #### [facility] [address] [place], [address] Hematocrit (Bld) [Volume fraction] 47.1 % Normal 40-54 [facility] Comment on above: Order Comment: Order Date: 06/02/25 Order Info: [id number]- - CBCD Performed By: #### L 500.4100, L100.0100, L501.9940 #### [facility] [address] [place], [address] Hemoglobin (Bld) [Mass/Vol] 15.8 g/dL Normal 13.0-16.5 [facility] Comment on above: Order Comment: Order Date: 06/02/25 Order Info: 018- - CBCD Performed By: #### L 500.4100, L100.0100, L501.9940 #### [facility] [address] [place], [address] IG% 0.300 Normal 0.0-0.9 [facility] Comment on above: Order Comment: Order Date: 06/02/25 Order Info: [id number]- - CBCD Result Comment: IG% - Immature Granulocytes (promyelocytes, myelocytes and metamyelocytes) > 1% indicates that a LEFT SHIFT is Present. Performed By: #### L 500.4100, L100.0100, L501.9940 #### [facility] [address] [place], [address] Lymphocytes/100 WBC (Bld) 20.3 % Normal 19-41 [facility] Comment on above: Order Comment: Order Date: 06/02/25 Order Info: 0184- - CBCD Performed By: #### L 500.4100, L100.0100, [id number] #### [facility] [address] [place], [address] MCH (RBC) [Entitic mass] 30.9 pg Normal 27.0-32.0 [facility] Comment on above: Order Comment: Order Date: 06/02/25 Order Info: [id number] - CBCD Performed By: #### L 500.4100, L100.0100, [id number] #### [facility] [address] [place], [address] MCHC (RBC) [Mass/Vol] 33.5 g/dL Normal 32-36 [facility] Comment on above: Order Comment: Order Date: 06/02/25 Order Info: [id number] - CBCD Performed By: #### L 500.4100, L100.0100, [id number] #### [facility] [address] [place], [address] MCV (RBC) [Entitic vol] 92.2 fL Normal 80-[address] [facility] Comment on above: Order Comment: Order Date: 06/02/25 Order Info: [id number] - CBCD Performed By: #### L 500.4100, L100.0100, [id number] #### [facility] [address] [place], [address] Monocytes/100 WBC (Bld) 10.8 % High 0-[address] [facility] Comment on above: Order Comment: Order Date: 06/02/25 Order Info: [id number] - CBCD Performed By: #### L 500.4100, L100.0100, [id number] #### [facility] [address] [place], [address] Neutrophils/100 WBC (Bld) 66.3 % Normal 47-70 [facility] Comment on above: Order Comment: Order Date: 06/02/25 Order Info: [id number] - CBCD Performed By: #### L 500.4100, L100.0100, [id number] #### [facility] [address] [place], [address] Nucleated RBC (Bld) [#/Vol] 0 10*3/uL Normal 0-5 [facility] Comment on above: Order Comment: Order Date: 06/02/25 Order Info: [id number] - CBCD Performed By: #### L 500.4100, L100.0100, [id number] #### [facility] [address] [place], [address] Platelet mean volume (Bld) [Entitic vol] 9.9 fL Normal 6.2-12.0 [facility] Comment on above: Order Comment: Order Date: 06/02/25 Order Info: [id number] - CBCD Performed By: #### L 500.4100, L100.0100, [id number] #### [facility] [address] [place], [address] Platelets (Bld) [#/Vol] 290 10*3/uL Normal 150-450 [facility] Comment on above: Order Comment: Order Date: 06/02/25 Order Info: [id number] - CBCD Performed By: #### L 500.4100, L100.0100, [id number] #### [facility] [address] [place], [address] RBC (Bld) [#/Vol] 5.11 10*6/uL Normal 4.6-6.2 [facility] Comment on above: Order Comment: Order Date: 06/02/25 Order Info: [id number] - CBCD Performed By: #### L 500.4100, L100.0100, [id number] #### [facility] [address] [place], [address] RDW SD 43.2 fl Normal 35.1-43.9 [facility] Comment on above: Order Comment: Order Date: 06/02/25 Order Info: [id number] - CBCD Performed By: #### L 500.4100, L100.0100, [id number] #### [facility] [address] [place], [address] WBC (Bld) [#/Vol] 8.9 10*3/uL Normal 4.4-11.0 [facility] Comment on above: Order Comment: Order Date: 06/02/25 Order Info: [id number] - CBCD Performed By: #### L 500.4100, L100.0100, [id number] #### [facility] [address] [place], [address] [id number] 06-30-2025 Testosterone [Mass/Vol] 214.00 ng/dL Low 300-890 [facility] Comment on above: Order Comment: Order Date: 06/02/25 Order Info: [id number] - LIPID Order Info: [id number] - PSAD Performed By: #### L 509.3001 #### [facility] [address] [place], [address] Lipid Profileon 06-30-2025 CHOL:HDL 3.66 Normal [facility] Comment on above: Order Comment: Order Date: 06/02/25 Order Info: [id number] - LIPID Order Info: [id number] - PSAD Performed By: #### L 500.4100, L100.0100, [id number] #### [facility] [address] [place], [address] Cholesterol [Mass/Vol] 158 mg/dL Normal <=200 [facility] Comment on above: Order Comment: Order Date: 06/02/25 Order Info: [id number] - LIPID Order Info: [id number] - PSAD Result Comment: Chol esterol level, Desirable <200 mg/dL Borderline high cholesterol 200-239 mg/dL High cholesterol >=240 mg/dL Recommendations of the NCEP Adult Treatment Panel for the following risk-cutoff thresholds for the [place] population. Performed By: #### L 500.4100, L100.0100, L501.9940 #### [facility] [address] [place], [address] Cholesterol in HDL [Mass/Vol] 43 mg/dL Normal [facility] Comment on above: Order Comment: Order Date: 06/02/25 Order Info: [id number] - LIPID Order Info: [id number] - PSAD Result Comment: Izzy onal Cholesterol Education Program (NCEP) guidelines: <40 mg/dL: Low HDL-cholesterol (major risk factor for CHD) >= 60 mg/dL: High HDL-cholesterol (negative risk factor for CHD) HDL-cholesterol is affected by a number of factors, e.g. smoking, exercise, hormones, sex and age. Performed By: #### L 500.4100, L100.0100, L501.9940 #### [facility] [address] [place], [address] Cholesterol in LDL [Mass/Vol] 83 mg/dL Normal [facility] Comment on above: Order Comment: Order Date: 06/02/25 Order Info: [id number] - LIPID Order Info: [id number] - PSAD Result Comment: Bord esjdor=630-432 mg/dL Higher Ukuh=168 mg/dL or greater Friedwald Equation for LDL-C Performed By: #### L 500.4100, L100.0100, L501.9940 #### [facility] [address] [place], [address] Cholesterol in VLDL [Mass/Vol] 31 mg/dL Normal 5-40 [facility] Comment on above: Order Comment: Order Date: 06/02/25 Order Info: [id number] - LIPID Order Info: [id number] - PSAD Performed By: #### L 500.4100, L100.0100, L501.9940 #### [facility] [address] [place], [address] Triglyceride [Mass/Vol] 157 mg/dL Normal [facility] Comment on above: Order Comment: Order Date: 06/02/25 Order Info: [id number] - LIPID Order Info: [id number] - PSAD Result Comment: The drugs N-Acetylcysteine and Metamizole may falsely depress this assay. Normal range: <150 mg/dL Borderline High: 150-199 mg/dL High: 200-499 mg/dL Very High: >500 mg/dL Performed By: #### L 500.4100, L100.0100, L501.9940 #### [facility] [address] [place], [address] PSA,Total- Diagnosticon 09-0 PSA, DIAGNOSTIC 2.20 ng/mL Normal 0.00-4.00 [facility] Comment on above: Order Comment: Order Date: 06/02/25 Order Info: [id number] - LIPID Order Info: [id number] - PSAD Result Comment: This test was performed using the [employer] tPSA method. Measured values of a patient??sample can vary depending on the testing procedure used. PSA values determined on patient samples by different testing procedures cannot be used interchangeably. If there is a change in PSA assays while monitoring therapy, sequential testing should be performed to confirm baseline values. Performed By: #### L 500.4100, L100.0100, L501.9940 #### [facility] [address] [place], [address] L509.3001on 05-27-2025 Testosterone [Mass/Vol] 238.00 ng/dL Low 300-890 [facility] Comment on above: Performed By: #### L 5500.0550, L5500.0300 #### [facility] [address] [place], [address] Laboratory - Chemistry and C hemistry - challengeOrdered By: Dmitry Aragon on 05-27-2025 Testosterone [Mass/Vol] 238.00 ng/dL Low 300-890 [facility] L509.3001on 05-13-2025 Testosterone [Mass/Vol] 295.00 ng/dL Low 300-890 [facility] Comment on above: Performed By: #### L 5500.0550, L5500.0300 #### [facility] [address] [place], [address] Laboratory - Chemistry and C hemistry - challengeOrdered By: Dmitry Aragon on 05-13-2025 Testosterone [Mass/Vol] 295.00 ng/dL Low 300-890 [facility] Absolute lymphocyte countOrd ered By: Diana Mallory on 05-12-2025 Lymphocytes Auto (Unsp spec) [#/Vol] 1.54 10*3/uL 0.83-4.51 [facility] Absolute neutrophil countOrd ered By: Diana Mallory on 05-12-2025 Neutrophils (Bld) [#/Vol] 4.6 10*3/uL 2.0-7.7 [facility] Anion gap in Serum or Plasma Ordered By: Diana Mallory on 05-12-2025 Anion gap [Moles/Vol] 11 mmol/L 5-15 [facility] Automated blood erythrocyte countOrdered By: Diana Mallory on 05-12-2025 RBC (Bld) [#/Vol] 4.94 10*6/uL Normal 4.6-6.2 [facility] Comment on above: Performed By: #### L 100.0100, L500.4050 #### [facility] [address] [place], [address] Automated blood hematocrit ( percentage)Ordered By: Diana Mallory on 05-12-2025 Hematocrit (Bld) [Volume fraction] 45.0 % Normal 40-54 [facility] Comment on above: Performed By: #### L 100.0100, L500.4050 #### [facility] [address] [place], [address] Automated lymphocyte count a s percentage of total leukocytesOrdered By: Diana Mallory on 05-12-2025 Lymphocytes/100 WBC Auto (Unsp spec) 22.7 % - [facility] BUN/creatinine ratioOrdered By: Diana Mallory on 05-12-2025 Urea nitrogen/Creatinine [Mass ratio] 21.1 mg/mg High 10- [facility] Basophil percentageOrdered B y: Diana Mallory on 05-12-2025 Basophils/100 WBC (Bld) 0.4 % Normal 0-1 [facility] Comment on above: Performed By: #### L 100.0100, L500.4050 #### [facility] [address] [place], [address] Bilirubin, totalOrdered By: Diana Mallory on 05-12-2025 Bilirubin [Mass/Vol] 0.33 mg/dL Normal 0.00-1.30 [facility] Comment on above: Performed By: #### L 100.0100, L500.4050 #### [facility] [address] [place], [address] CBC W/Diff, Automatedon 04-23 Absolute Lymph 1.54 X10 3/uL Normal 0.83-4.51 [facility] Comment on above: Performed By: #### L 100.0100, L500.4050 #### [facility] [address] [place], [address] Absolute Neut 4.6 X10 3/uL Normal 2.0-7.7 [facility] Comment on above: Performed By: #### L 100.0100, L500.4050 #### [facility] [address] [place], [address] IG% 0.300 Normal 0.0-0.9 [facility] Comment on above: Result Comment: IG% - Immature Granulocytes (promyelocytes, myelocytes and metamyelocytes) > 1% indicates that a LEFT SHIFT is Present. Performed By: #### L 100.0100, L500.4050 #### [facility] [address] [place], [address] Lymphocytes/100 WBC (Bld) 22.7 % Normal 19-41 [facility] Comment on above: Performed By: #### L 100.0100, L500.4050 #### [facility] [address] [place], [address] Nucleated RBC (Bld) [#/Vol] 0 10*3/uL Normal 0-5 [facility] Comment on above: Performed By: #### L 100.0100, L500.4050 #### [facility] [address] [place], [address] RDW SD 41.5 fl Normal 35.1-43.9 [facility] Comment on above: Performed By: #### L 100.0100, L500.4050 #### [facility] [address] [place], [address] Carbon dioxide, total [Moles /volume] in Central venous bloodOrdered By: Diana Mallory on 05-12-2025 CO2 [Moles/Vol] 25.6 mmol/L Normal 21.0-32.0 [facility] Comment on above: Performed By: #### L 100.0100, L500.4050 #### [facility] [address] [place], [address] Chloride assayOrdered By: Alberto Mallory on 05-12-2025 Chloride [Moles/Vol] 103 mmol/L Normal 98-108 [facility] Comment on above: Performed By: #### L 100.0100, L500.4050 #### [facility] [address] [place], [address] Comprehensive Metabolic Prof ilon 05-12-2025 ALK PHOS 73 U/L Normal 40-129 [facility] Comment on above: Performed By: #### L 100.0100, L500.4050 #### [facility] [address] [place], [address] BUN/CRE 21.1 RATIO High 10-20 [facility] Comment on above: Performed By: #### L 100.0100, L500.4050 #### [facility] [address] [place], [address] GAP 11 Normal 5-15 [facility] Comment on above: Performed By: #### L 100.0100, L500.4050 #### [facility] [address] [place], [address] Potassium [Moles/Vol] 4.1 mmol/L Normal 3.3-5.1 [facility] Comment on above: Performed By: #### L 100.0100, L500.4050 #### [facility] [address] [place], [address] T PROT 6.9 g/dL Normal 5.9-8.4 [facility] Comment on above: Performed By: #### L 100.0100, L500.4050 #### [facility] [address] [place], [address] Comprehensive Metabolic Prof ilOrdered By: Diana Mallory on 05-12-2025 AST [Catalytic activity/Vol] 23 U/L Normal <=37 [facility] Comment on above: Performed By: #### L 100.0100, L500.4050 #### [facility] [address] [place], [address] Eosinophil percentageOrdered By: Diana Mallory on 05-12-2025 Eosinophils/100 WBC (Bld) 2.4 % Normal 0-5 [facility] Comment on above: Performed By: #### L 100.0100, L500.4050 #### [facility] [address] [place], [address] Erythrocyte distribution wid th ratioOrdered By: Diana Mallory on 05-12-2025 Erythrocyte distribution width (RBC) [Ratio] 12.8 % Normal 11.6-14.6 [facility] Comment on above: Performed By: #### L 100.0100, L500.4050 #### [facility] [address] [place], [address] Erythrocyte distribution wid th standard deviationOrdered By: Diana Mallory on 05-12-2025 Erythrocyte distribution width (RBC) [Ratio] 41.5 fl 35.1-43.9 [facility] Glomerular filtration rate ( GFR) estimation/1.73 sq m using serum, plasma, or whole bOrdered By: Diana Malloyr on 05-12-2025 GFR/1.73 sq M.predicted among non-blacks MDRD (S/P/Bld) [Vol rate/Area] 100 mL/min/{1.73_m2} Normal >60 [facility] Comment on above: mL/min/1.73m2 CKD-EP I Creatinine Equation (2020) Result Comment: mL/m in/1.73m2 CKD-EPI Creatinine Equation (2020) Performed By: #### L 100.0100, L500.4050 #### [facility] [address] [facility] [place], [address] Hemoglobin measurementOrdere d By: Diana Mallory on 05-12-2025 Hemoglobin (Bld) [Mass/Vol] 15.2 g/dL Normal 13.0-16.5 [facility] Comment on above: Performed By: #### L 100.0100, L500.4050 #### [facility] [address] [place], [place], [id number] [phone] Immature granulocytes/100 WB C Auto (Bld)Ordered By: Diana Mallory on 05-12-2025 Immature granulocytes/100 WBC (Bld) 0.300 % 0.0-0.9 [facility] Comment on above: IG% - Immature Granu locytes (promyelocytes, myelocytes and metamyelocytes) > 1% indicates that a LEFT SHIFT is Present. MCV (mean corpuscular volume ) determinationOrdered By: Diana Mallory on 05-12-2025 MCV (RBC) [Entitic vol] 91.1 fL Normal 80-94 [facility] Comment on above: Performed By: #### L 100.0100, L500.4050 #### [facility] [address] [place], [address] Mean corpuscular hemoglobin (MCH) determinationOrdered By: Diana Mallory on 05-12-2025 MCH (RBC) [Entitic mass] 30.8 pg Normal 27.0-32.0 [facility] Comment on above: Performed By: #### L 100.0100, L500.4050 #### [facility] [address] [place], [address] Mean corpuscular hemoglobin concentration (MCHC) determinationOrdered By: Diana Mallory on 05-12-2025 MCHC (RBC) [Mass/Vol] 33.8 g/dL Normal 32-36 [facility] Comment on above: Performed By: #### L 100.0100, L500.4050 #### [facility] [address] [place], [address] Mean platelet volume determi nationOrdered By: Diana Mallory on 05-12-2025 Platelet mean volume (Bld) [Entitic vol] 10.4 fL Normal 6.2-12.0 [facility] Comment on above: Performed By: #### L 100.0100, L500.4050 #### [facility] [address] [place], [address] Monocyte percentageOrdered B y: Diana Mallory on 05-12-2025 Monocytes/100 WBC (Bld) 6.4 % Normal 0-10 [facility] Comment on above: Performed By: #### L 100.0100, L500.4050 #### [facility] [address] [place], [address] Neutrophil percentageOrdered By: Diana Mallory on 05-12-2025 Neutrophils/100 WBC (Bld) 67.8 % Normal 47-70 [facility] Comment on above: Performed By: #### L 100.0100, L500.4050 #### [facility] [address] [place], [address] Nucleated red blood cell per centageOrdered By: Diana Mallory on 05-12-2025 Nucleated RBC/100 WBC (Bld) [Ratio] 0 % 0-5 [facility] Platelet countOrdered By: Alberto Mallory on 05-12-2025 Platelets (Bld) [#/Vol] 249 10*3/uL Normal 150-450 [facility] Comment on above: Performed By: #### L 100.0100, L500.4050 #### [facility] [address] [place], [address] Potassium measurement (mass/ volume)Ordered By: Diana Mallory on 05-12-2025 Potassium (Unsp spec) [Mass/Vol] 4.1 mmol/L 3.3-5.1 [facility] Serum creatinine measurement (mass/volume)Ordered By: Diana Mallory on 05-12-2025 Creatinine [Mass/Vol] 0.96 mg/dL Normal 0.70-1.20 [facility] Comment on above: Performed By: #### L 100.0100, L500.4050 #### [facility] [address] [place], [address] Serum globulin measurementOr dered By: Diana Mallory on 05-12-2025 Globulin (S) [Mass/Vol] 2.5 g/dL Normal 2.2-4.[address] [facility] Comment on above: Performed By: #### L 100.0100, L500.4050 #### [facility] [address] [place], [address] Serum glucose measurement (m ass/volume)Ordered By: Diana Mallory on 05-12-2025 Glucose [Mass/Vol] 100 mg/dL High 70-99 [facility] Comment on above: Performed By: #### L 100.0100, L500.4050 #### [facility] [address] [place], [address] Serum or plasma alanine martinez otransferase (ALT) measurementOrdered By: Diana Mallory on 05-12-2025 ALT [Catalytic activity/Vol] 34 U/L Normal <=46 [facility] Comment on above: Performed By: #### L 100.0100, L500.4050 #### [facility] [address] [place], [address] Serum or plasma albumin florentin urement (mass/volume)Ordered By: Diana Mallory on 05-12-2025 Albumin [Mass/Vol] 4.4 g/dL Normal 3.5-5.0 [facility] Comment on above: Performed By: #### L 100.0100, L500.4050 #### [facility] [address] [place], [address] Serum or plasma albumin/glob ulin mass ratioOrdered By: Diana Mallory on 05-12-2025 Albumin/Globulin [Mass ratio] 1.8 {ratio} Normal 0.9-2.4 [facility] Comment on above: Performed By: #### L 100.0100, L500.4050 #### [facility] [address] [place], [address] Serum or plasma alkaline geri sphatase measurementOrdered By: Diana Mallory on 05-12-2025 ALP [Catalytic activity/Vol] 73 U/L 40-129 [facility] Serum or plasma calcium florentin urement (mass/volume)Ordered By: Diana Mallory on 05-12-2025 Calcium [Mass/Vol] 9.7 mg/dL Normal 7.6-11.0 [facility] Comment on above: Performed By: #### L 100.0100, L500.4050 #### [facility] [address] [place], [address] Serum or plasma urea nitroge n measurement (mass/volume)Ordered By: Diana Mallory on 05-12-2025 Urea nitrogen [Mass/Vol] 20 mg/dL High 4-19 [facility] Comment on above: Performed By: #### L 100.0100, L500.4050 #### [facility] [address] [place], [address] Sodium levelOrdered By: Jimena Mallory on 05-12-2025 Sodium [Moles/Vol] 140 mmol/L Normal 133-145 [facility] Comment on above: Performed By: #### L 100.0100, L500.4050 #### [facility] [address] [place], [address] Total proteinOrdered By: Omer Mallory on 05-12-2025 Protein [Mass/Vol] 6.9 g/dL 5.9-8.4 [facility] White blood cell (WBC) count Ordered By: Diana Mallory on 05-12-2025 WBC (Bld) [#/Vol] 6.8 10*3/uL Normal 4.4-11.0 [facility] Comment on above: Performed By: #### L 100.0100, L500.4050 #### [facility] [address] [place], [address] Absolute lymphocyte countOrd ered By: Diana Mallory on 03-12-2025 Lymphocytes Auto (Unsp spec) [#/Vol] 1.65 10*3/uL 0.83-4.51 [facility] Absolute neutrophil countOrd ered By: Diana Mallory on 03-12-2025 Neutrophils (Bld) [#/Vol] 4.3 10*3/uL 2.0-7.7 [facility] Anion gap in Serum or Plasma Ordered By: Diana Mallory on 03-12-2025 Anion gap [Moles/Vol] 12 mmol/L 5-15 [facility] Automated blood erythrocyte countOrdered By: Diana Mallory on 03-12-2025 RBC (Bld) [#/Vol] 5.02 10*6/uL Normal 4.6-6.2 [facility] Comment on above: Performed By: #### L 500.4100, L100.0100, L501.9940 #### [facility] [address] [place], [address] Automated blood hematocrit ( percentage)Ordered By: Diana Mallory on 03-12-2025 Hematocrit (Bld) [Volume fraction] 44.2 % Normal 40-54 [facility] Comment on above: Performed By: #### L 500.4100, L100.0100, L501.9940 #### [facility] [address] [place], [address] Automated lymphocyte count a s percentage of total leukocytesOrdered By: Diana Mallory on 03-12-2025 Lymphocytes/100 WBC Auto (Unsp spec) 25.2 % - [facility] BUN/creatinine ratioOrdered By: [facility] on 03-12-2025 Urea nitrogen/Creatinine [Mass ratio] 18.5 mg/mg 10- [facility] Basophil percentageOrdered B y: Diana Mallory on 03-12-2025 Basophils/100 WBC (Bld) 0.3 % Normal 0-1 [facility] Comment on above: Performed By: #### L 500.4100, L100.0100, L501.9940 #### [facility] [address] [place], [address] Bilirubin, totalOrdered By: Diana Malolry on 03-12-2025 Bilirubin [Mass/Vol] 0.32 mg/dL Normal 0.00-1.30 [facility] Comment on above: Performed By: #### L 500.4100, L100.0100, L501.9940 #### [facility] [address] [place], [address] CBC W/Diff, Automatedon - Absolute Lymph 1.65 X10 3/uL Normal 0.83-4.51 [facility] Comment on above: Performed By: #### L 500.4100, L100.0100, L501.9940 #### [facility] [address] [place], [address] Absolute Neut 4.3 X10 3/uL Normal 2.0-7.7 [facility] Comment on above: Performed By: #### L 500.4100, L100.0100, L501.9940 #### [facility] [address] [place], [address] IG% 0.200 Normal 0.0-0.9 [facility] Comment on above: Result Comment: IG% - Immature Granulocytes (promyelocytes, myelocytes and metamyelocytes) > 1% indicates that a LEFT SHIFT is Present. Performed By: #### L 500.4100, L100.0100, L501.9940 #### [facility] [address] [place], [address] Lymphocytes/100 WBC (Bld) 25.2 % Normal 19-41 [facility] Comment on above: Performed By: #### L 500.4100, L100.0100, L501.9940 #### [facility] [address] [place], [address] Nucleated RBC (Bld) [#/Vol] 0 10*3/uL Normal 0-5 [facility] Comment on above: Performed By: #### L 500.4100, L100.0100, L501.9940 #### [facility] [address] [place], [address] RDW SD 40.5 fl Normal 35.1-43.9 [facility] Comment on above: Performed By: #### L 500.4100, L100.0100, L501.9940 #### [facility] [address] [place], [address] Carbon dioxide, total [Moles /volume] in Central venous bloodOrdered By: Diana Mallory on 03-12-2025 CO2 [Moles/Vol] 21.5 mmol/L Normal 21.0-32.0 [facility] Comment on above: Performed By: #### L 500.4100, L100.0100, L501.9940 #### [facility] [address] [place], [address] Chloride assayOrdered By: Alberto Mallory on 03-12-2025 Chloride [Moles/Vol] 106 mmol/L Normal 98-108 [facility] Comment on above: Performed By: #### L 500.4100, L100.0100, L501.9940 #### [facility] [address] [place], [address] Comprehensive Metabolic Prof ilon 03-12-2025 ALK PHOS 76 U/L Normal 40-129 [facility] Comment on above: Performed By: #### L 500.4100, L100.0100, L501.9940 #### [facility] [address] [place], [address] BUN/CRE 18.5 RATIO Normal 10-20 [facility] Comment on above: Performed By: #### L 500.4100, L100.0100, L501.9940 #### [facility] [address] [place], [address] GAP 12 Normal 5-15 [facility] Comment on above: Performed By: #### L 500.4100, L100.0100, L501.9940 #### [facility] [address] [place], [address] Potassium [Moles/Vol] 4.1 mmol/L Normal 3.3-5.1 [facility] Comment on above: Performed By: #### L 500.4100, L100.0100, L501.9940 #### [facility] [address] [place], [address] T PROT 6.9 g/dL Normal 5.9-8.4 [facility] Comment on above: Performed By: #### L 500.4100, L100.0100, L501.9940 #### [facility] [address] [place], [address] Comprehensive Metabolic Prof ilOrdered By: Diana Mallory on 03-12-2025 AST [Catalytic activity/Vol] 30 U/L Normal <=37 [facility] Comment on above: Performed By: #### L 500.4100, L100.0100, L501.9940 #### [facility] [address] [place], [address] Eosinophil percentageOrdered By: Diana Mallory on 03-12-2025 Eosinophils/100 WBC (Bld) 2.6 % Normal 0-5 [facility] Comment on above: Performed By: #### L 500.4100, L100.0100, L501.9940 #### [facility] [address] [place], [address] Erythrocyte distribution wid th ratioOrdered By: Diana Mallory on 03-12-2025 Erythrocyte distribution width (RBC) [Ratio] 12.7 % Normal 11.6-14.6 [facility] Comment on above: Performed By: #### L 500.4100, L100.0100, L501.9940 #### [facility] [address] [place], [address] Erythrocyte distribution wid th standard deviationOrdered By: Diana Mallory on 03-12-2025 Erythrocyte distribution width (RBC) [Ratio] 40.5 fl 35.1-43.9 [facility] Glomerular filtration rate ( GFR) estimation/1.73 sq m using serum, plasma, or whole bOrdered By: Diana Mallory on 03-12-2025 GFR/1.73 sq M.predicted among non-blacks MDRD (S/P/Bld) [Vol rate/Area] 99 mL/min/{1.73_m2} Normal >60 [facility] Comment on above: mL/min/1.73m2 CKD-EP I Creatinine Equation (2020) Result Comment: mL/m in/1.73m2 CKD-EPI Creatinine Equation (2020) Performed By: #### L 500.4100, L100.0100, L501.9940 #### [facility] [address] [place], [address] Hemoglobin measurementOrdere d By: Diana Mallory on 03-12-2025 Hemoglobin (Bld) [Mass/Vol] 15.0 g/dL Normal 13.0-16.5 [facility] Comment on above: Performed By: #### L 500.4100, L100.0100, L501.9940 #### [facility] [address] [place], [address] Immature granulocytes/100 WB C Auto (Bld)Ordered By: Diana Mallory on 03-12-2025 Immature granulocytes/100 WBC (Bld) 0.200 % 0.0-0.9 [facility] Comment on above: IG% - Immature Granu locytes (promyelocytes, myelocytes and metamyelocytes) > 1% indicates that a LEFT SHIFT is Present. MCV (mean corpuscular volume ) determinationOrdered By: Diana Mallory on 03-12-2025 MCV (RBC) [Entitic vol] 88.0 fL Normal 80-94 [facility] Comment on above: Performed By: #### L 500.4100, L100.0100, L501.9940 #### [facility] [address] [place], [address] Mean corpuscular hemoglobin (MCH) determinationOrdered By: Diana Mallory on 03-12-2025 MCH (RBC) [Entitic mass] 29.9 pg Normal 27.0-32.0 [facility] Comment on above: Performed By: #### L 500.4100, L100.0100, L501.9940 #### [facility] [address] [place], [address] Mean corpuscular hemoglobin concentration (MCHC) determinationOrdered By: Diana Mallory on 03-12-2025 MCHC (RBC) [Mass/Vol] 33.9 g/dL Normal 32-36 [facility] Comment on above: Performed By: #### L 500.4100, L100.0100, L501.9940 #### [facility] [address] [place], [address] Mean platelet volume determi nationOrdered By: Diana Mallory on 03-12-2025 Platelet mean volume (Bld) [Entitic vol] 10.5 fL Normal 6.2-12.0 [facility] Comment on above: Performed By: #### L 500.4100, L100.0100, L501.9940 #### [facility] [address] [place], [address] Monocyte percentageOrdered B y: Diana Mallory on 03-12-2025 Monocytes/100 WBC (Bld) 6.6 % Normal 0-[address] [facility] Comment on above: Performed By: #### L 500.4100, L100.0100, L501.9940 #### [facility] [address] [place], [address] Neutrophil percentageOrdered By: Diana Mallory on 03-12-2025 Neutrophils/100 WBC (Bld) 65.1 % Normal 47-70 [facility] Comment on above: Performed By: #### L 500.4100, L100.0100, L501.9940 #### [facility] [address] [place], [address] Nucleated red blood cell per centageOrdered By: Diana Mallory on 03-12-2025 Nucleated RBC/100 WBC (Bld) [Ratio] 0 % 0-5 [facility] Platelet countOrdered By: Alberto Mallory on 03-12-2025 Platelets (Bld) [#/Vol] 256 10*3/uL Normal 150-450 [facility] Comment on above: Performed By: #### L 500.4100, L100.0100, L501.9940 #### [facility] [address] [place], [address] Potassium measurement (mass/ volume)Ordered By: Diana Mallory on 03-12-2025 Potassium (Unsp spec) [Mass/Vol] 4.1 mmol/L 3.3-5.1 [facility] Serum creatinine measurement (mass/volume)Ordered By: Diana Mallory on 03-12-2025 Creatinine [Mass/Vol] 0.98 mg/dL Normal 0.70-1.20 [facility] Comment on above: Performed By: #### L 500.4100, L100.0100, L501.9940 #### [facility] [address] [place], [address] Serum globulin measurementOr dered By: Diana Mallory on 03-12-2025 Globulin (S) [Mass/Vol] 2.6 g/dL Normal 2.2-4.[address] [facility] Comment on above: Performed By: #### L 500.4100, L100.0100, L501.9940 #### [facility] [address] [place], [address] Serum glucose measurement (m ass/volume)Ordered By: Diana Mallory on 03-12-2025 Glucose [Mass/Vol] 110 mg/dL High 70-99 [facility] Comment on above: Performed By: #### L 500.4100, L100.0100, L501.9940 #### [facility] [address] [place], [address] Serum or plasma alanine martinez otransferase (ALT) measurementOrdered By: Diana Mallory on 03-12-2025 ALT [Catalytic activity/Vol] 40 U/L Normal <=46 [facility] Comment on above: Performed By: #### L 500.4100, L100.0100, L501.9940 #### [facility] [address] [place], [address] Serum or plasma albumin florentin urement (mass/volume)Ordered By: Diana Mallory on 03-12-2025 Albumin [Mass/Vol] 4.3 g/dL Normal 3.5-5.0 [facility] Comment on above: Performed By: #### L 500.4100, L100.0100, L501.9940 #### [facility] [address] [place], [address] Serum or plasma albumin/glob ulin mass ratioOrdered By: Diana Mallory on 03-12-2025 Albumin/Globulin [Mass ratio] 1.6 {ratio} Normal 0.9-2.4 [facility] Comment on above: Performed By: #### L 500.4100, L100.0100, L501.9940 #### [facility] [address] [place], [address] Serum or plasma alkaline geri sphatase measurementOrdered By: Diana Mallory on 03-12-2025 ALP [Catalytic activity/Vol] 76 U/L 40-129 [facility] Serum or plasma calcium florentin urement (mass/volume)Ordered By: Diana Mallory on 03-12-2025 Calcium [Mass/Vol] 9.1 mg/dL Normal 7.6-11.0 [facility] Comment on above: Performed By: #### L 500.4100, L100.0100, L501.9940 #### [facility] [address] [place], [address] Serum or plasma urea nitroge n measurement (mass/volume)Ordered By: Diana Mallory on 03-12-2025 Urea nitrogen [Mass/Vol] 18 mg/dL Normal 4-19 [facility] Comment on above: Performed By: #### L 500.4100, L100.0100, L501.9940 #### [facility] [address] [place], [address] Sodium levelOrdered By: Jimena Mallory on 03-12-2025 Sodium [Moles/Vol] 139 mmol/L Normal 133-145 [facility] Comment on above: Performed By: #### L 500.4100, L100.0100, L501.9940 #### [facility] [address] [place], [address] Total proteinOrdered By: Omer Mallory on 03-12-2025 Protein [Mass/Vol] 6.9 g/dL 5.9-8.4 [facility] White blood cell (WBC) count Ordered By: Diana Mallory on 03-12-2025 WBC (Bld) [#/Vol] 6.6 10*3/uL Normal 4.4-11.0 [facility] Comment on above: Performed By: #### L 500.4100, L100.0100, L501.9940 #### [facility] [address] [place], [address] Sex Hormone-binding Globulin on 01-17-2025 SHBG 18.0 nmol/L Normal 16.5-55.9 [facility] Comment on above: Order Comment: Order Date: 06/02/25 Order Info: [id number] - LIPID Order Info: [id number] - PSAD Result Comment: Perf ormed at: [facility] [address] [id number] Manager Rail: Jorge A Flower PhD, Phone: [phone] Performed at: [facility] [address] [id number] Manager Rail: Sarah Damon MD, Phone: [phone] Performed By: #### L 500.4100, L100.0100, L501.9940 #### [facility] [address] [place], [address] Testosterone, Total / Freeon 01-17-2025 TESTOSTER,FREE 6.68 ng/dL Normal 5.00-21.00 [facility] Comment on above: Order Comment: Order Date: 06/02/25 Order Info: [id number] - LIPID Order Info: [id number] - PSAD Performed By: #### L 500.4100, L100.0100, L501.9940 #### [facility] [address] [place], [address] TESTOSTER,TOTAL 181 ng/dL Low 264-916 [facility] Comment on above: Order Comment: Order Date: 06/02/25 Order Info: [id number] - LIPID Order Info: [id number] - PSAD Result Comment: Adul t male reference interval is based on a population of healthy nonobese males (BMI <30) between 19 and 39 years old. Janice, et.al. JCEM 2017,102;6497-7425. PMID: [id number]. Performed By: #### L 500.4100, L100.0100, L501.9940 #### [facility] [address] [place], [address] TESTOSTERONE,%F 3.69 Normal 1.50-4.20 [facility] Comment on above: Order Comment: Order Date: 06/02/25 Order Info: [id number] - LIPID Order Info: [id number] - PSAD Performed By: #### L 500.4100, L100.0100, L501.9940 #### [facility] [address] [place], [address] Absolute lymphocyte countOrd ered By: Dmitry Aragon on 01-07-2025 Lymphocytes Auto (Unsp spec) [#/Vol] 1.27 10*3/uL 0.83-4.51 [facility] Absolute neutrophil countOrd ered By: Dmitry Aragon on 01-07-2025 Neutrophils (Bld) [#/Vol] 3.9 10*3/uL 2.0-7.7 [facility] Anion gap in Serum or Plasma Ordered By: Dmitry Aragon on 01-07-2025 Anion gap [Moles/Vol] 15 mmol/L 5-15 [facility] Automated lymphocyte count a s percentage of total leukocytesOrdered By: Dmitry Aragon on 01-07-2025 Lymphocytes/100 WBC Auto (Unsp spec) 21.9 % 19-41 [facility] BUN/creatinine ratioOrdered By: Dmitry Aragon on 01-07-2025 Urea nitrogen/Creatinine [Mass ratio] 17.7 mg/mg 10- [facility] Basophil percentageOrdered B y: Dmitry Aragon on 01-07-2025 Basophils/100 WBC (Bld) 0.3 % 0-1 [facility] Bilirubin, totalOrdered By: Dmitry Aragon on 01-07-2025 Bilirubin [Mass/Vol] 0.45 mg/dL 0.00-1.30 [facility] CBC W/Diff, Automatedon 12-21 Absolute Lymph 1.27 X10 3/uL Normal 0.83-4.51 [facility] Comment on above: Order Comment: Order Date: 06/02/25 Order Info: [id number] - CBCD Performed By: #### L 500.4100, L100.0100, L501.9940 #### [facility] [address] [place], [address] Absolute Neut 3.9 X10 3/uL Normal 2.0-7.7 [facility] Comment on above: Order Comment: Order Date: 06/02/25 Order Info: [id number] - CBCD Performed By: #### L 500.4100, L100.0100, L501.9940 #### [facility] [address] [place], [address] Basophils/100 WBC (Bld) 0.3 % Normal 0-1 [facility] Comment on above: Order Comment: Order Date: 06/02/25 Order Info: [id number] - CBCD Performed By: #### L 500.4100, L100.0100, L501.9940 #### [facility] [address] [place], [address] Eosinophils/100 WBC (Bld) 1.7 % Normal 0-5 [facility] Comment on above: Order Comment: Order Date: 06/02/25 Order Info: [id number] - CBCD Performed By: #### L 500.4100, L100.0100, L501.9940 #### [facility] [address] [place], [address] Erythrocyte distribution width (RBC) [Ratio] 11.8 % Normal 11.6-14.6 [facility] Comment on above: Order Comment: Order Date: 06/02/25 Order Info: [id number]- - CBCD Performed By: #### L 500.4100, L100.0100, L501.9940 #### [facility] [address] [place], [address] Hematocrit (Bld) [Volume fraction] 48.0 % Normal 40-54 [facility] Comment on above: Order Comment: Order Date: 06/02/25 Order Info: [id number]- - CBCD Performed By: #### L 500.4100, L100.0100, L501.9940 #### [facility] [address] [place], [address] Hemoglobin (Bld) [Mass/Vol] 16.4 g/dL Normal 13.0-16.5 [facility] Comment on above: Order Comment: Order Date: 06/02/25 Order Info: [id number]- - CBCD Performed By: #### L 500.4100, L100.0100, L501.9940 #### [facility] [address] [place], [address] IG% 0.200 Normal 0.0-0.9 [facility] Comment on above: Order Comment: Order Date: 06/02/25 Order Info: [id number] - CBCD Result Comment: IG% - Immature Granulocytes (promyelocytes, myelocytes and metamyelocytes) > 1% indicates that a LEFT SHIFT is Present. Performed By: #### L 500.4100, L100.0100, L501.9940 #### [facility] [address] [place], [address] Lymphocytes/100 WBC (Bld) 21.9 % Normal 19-41 [facility] Comment on above: Order Comment: Order Date: 06/02/25 Order Info: [id number]- - CBCD Performed By: #### L 500.4100, L100.0100, L501.9940 #### [facility] [address] [place], [address] MCH (RBC) [Entitic mass] 29.3 pg Normal 27.0-32.0 [facility] Comment on above: Order Comment: Order Date: 06/02/25 Order Info: [id number]- - CBCD Performed By: #### L 500.4100, L100.0100, L501.9940 #### [facility] [address] [place], [address] MCHC (RBC) [Mass/Vol] 34.2 g/dL Normal 32-36 [facility] Comment on above: Order Comment: Order Date: 06/02/25 Order Info: [id number]- - CBCD Performed By: #### L 500.4100, L100.0100, L501.9940 #### [facility] [address] [place], [address] MCV (RBC) [Entitic vol] 85.9 fL Normal 80-94 [facility] Comment on above: Order Comment: Order Date: 06/02/25 Order Info: [id number]- - CBCD Performed By: #### L 500.4100, L100.0100, L501.9940 #### [facility] [address] [place], [address] Monocytes/100 WBC (Bld) 7.9 % Normal 0-10 [facility] Comment on above: Order Comment: Order Date: 06/02/25 Order Info: [id number]- - CBCD Performed By: #### L 500.4100, L100.0100, L501.9940 #### [facility] [address] [place], [address] Neutrophils/100 WBC (Bld) 68.0 % Normal 47-70 [facility] Comment on above: Order Comment: Order Date: 06/02/25 Order Info: [id number] - CBCD Performed By: #### L 500.4100, L100.0100, L501.9940 #### [facility] [address] [place], [address] Nucleated RBC (Bld) [#/Vol] 0 10*3/uL Normal 0-5 [facility] Comment on above: Order Comment: Order Date: 06/02/25 Order Info: [id number] - CBCD Performed By: #### L 500.4100, L100.0100, L501.9940 #### [facility] [address] [place], [address] Platelet mean volume (Bld) [Entitic vol] 10.8 fL Normal 6.2-12.0 [facility] Comment on above: Order Comment: Order Date: 06/02/25 Order Info: [id number] - CBCD Performed By: #### L 500.4100, L100.0100, L501.9940 #### [facility] [address] [place], [address] Platelets (Bld) [#/Vol] 257 10*3/uL Normal 150-450 [facility] Comment on above: Order Comment: Order Date: 06/02/25 Order Info: [id number] - CBCD Performed By: #### L 500.4100, L100.0100, L501.9940 #### [facility] [address] [place], [address] RBC (Bld) [#/Vol] 5.59 10*6/uL Normal 4.6-6.2 [facility] Comment on above: Order Comment: Order Date: 06/02/25 Order Info: [id number] - CBCD Performed By: #### L 500.4100, L100.0100, L501.9940 #### [facility] [address] [place], [address] RDW SD 36.7 fl Normal 35.1-43.9 [facility] Comment on above: Order Comment: Order Date: 06/02/25 Order Info: [id number] - CBCD Performed By: #### L 500.4100, L100.0100, L501.9940 #### [facility] [address] [place], [address] WBC (Bld) [#/Vol] 5.8 10*3/uL Normal 4.4-11.0 [facility] Comment on above: Order Comment: Order Date: 06/02/25 Order Info: [id number] - CBCD Performed By: #### L 500.4100, L100.0100, L501.9940 #### [facility] [address] [place], [address] Calculated very low density lipoprotein (VLDL) cholesterol measurementOrdered By: Dmitry Aragon on 01-07-2025 Calculated very low density lipoprotein (VLDL) cholesterol measurement 44 mg/dL High 5-40 [facility] VLDL Cholesterol 44 mg/dL High 5-40 [facility] Carbon dioxide, total [Moles /volume] in Central venous bloodOrdered By: Dmitry Aragon on 01-07-2025 CO2 [Moles/Vol] 21.1 mmol/L 21.0-32.0 [facility] Chloride assayOrdered By: Yosi Aragon on 01-07-2025 Chloride [Moles/Vol] 102 mmol/L 98-108 [facility] Comprehensive Metabolic Prof ilon 01-07-2025 Albumin [Mass/Vol] 4.6 g/dL Normal 3.5-5.0 [facility] Comment on above: Order Comment: Order Date: 06/02/25 Order Info: [id number] - LIPID Order Info: [id number] - PSAD Performed By: #### L 500.4100, L100.0100, L501.9940 #### [facility] [address] [place], [address] Albumin/Globulin [Mass ratio] 1.7 {ratio} Normal 0.9-2.4 [facility] Comment on above: Order Comment: Order Date: 06/02/25 Order Info: [id number] - LIPID Order Info: [id number] - PSAD Performed By: #### L 500.4100, L100.0100, L501.9940 #### [facility] [address] [place], [address] ALK PHOS 75 U/L Normal 40-129 [facility] Comment on above: Order Comment: Order Date: 06/02/25 Order Info: [id number] - LIPID Order Info: [id number] - PSAD Performed By: #### L 500.4100, L100.0100, L501.9940 #### [facility] [address] [place], [address] ALT [Catalytic activity/Vol] 38 U/L Normal <=46 [facility] Comment on above: Order Comment: Order Date: 06/02/25 Order Info: [id number] - LIPID Order Info: [id number] - PSAD Performed By: #### L 500.4100, L100.0100, L501.9940 #### [facility] [address] [place], [address] AST [Catalytic activity/Vol] 32 U/L Normal <=37 [facility] Comment on above: Order Comment: Order Date: 06/02/25 Order Info: [id number] - LIPID Order Info: [id number] - PSAD Performed By: #### L 500.4100, L100.0100, L501.9940 #### [facility] [address] [place], [address] Bilirubin [Mass/Vol] 0.45 mg/dL Normal 0.00-1.30 [facility] Comment on above: Order Comment: Order Date: 06/02/25 Order Info: [id number] - LIPID Order Info: [id number] - PSAD Performed By: #### L 500.4100, L100.0100, L501.9940 #### [facility] [address] [place], [address] BUN/CRE 17.7 RATIO Normal 10-20 [facility] Comment on above: Order Comment: Order Date: 06/02/25 Order Info: [id number] - LIPID Order Info: [id number] - PSAD Performed By: #### L 500.4100, L100.0100, L501.9940 #### [facility] [address] [place], [address] Calcium [Mass/Vol] 9.5 mg/dL Normal 7.6-11.0 [facility] Comment on above: Order Comment: Order Date: 06/02/25 Order Info: [id number] - LIPID Order Info: [id number] - PSAD Performed By: #### L 500.4100, L100.0100, L501.9940 #### [facility] [address] [place], [address] Chloride [Moles/Vol] 102 mmol/L Normal 98-108 [facility] Comment on above: Order Comment: Order Date: 06/02/25 Order Info: [id number] - LIPID Order Info: [id number] - PSAD Performed By: #### L 500.4100, L100.0100, L501.9940 #### [facility] [address] [place], [address] CO2 [Moles/Vol] 21.1 mmol/L Normal 21.0-32.0 [facility] Comment on above: Order Comment: Order Date: 06/02/25 Order Info: [id number] - LIPID Order Info: [id number] - PSAD Performed By: #### L 500.4100, L100.0100, L501.9940 #### [facility] [address] [place], [address] Creatinine [Mass/Vol] 0.99 mg/dL Normal 0.70-1.20 [facility] Comment on above: Order Comment: Order Date: 06/02/25 Order Info: [id number] - LIPID Order Info: [id number] - PSAD Performed By: #### L 500.4100, L100.0100, L501.9940 #### [facility] [address] [place], [address] GAP 15 Normal 5-15 [facility] Comment on above: Order Comment: Order Date: 06/02/25 Order Info: [id number] - LIPID Order Info: 07- - PSAD Performed By: #### L 500.4100, L100.0100, L501.9940 #### [facility] [address] [place], [address] GFR/1.73 sq M.predicted among non-blacks MDRD (S/P/Bld) [Vol rate/Area] 97 mL/min/{1.73_m2} Normal >60 [facility] Comment on above: Order Comment: Order Date: 06/02/25 Order Info: [id number] - LIPID Order Info: [id number] - PSAD Result Comment: mL/m in/1.73m2 CKD-EPI Creatinine Equation (2020) Performed By: #### L 500.4100, L100.0100, L501.9940 #### [facility] [address] [place], [address] Globulin (S) [Mass/Vol] 2.8 g/dL Normal 2.2-4.2 [facility] Comment on above: Order Comment: Order Date: 06/02/25 Order Info: [id number] - LIPID Order Info: [id number] - PSAD Performed By: #### L 500.4100, L100.0100, L501.9940 #### [facility] [address] [place], [address] Glucose [Mass/Vol] 105 mg/dL High 70-99 [facility] Comment on above: Order Comment: Order Date: 06/02/25 Order Info: [id number] - LIPID Order Info: [id number] - PSAD Performed By: #### L 500.4100, L100.0100, L501.9940 #### [facility] [address] [place], [address] Potassium [Moles/Vol] 3.8 mmol/L Normal 3.3-5.1 [facility] Comment on above: Order Comment: Order Date: 06/02/25 Order Info: [id number] - LIPID Order Info: [id number] - PSAD Performed By: #### L 500.4100, L100.0100, L501.9940 #### [facility] [address] [place], [address] Sodium [Moles/Vol] 138 mmol/L Normal 133-145 [facility] [facility] Comment on above: Order Comment: Order Date: 06/02/25 Order Info: [id number] - LIPID Order Info: [id number] - PSAD Performed By: #### L 500.4100, L100.0100, L501.9940 #### [facility] [address] [place], [address] T PROT 7.4 g/dL Normal 5.9-8.4 [facility] Comment on above: Order Comment: Order Date: 06/02/25 Order Info: [id number] - LIPID Order Info: [id number] - PSAD Performed By: #### L 500.4100, L100.0100, L501.9940 #### [facility] [address] [place], [address] Urea nitrogen [Mass/Vol] 18 mg/dL Normal 4-19 [facility] Comment on above: Order Comment: Order Date: 06/02/25 Order Info: [id number] - LIPID Order Info: [id number] - PSAD Performed By: #### L 500.4100, L100.0100, L501.9940 #### [facility] [place], [address] Diagnostic total prostate sp ecific antigen (PSA) measurementOrdered By: Dmitry Aragon on 01-07-2025 Prostate Specific Antigen Total 2.53 ng/mL 0.00-4.00 [facility] Comment on above: This test was [...] 01-07-2025 Eosinophils/100 WBC (Bld) 1.7 % 0-5 [facility] Erythrocyte distribution wid th ratioOrdered By: Dmitry Aragon on 01-07-2025 Erythrocyte distribution width (RBC) [Ratio] 11.8 % 11.6-14.6 [facility] Erythrocyte distribution wid th standard deviationOrdered By: Dmitry Aragon on 01-07-2025 Erythrocyte distribution width (RBC) [Entitic vol] 36.7 fL 35.1-43.9 [facility] Erythrocyte distribution width (RBC) [Ratio] 36.7 fl 35.1-43.9 [facility] Free testosterone percentage Ordered By: Dmitry Aragon on 01-07-2025 Testosterone Free/Testosterone.total [Mass fraction] 3.69 % 1.50-4.20 [facility] GFR/1.73 sq M.predicted [place] g non-blacks MDRD (S/P/Bld) [Vol rate/Area]Ordered By: Dmitry Aragon on 01-07-2025 Estimated GFR (MDRD) Non-Af Amer 97 >60 [facility] Comment on above: mL/min/1.73m2 CKD-EP I Creatinine Equation (2020) Glomerular filtration rate ( GFR) estimation/1.73 sq m using serum, plasma, or whole bOrdered By: Dmitry Aragon on 01-07-2025 GFR/1.73 sq M.predicted among non-blacks MDRD (S/P/Bld) [Vol rate/Area] 97 mL/min/{1.73_m2} >60 [facility] Comment on above: mL/min/1.73m2 CKD-EP I Creatinine Equation (2020) Hematocrit Auto (Bld) [Volum e fraction]Ordered By: Dmitry Aragon on 01-07-2025 Hematocrit (Bld) [Volume fraction] 48.0 % 40-54 [facility] Hemoglobin measurementOrdere d By: Dmitry Aragon on 01-07-2025 Hemoglobin (Bld) [Mass/Vol] 16.4 g/dL 13.0-16.5 [facility] Immature granulocytes/100 WB C Auto (Bld)Ordered By: Dmitry Aragon on 01-07-2025 Immature granulocytes/100 WBC (Bld) 0.200 % 0.0-0.9 [facility] Comment on above: IG% - Immature Granu locytes (promyelocytes, myelocytes and metamyelocytes) > 1% indicates that a LEFT SHIFT is Present. LDL calc ser/plasOrdered By: Dmitry Aragon on 01-07-2025 Cholesterol in LDL [Mass/Vol] 73 mg/dL [facility] Comment on above: Orqqkzrcpm=912-188 m g/dL & Higher Axrf=626 mg/dL or greater LDL Cholesterol, Calculated 73 mg/dL [facility] Comment on above: Qzrrhudgpy=042-472 m g/dL & Higher Jrpu=407 mg/dL or greater Laboratory - Chemistry and C hemistry - challengeOrdered By: Dmitry Aragon on 01-07-2025 AST [Catalytic activity/Vol] 32 U/L <38 [facility] Lipid Profileon 01-07-2025 CHOL:HDL 4.18 Normal [facility] Comment on above: Order Comment: Order Date: 06/02/25 Order Info: [id number] - LIPID Order Info: [id number] - PSAD Performed By: #### L 500.4100, L100.0100, L501.9940 #### [facility] [address] [place], [place], [id number] Cholesterol [Mass/Vol] 154 mg/dL Normal <=200 [facility] Comment on above: Order Comment: Order Date: 06/02/25 Order Info: [id number] - LIPID Order Info: [id number] - PSAD Result Comment: Chol esterol level, Desirable <200 mg/dL Borderline high cholesterol 200-239 mg/dL High cholesterol >=240 mg/dL Recommendations of the NCEP Adult Treatment Panel for the following risk-cutoff thresholds for the [place] population. Performed By: #### L 500.4100, L100.0100, L501.9940 #### [facility] [address] [place], [address] Cholesterol in HDL [Mass/Vol] 37 mg/dL Low [facility] Comment on above: Order Comment: Order Date: 06/02/25 Order Info: [id number] - LIPID Order Info: [id number] - PSAD Result Comment: Izzy onal Cholesterol Education Program (NCEP) guidelines: <40 mg/dL: Low HDL-cholesterol (major risk factor for CHD) >= 60 mg/dL: High HDL-cholesterol (negative risk factor for CHD) HDL-cholesterol is affected by a number of factors, e.g. smoking, exercise, hormones, sex and age. Performed By: #### L 500.4100, L100.0100, L501.9940 #### [facility] [address] [place], [place], [address] Cholesterol in LDL [Mass/Vol] 73 mg/dL Normal [facility] Comment on above: Order Comment: Order Date: 06/02/25 Order Info: [id number] - LIPID Order Info: [id number] - PSAD Result Comment: Bord zwsvwy=682-575 mg/dL Higher Utgb=543 mg/dL or greater Performed By: #### L 500.4100, L100.0100, L501.9940 #### [facility] [address] [place], [address] Cholesterol in VLDL [Mass/Vol] 44 mg/dL High 5-40 [facility] Comment on above: Order Comment: Order Date: 06/02/25 Order Info: [id number] - LIPID Order Info: [id number] - PSAD Performed By: #### L 500.4100, L100.0100, L501.9940 #### [facility] [address] [place], [address] Triglyceride [Mass/Vol] 219 mg/dL High [facility] Comment on above: Order Comment: Order Date: 06/02/25 Order Info: [id number] - LIPID Order Info: [id number] - PSAD Result Comment: The drugs N-Acetylcysteine and Metamizole may falsely depress this assay. Normal range: <150 mg/dL Borderline High: 150-199 mg/dL High: 200-499 mg/dL Very High: >500 mg/dL Performed By: #### L 500.4100, L100.0100, L501.9940 #### [facility] [address] [place], [address] Lymphocytes Auto (Unsp spec) [#/Vol]Ordered By: Dmitry Aragon on 01-07-2025 Lymphocytes (Bld) [#/Vol] 1.27 10*3/uL 0.83-4.51 [facility] Lymphocytes/100 WBC Auto (Un sp spec)Ordered By: Dmitry Aragon on 01-07-2025 Lymphocytes/100 WBC (Bld) 21.9 % 19-41 [facility] MCV (mean corpuscular volume ) determinationOrdered By: Dmitry Aragon on 01-07-2025 MCV (RBC) [Entitic vol] 85.9 fL 80-[address] [facility] Mean corpuscular hemoglobin (MCH) determinationOrdered By: Dmitry Aragon on 01-07-2025 MCH (RBC) [Entitic mass] 29.3 pg 27.0-32.0 [facility] Mean corpuscular hemoglobin concentration (MCHC) determinationOrdered By: Dmitry Aragon on 01-07-2025 MCHC (RBC) [Mass/Vol] 34.2 g/dL 32-36 [facility] Mean platelet volume determi nationOrdered By: Dmitry Aragon on 01-07-2025 Platelet mean volume (Bld) [Entitic vol] 10.8 fL 6.2-12.0 [facility] Monocyte percentageOrdered B y: Dmitry Aragon on 01-07-2025 Monocytes/100 WBC (Bld) 7.9 % 0-10 [facility] Neutrophil percentageOrdered By: Dmitry Aragon on 01-07-2025 Neutrophils/100 WBC (Bld) 68.0 % 47-70 [facility] Nucleated red blood cell per centageOrdered By: Dmitry Aragon on 01-07-2025 Nucleated RBC/100 WBC (Bld) [Ratio] 0 % 0-5 [facility] PSA,Total- Diagnosticon 12-21 PSA, DIAGNOSTIC 2.53 ng/mL Normal 0.00-4.00 [facility] Comment on above: Order Comment: Order Date: 06/02/25 Order Info: [id number] - LIPID Order Info: [id number] - PSAD Result Comment: This test was performed using the [facility] [employer] tPSA method. Measured values of a patient??sample can vary depending on the testing procedure used. PSA values determined on patient samples by different testing procedures cannot be used interchangeably. If there is a change in PSA assays while monitoring therapy, sequential testing should be performed to confirm baseline values. Performed By: #### L 500.4100, L100.0100, L501.9940 #### [facility] [address] [place], [address] Platelet countOrdered By: Yosi Aragon on 01-07-2025 Platelets (Bld) [#/Vol] 257 10*3/uL 150-450 [facility] Potassium (Unsp spec) [Mass/ Vol]Ordered By: Dmitry Aragon on 01-07-2025 Potassium [Moles/Vol] 3.8 mmol/L 3.3-5.1 [facility] Potassium measurement (mass/ volume)Ordered By: Dmitry Aragon on 01-07-2025 Potassium (Unsp spec) [Mass/Vol] 3.8 mmol/L 3.3-5.1 [facility] RBC Auto (Bld) [#/Vol]Ordere d By: Dmitry Aragon on 01-07-2025 RBC (Bld) [#/Vol] 5.59 10*6/uL 4.6-6.2 [facility] Screening total cholesterol/ high density lipoprotein (HDL) cholesterol ratioOrdered By: Dmitry Aragon on 01-07-2025 Cholesterol.total/Choles terol in HDL [Mass ratio] 4.18 {ratio} [facility] Serum creatinine measurement (mass/volume)Ordered By: Dmitry Aragon on 01-07-2025 Creatinine [Mass/Vol] 0.99 mg/dL 0.70-1.20 [facility] Serum globulin measurementOr dered By: Dmitry Aragon on 01-07-2025 Globulin (S) [Mass/Vol] 2.8 g/dL 2.2-4.2 [facility] Serum glucose measurement (m ass/volume)Ordered By: Dmitry Aragon on 01-07-2025 Glucose [Mass/Vol] 105 mg/dL High 70-99 [facility] Serum or plasma alanine martinez otransferase (ALT) measurementOrdered By: Dmitry Aragon on 01-07-2025 ALT [Catalytic activity/Vol] 38 U/L <47 [facility] Serum or plasma albumin florentin urement (mass/volume)Ordered By: Dmitry Aragon on 01-07-2025 Albumin [Mass/Vol] 4.6 g/dL 3.5-5.0 [facility] Serum or plasma albumin/glob ulin mass ratioOrdered By: Dmitry Aragon on 01-07-2025 Albumin/Globulin [Mass ratio] 1.7 {ratio} 0.9-2.4 [facility] Serum or plasma alkaline geri sphatase measurementOrdered By: Dmitry Aragon on 01-07-2025 ALP [Catalytic activity/Vol] 75 U/L 40-129 [facility] Serum or plasma calcium florentin urement (mass/volume)Ordered By: Dmitry Aragon on 01-07-2025 Calcium [Mass/Vol] 9.5 mg/dL 7.6-11.0 [facility] Serum or plasma cholesterol in HDL measurement (mass/volume)Ordered By: Dmitry Aragon on 01-07-2025 Cholesterol in HDL [Mass/Vol] 37 mg/dL Low >40 [facility] Comment on above: National Cholesterol Education Program (NCEP) guidelines:<40 mg/dL: Low HDL-cholesterol (major risk factor for CHD)>= 60 mg/dL: High HDL-cholesterol (negative risk factor for CHD)HDL-cholesterol is affected by a number of factors, e.g. smoking, exercise, hormones, sex and age. Serum or plasma cholesterol measurement (mass/volume)Ordered By: Dmitry Aragon on 01-07-2025 Cholesterol [Mass/Vol] 154 mg/dL <201 [facility] Comment on above: Cholesterol level, D esirable <200 mg/dLBorderline high cholesterol 200-239 mg/dLHigh cholesterol >=240 mg/dLRecommendations of the NCEP Adult Treatment Panel for the following risk-cutoff thresholds for the [place] population. Serum or plasma free testost erone measurement (mass/volume)Ordered By: Dmitry Aragon on 01-07-2025 Testosterone Free [Mass/Vol] 6.68 ng/dL 5.00-21.00 [facility] Serum or plasma sex hormone binding globulin measurement (moles/volume)Ordered By: Dmitry Aragon on 01-07-2025 Sex hormone binding globulin [Moles/Vol] 18.0 nmol/L 16.5-55.9 [facility] Comment on above: Performed at: [address] [id number] Director: Jorge A Flower PhD, Phone: [phone] at: - [facility] [id number] Director: Sarah Damon MD, Phone: [phone] Serum or plasma urea nitroge n measurement (mass/volume)Ordered By: Dmitry Aragon on 01-07-2025 Urea nitrogen [Mass/Vol] 18 mg/dL 4-19 [facility] Sodium levelOrdered By: Dmitry Aragon on 01-07-2025 Sodium [Moles/Vol] 138 mmol/L 133-145 [facility] Testosterone, totalOrdered B y: Dmitry Aragon on 01-07-2025 Testosterone [Mass/Vol] 181 ng/dL Low 264-916 [facility] Comment on above: Adult male reference interval is based on a population ofhealthy nonobese males (BMI <30) between 19 and 39 yearsold. reid Camacho.al. JCEM 2017,102;4573-0473. PMID:[id number]. Total proteinOrdered By: Shantelle Aragon on 01-07-2025 Protein [Mass/Vol] 7.4 g/dL 5.9-8.4 [facility] Triglycerides measurementOrd ered By: Dmitry Aragon on 01-07-2025 Triglyceride [Mass/Vol] 219 mg/dL High <199 [facility] Comment on above: The drugs N-Acetylcy steine and Metamizole may falsely depress this assay. Normal range: <150 mg/dLBorderline High: 150-199 mg/dLHigh: 200-499 mg/dLVery High: >500 mg/dL White blood cell (WBC) count Ordered By: Dmitry Aragon on 01-07-2025 WBC (Bld) [#/Vol] 5.8 10*3/uL 4.4-11.0 [facility] ANTINUCLEAR ANTIBODIES DIREC Ton 12-26-2024 CINTIA,DIRECT Negative Normal Negative [facility] Comment on above: Result Comment: Perf ormed at: [facility] [id number] Manager Rail: Jorge A Flower PhD, Phone: [phone] Performed By: #### L 500.4100, L100.0100, L502.9940 #### [facility] [address] [place], [address] CCP IgG Antibodieson 025 CCP IgG Ab. 1 units Normal 0-19 [facility] Comment on above: Result Comment: Nega tive <20 Weak positive 20 - 39 Moderate positive 40 - 59 Strong positive >59 Performed at: [facility] [id number] Manager Rail: Jorge A Flower PhD, Phone: [phone] Performed By: #### L 500.4100, L100.0100, L501.9940 #### [facility] [address] [place], [address] CINTIA serumOrdered By: Diana prasad on 12-24-2024 Anti-Nuclear Antibody Screen Negative Negative [facility] Comment on above: Performed at: [facility] [address] [id number] Director: Jorge A Flower PhD, Phone: [phone] Absolute lymphocyte countOrd ered By: Diana Mallory on 12-24-2024 Lymphocytes Auto (Unsp spec) [#/Vol] 1.70 10*3/uL 0.83-4.51 [facility] Absolute neutrophil countOrd ered By: Diana Mallory on 12-24-2024 Neutrophils (Bld) [#/Vol] 4.7 10*3/uL 2.0-7.7 [facility] Anion gap in Serum or Plasma Ordered By: Diana Mallory on 12-24-2024 Anion gap [Moles/Vol] 17 mmol/L High 5-15 [facility] Automated lymphocyte count a s percentage of total leukocytesOrdered By: Dianathomas Mallory on 12-24-2024 Lymphocytes/100 WBC Auto (Unsp spec) 24.0 % 19-41 [facility] BUN/creatinine ratioOrdered By: Dianathomas Mallory on 12-24-2024 Urea nitrogen/Creatinine [Mass ratio] 22.9 mg/mg High 10-20 [facility] Basophil percentageOrdered B y: Diana Mallory on 12-24-2024 Basophils/100 WBC (Bld) 0.4 % 0-1 [facility] Bilirubin, totalOrdered By: Diana Mallory on 12-24-2024 Bilirubin [Mass/Vol] 0.32 mg/dL 0.00-1.30 [facility] CBC W/Diff, Automatedon Absolute Lymph 1.70 X10 3/uL Normal 0.83-4.51 [facility] Comment on above: Performed By: #### L 5500.0550, L5500.0300 #### [facility] [address] [place], [address] Absolute Neut 4.7 X10 3/uL Normal 2.0-7.7 [facility] Comment on above: Performed By: #### L 5500.0550, L5500.0300 #### [facility] [address] [place], [address] Basophils/100 WBC (Bld) 0.4 % Normal 0-1 [facility] Comment on above: Performed By: #### L 5500.0550, L5500.0300 #### [facility] [address] [place], [address] Eosinophils/100 WBC (Bld) 1.7 % Normal 0-5 [facility] Comment on above: Performed By: #### L 5500.0550, L5500.0300 #### [facility] [address] [place], [address] Erythrocyte distribution width (RBC) [Ratio] 11.8 % Normal 11.6-14.6 [facility] Comment on above: Performed By: #### L 5500.0550, L5500.0300 #### [facility] [address] [place], [address] Hematocrit (Bld) [Volume fraction] 47.6 % Normal 40-54 [facility] Comment on above: Performed By: #### L 5500.0550, L5500.0300 #### [facility] [address] [place], [address] Hemoglobin (Bld) [Mass/Vol] 16.1 g/dL Normal 13.0-16.5 [facility] Comment on above: Performed By: #### L 5500.0550, L5500.0300 #### [facility] [address] [place], [address] IG% 0.300 Normal 0.0-0.9 [facility] Comment on above: Result Comment: IG% - Immature Granulocytes (promyelocytes, myelocytes and metamyelocytes) > 1% indicates that a LEFT SHIFT is Present. Performed By: #### L 5500.0550, L5500.0300 #### [facility] [address] [place], [address] Lymphocytes/100 WBC (Bld) 24.0 % Normal 19-41 [facility] Comment on above: Performed By: #### L 5500.0550, L5500.0300 #### [facility] [address] [place], [address] MCH (RBC) [Entitic mass] 29.4 pg Normal 27.0-32.0 [facility] Comment on above: Performed By: #### L 5500.0550, L5500.0300 #### [facility] [address] [place], [address] MCHC (RBC) [Mass/Vol] 33.8 g/dL Normal 32-36 [facility] Comment on above: Performed By: #### L 5500.0550, L5500.0300 #### [facility] [address] [place], [address] MCV (RBC) [Entitic vol] 87.0 fL Normal 80-[address] [facility] Comment on above: Performed By: #### L 5500.0550, L5500.0300 #### [facility] [address] [place], [address] Monocytes/100 WBC (Bld) 7.3 % Normal 0-[address] [facility] Comment on above: Performed By: #### L 5500.0550, L5500.0300 #### [facility] [address] [place], [address] Neutrophils/100 WBC (Bld) 66.3 % Normal 47-70 [facility] Comment on above: Performed By: #### L 5500.0550, L5500.0300 #### [facility] [address] [place], [address] Nucleated RBC (Bld) [#/Vol] 0 10*3/uL Normal 0-5 [facility] Comment on above: Performed By: #### L 5500.0550, L5500.0300 #### [facility] [address] [place], [address] Platelet mean volume (Bld) [Entitic vol] 10.5 fL Normal 6.2-12.0 [facility] Comment on above: Performed By: #### L 5500.0550, L5500.0300 #### [facility] [address] [place], [address] Platelets (Bld) [#/Vol] 246 10*3/uL Normal 150-450 [facility] Comment on above: Performed By: #### L 5500.0550, L5500.0300 #### [facility] [address] [place], [address] RBC (Bld) [#/Vol] 5.47 10*6/uL Normal 4.6-6.2 [facility] Comment on above: Performed By: #### L 5500.0550, L5500.0300 #### [facility] [address] [place], [address] RDW SD 37.5 fl Normal 35.1-43.9 [facility] Comment on above: Performed By: #### L 5500.0550, L5500.0300 #### [facility] [address] [place], [address] WBC (Bld) [#/Vol] 7.1 10*3/uL Normal 4.4-11.0 [facility] Comment on above: Performed By: #### L 5500.0550, L5500.0300 #### [facility] [address] [place], [address] CRPon 12-24-2024 C-REACTIVE PROT < 3.00 Normal 0.0-3.0 [facility] Comment on above: Performed By: #### L 500.4100, L100.0100, L501.9940 #### [facility] [address] [place], [address] CRP [Mass/Vol]Ordered By: Alberto Mallory on 12-24-2024 C-Reactive Protein Extended Range < 3.00 mg/L 0.0-3.0 [facility] Carbon dioxide, total [Moles /volume] in Central venous bloodOrdered By: Diana Mallory on 12-24-2024 CO2 [Moles/Vol] 20.2 mmol/L Low 21.0-32.0 [facility] Chloride assayOrdered By: Alberto Mallory on 12-24-2024 Chloride [Moles/Vol] 100 mmol/L 98-108 [facility] Comprehensive Metabolic Prof ilon 12-24-2024 Albumin [Mass/Vol] 4.6 g/dL Normal 3.5-5.0 [facility] Comment on above: Performed By: #### L 5500.0550, L5500.0300 #### [facility] [address] [place], [address] Albumin/Globulin [Mass ratio] 1.6 {ratio} Normal 0.9-2.4 [facility] Comment on above: Performed By: #### L 5500.0550, L5500.0300 #### [facility] [address] [place], [address] ALK PHOS 73 U/L Normal 40-129 [facility] Comment on above: Performed By: #### L 5500.0550, L5500.0300 #### [facility] [address] [place], [address] ALT [Catalytic activity/Vol] 33 U/L Normal <=46 [facility] Comment on above: Performed By: #### L 5500.0550, L5500.0300 #### [facility] [address] [place], [address] AST [Catalytic activity/Vol] 25 U/L Normal <=37 [facility] Comment on above: Performed By: #### L 5500.0550, L5500.0300 #### [facility] [address] [place], [address] Bilirubin [Mass/Vol] 0.32 mg/dL Normal 0.00-1.30 [facility] Comment on above: Performed By: #### L 5500.0550, L5500.0300 #### [facility] [address] [place], [address] BUN/CRE 22.9 RATIO High 10-20 [facility] Comment on above: Performed By: #### L 5500.0550, L5500.0300 #### [facility] [address] [place], [address] Calcium [Mass/Vol] 9.8 mg/dL Normal 7.6-11.0 [facility] Comment on above: Performed By: #### L 5500.0550, L5500.0300 #### [facility] [address] [place], [address] Chloride [Moles/Vol] 100 mmol/L Normal 98-108 [facility] Comment on above: Performed By: #### L 5500.0550, L5500.0300 #### [facility] [address] [place], [address] CO2 [Moles/Vol] 20.2 mmol/L Low 21.0-32.0 [facility] Comment on above: Performed By: #### L 5500.0550, L5500.0300 #### [facility] [address] [place], [address] Creatinine [Mass/Vol] 0.92 mg/dL Normal 0.70-1.20 [facility] Comment on above: Performed By: #### L 5500.0550, L5500.0300 #### [facility] [address] [place], [address] GAP 17 High 5-15 [facility] Comment on above: Performed By: #### L 5500.0550, L5500.0300 #### [facility] [address] [place], [address] GFR/1.73 sq M.predicted among non-blacks MDRD (S/P/Bld) [Vol rate/Area] 106 mL/min/{1.73_m2} Normal >60 [facility] Comment on above: Result Comment: mL/m in/1.73m2 CKD-EPI Creatinine Equation (2020) Performed By: #### L 5500.0550, L5500.0300 #### [facility] [address] [place], [address] Globulin (S) [Mass/Vol] 2.9 g/dL Normal 2.2-4.2 [facility] Comment on above: Performed By: #### L 5500.0550, L5500.0300 #### [facility] [address] [place], [address] Glucose [Mass/Vol] 102 mg/dL High 70-99 [facility] Comment on above: Performed By: #### L 5500.0550, L5500.0300 #### [facility] [address] [place], [address] Potassium [Moles/Vol] 4.0 mmol/L Normal 3.3-5.1 [facility] Comment on above: Performed By: #### L 5500.0550, L5500.0300 #### [facility] [address] [place], [address] Sodium [Moles/Vol] 137 mmol/L Normal 133-145 [facility] Comment on above: Performed By: #### L 5500.0550, L5500.0300 #### [facility] [address] [place], [address] T PROT 7.5 g/dL Normal 5.9-8.4 [facility] Comment on above: Performed By: #### L 5500.0550, L5500.0300 #### [facility] [address] [place], [place], [address] Urea nitrogen [Mass/Vol] 21 mg/dL High 4-19 [facility] Comment on above: Performed By: #### L 5500.0550, L5500.0300 #### [facility] [address] [place], [address] Cyclic citrullinated peptide IgG QnOrdered By: Diana Mallory on 12-24-2024 Cyclic Citrullinated Peptide IgG Ab 1 units 0-19 [facility] Comment on above: Negative <20 Weak po sitive 20 - 39 Moderate positive 40 - 59 Strong positive >59Performed at: [facility] [id number] Director: Jorge A Flower PhD, Phone: [phone] Eosinophil percentageOrdered By: Diana Mallory on 12-24-2024 Eosinophils/100 WBC (Bld) 1.7 % 0-5 [facility] Erythrocyte Sed Rateon 12-24 SED RATE 13 mm/hr Normal 0-20 [facility] Comment on above: Performed By: #### L 5500.0550, L5500.0300 #### [facility] [address] [place], [address] Erythrocyte distribution wid th ratioOrdered By: Diana Mallory on 12-24-2024 Erythrocyte distribution width (RBC) [Ratio] 11.8 % 11.6-14.6 [facility] Erythrocyte distribution wid th standard deviationOrdered By: Diana Mallory on 12-24-2024 Erythrocyte distribution width (RBC) [Entitic vol] 37.5 fL 35.1-43.9 [facility] Erythrocyte distribution width (RBC) [Ratio] 37.5 fl 35.1-43.9 [facility] Erythrocyte sedimentation ra teOrdered By: Diana Mallory on 12-24-2024 ESR (Bld) [Velocity] 13 mm/h 0-20 [facility] GFR/1.73 sq M.predicted [place] g non-blacks MDRD (S/P/Bld) [Vol rate/Area]Ordered By: Diana Mallory on 12-24-2024 Estimated GFR (MDRD) Non-Af Amer 106 >60 [facility] Comment on above: mL/min/1.73m2 CKD-EP I Creatinine Equation (2020) Glomerular filtration rate ( GFR) estimation/1.73 sq m using serum, plasma, or whole bOrdered By: Diana Mallory on 12-24-2024 GFR/1.73 sq M.predicted among non-blacks MDRD (S/P/Bld) [Vol rate/Area] 106 mL/min/{1.73_m2} >60 [facility] Comment on above: mL/min/1.73m2 CKD-EP I Creatinine Equation (2020) HBV surface Ab Ql (S)Ordered By: Diana Mallory on 12-24-2024 Hepatitis B Surface Antibody Non-Reactive [facility] Comment on above: <8.5 mIU/mL: Non-[place] ctive8.5<= x <11.5 mIU/mL: Indeterminate>=11.5 mIU/mL: Reactive Non Reactive: Inconsistent with immunity less than <10 mIU/mL Reactive: Consistent with immunity greater than or equal to 10 mIU/mL HBV surface Ag Ql (S)Ordered By: Diana Mallory on 12-24-2024 Hepatitis B Surface Antigen Non-Reactive Nonreactive [facility] Comment on above: Reactive: Presumptiv e evidence of HBV. Repeatedly reactive samples must be confirmed using a neutralization test ([employer] HBsAg Confirmatory Test)Non-Reactive: HBsAg not detected; does not exclude the possibility of exposure to HBV Hematocrit Auto (Bld) [Volum e fraction]Ordered By: Diana Mallory on 12-24-2024 Hematocrit (Bld) [Volume fraction] 47.6 % 40-54 [facility] Hemoglobin measurementOrdere d By: Diana Mallory on 12-24-2024 Hemoglobin (Bld) [Mass/Vol] 16.1 g/dL 13.0-16.5 [facility] Hepatitis C antibodyOrdered By: Diana Mallory on 12-24-2024 Hepatitis C Antibody Non-Reactive Nonreactive [facility] Comment on above: Reactive: Presumptiv e evidence of antibodies to HCV. Follow CDC recommendations for supplemental testing.Non-Reactive: Antibodies to HCV were not detected; does not exclude the possibility of exposure to HCVReactive Results are presumptive evidence of antibodies to HCV. Follow CDC recommendations for supplemental testing.Order confirmation testing: HCV Quant by PCR testing - HCVPCR #[id number] Non Reactive: < 0.8 Equivocal: >/= 0.8 to < 1.0 Reactive: >/= 1.0The CDC requires that a reactive/equivocal HCV antibody result be sent out for confirmation. HCV Quant by PCR testing. Immature granulocytes/100 WB C Auto (Bld)Ordered By: Diana Mallory on 12-24-2024 Immature granulocytes/100 WBC (Bld) 0.300 % 0.0-0.9 [facility] Comment on above: IG% - Immature Granu locytes (promyelocytes, myelocytes and metamyelocytes) > 1% indicates that a LEFT SHIFT is Present. L3890.6102on 12-24-2024 HEP B Surf Ag Non-Reactive Normal Nonreactive [facility] Comment on above: Result Comment: Reac tive: Presumptive evidence of HBV. Repeatedly reactive samples must be confirmed using a neutralization test ([employer] HBsAg Confirmatory Test) Non-Reactive: HBsAg not detected; does not exclude the possibility of exposure to HBV Performed By: #### L 5500.0550, L5500.0300 #### [facility] [address] [place], [address] L3890.6202on 12-24-2024 HEP B Surf Ab Non-Reactive Normal [facility] Comment on above: Result Comment: <8.5 mIU/mL: Non-Reactive 8.5<= x <11.5 mIU/mL: Indeterminate >=11.5 mIU/mL: Reactive Non Reactive: Inconsistent with immunity less than <10 mIU/mL Reactive: Consistent with immunity greater than or equal to 10 mIU/mL Performed By: #### L 5500.0550, L5500.0300 #### [facility] [address] [place], [address] L3890.6301on 12-24-2024 Hepatitis C Ab Non-Reactive Normal Nonreactive [facility] Comment on above: Result Comment: Reac tive: Presumptive evidence of antibodies to HCV. Follow CDC recommendations for supplemental testing. Non-Reactive: Antibodies to HCV were not detected; does not exclude the possibility of exposure to HCV Reactive Results are presumptive evidence of antibodies to HCV. Follow CDC recommendations for supplemental testing. Order confirmation testing: HCV Quant by PCR testing - HCVPCR #[id number] Non Reactive: < 0.8 Equivocal: >/= 0.8 to < 1.0 Reactive: >/= 1.0 The [facility] requires that a reactive/equivocal HCV antibody result be sent out for confirmation. HCV Quant by PCR testing. Performed By: #### L 5500.0550, L5500.0300 #### [facility] [address] [place], [address] Laboratory - Chemistry and C hemistry - challengeOrdered By: Diana Mallory on 12-24-2024 AST [Catalytic activity/Vol] 25 U/L <38 [facility] - Microbiology an d Antimicrobial susceptibilityOrdered By: Diana Mallory on 12-24-2024 HBV surface Ag Ql (S) Non-Reactive Nonreactive [facility] Comment on above: Reactive: Presumptiv e evidence of HBV. Repeatedly reactive samples must be confirmed using a neutralization test ([employer] HBsAg Confirmatory Test)Non-Reactive: HBsAg not detected; does not exclude the possibility of exposure to HBV Lymphocytes Auto (Unsp spec) [#/Vol]Ordered By: Diana Mallory on 12-24-2024 Lymphocytes (Bld) [#/Vol] 1.70 10*3/uL 0.83-4.51 [facility] Lymphocytes/100 WBC Auto (Un sp spec)Ordered By: Diana Mallory on 12-24-2024 Lymphocytes/100 WBC (Bld) 24.0 % 19-41 [facility] MCV (mean corpuscular volume ) determinationOrdered By: Diana Mallory on 12-24-2024 MCV (RBC) [Entitic vol] 87.0 fL 80-94 [facility] Mean corpuscular hemoglobin (MCH) determinationOrdered By: Diana Mallory on 12-24-2024 MCH (RBC) [Entitic mass] 29.4 pg 27.0-32.0 [facility] Mean corpuscular hemoglobin concentration (MCHC) determinationOrdered By: Diana Mallory on 12-24-2024 MCHC (RBC) [Mass/Vol] 33.8 g/dL 32-36 [facility] Mean platelet volume determi nationOrdered By: Diana Mallory on 12-24-2024 Platelet mean volume (Bld) [Entitic vol] 10.5 fL 6.2-12.0 [facility] Monocyte percentageOrdered B y: Diana Mallory on 12-24-2024 Monocytes/100 WBC (Bld) 7.3 % 0-10 [facility] Neutrophil percentageOrdered By: Diana Mallory on 12-24-2024 Neutrophils/100 WBC (Bld) 66.3 % 47-70 [facility] Nucleated red blood cell per centageOrdered By: Diana Mallory on 12-24-2024 Nucleated RBC/100 WBC (Bld) [Ratio] 0 % 0-5 [facility] Platelet countOrdered By: Alberto Mallory on 12-24-2024 Platelets (Bld) [#/Vol] 246 10*3/uL 150-450 [facility] Potassium (Unsp spec) [Mass/ Vol]Ordered By: Diana Mallory on 12-24-2024 Potassium [Moles/Vol] 4.0 mmol/L 3.3-5.1 [facility] Potassium measurement (mass/ volume)Ordered By: Diana Mallory on 12-24-2024 Potassium (Unsp spec) [Mass/Vol] 4.0 mmol/L 3.3-5.1 [facility] RBC Auto (Bld) [#/Vol]Ordere d By: Diana Mallory on 12-24-2024 RBC (Bld) [#/Vol] 5.47 10*6/uL 4.6-6.2 [facility] Rheumatoid Factoron 12-25-19 25 RHEUMATOID FAC < 10.0 Normal <15 [facility] Comment on above: Performed By: #### L 500.4100, L100.0100, L501.9940 #### [facility] [address] [place], [address] Rheumatoid factor Ql (S)Orde red By: Diana Mallory on 12-24-2024 Rheumatoid Factor < 10.0 IU/mL <15 [facility] Serum creatinine measurement (mass/volume)Ordered By: Diana Mallory on 12-24-2024 Creatinine [Mass/Vol] 0.92 mg/dL 0.70-1.20 [facility] Serum globulin measurementOr dered By: Diana Mallory on 12-24-2024 Globulin (S) [Mass/Vol] 2.9 g/dL 2.2-4.[address] [facility] Serum glucose measurement (m ass/volume)Ordered By: Diana Mallory on 12-24-2024 Glucose [Mass/Vol] 102 mg/dL High 70-99 [facility] Serum hepatitis B virus surf cachorro antibody detectionOrdered By: Diana Mallory on 12-24-2024 HBV surface Ab Ql (S) Non-Reactive [facility] Comment on above: <8.5 mIU/mL: Non-[place]obhan ctive8.5<= x <11.5 mIU/mL: Indeterminate>=11.5 mIU/mL: Reactive Non Reactive: Inconsistent with immunity less than <10 mIU/mL Reactive: Consistent with immunity greater than or equal to 10 mIU/mL Serum or plasma C reactive p rotein measurement (mass/volume)Ordered By: Diana Mallory on 12-24-2024 CRP [Mass/Vol] mg/L 0.0-3.0 [facility] Serum or plasma alanine martinez otransferase (ALT) measurementOrdered By: Diana Mallory on 12-24-2024 ALT [Catalytic activity/Vol] 33 U/L <47 [facility] Serum or plasma albumin florentin urement (mass/volume)Ordered By: Diana Mallory on 12-24-2024 Albumin [Mass/Vol] 4.6 g/dL 3.5-5.0 [facility] Serum or plasma albumin/glob ulin mass ratioOrdered By: Diana Mallory on 12-24-2024 Albumin/Globulin [Mass ratio] 1.6 {ratio} 0.9-2.4 [facility] Serum or plasma alkaline geri sphatase measurementOrdered By: Diana Mallory on 12-24-2024 ALP [Catalytic activity/Vol] 73 U/L 40-129 [facility] Serum or plasma calcium florentin urement (mass/volume)Ordered By: Diana Mallory on 12-24-2024 Calcium [Mass/Vol] 9.8 mg/dL 7.6-11.0 [facility] Serum or plasma cyclic citru llinated peptide IgG antibody assay (units/volume)Ordered By: Diana Mallory on 12-24-2024 Cyclic citrullinated peptide IgG Qn 1 units 0-19 [facility] Comment on above: Negative <20 Weak po sitive 20 - 39 Moderate positive 40 - 59 Strong positive >59Performed at: [facility] [id number] Director: Jorge A Flower PhD, Phone: [phone] Serum or plasma urea nitroge n measurement (mass/volume)Ordered By: Diana Mallory on 12-24-2024 Urea nitrogen [Mass/Vol] 21 mg/dL High 4-19 [facility] Serum rheumatoid factor dete ctionOrdered By: Diana Mallory on 12-24-2024 Rheumatoid factor Ql (S) < 10.0 IU/mL <15 [facility] Sodium levelOrdered By: Jimena Mallory on 12-24-2024 Sodium [Moles/Vol] 137 mmol/L 133-145 [facility] Total proteinOrdered By: Omer Mallory on 12-24-2024 Protein [Mass/Vol] 7.5 g/dL 5.9-8.4 [facility] White blood cell (WBC) count Ordered By: Diana Mallory on 12-24-2024 WBC (Bld) [#/Vol] 7.1 10*3/uL 4.4-11.0 [facility] Abdomen/Pelvis without Conto n 08-20-2024 Abdomen/Pelvis without Cont [facility] [address] [place] [address] Abdomen/Pelvis without Cont MR#: [id number] Acct: [id number] Name: EDWARD HOLGUIN Rep #: [id number] : 1980 M 44 From: Clemente sanchez MD PCP: Dr. Dmitry Aragon MD Status: [facility] ER Study: Abdomen/Pelvis without Cont Date of Exam: 07/24 07/16 Exam# [id number] Ordering Dr: Dmitry Caraballo DO [id number] STUDY: CT ABDOMEN AND PELVIS WITHOUT CONTRAST [...] at 15:34 EDT , CC: Dr. Dmitry Caraballo, DO; Dr. Dmitry Aragon MD Devops Developer: Signed Normal [facility] Basic Metabolic Profile (BMP )on 08-20-2024 BUN/CRE 18.6 RATIO Normal 08-11 [facility] Comment on above: Performed By: #### L 100.0100, L500.2500 #### [facility] [address] [place], [address] CA,Total 9.1 mg/dL Normal 8.5-10.1 [facility] Comment on above: Performed By: #### L 100.0100, L500.2500 #### [facility] [address] [place], [address] Chloride [Moles/Vol] 107 mmol/L Normal 98-107 [facility] Comment on above: Performed By: #### L 100.0100, L500.2500 #### [facility] [address] [place], [address] CO2 [Moles/Vol] 25.0 mmol/L Normal 21.0-32.0 [facility] Comment on above: Performed By: #### L 100.0100, L500.2500 #### [facility] [address] [place], [address] Creatinine [Mass/Vol] 1.13 mg/dL Normal 0.70-1.30 [facility] Comment on above: Result Comment: The validity of the calculated GFR GFRAA in patients over 70 years has not been determined. Clinical correlation is essential. Performed By: #### L 100.0100, L500.2500 #### [facility] [address] [place], [address] ECRCL 93.73 ml/min Normal [facility] Comment on above: Performed By: #### L 100.0100, L500.2500 #### [facility] [address] [place], [address] EST GFR - AA 91 mL/min Normal >60 [facility] Comment on above: Result Comment: Afri can Bah[place]ian GFR Calc Performed By: #### L 100.0100, L500.2500 #### [facility] [address] [place], [address] GAP 7 Normal 5-15 [facility] Comment on above: Performed By: #### L 100.0100, L500.2500 #### [facility] [address] [place], [address] GFR/1.73 sq M.predicted among non-blacks MDRD (S/P/Bld) [Vol rate/Area] 75 mL/min/{1.73_m2} Normal >60 [facility] Comment on above: Result Comment: Non- GFR Calc Performed By: #### L 100.0100, L500.2500 #### [facility] [address] [place], [address] Glucose [Mass/Vol] 97 mg/dL Normal 74-106 [facility] Comment on above: Performed By: #### L 100.0100, L500.2500 #### [facility] [address] [place], [address] Potassium [Moles/Vol] 4.0 mmol/L Normal 3.5-5.1 [facility] Comment on above: Performed By: #### L 100.0100, L500.2500 #### [facility] [address] [place], [address] Sodium [Moles/Vol] 139 mmol/L Normal 136-145 [facility] Comment on above: Performed By: #### L 100.0100, L500.2500 #### [facility] [address] [place], [address] Urea nitrogen [Mass/Vol] 21 mg/dL High 7-18 [facility] Comment on above: Performed By: #### L 100.0100, L500.2500 #### [facility] [address] [place], [address] CBC W/Diff, Automatedon 10-2 Absolute Lymph 1.57 X10 3/uL Normal 0.83-4.51 [facility] Comment on above: Performed By: #### L 100.0100, L500.2500 #### [facility] [address] [place], [address] Absolute Neut 4.8 X10 3/uL Normal 2.0-7.7 [facility] Comment on above: Performed By: #### L 100.0100, L500.2500 #### [facility] [address] [place], [address] Basophils/100 WBC (Bld) 0.3 % Normal 0-1 [facility] Comment on above: Performed By: #### L 100.0100, L500.2500 #### [facility] [address] [place], [address] Eosinophils/100 WBC (Bld) 1.7 % Normal 0-5 [facility] Comment on above: Performed By: #### L 100.0100, L500.2500 #### [facility] [address] [place], [address] Erythrocyte distribution width (RBC) [Ratio] 12.1 % Normal 11.6-14.6 [facility] Comment on above: Performed By: #### L 100.0100, L500.2500 #### [facility] [address] [place], [address] Hematocrit (Bld) [Volume fraction] 44.3 % Normal 40-54 [facility] Comment on above: Performed By: #### L 100.0100, L500.2500 #### [facility] [address] [place], [address] Hemoglobin (Bld) [Mass/Vol] 14.6 g/dL Normal 13.0-16.5 [facility] Comment on above: Performed By: #### L 100.0100, L500.2500 #### [facility] [address] [place], [address] IG% 0.400 Normal 0.0-0.9 [facility] Comment on above: Result Comment: IG% - Immature Granulocytes (promyelocytes, myelocytes and metamyelocytes) > 1% indicates that a LEFT SHIFT is Present. Performed By: #### L 100.0100, L500.2500 #### [facility] [address] [facility] [place], [address] Lymphocytes/100 WBC (Bld) 22.1 % Normal 19-41 [facility] Comment on above: Performed By: #### L 100.0100, L500.2500 #### [facility] [address] [place], [address] MCH (RBC) [Entitic mass] 28.7 pg Normal 27.0-32.0 [facility] Comment on above: Performed By: #### L 100.0100, L500.2500 #### [facility] [address] [place], [address] MCHC (RBC) [Mass/Vol] 33.0 g/dL Normal 32-36 [facility] Comment on above: Performed By: #### L 100.0100, L500.2500 #### [facility] [address] [place], [address] MCV (RBC) [Entitic vol] 87.0 fL Normal 80-94 [facility] Comment on above: Performed By: #### L 100.0100, L500.2500 #### [facility] [address] [place], [address] Monocytes/100 WBC (Bld) 8.6 % Normal 0-10 [facility] Comment on above: Performed By: #### L 100.0100, L500.2500 #### [facility] [address] [place], [address] Neutrophils/100 WBC (Bld) 66.9 % Normal 47-70 [facility] Comment on above: Performed By: #### L 100.0100, L500.2500 #### [facility] [address] [place], [address] Nucleated RBC (Bld) [#/Vol] 0 10*3/uL Normal 0-5 [facility] Comment on above: Performed By: #### L 100.0100, L500.2500 #### [facility] [address] [place], [address] Platelet mean volume (Bld) [Entitic vol] 11.0 fL Normal 6.2-12.0 [facility] Comment on above: Performed By: #### L 100.0100, L500.2500 #### [facility] [address] [place], [address] Platelets (Bld) [#/Vol] 231 10*3/uL Normal 150-450 [facility] Comment on above: Performed By: #### L 100.0100, L500.2500 #### [facility] [address] [place], [address] RBC (Bld) [#/Vol] 5.09 10*6/uL Normal 4.6-6.2 [facility] Comment on above: Performed By: #### L 100.0100, L500.2500 #### [facility] [address] [place], [address] RDW SD 38.6 fl Normal 35.1-43.9 [facility] Comment on above: Performed By: #### L 100.0100, L500.2500 #### [facility] [address] [place], [address] WBC (Bld) [#/Vol] 7.1 10*3/uL Normal 4.4-11.0 [facility] Comment on above: Performed By: #### L 100.0100, L500.2500 #### [facility] [address] [place], [address] Emergency Department Summary on 08-20-2024 Emergency Department Summary [facility] Medical Records Department [address] [place] [address] Emergency Department Summary 08/20/24 MR#: [id number] Acct: [id number] Name: EDWARD HOLGUIN Rep #: [id number] : 1980 44 From: Dmitry Caraballo DO PCP: Dr. Dmitry Aragon MD Status:ADM CHANTAL Location: MS3 [id number] HPI History of Present Illness Chief Complaint: Flank Pain Informant: patient Onset/Context/Timi kasper Onset: Today Context: Sudden Onset Timing: Continuous [...] to some nausea but denies any vomiting. [facility] Medical History Inverted T wave Angina [...] 75 mg PO DAILY 05/26/19 Unknown History dextroamphetamine- amphetamine 30 30 mg PO DAILY 10/21/19 Unknown History mg tablet (Adderall) valacyclovir 1 gram tablet 1,000 mg PO PRN PRN PRN 12/03/19 Unknown History eluxadoline 100 mg tablet (Viberzi) 100 mg BID IBS 11/03/22 Unknown History rosuvastatin 20 mg tablet 20 mg PO QHS #30 tabs 11/04/22 Unknown Rx dextroamphetamine- amphetamine 10 10 mg PO DAILY PRN other [...] rash Neurologic Neurologic: Denies headache(s) or weakness Allergic/Immunolog ic Allergic/Immunolog ic ED: Denies mouth swelling or urticaria EXAM Physical Exam Const Vital Signs: 08/20/24 13:19 08/20/24 15:17 Temperature 97 F L Temperature Source Temporal Pulse Rate 93 78 Respiratory Rate 22 H 16 Blood Pressure 132/90 H 134/78 H Blood Pressure Mean 104 96 Pulse Ox 98 98 Oxygen Delivery Method Room Air Room Air Positive well nouris (more content not included)... Normal [facility] Urinalysis, Completeon 08-20 EPI,SQUAMOUS 0-5 SEEN Normal 0-5 [facility] Comment on above: Order Comment: Order Date: 06/02/25 Order Info: [id number] - LIPID Order Info: [id number] - PSAD Performed By: #### L 500.4100, L100.0100, L501.9940 #### [facility] [address] [place], [address] BACTERIA 1+ /hpf Normal None Seen [facility] Comment on above: Order Comment: Order Date: 06/02/25 Order Info: [id number] - LIPID Order Info: [id number] - PSAD Performed By: #### L 500.4100, L100.0100, L501.9940 #### [facility] [address] [place], [address] RBC 0-5 SEEN Normal 0-5 [facility] Comment on above: Order Comment: Order Date: 06/02/25 Order Info: [id number] - LIPID Order Info: [id number] - PSAD Performed By: #### L 500.4100, L100.0100, L501.9940 #### [facility] [address] [place], [address] WBC 0-5 SEEN Normal 0-5 [facility] Comment on above: Order Comment: Order Date: 06/02/25 Order Info: [id number] - LIPID Order Info: [id number] - PSAD Performed By: #### L 500.4100, L100.0100, L501.9940 #### [facility] [address] [place], [address] Mucus Ql (Urine sed) 0 SEEN Normal [facility] Comment on above: Order Comment: Order Date: 06/02/25 Order Info: [id number] - LIPID Order Info: [id number] - PSAD Performed By: #### L 500.4100, L100.0100, L501.9940 #### [facility] [address] [place], [address] Abdomen/Pelvis without Conto n 08-13-2024 Abdomen/Pelvis without Cont [facility] Imaging Services [address] [place] [address] Abdomen/Pelvis without Cont MR#: [id number] Acct: [id number] Name: EDWARD HOLGUIN Rep #: [id number] : 1980 M 44 From: Talon Brock DO PCP: Dr. Dmitry Aragon MD Status: REG CLI Study: Abdomen/Pelvis without Cont Date of Exam: 07/24 12/16 Exam# [id number] Ordering Dr: Al Zaman MD [id number] STUDY: CT ABDOMEN AND PELVIS WITHOUT CONTRAST [...] 17:49 EDT Reading Location ID and State: [facility] / [place] Tel [phone], Service support , CC: Dr. Dmitry Aragon MD; Dr. Al Zaman MD Devops Developer: Signed Normal [facility] Kidney and Bladderon 024 Kidney and Bladder [facility] Imaging Services [address] [place] [address] Kidney and Bladder MR#: [id number] Acct: [id number] Name: EDWARD HOLGUIN Rep #: [id number] : 1980 M 44 From: Jaciel Schwartz MD PCP: Dr. Dmitry Aragon MD Status: REG CL Study: Kidney and Bladder Date of Exam: 07/24/24 Exam# [id number] Ordering Dr: Dmitry Aragon MD [id number] STUDY: RENAL ULTRASOUND - COMPLETE REASON FOR [...] EDT , CC: Dr. Dmitry Aragon MD Devops Developer: Signed Normal [facility] Testosterone, Total / Freeon 07-20-2024 TESTOSTER,FREE 8.96 ng/dL Normal 5.00-21.00 [facility] Comment on above: Order Comment: Speci men Comment: A duplicate report has been generated due to demographic Specimen Comment: updates. Performed By: #### L 5500.0550, L5500.0300 #### [facility] [address] [place], [address] TESTOSTERONE, T 253 ng/dL Low 264-916 [facility] Comment on above: Order Comment: Speci men Comment: A duplicate report has been generated due to demographic Specimen Comment: updates. Result Comment: Adul t male reference interval is based on a population of healthy nonobese males (BMI <30) between 19 and 39 years old. reid Camacho.al. JCEM 2017,102;2142-4589. PMID: [id number]. Performed By: #### L 5500.0550, L5500.0300 #### [facility] [address] [place], [address] TESTOSTERONE,%F 3.54 Normal 1.50-4.20 [facility] Comment on above: Order Comment: Speci men Comment: A duplicate report has been generated due to demographic Specimen Comment: updates. Result Comment: Perf ormed at: [facility] [address] [id number] Manager Rail: Jorge A Flower PhD, Phone: [phone] Performed at: [facility] [address] [id number] Manager Rail: Sarah Damon MD, Phone: [phone] Performed By: #### L 5500.0550, L5500.0300 #### [facility] [address] [place], [address] Urine Cultureon 07-20-2024 URC Culture exhibits no growth. Normal [facility] Comment on above: Performed By: #### L 500.4100, L100.0100, L501.9940 #### [facility] [address] [place], [address] CBC W/Diff, Automatedon 06-24 Absolute Lymph 2.25 X10 3/uL Normal 0.83-4.51 [facility] Comment on above: Order Comment: Order Date: 06/02/25 Order Info: [id number] - LIPID Order Info: [id number] - PSAD Performed By: #### L 500.4100, L100.0100, L501.9940 #### [facility] [address] [place], [address] Absolute Neut 5.0 X10 3/uL Normal 2.0-7.7 [facility] Comment on above: Order Comment: Order Date: 06/02/25 Order Info: [id number] - LIPID Order Info: [id number] - PSAD Performed By: #### L 500.4100, L100.0100, L501.9940 #### [facility] [address] [place], [address] Basophils/100 WBC (Bld) 0.5 % Normal 0-1 [facility] Comment on above: Order Comment: Order Date: 06/02/25 Order Info: [id number] - LIPID Order Info: [id number] - PSAD Performed By: #### L 500.4100, L100.0100, L501.9940 #### [facility] [address] [place], [address] Eosinophils/100 WBC (Bld) 2.4 % Normal 0-5 [facility] Comment on above: Order Comment: Order Date: 06/02/25 Order Info: [id number] - LIPID Order Info: [id number] - PSAD Performed By: #### L 500.4100, L100.0100, L501.9940 #### [facility] [address] [place], [place], [phone] (228) Erythrocyte distribution width (RBC) [Ratio] 12.2 % Normal 11.6-14.6 [facility] Comment on above: Order Comment: Order Date: 06/02/25 Order Info: [id number] - LIPID Order Info: 07- - PSAD Performed By: #### L 500.4100, L100.0100, L501.9940 #### [facility] [address] [place], [address] Hematocrit (Bld) [Volume fraction] 47.3 % Normal 40-54 [facility] Comment on above: Order Comment: Order Date: 06/02/25 Order Info: [id number] - LIPID Order Info: 07 - PSAD Performed By: #### L 500.4100, L100.0100, L501.9940 #### [facility] [address] [place], [address] Hemoglobin (Bld) [Mass/Vol] 15.3 g/dL Normal 13.0-16.5 [facility] Comment on above: Order Comment: Order Date: 06/02/25 Order Info: [id number] - LIPID Order Info: [id number] - PSAD Performed By: #### L 500.4100, L100.0100, L501.9940 #### [facility] [address] [place], [address] IG% 0.200 Normal 0.0-0.9 [facility] Comment on above: Order Comment: Order Date: 06/02/25 Order Info: [id number] - LIPID Order Info: [id number]- - PSAD Result Comment: IG% - Immature Granulocytes (promyelocytes, myelocytes and metamyelocytes) > 1% indicates that a LEFT SHIFT is Present. Performed By: #### L 500.4100, L100.0100, L501.9940 #### [facility] [address] [place], [address] Lymphocytes/100 WBC (Bld) 27.3 % Normal 19-41 [facility] Comment on above: Order Comment: Order Date: 06/02/25 Order Info: [id number] - LIPID Order Info: [id number] - PSAD Performed By: #### L 500.4100, L100.0100, L501.9940 #### [facility] [address] [place], [address] MCH (RBC) [Entitic mass] 28.9 pg Normal 27.0-32.0 [facility] Comment on above: Order Comment: Order Date: 06/02/25 Order Info: [id number] - LIPID Order Info: [id number] - PSAD Performed By: #### L 500.4100, L100.0100, L501.9940 #### [facility] [address] [place], [address] MCHC (RBC) [Mass/Vol] 32.3 g/dL Normal 32-36 [facility] Comment on above: Order Comment: Order Date: 06/02/25 Order Info: [id number] - LIPID Order Info: [id number] - PSAD Performed By: #### L 500.4100, L100.0100, L501.9940 #### [facility] [address] [place], [address] MCV (RBC) [Entitic vol] 89.2 fL Normal 80-[address] [facility] Comment on above: Order Comment: Order Date: 06/02/25 Order Info: [id number] - LIPID Order Info: [id number] - PSAD Performed By: #### L 500.4100, L100.0100, L501.9940 #### [facility] [address] [place], [address] Monocytes/100 WBC (Bld) 9.5 % Normal 0-[address] [facility] Comment on above: Order Comment: Order Date: 06/02/25 Order Info: [id number] - LIPID Order Info: [id number] - PSAD Performed By: #### L 500.4100, L100.0100, L501.9940 #### [facility] [address] [place], [address] Neutrophils/100 WBC (Bld) 60.1 % Normal 47-70 [facility] Comment on above: Order Comment: Order Date: 06/02/25 Order Info: [id number] - LIPID Order Info: [id number] - PSAD Performed By: #### L 500.4100, L100.0100, L501.9940 #### [facility] [address] [place], [address] Nucleated RBC (Bld) [#/Vol] 0 10*3/uL Normal 0-5 [facility] Comment on above: Order Comment: Order Date: 06/02/25 Order Info: [id number] - LIPID Order Info: [id number] - PSAD Performed By: #### L 500.4100, L100.0100, L501.9940 #### [facility] [address] [place], [address] Platelet mean volume (Bld) [Entitic vol] 11.0 fL Normal 6.2-12.0 [facility] Comment on above: Order Comment: Order Date: 06/02/25 Order Info: [id number] - LIPID Order Info: [id number] - PSAD Performed By: #### L 500.4100, L100.0100, L501.9940 #### [facility] [address] [place], [address] Platelets (Bld) [#/Vol] 263 10*3/uL Normal 150-450 [facility] Comment on above: Order Comment: Order Date: 06/02/25 Order Info: [id number] - LIPID Order Info: [id number] - PSAD Performed By: #### L 500.4100, L100.0100, L501.9940 #### [facility] [address] [place], [address] RBC (Bld) [#/Vol] 5.30 10*6/uL Normal 4.6-6.2 [facility] Comment on above: Order Comment: Order Date: 06/02/25 Order Info: [id number] - LIPID Order Info: [id number]- - PSAD Performed By: #### L 500.4100, L100.0100, L501.9940 #### [facility] [address] [place], [address] RDW SD 39.9 fl Normal 35.1-43.9 [facility] Comment on above: Order Comment: Order Date: 06/02/25 Order Info: [id number] - LIPID Order Info: [id number] - PSAD Performed By: #### L 500.4100, L100.0100, L501.9940 #### [facility] [address] [place], [address] WBC (Bld) [#/Vol] 8.2 10*3/uL Normal 4.4-11.0 [facility] Comment on above: Order Comment: Order Date: 06/02/25 Order Info: [id number] - LIPID Order Info: [id number] - PSAD Performed By: #### L 500.4100, L100.0100, L501.9940 #### [facility] [address] [place], [address] Comprehensive Metabolic Prof [facility] 07-19-2024 Albumin [Mass/Vol] 4.0 g/dL Normal 3.2-5.0 [facility] Comment on above: Order Comment: Order Date: 06/02/25 Order Info: [id number] - LIPID Order Info: [id number]- - PSAD Performed By: #### L 500.4100, L100.0100, L501.9940 #### [facility] [address] [place], [address] Albumin/Globulin [Mass ratio] 1.1 {ratio} Normal 0.9-2.4 [facility] Comment on above: Order Comment: Order Date: 06/02/25 Order Info: [id number] - LIPID Order Info: [id number]- - PSAD Performed By: #### L 500.4100, L100.0100, L501.9940 #### [facility] [address] [place], [address] ALK P 86 U/L Normal 45-117 [facility] Comment on above: Order Comment: Order Date: 06/02/25 Order Info: [id number] - LIPID Order Info: [id number] - PSAD Performed By: #### L 500.4100, L100.0100, L501.9940 #### [facility] [address] [place], [address] ALT [Catalytic activity/Vol] 45 U/L Normal 16-61 [facility] Comment on above: Order Comment: Order Date: 06/02/25 Order Info: [id number] - LIPID Order Info: [id number] - PSAD Performed By: #### L 500.4100, L100.0100, L501.9940 #### [facility] [address] [place], [address] AST [Catalytic activity/Vol] 34 U/L Normal 15-37 [facility] Comment on above: Order Comment: Order Date: 06/02/25 Order Info: [id number] - LIPID Order Info: [id number] - PSAD Result Comment: Mode rate Hemolysis, Result may be falsely increased. Performed By: #### L 500.4100, L100.0100, L501.9940 #### [facility] [address] [place], [address] Bilirubin [Mass/Vol] 1.00 mg/dL Normal 0.20-1.00 [facility] Comment on above: Order Comment: Order Date: 06/02/25 Order Info: [id number] - LIPID Order Info: [id number] - PSAD Result Comment: For patients on eltrombopag therapy, use of Dimension [place] TBIL is not recommended. Performed By: #### L 500.4100, L100.0100, L501.9940 #### [facility] [address] [place], [address] BUN/CRE 21.1 RATIO High 10-20 [facility] Comment on above: Order Comment: Order Date: 06/02/25 Order Info: [id number] - LIPID Order Info: 07-1 - PSAD Performed By: #### L 500.4100, L100.0100, L501.9940 #### [facility] [address] [place], [address] CA,Total 9.3 mg/dL Normal 8.5-10.1 [facility] Comment on above: Order Comment: Order Date: 06/02/25 Order Info: [id number] - LIPID Order Info: [id number] - PSAD Performed By: #### L 500.4100, L100.0100, L501.9940 #### [facility] [address] [place], [address] Chloride [Moles/Vol] 105 mmol/L Normal 98-107 [facility] Comment on above: Order Comment: Order Date: 06/02/25 Order Info: [id number] - LIPID Order Info: [id number] - PSAD Performed By: #### L 500.4100, L100.0100, L501.9940 #### [facility] [address] [place], [address] CO2 [Moles/Vol] 29.0 mmol/L Normal 21.0-32.0 [facility] Comment on above: Order Comment: Order Date: 06/02/25 Order Info: [id number] - LIPID Order Info: [id number] - PSAD Performed By: #### L 500.4100, L100.0100, L501.9940 #### [facility] [address] [place], [address] Creatinine [Mass/Vol] 0.95 mg/dL Normal 0.70-1.30 [facility] Comment on above: Order Comment: Order Date: 06/02/25 Order Info: [id number] - LIPID Order Info: [id number] - PSAD Result Comment: The validity of the calculated GFR GFRAA in patients over 70 years has not been determined. Clinical correlation is essential. Performed By: #### L 500.4100, L100.0100, L501.9940 #### [facility] [address] [place], [address] EST GFR - AA 112 mL/min Normal >60 [facility] Comment on above: Order Comment: Order Date: 06/02/25 Order Info: [id number] - LIPID Order Info: [id number]- - PSAD Result Comment: Afri can Bahamian GFR Calc Performed By: #### L 500.4100, L100.0100, L501.9940 #### [facility] [address] [place], [address] GAP 4 Low 5-15 [facility] Comment on above: Order Comment: Order Date: 06/02/25 Order Info: [id number] - LIPID Order Info: [id number] - PSAD Performed By: #### L 500.4100, L100.0100, L501.9940 #### [facility] [address] [place], [address] GFR/1.73 sq M.predicted among non-blacks MDRD (S/P/Bld) [Vol rate/Area] 92 mL/min/{1.73_m2} Normal >60 [facility] Comment on above: Order Comment: Order Date: 06/02/25 Order Info: [id number] - LIPID Order Info: [id number] - PSAD Result Comment: Non- GFR Calc Performed By: #### L 500.4100, L100.0100, L501.9940 #### [facility] [address] [place], [address] Globulin (S) [Mass/Vol] 3.7 g/dL Normal 2.2-4.[address] [facility] Comment on above: Order Comment: Order Date: 06/02/25 Order Info: [id number] - LIPID Order Info: [id number] - PSAD Performed By: #### L 500.4100, L100.0100, L501.9940 #### [facility] [address] [place], [address] Glucose [Mass/Vol] 96 mg/dL Normal 74-106 [facility] Comment on above: Order Comment: Order Date: 06/02/25 Order Info: [id number] - LIPID Order Info: 07- - PSAD Performed By: #### L 500.4100, L100.0100, L501.9940 #### [facility] [address] [place], [address] Potassium [Moles/Vol] 4.1 mmol/L Normal 3.5-5.1 [facility] Comment on above: Order Comment: Order Date: 06/02/25 Order Info: [id number] - LIPID Order Info: 07- - PSAD Result Comment: Mode rate Hemolysis, Result may be falsely increased. Performed By: #### L 500.4100, L100.0100, L501.9940 #### [facility] [address] [place], [address] Sodium [Moles/Vol] 138 mmol/L Normal 136-145 [facility] Comment on above: Order Comment: Order Date: 06/02/25 Order Info: [id number] - LIPID Order Info: [id number] - PSAD Performed By: #### L 500.4100, L100.0100, L501.9940 #### [facility] [address] [place], [address] T PROT 7.7 g/dL Normal 6.4-8.2 [facility] Comment on above: Order Comment: Order Date: 06/02/25 Order Info: [id number] - LIPID Order Info: [id number] - PSAD Performed By: #### L 500.4100, L100.0100, L501.9940 #### [facility] [address] [place], [address] Urea nitrogen [Mass/Vol] 20 mg/dL High 7-18 [facility] Comment on above: Order Comment: Order Date: 06/02/25 Order Info: [id number] - LIPID Order Info: [id number] - PSAD Performed By: #### L 500.4100, L100.0100, L501.9940 #### [facility] [address] [place], [address] pH, Stoolon 07-18-2024 pH, STOOL 6.5 Low 7.0-7.5 [facility] Comment on above: Order Comment: Speci men Comment: A duplicate report has been generated due to demographic Specimen Comment: updates. Result Comment: Perf ormed at: - [address] [id number] Manager Rail: Jorge A Flower PhD, Phone: [phone] Performed By: #### L 5500.0550, L5500.0300 #### [facility] [address] [place], [place], [address] L5500.0550on 07-15-2024 BEEF <0.10 Normal Class 0 [facility] Comment on above: Order Comment: Speci men Comment: A duplicate report has been generated due to demographic Specimen Comment: updates. Performed By: #### L 5500.0550, L5500.0300 #### [facility] [address] [place], [address] CHOCOLATE <0.10 Normal Class 0 [facility] Comment on above: Order Comment: Speci men Comment: A duplicate report has been generated due to demographic Specimen Comment: updates. Performed By: #### L 5500.0550, L5500.0300 #### [facility] [address] [place], [address] CODFISH <0.10 Normal Class 0 [facility] Comment on above: Order Comment: Speci men Comment: A duplicate report has been generated due to demographic Specimen Comment: updates. Performed By: #### L 5500.0550, L5500.0300 #### [facility] [address] [place], [address] CORN <0.10 Normal Class 0 [facility] Comment on above: Order Comment: Speci men Comment: A duplicate report has been generated due to demographic Specimen Comment: updates. Performed By: #### L 5500.0550, L5500.0300 #### [facility] [address] [place], [address] EGG, WHOLE <0.10 Normal Class 0 [facility] Comment on above: Order Comment: Speci men Comment: A duplicate report has been generated due to demographic Specimen Comment: updates. Performed By: #### L 5500.0550, L5500.0300 #### [facility] [address] [place], [address] MUSSELS <0.10 Normal Class 0 [facility] Comment on above: Order Comment: Speci men Comment: A duplicate report has been generated due to demographic Specimen Comment: updates. Performed By: #### L 5500.0550, L5500.0300 #### [facility] [address] [place], [address] PEANUT <0.10 Normal Class 0 [facility] Comment on above: Order Comment: Speci men Comment: A duplicate report has been generated due to demographic Specimen Comment: updates. Performed By: #### L 5500.0550, L5500.0300 #### [facility] [address] [place], [address] PORK <0.10 Normal Class 0 [facility] Comment on above: Order Comment: Speci men Comment: A duplicate report has been generated due to demographic Specimen Comment: updates. Performed By: #### L 5500.0550, L5500.0300 #### [facility] [address] [place], [address] SALMON <0.10 Normal Class 0 [facility] Comment on above: Order Comment: Speci men Comment: A duplicate report has been generated due to demographic Specimen Comment: updates. Performed By: #### L 5500.0550, [id number] #### [facility] [address] [place], [address] SHRIMP 0.78 kU/L Abnormal Class II [facility] Comment on above: Order Comment: Speci men Comment: A duplicate report has been generated due to demographic Specimen Comment: updates. Performed By: #### L 5500.0550, [id number] #### [facility] [address] [place], [address] SOYBEAN <0.10 Normal Class 0 [facility] Comment on above: Order Comment: Speci men Comment: A duplicate report has been generated due to demographic Specimen Comment: updates. Performed By: #### L 5500.0550, [id number] #### [facility] [address] [facility] [address] TUNA <0.10 Normal Class 0 [facility] Comment on above: Order Comment: Speci men Comment: A duplicate report has been generated due to demographic Specimen Comment: updates. Performed By: #### L 5500.0550, [id number] #### [facility] [address] [place], [address] WHEAT <0.10 Normal Class 0 [facility] Comment on above: Order Comment: Speci men Comment: A duplicate report has been generated due to demographic Specimen Comment: updates. Performed By: #### L 5500.0550, [id number] #### [facility] [address] [place], [address] Allergen, Mini-Raston 2023 A. ALTERNATA <0.10 Normal Class 0 [facility] Comment on above: Performed By: #### L 5500.0550, [id number] #### [facility] [address] [place], [address] BERMUDA GRASS 1.16 kU/L Abnormal Class II [facility] Comment on above: Performed By: #### L 5500.0550, [id number] #### [facility] [address] [place], [address] [place], [place] 25.40 kU/L Abnormal Class V [facility] Comment on above: Performed By: #### L 5500.0550, [id number] #### [facility] [address] [place], [address] CAT HAIR/DANDER 0.31 kU/L Abnormal Class 0/I [facility] Comment on above: Performed By: #### L 5500.0550, [id number] #### [facility] [address] [place], [address] COMMENT Comment Normal . [facility] Comment on above: Result Comment: Hemalatha peralta of Specific IgE Class Description of Class ----- < 0.10 0 Negative 0.10 - 0.31 0/I Equivocal/Low 0.32 - 0.55 I Low 0.56 - 1.40 II Moderate 1.41 - 3.90 III High 3.91 - 19.00 IV Very High 19.01 - 100.00 V Very High >100.00 Very High Performed By: #### L 5500.0550, [id number] #### [facility] [address] [place], [address] D FARINAE MITE 2.24 kU/L Abnormal Class III [facility] Comment on above: Performed By: #### L 5500.0550, [id number] #### [facility] [address] [place], [address] D PTERONYSSINUS 1.57 kU/L Abnormal Class III [facility] Comment on above: Performed By: #### L 5500.0550, [id number] #### [facility] [address] [place], [address] DOG EPITHELIA <0.10 Normal Class 0 [facility] Comment on above: Performed By: #### L 5500.0550, [id number] #### [facility] [address] [place], [address] ELM,AMER WHITE <0.10 Normal Class 0 [facility] Comment on above: Performed By: #### L 5500.0550, [id number] #### [facility] [address] [place], [address] Mouse Urine <0.10 Normal Class 0 [facility] Comment on above: Result Comment: Perf ormed at: [facility] [address] [id number] Manager Rail: Sarah Damon MD, Phone: [phone] Performed By: #### L 5500.0550, [id number] #### [facility] [address] [place], [address] OAK, WHITE <0.10 Normal Class 0 [facility] Comment on above: Performed By: #### L 5500.0550, [id number] #### [facility] [address] [place], [address] PLANTAIN,ENGLSH 0.19 kU/L Abnormal Class 0/I [facility] Comment on above: Performed By: #### L 5500.0550, [id number] #### [facility] [address] [place], [place], [address] RAGWEED SH/COM 39.50 kU/L Abnormal Class V [facility] Comment on above: Performed By: #### L 5500.0550, [id number] #### [facility] [address] [place], [place], [address] Basophil percentageOrdered B y: Dr. Landry on 12-27-2022 Chloride [Moles/Vol] 104 mmol/L 98-107 [facility] Glucose [Mass/Vol] 239 mg/dL 74-106 [facility] Comment on above: Glucose result great er than or equal to 200 mg/dLsuggests DIABETES MELLITUS per A.D.A. criteria. Potassium [Moles/Vol] 3.8 mmol/L 3.5-5.1 [facility] Sodium [Moles/Vol] 140 mmol/L 136-145 [facility] Laboratory - Chemistry and C hemistry - challengeOrdered By: Dr. Landry on 12-27-2022 CO2 [Moles/Vol] 28.0 mmol/L 21.0-32.0 [facility] Urea nitrogen/Creatinine [Mass ratio] 20.4 mg/mg 10-20 [facility] No Panel InformationOrdered By: Dr. Landry on 12-27-2022 Estimated GFR (MDRD) Amer 102 mL/min >60 [facility] Comment on above: GFR Calc Estimated GFR (MDRD) Non-Af Amer 85 mL/min >60 [facility] Comment on above: Non- GFR Calc Serum or plasma calcium florentin urement (mass/volume)Ordered By: Dr. Landry on 12-27-2022 Calcium [Mass/Vol] 9.0 mg/dL 8.5-10.1 [facility] Serum or plasma creatinine m easurement (mass/volume)Ordered By: Dr. aLndry on 12-27-2022 Creatinine [Mass/Vol] 1.03 mg/dL 0.70-1.30 [facility] Comment on above: The validity of the calculated GFR & GFRAA in patients over 70 years has not been determined. Clinical correlation is essential. Serum or plasma urea nitroge n measurement (mass/volume)Ordered By: Dr. Landry on 12-27-2022 Urea nitrogen [Mass/Vol] 21 mg/dL 7-18 [facility] Thin prep Papanicolaou smear with manual screeningOrdered By: Dr. aLndry on 12-27-2022 Thin prep Papanicolaou smear with manual screening 8 5-15 [facility] Absolute lymphocyte countOrd ered By: Dr. Lopez on 11-04-2022 Lymphocytes Auto (Unsp spec) [#/Vol] 1.84 10*3/uL 0.83-4.51 [facility] Basophil percentageOrdered B y: Dr. Lopez on 11-04-2022 Basophils/100 WBC (Bld) 0.4 % 0-[address] [facility] Chloride [Moles/Vol] 106 mmol/L 98-107 [facility] Eosinophils/100 WBC (Bld) 1.8 % 0-5 [facility] Glucose [Mass/Vol] 96 mg/dL 74-106 [facility] Neutrophils (Bld) [#/Vol] 4.6 10*3/uL 2.0-7.7 [facility] Neutrophils/100 WBC (Bld) 63.6 % 47-70 [facility] Potassium [Moles/Vol] 3.9 mmol/L 3.5-5.1 [facility] Sodium [Moles/Vol] 139 mmol/L 136-145 [facility] WBC (Bld) [#/Vol] 7.3 10*3/uL 4.4-11.0 [facility] Basophil percentageOrdered B y: Dr. Bill on 11-04-2022 Cholesterol [Mass/Vol] 217 mg/dL <200 [facility] Comment on above: <200 mg/dL Desirable 200-240 mg/dL Borderline >240 mg/dL High Risk Triglyceride [Mass/Vol] 194 mg/dL <199 [facility] Comment on above: The drugs N-Acetylcy steine and Metamizole may falsely depress this assay.Serum Triglycerides Reference Interval Normal <150 mg/dL Borderline high 150 - 199 mg/dL High 200 - 499 mg/dL Very High > or = 500 mg/dL Blood erythrocytes count (nu mber/volume)Ordered By: Dr. Lopez on 11-04-2022 RBC (Bld) [#/Vol] 5.48 10*6/uL 4.6-6.2 [facility] Blood hemoglobin measurement (mass/volume)Ordered By: Dr. Lopez on 11-04-2022 Hemoglobin (Bld) [Mass/Vol] 15.9 g/dL 13.0-16.5 [facility] Blood lymphocytes/100 leukoc ytesOrdered By: Dr. Lopez on 11-04-2022 Lymphocytes/100 WBC (Bld) 25.3 % 19-41 [facility] Blood monocytes/100 leukocyt esOrdered By: Dr. Lopez on 11-04-2022 Monocytes/100 WBC (Bld) 8.5 % 0-10 [facility] Blood platelet mean volumeOr dered By: Dr. Lopez on 11-04-2022 Platelet mean volume (Bld) [Entitic vol] 10.3 fL 6.2-12.0 [facility] Determination of erythrocyte mean corpuscular volume (MCV)Ordered By: Dr. Lopez on 11-04-2022 MCV (RBC) [Entitic vol] 87.6 fL 80-94 [facility] Hematocrit Auto (Bld) [Volum e fraction]Ordered By: Dr. Lopez on 11-04-2022 Hematocrit (Bld) [Volume fraction] 48.0 % 40-54 [facility] - Chemistry and C hemistry - challengeOrdered By: Dr. Lopez on 11-04-2022 CO2 [Moles/Vol] 25.0 mmol/L 21.0-32.0 [facility] Urea nitrogen/Creatinine [Mass ratio] 15.8 mg/mg 10-20 [facility] - Hematology and Cell countsOrdered By: Dr. Lopez on 11-04-2022 Erythrocyte distribution width (RBC) [Entitic vol] 39.1 fL 35.1-43.9 [facility] Erythrocyte distribution width (RBC) [Ratio] 12.1 % 11.6-14.6 [facility] Immature granulocytes/100 WBC (Bld) 0.400 % 0.0-0.9 [facility] Comment on above: IG% - Immature Granu locytes (promyelocytes, myelocytes and metamyelocytes) > 1% indicates that a LEFT SHIFT is Present. MCH (RBC) [Entitic mass] 29.0 pg 27.0-32.0 [facility] Nucleated RBC/100 WBC (Bld) [Ratio] 0 % 0-5 [facility] MCHC Auto (RBC) [Mass/Vol]Or dered By: Dr. Lopez on 11-04-2022 MCHC (RBC) [Mass/Vol] 33.1 g/dL 32-36 [facility] No Panel InformationOrdered By: Dr. Lopez on 11-04-2022 Estimated Creatinine Clearance Calc 106.74 ml/min [facility] Estimated GFR (MDRD) Amer 122 mL/min >60 [facility] Comment on above: GFR Calc Estimated GFR (MDRD) Non-Af Amer 101 mL/min >60 [facility] Comment on above: Non- GFR Calc No Panel InformationOrdered By: Dr. Bill on 11-04-2022 Thyroid Stimulating Hormone (TSH) 1.45 uIU/mL 0.358-3.74 [facility] Platelets bldOrdered By: Dr. Lopez on 11-04-2022 Platelets (Bld) [#/Vol] 259 10*3/uL 150-450 [facility] Serum or plasma calcium florentin urement (mass/volume)Ordered By: Dr. Lopez on 11-04-2022 Calcium [Mass/Vol] 9.1 mg/dL 8.5-10.1 [facility] Serum or plasma cholesterol in HDL measurement (mass/volume)Ordered By: Dr. Bill on 11-04-2022 Cholesterol in HDL [Mass/Vol] 34 mg/dL >40 [facility] Comment on above: The drugs N-Acetylcy steine and Metamizole may falsely depress this assay. Reference Range HDL <40 mg/dL Low HDL Cholesterol HDL >or= 60 mg/dL High HDL Cholesterol Serum or plasma cholesterol in VLDL measurement (mass/volume)Ordered By: Dr. Bill on 11-04-2022 Cholesterol in VLDL [Mass/Vol] 39 mg/dL 5-40 [facility] Serum or plasma creatinine m easurement (mass/volume)Ordered By: Dr. Lopez on 11-04-2022 Creatinine [Mass/Vol] 0.89 mg/dL 0.70-1.30 [facility] Comment on above: The validity of the calculated GFR & GFRAA in patients over 70 years has not been determined. Clinical correlation is essential. Serum or plasma low density lipoprotein (LDL) cholesterol measurement (mass/volume)Ordered By: Dr. Bill on 11-04-2022 Cholesterol in LDL [Mass/Vol] 144 mg/dL 0-130 [facility] Serum or plasma urea nitroge n measurement (mass/volume)Ordered By: Dr. Lopez on 11-04-2022 Urea nitrogen [Mass/Vol] 14 mg/dL 7-18 [facility] Thin prep Papanicolaou smear with manual screeningOrdered By: Dr. Lopez on 11-04-2022 Thin prep Papanicolaou smear with manual screening 8 5-15 [facility] Absolute lymphocyte counton 11-03-2022 Lymphocytes Auto (Unsp spec) [#/Vol] 1.53 10*3/uL 0.83-4.51 [facility] Work Phone: Basophil percentageon 2022 Basophils/100 WBC (Bld) 0.3 % 0-1 [facility] Work Phone: Chloride [Moles/Vol] 104 mmol/L 98-107 [facility] Work Phone: Eosinophils/100 WBC (Bld) 1.7 % 0-5 [facility] Work Phone: Glucose [Mass/Vol] 104 mg/dL 74-106 [facility] Work Phone: Comment on above: Fasting Glucose resu lt from 100 to 125 mg/dL suggests IMPAIRED HOMEOSTASIS per A.D.A. criteria. Neutrophils (Bld) [#/Vol] 4.3 10*3/uL 2.0-7.7 [facility] Work Phone: Neutrophils/100 WBC (Bld) 65.2 % 47-70 [facility] Work Phone: Potassium [Moles/Vol] 3.3 mmol/L 3.5-5.1 [facility] Work Phone: Sodium [Moles/Vol] 138 mmol/L 136-145 [facility] Work Phone: WBC (Bld) [#/Vol] 6.7 10*3/uL 4.4-11.0 [facility] Work Phone: Blood erythrocytes count (nu mber/volume)on 11-03-2022 RBC (Bld) [#/Vol] 5.52 10*6/uL 4.6-6.2 [facility] Work [facility]: Blood hemoglobin measurement (mass/volume)on 11-03-2022 Hemoglobin (Bld) [Mass/Vol] 16.1 g/dL 13.0-16.5 [facility] Work Phone: Blood lymphocytes/100 leukoc yteson 11-03-2022 Lymphocytes/100 WBC (Bld) 23.0 % 19-41 [facility] Work Phone: Blood monocytes/100 leukocyt eson 11-03-2022 Monocytes/100 WBC (Bld) 9.6 % 0-10 [facility] Work Phone: Blood platelet mean volumeon 11-03-2022 Platelet mean volume (Bld) [Entitic vol] 10.7 fL 6.2-12.0 [facility] Work Phone: Determination of erythrocyte mean corpuscular volume (MCV)on 11-03-2022 MCV (RBC) [Entitic vol] 88.8 fL 80-94 [facility] Work Phone: Hematocrit Auto (Bld) [Volum e fraction]on 11-03-2022 Hematocrit (Bld) [Volume fraction] 49.0 % 40-54 [facility] Work Phone: Laboratory - Chemistry and C hemistry - challengeon 11-03-2022 CO2 [Moles/Vol] 29.0 mmol/L 21.0-32.0 [facility] Work Phone: Urea nitrogen/Creatinine [Mass ratio] 14.2 mg/mg 10-20 [facility] Work Phone: Laboratory - Hematology and Cell countson 11-03-2022 Erythrocyte distribution width (RBC) [Entitic vol] 40.1 fL 35.1-43.9 [facility] Work Phone: Erythrocyte distribution width (RBC) [Ratio] 12.2 % 11.6-14.6 [facility] Work Phone: Immature granulocytes/100 WBC (Bld) 0.200 % 0.0-0.9 [facility] Work Phone: Comment on above: IG% - Immature Granu locytes (promyelocytes, myelocytes and metamyelocytes) > 1% indicates that a LEFT SHIFT is Present. MCH (RBC) [Entitic mass] 29.2 pg 27.0-32.0 [facility] Work Phone: Nucleated RBC/100 WBC (Bld) [Ratio] 0 % 0-5 [facility] Work Phone: MCHC Auto (RBC) [Mass/Vol]on 11-03-2022 MCHC (RBC) [Mass/Vol] 32.9 g/dL 32-36 [facility] Work Phone: No Panel Informationon 11-03 Estimated Creatinine Clearance Calc 89.62 ml/min [facility] Work Phone: Estimated GFR (MDRD) Amer 99 mL/min >60 [facility] Work Phone: Comment on above: GFR Calc Estimated GFR (MDRD) Non-Af Amer 82 mL/min >60 [facility] Work Phone: Comment on above: Non- GFR Calc No Panel InformationOrdered By: Dr. Lopez on 11-03-2022 Troponin I High Sensitivity 4 pg/mL 3.0-78.0 [facility] Comment on above: Please Note: New [place] t Units and Gender Specific Reference Ranges. For more information see Policy Stat Procedure [place] High Sensitivity Troponin (TNIH) and attachments. Platelets bldon 11-03-2022 Platelets (Bld) [#/Vol] 235 10*3/uL 150-450 [facility] Work Phone: Serum or plasma calcium florentin urement (mass/volume)on 11-03-2022 Calcium [Mass/Vol] 9.7 mg/dL 8.5-10.1 [facility] Work Phone: Serum or plasma creatinine m easurement (mass/volume)on 11-03-2022 Creatinine [Mass/Vol] 1.06 mg/dL 0.70-1.30 [facility] Work Phone: Comment on above: The validity of the calculated GFR & GFRAA in patients over 70 years has not been determined. Clinical correlation is essential. Serum or plasma urea nitroge n measurement (mass/volume)on 11-03-2022 Urea nitrogen [Mass/Vol] 15 mg/dL 7-18 [facility] Work Phone: Thin prep Papanicolaou smear with manual screeningon 11-03-2022 Thin prep Papanicolaou smear with manual screening 5 5-15 [facility] Work Phone: Absolute lymphocyte countOrd ered By: Dr. Aragon on 09-07-2022 Lymphocytes Auto (Unsp spec) [#/Vol] 2.37 10*3/uL 0.83-4.51 [facility] Basophil percentageOrdered B y: Dr. Aragon on 09-07-2022 Basophils/100 WBC (Bld) 0.5 % 0-[address] [facility] Bilirubin [Mass/Vol] 0.50 mg/dL 0.20-1.00 [facility] Comment on above: For patients on eltr ombopag therapy, use of Dimension [place] TBIL is not recommended. Chloride [Moles/Vol] 103 mmol/L 98-107 [facility] Cholesterol [Mass/Vol] 267 mg/dL <200 [facility] Comment on above: <200 mg/dL Desirable 200-240 mg/dL Borderline >240 mg/dL High Risk Eosinophils/100 WBC (Bld) 1.5 % 0-5 [facility] Glucose [Mass/Vol] 106 mg/dL 74-106 [facility] Comment on above: Fasting Glucose resu lt from 100 to 125 mg/dL suggests IMPAIRED HOMEOSTASIS per A.D.A. criteria. Neutrophils (Bld) [#/Vol] 5.9 10*3/uL 2.0-7.7 [facility] Neutrophils/100 WBC (Bld) 65.0 % 47-70 [facility] Potassium [Moles/Vol] 3.8 mmol/L 3.5-5.1 [facility] Protein [Mass/Vol] 8.0 g/dL 6.4-8.2 [facility] Sodium [Moles/Vol] 139 mmol/L 136-145 [facility] Triglyceride [Mass/Vol] 292 mg/dL <199 [facility] Comment on above: The drugs N-Acetylcy steine and Metamizole may falsely depress this assay.Serum Triglycerides Reference Interval Normal <150 mg/dL Borderline high 150 - 199 mg/dL High 200 - 499 mg/dL Very High > or = 500 mg/dL WBC (Bld) [#/Vol] 9.2 10*3/uL 4.4-11.0 [facility] Blood erythrocytes count (nu mber/volume)Ordered By: Dr. Aragon on 09-07-2022 RBC (Bld) [#/Vol] 5.90 10*6/uL 4.6-6.2 [facility] Blood hemoglobin measurement (mass/volume)Ordered By: Dr. Aragon on 09-07-2022 Hemoglobin (Bld) [Mass/Vol] 17.4 g/dL 13.0-16.5 [facility] Blood lymphocytes/100 leukoc ytesOrdered By: Dr. Aragon on 09-07-2022 Lymphocytes/100 WBC (Bld) 25.9 % 19-41 [facility] Blood monocytes/100 leukocyt esOrdered By: Dr. Aragon on 09-07-2022 Monocytes/100 WBC (Bld) 6.7 % 0-[address] [facility] Blood platelet mean volumeOr dered By: Dr. Aragon on 09-07-2022 Platelet mean volume (Bld) [Entitic vol] 10.1 fL 6.2-12.0 [facility] Determination of erythrocyte mean corpuscular volume (MCV)Ordered By: Dr. Aragon on 09-07-2022 MCV (RBC) [Entitic vol] 87.1 fL 80-94 [facility] Hematocrit Auto (Bld) [Volum e fraction]Ordered By: Dr. Aragon on 09-07-2022 Hematocrit (Bld) [Volume fraction] 51.4 % 40-54 [facility] Laboratory - Chemistry and C hemistry - challengeOrdered By: Dr. Aragon on 09-07-2022 ALP [Catalytic activity/Vol] 81 U/L 45-117 [facility] ALT [Catalytic activity/Vol] 51 U/L 16-61 [facility] CO2 [Moles/Vol] 25.0 mmol/L 21.0-32.0 [facility] Globulin (S) [Mass/Vol] 3.8 g/dL 2.2-4.2 [facility] Urea nitrogen/Creatinine [Mass ratio] 16.7 mg/mg 10-20 [facility] Laboratory - Hematology and Cell countsOrdered By: Dr. Aragon on 09-07-2022 Erythrocyte distribution width (RBC) [Entitic vol] 37.7 fL 35.1-43.9 [facility] Erythrocyte distribution width (RBC) [Ratio] 11.9 % 11.6-14.6 [facility] Immature granulocytes/100 WBC (Bld) 0.400 % 0.0-0.9 [facility] Comment on above: IG% - Immature Granu locytes (promyelocytes, myelocytes and metamyelocytes) > 1% indicates that a LEFT SHIFT is Present. MCH (RBC) [Entitic mass] 29.5 pg 27.0-32.0 [facility] Nucleated RBC/100 WBC (Bld) [Ratio] 0 % 0-5 [facility] MCHC Auto (RBC) [Mass/Vol]Or dered By: Dr. Aragon on 09-07-2022 MCHC (RBC) [Mass/Vol] 33.9 g/dL 32-36 [facility] No Panel InformationOrdered By: Dr. Aragon on 09-07-2022 Estimated GFR (MDRD) Amer 104 mL/min >60 [facility] Comment on above: GFR Calc Estimated GFR (MDRD) Non-Af Amer 86 mL/min >60 [facility] Comment on above: Non- GFR Calc Platelets bldOrdered By: Dr. Aragon on 09-07-2022 Platelets (Bld) [#/Vol] 281 10*3/uL 150-450 [facility] Serum or plasma albumin florentin urement (mass/volume)Ordered By: Dr. Aragon on 09-07-2022 Albumin [Mass/Vol] 4.2 g/dL 3.2-5.0 [facility] Serum or plasma albumin/glob ulin mass ratioOrdered By: Dr. Aragon on 09-07-2022 Albumin/Globulin [Mass ratio] 1.1 {ratio} 0.9-2.4 [facility] Serum or plasma calcium florentin urement (mass/volume)Ordered By: Dr. Aragon on 09-07-2022 Calcium [Mass/Vol] 9.9 mg/dL 8.5-10.1 [facility] Serum or plasma cholesterol in HDL measurement (mass/volume)Ordered By: Dr. Aragon on 09-07-2022 Cholesterol in HDL [Mass/Vol] 39 mg/dL >40 [facility] Comment on above: The drugs N-Acetylcy steine and Metamizole may falsely depress this assay. Reference Range HDL <40 mg/dL Low HDL Cholesterol HDL >or= 60 mg/dL High HDL Cholesterol Serum or plasma cholesterol in VLDL measurement (mass/volume)Ordered By: Dr. Aragon on 09-07-2022 Cholesterol in VLDL [Mass/Vol] 58 mg/dL 5-40 [facility] Serum or plasma creatinine m easurement (mass/volume)Ordered By: Dr. Aragon on 09-07-2022 Creatinine [Mass/Vol] 1.02 mg/dL 0.70-1.30 [facility] Comment on above: The validity of the calculated GFR & GFRAA in patients over 70 years has not been determined. Clinical correlation is essential. Serum or plasma low density lipoprotein (LDL) cholesterol measurement (mass/volume)Ordered By: Dr. Aragon on 09-07-2022 Cholesterol in LDL [Mass/Vol] 170 mg/dL 0-130 [facility] Serum or plasma urea nitroge n measurement (mass/volume)Ordered By: Dr. Aragon on 09-07-2022 Urea nitrogen [Mass/Vol] 17 mg/dL 7-18 [facility] Thin prep Papanicolaou smear with manual screeningOrdered By: Dr. Aragon on 09-07-2022 Thin prep Papanicolaou smear with manual screening 21 U/L 15-37 [facility] Thin prep Papanicolaou smear with manual screening 11 5-15 [facility] PROGRESSon 01-22-2020 PROGRESS HNO ID: [id number] Author: Pavan Rosa Service: ? Author Type: [...] Left biceps slightly smaller. 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 Will order emg to be performed prior to a visit with me. Will call in 6-8 weeks for appointments. 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 Blayne Rosa Duration of call and preparation - 25 minutes. [id number] Normal [facility] Clinical Summary: HMSPatient IDon 12-16-2019 OOP [place] [facility] Work Phone: Office Visit: New - visi t with practice, Rm: 12-16-2019 NEGATED: Highlighted rowTobacco smoking status NHIS Tobacco smoking status NVIS [facility] Work Phone: NEGATED: Highlighted rowTSH Qn of the Cervical Spine on 10/14/2019 at [facility], of the Left Shoulder on 10/14/2019 at [facility] [place] [facility] Work Phone: NEGATED: Highlighted rowxray history of the Cervical Spine on 10/26/2019 at [facility] Work Phone: PROGRESSon 12-06-2019 PROGRESS HNO ID: [id number] Author: Tahira Manrique Service: ? Author Type: Physician Batter Mixer Type: Progress Notes Filed: 12/06/2019 3:57 PM [...] first available surgeon for cervical spine. Normal [facility] PROGRESS HNO ID: [id number] Author: Caleb Wellington Service: ? Author Type: ? Type: Progress Notes Filed: 12/06/2019 3:57 PM Note Text: Patient name: Edward Holguin Are you being referred by a [place] for Spine Health Provider or Pain Management Provider at [facility]? No If answer is YES please schedule directly with surgeon, triage does not need to be completed. Is this a self-referral Yes If not, who is the Referring Provider MRI/CT/myelogram within 12 months: Yes If No, please refer to medical spine or PCP to complete above imaging, triage does not need to be completed Imaging viewable in Epic: No If not, please provide [phone] to fax in imaging reports for review. [...] this same symptoms? No Additional Comments Normal [facility] Office Visit: UC: Flu like s xon 06-01-2017 Documentation of current medications (procedure) Done Invalid Interpretation Code [facility] Work Phone: Smoking cessation education (procedure) yes Invalid Interpretation Code [facility] Work Phone: Tobacco smoking status NHIS Unknown Invalid Interpretation Code [facility] Work Phone: Tobacco use [facility] Current every day smoker Invalid Interpretation Code [facility] Work Phone: Office Visit: UC: Poison Tami on 05-05-2017 Documentation of current medications (procedure) Done Invalid Interpretation Code [facility] Work Phone: Fall risk assessment No Invalid Interpretation Code [facility] Work Phone: Protein mass conc yes [facility] Work Phone: Protein mass conc Done [facility] Work Phone: Smoking cessation education (procedure) yes Invalid Interpretation Code [facility] Work Phone: Tobacco smoking status NHIS Unknown [facility] Work Phone: Tobacco smoking status NHIS Current every day smoker [facility] Work Phone: Tobacco use [facility] Current every day smoker Invalid Interpretation Code [facility] Work Phone: Office Visiton 02-27-2017 Documentation of current medications (procedure) Done Invalid Interpretation Code [facility] Work Phone: Tobacco smoking status NHIS Unknown Invalid Interpretation Code [facility] Work Phone: Tobacco use [facility] Never smoker Invalid Interpretation Code [facility] Work Phone: Vital Signs Date Time Vital Sign Value Performing Clinician Facility 01-17-2023 08:45-0400 Diastolic blood pressure 56 mm[Hg] Dr. Dmitry Aragon Work Phone: 4(877)220-977047 [place] [address] 01-17-2023 08:45-0400 Heart rate 70 /min Dr. Dmitry Aragon Work Phone: 2(701)796-202138 [place] [address] 01-17-2023 08:45-0400 Respiratory rate 14 /min Dr. Dmitry Aragon Work Phone: 5(025)716-224138 [place] [address] 01-17-2023 08:45-0400 SaO2% (BldA) [Mass fraction] 97 % Dr. Dmtiry Aragon Work Phone: 1(580)169-572138 [place] [address] 01-17-2023 08:45-0400 Systolic blood pressure 108 mm[Hg] Dr. Dmitry Aragon Work Phone: 6(380)365-656138 [place] [address] 01-17-2023 08:22-0400 Body height 172.[address] Dmitry Aragon Work Phone: 8(232)618-471338 [place] [address] 01-17-2023 08:22-0400 Body mass index (BMI) [Ratio] 29.6 kg/m2 Dr. Dmitry Aragon Work Phone: 6(450)551-923038 [place] [address] 01-17-2023 08:22-0400 Body weight 88.[address] Dmitry Aragon Work Phone: 0(595)398-752938 [place] [address] 12-20-2022 14:07-0500 Body height 172.[address] Dmitry Aragon Work Phone: 9(654)394-903638 [place] [address] 12-20-2022 14:07-0500 Body mass index (BMI) [Ratio] 30.1 kg/m2 Dr. Dmitry Aragon Work Phone: 6(384)924-047738 [place] [address] 12-20-2022 14:07-0500 Body weight 89.[address] Dmitry Aragon Work Phone: 3(455)611-198338 [place] [address] 12-20-2022 14:07-0500 Diastolic blood pressure 95 mm[Hg] Dr. Dmitry Aragon Work Phone: 0(052)408-313938 [address] 12-20-2022 14:07-0500 Heart rate 77 /min Dr. Dmitry Aragon Work Phone: [facility] 12-20-2022 14:07-0500 Respiratory rate 18 /min Dr. Dmitry Aragon Work Phone: [facility] 12-20-2022 14:07-0500 Systolic blood pressure 152 mm[Hg] Dr. Dmitry Aragon Work Phone: [facility] 11-04-2022 17:38-0500 Diastolic blood pressure 79 mm[Hg] Dr. Dmitry Aragon Work Phone: [facility] 11-04-2022 17:38-0500 Heart rate 76 /min Dr. Dmitry Aragon Work Phone: [facility] 11-04-2022 17:38-0500 Respiratory rate 16 /min Dr. Dmitry Aragon Work Phone: [facility] 11-04-2022 17:38-0500 SaO2% (BldA) [Mass fraction] 95 % Dr. Dmitry Aragon Work Phone: [facility] 11-04-2022 17:38-0500 Systolic blood pressure 105 mm[Hg] Dr. Dmitry Aragon Work Phone: [facility] 11-04-2022 14:33-0500 Body temperature 97.9 [degF] Dr. Dmitry Aragon Work Phone: [facility] 11-03-2022 20:33-0500 Body height 172.[address] Dmitry Aragon Work Phone: [facility] Work Phone: 11-03-2022 20:33-0500 Body mass index (BMI) [Ratio] 29.5 kg/m2 Dr. Dmitry Aragon Work Phone: [facility] 11-03-2022 20:33-0500 Body weight [address] Dmitry Aragon Work Phone: [facility] 11-03-2022 20:31-0500 Body temperature 98.1 [degF] [facility] Work Phone: 11-03-2022 20:31-0500 Diastolic blood pressure 89 mm[Hg] [facility] Work Phone: 11-03-2022 20:31-0500 Heart rate 91 /min [facility] Work Phone: 11-03-2022 20:31-0500 Respiratory rate 19 /min [facility] Work Phone: 11-03-2022 20:31-0500 SaO2% (BldA) [Mass fraction] 97 % [facility] Work Phone: 11-03-2022 20:31-0500 Systolic blood pressure 127 mm[Hg] [facility] Work Phone: 11-03-2022 17:32-0500 Body height 172.[address] [facility] Work Phone: 11-03-2022 17:32-0500 Body mass index (BMI) [Ratio] 29.9 kg/m2 [facility] Work Phone: 11-03-2022 17:32-0500 Body weight 89.[address] [facility] Work Phone: 06-01-2017 09:37-0400 BMI (Body Mass Index) 28.13 kg/m2 Arlet Clifford [facility] Work Phone: 06-01-2017 09:37-0400 Body Temperature 98.6 [degF] Arlet Clifford [facility] Work Phone: 06-01-2017 09:37-0400 BP Diastolic 88 mm[Hg] Arlet Clifford [facility] Work Phone: 06-01-2017 09:37-0400 BP Systolic 126 mm[Hg] Arlet Mossbarbara [facility] Work Phone: 06-01-2017 09:37-0400 Height 172.72 cm Arlet Horton LPN [facility] Work Phone: 06-01-2017 09:37-0400 Pulse (Heart Rate) 105 /min Arlet Horton LPN [facility] Work Phone: 06-01-2017 09:37-0400 Respiratory Rate 16 /min Arlet Horton LPN [facility] Work Phone: 06-01-2017 09:37-0400 Weight 83.92 kg Arlet Horton LPN [facility] Work Phone: 05-05-2017 12:37-0400 BMI (Body Mass Index) 28.58 kg/m2 Magdalena Hickman LPN [facility] Work Phone: 05-05-2017 12:37-0400 Body Temperature 98.1 [degF] Magdalena Hickman [facility] Work Phone: 05-05-2017 12:37-0400 BP Diastolic 76 mm[Hg] [facility] Work Phone: 05-05-2017 12:37-0400 BP Systolic 140 mm[Hg] [facility] Work Phone: 05-05-2017 12:37-0400 Height 172.72 cm Magdalena Hickman LPN [facility] Work Phone: 05-05-2017 12:37-0400 Pulse (Heart Rate) 103 /min Magdalena Hickman LPN [facility] Work Phone: 05-05-2017 12:37-0400 Respiratory Rate 16 /min [facility] Work Phone: 05-05-2017 12:37-0400 Weight 85.28 kg Magdalena Hickman LPN [facility] Work Phone: 01-30-2017 09:48-0400 BMI (Body Mass Index) 29.49 kg/m2 [facility] Work Phone: 01-30-2017 09:48-0400 Height 172.72 cm [facility] Work Phone: 01-30-2017 09:48-0400 Weight 88 kg Vazquez Rowe [facility] Work Phone: NEGATED: Highlighted [id number] 10:07-0500 BMI (Body Mass Index) 31.44 kg/m2 Rianna AbouAbdallah AT [facility] Work Phone: NEGATED: Highlighted [id number] 10:07-0500 Body weight 93.44 kg Rianna AbouAbdallah AT [facility] Work Phone: NEGATED: Highlighted [id number] 10:07-0500 Body weight 94 kg Rianna AbouAbdallah AT [facility] Work Phone: NEGATED: Highlighted [id number] 10:07-0500 BP Diastolic 89 mm[Hg] Rianna AbouAbdallah AT [facility] Work Phone: NEGATED: Highlighted [id number] 10:07-0500 BP Diastolic 77 mm[Hg] Rianna AbouAbdallah AT [facility] Work Phone: NEGATED: Highlighted [id number] 10:07-0500 BP Systolic 140 mm[Hg] Rianna AbouAbdallah AT [facility] Work Phone: NEGATED: Highlighted [id number] 10:07-0500 BP Systolic 130 mm[Hg] Rianna AbouAbdallah AT [facility] Work Phone: NEGATED: Highlighted [id number] 10:07-0500 Height 172.72 cm Rianna AbouAbdallah AT [facility] Work Phone: NEGATED: Highlighted [id number] 10:07-0500 Height 173 cm Rianna AbouAbdallah AT [facility] Work Phone: NEGATED: Highlighted [id number] 10:07-0500 Pulse (Heart Rate) 97 /min Rianna Reynoso AT [facility] Work Phone: Encounters Encounter Date Encounter Type Care Provider Facility Start: 07-14-2025 ambulatory Dmitry Aragon Facility:[facility] Start: 06-30-2025 ambulatory Dmitry Aragon Facility:[facility] Start: 05-27-2025 End: 05-27-[address] Dmitry Aragon MD Work Phone: -Laboratory Start: 05-27-2025 End: 05-27-[address] Dmitry Aragon MD -Laboratory Work Phone: Start: 05-27-2025 End: 05-27-2025 ambulatory Dmitry Aragon Facility:[facility] Start: 05-13-2025 End: 05-13-[address] Dmitry Aragon MD Work Phone: -Laboratory Start: 05-13-2025 End: 05-13-[address] Dmitry Aragon MD -Laboratory Work Phone: Start: 05-12-2025 End: 05-13-[address] Dmitry Aragon MD Work Phone: -Laboratory Start: 05-12-2025 End: 05-12-[address] Diana Mallory MD -Laboratory Work Phone: Start: 05-12-2025 End: 05-12-2025 ambulatory Dmitry Aragon Facility:[facility] Start: 03-12-2025 End: 03-12-[address] Dmitry Aragon MD Work Phone: [facility] Work Phone: Start: 03-12-2025 End: 03-12-[address] Diana Mallory MD -Laboratory Work Phone: Start: 03-12-2025 End: 03-12-2025 ambulatory [facility] Facility:[facility] Start: 01-07-2025 End: 01-07-[address] Dmitry Aragon MD Work Phone: [facility] Work Phone: Start: 01-07-2025 End: 01-07-[address] Dmitry Aragon MD -Laboratory, Specimen Work Phone: Start: 01-07-2025 End: 01-07-2025 ambulatory Dmitry Aragon Facility:[facility] Start: 12-24-2024 End: 12-24-[address] Dmitry Aragon MD Work Phone: [facility] Work Phone: Start: 12-24-2024 End: 12-24-[address] Diana Mallory MD -Laboratory Work Phone: Start: 12-24-2024 End: 12-24-2024 ambulatory [facility] Facility:[facility] Start: 08-20-2024 End: 08-21-2024 ambulatory [facility] Facility:[facility] Start: 08-13-2024 End: 08-13-2024 ambulatory [facility] Facility:[facility] Start: 07-24-2024 End: 07-24-2024 ambulatory [facility] Facility:[facility] Start: 07-19-2024 End: 07-19-2024 ambulatory [facility] Facility:[facility] Start: 07-11-2024 End: 07-11-2024 ambulatory [facility] Facility:[facility] Start: 01-01-2024 End: 01-01-2024 ambulatory [facility] Work Phone: Start: 01-01-2024 End: 01-01-2024 Patient encounter procedure [facility] Work Phone: Start: 12-12-2023 End: 12-12-2023 ambulatory [facility] Work Phone: Start: 12-12-2023 End: 12-12-2023 Discharged Recurring [facility]-Physical Therapy Work Phone: Start: 01-18-2023 Non-patient / Non-visit Dr. Yosi Aragon Work Phone: [facility] Start: 01-17-2023 End: 01-17-[address] Dmitry Aragon Work Phone: [facility] Work Phone: Start: 01-17-2023 End: 01-17-[address] Dmitry Aragon Work Phone: [facility] Start: 12-27-2022 End: 12-27-[address] Dmitry Aragon Work Phone: [facility] Work Phone: Start: 12-27-2022 End: 12-27-[address] Dmitry Aragon Work Phone: [facility]-Laboratory Start: 12-20-2022 End: 12-20-[address] Dmitry Aragon Work Phone: [facility] Start: 11-04-2022 Non-patient / Non-visit Dr. Yosi Aragon Work Phone: [facility] Start: 11-03-2022 End: 11-03-2022 Non-patient / Non-visit Dr. Dmitry Aragon Work Phone: [facility] Start: 11-03-2022 End: 11-04-2022 Evaluation and management of inpatient [facility]-Progressive Care Unit Start: 11-03-2022 End: 11-04-[address] Dmitry Aragon Work Phone: [facility] Work Phone: Start: 09-07-2022 End: 09-07-2022 ambulatory [facility] Work Phone: Start: 09-07-2022 End: 09-07-2022 Patient encounter procedure [facility]-Laboratory Start: 10-09-2017 Colonoscopy normal [facility] Procedures Date Procedure Procedure Detail Performing [...] Work Phone: Comment on above: Performed at: [place] [id number] Director: Jorge A [facility] PhD, Phone: [phone] Start: 12-24-2024 Hepatitis C antibody measurement Dr. [...] HCV Quant by PCR testing - HCVPCR #[id number] Non Reactive: < 0.8 Equivocal: >/= 0.8 [...] Author Start: 01-17-2023 Following clinical pathway protocol [facility] Start: 11-04-2022 Patient discharge [facility] Start: 11-03-2022 Following clinical pathway protocol [facility] Start: 11-03-2022 Assessment of risk of venous thromboembolism [facility] Start: 11-03-2022 Insertion of catheter into peripheral vein [facility] Start: 11-03-2022 Measuring intake and output [facility] Start: 11-03-2022 Oxygen therapy [facility] Start: 11-03-2022 Providing care according to standard [facility] Start: 11-03-2022 Provision of activity privileges [facility] Start: 11-03-2022 Referral to occupational therapist [facility] Start: 11-03-2022 Referral to service [facility] Start: 11-03-2022 [facility] Start: 11-03-2022 Troponin I measurement [facility] Work Phone: Start: 11-03-2022 Verification routine [facility] Work Phone: Start: 11-03-2022 Admission procedure [facility] Start: 11-03-2022 [facility] Work Phone: Start: 12-16-2019 End: 12-16-2019 Appointment Appointment [facility] [place] [facility] Work Phone: Start: 06-01-2017 End: 06-01-2017 Appointment [facility] Work Phone: Start: 06-01-2017 End: 06-01-2017 Follow-up visit Follow Up as needed [facility] Work Phone: Start: 05-05-2017 End: 05-05-2017 Appointment Appointment [facility] Work Phone: Start: 04-10-2017 End: 04-10-2017 Appointment Appointment [facility] Work Phone: CTA Heart and [place] ry arteries W contrast IV [facility] Patient Education ACUTE%20DIARR[facility]A [facility] No w Clinic Work Phone: Patient referral [facility] Work Phone: Serum testosterone measurement [facility] Sex hormone binding globulin [Moles/volume] in Serum or Plasma [facility] Testosterone Free [Mass/volume] in Serum or Plasma [facility] Testosterone measurement [facility] Troponin I measurement [facility] Work Phone: Payers Date Payer Category Payer Self-pay [id number] 2024 Unknown [id number] 2016 Private Health Insurance [id number] Unknown [id number] Unknown [id number] 2.16.8 [id number] Unknown [id number] 2.16.8 [id number] Unknown [id number] 2.16.8 [id number] Unknown [id number] 2.16.8 [id number] Unknown [id number] 2.16.8 [id number] Unknown [id number] 2.16.8 [id number] Unknown [id number] 2.16.8 [id number] Unknown [id number] 2.16.8 [id number] Unknown [id number] 2.16.8 [id number] Unknown [id number] 2.16.8 [id number] Unknown [id number] 2.16.8 [id number] Unknown [id number] 2.16.8 [id number] Unknown [id number] 2.16.8 [id number] Social History Date Type Detail Facility Start: 04-10-2022 End: 12-20-2022 Tobacco smoking status NHIS Unknown if ever smoked [facility] Start: 12-03-2019 Cigars [facility] Start: 1980 Sex Assigned At Male [facility] Start: 08-20-2024 Tobacco smoking status NHIS Current some day smoker [facility] Start: 01-06-2025 End: 01-16-2025 Sex Male (finding) [facility] NEGATED: Highlighted rowStart: 12-16-2019 End: 12-16-2019 Alcohol use Alcohol use [facility] Work Phone: NEGATED: Highlighted rowStart: 12-16-2019 End: 12-16-2019 Details of drug misuse behavior Details of drug misuse behavior [facility] Work Phone: NEGATED: Highlighted rowStart: 12-16-2019 End: 12-16-2019 Employment detail Employment detail [facility] Work Phone: NEGATED: Highlighted rowStart: 12-16-2019 End: 12-16-2019 Assertion Never smoker [facility] Work Phone: Functional Status Date Assessment Result Facility 11-04-2022 Functional status Ambulates;Up ad casa [facility] Work Phone: Mental Status Date Assessment Result Facility 01-17-2023 Cognitive function Awake;Alert;Appropriat e [facility] Work Phone: 11-03-2022 Cognitive function Awake;Alert;A ppropriate;Fol lows Commands [facility] Work Phone: Discharge summary note 08-21-2024 Note Date & Type Note Facility 08-21-2024 Note [facility] Medical Records Department [address] [place] [address] Discharge Summary 08/21/24 0723 MR#: [id number] Acct: [id number] Name: EDWARD HOLGUIN Rep #: [id number] : 1980 44 From: Al Zaman MD PCP: Dr. Dmitry Aragon MD Status:ADM CHANTAL Location: [place] [address]1 Providers Date of Admission: 08/20/24 Date of [...] % (Auto) 66.9, Lymph % (Auto) 22.1, [place] % (Auto) 8.6, Eos % (Auto) 1.7, Baso % (Auto) 0.3, Absolute Neuts (auto) 4.8, Absolute Lymphs (auto) 1.57, Nucleated RBC % 0 08/20/24 13:35: Urine Color Rylee, Urine Clarity Clear, Urine pH 6.0, Ur Specific [place] 1.020, U rine Protein 100 H, Urine [...] release multiphase 1 (more content not included)... [facility] Clinical Note 08-20-2024 Note Date & Type Note Facility 08-20-2024 Note [facility] Medical Records Department [address] [place] [id number] History Physical Exam 08/20/24 1630 MR#: [id number] Acct: [id number] Name: EDWARD HOLGUIN Rep #: [id number] : 1980 44 From: Al Zaman MD [...] control, may need toplace a stent again? [facility] Medical History Inverted T wave Angina at [...] % (Auto) 66.9, Lymph % (Auto) 22.1, [place] % (Auto) 8.6, Eos % (Auto) 1.7, Baso % (Auto) 0.3, Absolute Neuts (auto) 4.8, Absolute Lymphs (auto) 1.57, Nucleated RBC % 0 08/20/24 13:35: Urine Color Rylee, Urine Clarity Clear, Urine pH 6.0, Ur Specific [place] 1.020, U rine Protein 100 H, Urine [...] Estim Creat C (more content not included)... [facility] Discharge summary 12-19-2023 Note Date & Type Note Facility 12-19-2023 Discharge summary Note Date/Time December 19, 2023 4:53pm [facility] Physical Therapy [facility] [address] [place] [address] / REHABILITATION SERVICES DISCHARGE SUMMARY MR#: [id number] Acct: [id number] Name: EDWARD HOLGUIN Rep #: [id number] : 1980 43 From: Dmitry Wilson DPT, OCS, CSCS Referring Dr.: Dr. Maurilio Fountain MD Statu s: REG RCR Insurance: [employer]ANCE Discharge Summary D/C summary: It has been my pleasure to treat EDWARD HOLGUIN referred by Dr. Maurilio Fountain MD, with the diagnosis of R supinator strain for a total of 8 visit(s). Discharge Date: 12/19/23 Please see the following information for a [...] please feel free to call me at [phone]. Thank you for the referral of thispatient. Sincerely, Dmitry Wilson, FELTON, OCS, CSCS Balance/Gait/Functional tests Balance/Special Test Scores Quick DASH Score: 34.0900 Improvement % Improvement: 0 <Electronically signed by Dmitry Wilson DPT, OCS, CSCS> 12/19/23 1653 CC: Dr. Maurilio Fountain MD; Dr. Dmitry Aragon MD ~ EBG Signed [facility] Work Phone: Hospital Discharge instructions 11-04-2022 Note Date & Type Note Facility 11-04-2022 Hospital Discharg e instructions Additional Instructions Date of Discharge: 11/04/22 [facility] Work Phone: Evaluation note Note Date & Type Note Facility Evaluation note No assessment information availa ble [facility] Work Phone: Evaluation note Note Date & Type Note Facility Evaluation note Diagnosis Onset Date Chest pain acute Palpitation acute Shortness of breath on exertion acute [facility] Work Phone: Evaluation note Note Date & Type Note Facility Evaluation note Diagnosis Onset Date Shortness of breath on exertion acute Chest pain resolved Palpitation resolved Chest pain chronic Dyslipidemia chronic History of irritable bowel syndrome chronic Hypertension chronic Nicotine dependence chronic [facility] Work Phone: Reason for referral (narrative) Note Date & Type Note Facility Reason for referral (narrative) No reason for referral information available [facility] Work Phone: Summary Purpose Family History [...] Date/ Time Living Will No June 15 1 5:37pm Power of Client Care Manager No June 15, 021 5:37pm Advance Directive Response Recorded Date/ Time Living Will No November 03 5:50pm Power of Client Care Manager No November 03, 2022 5:50pm Advance Directive Response Recorded Date/ Time Living Will No November 03 8:33pm Power of Client Care Manager No November 03, 2022 8:33pm Advance Directive Response Recorded Date/ Time Living Will No November 03 9:33pm Power of Client Care Manager No November 03, 2022 9:33pm Chief Complaint [...] PAIN AND PALPITATIONS CP/ HTN/ EKG CHANGES ([facility]) Reason for Visit Shortness of breath on exertion Chest pain Palpitation Chest pain Dyslipidemia History of irritable bowel syndrome Hypertension Nicotine dependence Chief Complaint CHEST PAIN AND PALPI TATIONS CP CHEST PAIN AND PALPITATIONS CP/ HTN/ EKG CHANGES ([facility]) CP CP Reason for Visit Shortness of [...] section and content) DATE CREATED AUTHOR 01/22/2020 [facility] DATE CREATED AUTHOR AUTHOR'S ORGANIZ ATION 07/01/[address] [facility] Reason for Visit (unrecogniz ed section and [...] Dr. Maurilio Fountain MD Attending Provider, Referri Provider Active Team Status: Inactive Member Role [...] May 13, 2025 End: May 13, 2025 Team Status: Inactive Member Role/Relationship Status Dates Dr. mDitry Aragon MD Primary Care Provider Active Start: May 27, 2025 End: May 27, 2025 Dr. Dmitry Aragon MD Attending Provider Active St art: May 27, 2025 End: May 27, 2025 FOR RECORDS PERTAINING TO PATIENTS WHO [...] BE BASED ON THE PRIMARY CLINICAL RECORDS. [facility]. provides no warranty or guarantee of the accuracy or completeness of information in this document.
[2025-07-11 09:03] LABS: AST(SGOT) 22 U/L (<=37); Alanine Aminotransfer ALT/SGPT 25 U/L (<=46); Albumin, Serum 4.5 g/dL (3.5-5.0); Alkaline Phosphatase 71 U/L (40-129); Anion Gap 12 (5-15); BUN 19 mg/dL (4-19); BUN/Creat Ratio 19.1 RATIO (10-20); Calcium,Total 9.7 mg/dL (7.6-11.0); Carbon Dioxide 24.7 mmol/L (21.0-32.0); Chloride 101 mmol/L (98-108); Globulin 2.7 g/dL (2.2-4.2); Glucose 109 mg/dL (70-99); Potassium 3.7 mmol/L (3.3-5.1)
== END | disposition home or self-care (01) ==
LOC: LAB 07:35
PROVIDERS: PCP Family Medicine; Visit Provider Internal Medicine Rheumatology
DX: M06.4 Inflammatory polyarthropathy (principal); Z79.899 Other long term (current) drug therapy
CPT/HCPCS: 36415; 80053; 85025

== ENCOUNTER → 2025-07-21 | Outpatient (CLI) | payer BC, SELFPAY ==
[2025-07-21 08:25] LABS: AST(SGOT) 23 U/L (<=37); Alanine Aminotransfer ALT/SGPT 26 U/L (<=46); Albumin, Serum 4.2 g/dL (3.5-5.0); Alkaline Phosphatase 72 U/L (40-129); Anion Gap 11 (5-15); BUN 18 mg/dL (4-19); BUN/Creat Ratio 17.7 RATIO (10-20); Calcium,Total 9.4 mg/dL (7.6-11.0); Carbon Dioxide 24.5 mmol/L (21.0-32.0); Chloride 104 mmol/L (98-108); Globulin 2.5 g/dL (2.2-4.2); Glucose 98 mg/dL (70-99); Potassium 4.4 mmol/L (3.3-5.1)
== END | disposition home or self-care (01) ==
LOC: LAB 07:40
PROVIDERS: PCP Family Medicine; Visit Provider Family Medicine
DX: R79.89 Other specified abnormal findings of blood chemistry (principal)
CPT/HCPCS: 36415; 80053; 84403

== ENCOUNTER → 2025-08-25 | Outpatient (CLI) | payer BC, SELFPAY ==
[2025-08-25 13:11] LABS: Hematocrit 52.3 % (40-54); Hemoglobin 17.4 g/dL (13.0-16.5); Immature Granulocytes Count 0.020 X10^3/uL (0.0-0.0); Mean Corp Hgb Conc 33.3 g/dL (32-36); Mean Corpuscular Volume 91.9 fL (80-94); Mean Platelet Vol. 10.1 fl (6.2-12.0); NRBC Flagged by Analyzer 0 % (0-5); Platelet Count 293 K/mm3 (150-450); RBC Distribution Width CV 13.2 % (11.6-14.6); RBC Distribution Width SD 44.3 fl (35.1-43.9); Red Blood Count 5.69 M/mm3 (4.6-6.2); White Blood Count 8.7 K/mm3 (4.4-11.0)
[2025-08-25 14:01] LABS: AST(SGOT) 24 U/L (<=37); Alanine Aminotransfer ALT/SGPT 31 U/L (<=46); Albumin, Serum 4.6 g/dL (3.5-5.0); Alkaline Phosphatase 79 U/L (40-129); Anion Gap 10 (5-15); BUN 17 mg/dL (4-19); BUN/Creat Ratio 18.0 RATIO (10-20); Calcium,Total 9.9 mg/dL (7.6-11.0); Carbon Dioxide 26.2 mmol/L (21.0-32.0); Chloride 102 mmol/L (98-108); Globulin 2.6 g/dL (2.2-4.2); Glucose 126 mg/dL (70-99); Potassium 4.0 mmol/L (3.3-5.1)
[2025-08-29 13:09] LABS: Testosterone, % Free 3.18 % (1.50-4.20); Testosterone, Free 19.14 ng/dL (5.00-21.00)
== END | disposition home or self-care (01) ==
LOC: LAB 12:49
PROVIDERS: PCP Family Medicine; Visit Provider Family Medicine
DX: R79.89 Other specified abnormal findings of blood chemistry (principal)
CPT/HCPCS: 36415; 80053; 84402; 84403; 85025

== ENCOUNTER → 2025-08-30 | Outpatient (CLI) | payer BC, SELFPAY ==
[2025-08-30 07:43] LABS: Hematocrit 47.3 % (40-54); Hemoglobin 15.6 g/dL (13.0-16.5); Immature Granulocytes Count 0.020 X10^3/uL (0.0-0.0); Immature Reticulocyte Fraction 12.90 % (3.00-15.90); Mean Corp Hgb Conc 33.0 g/dL (32-36); Mean Corpuscular Volume 92.2 fL (80-94); Mean Platelet Vol. 10.2 fl (6.2-12.0); NRBC Flagged by Analyzer 0 % (0-5); Platelet Count 298 K/mm3 (150-450); RBC Distribution Width CV 13.2 % (11.6-14.6); RBC Distribution Width SD 43.8 fl (35.1-43.9); Red Blood Count 5.13 M/mm3 (4.6-6.2); Reticulocyte Count 2.28 % (0.5-1.5); White Blood Count 8.5 K/mm3 (4.4-11.0)
[2025-08-30 08:14] LABS: AST(SGOT) 21 U/L (<=37); Alanine Aminotransfer ALT/SGPT 22 U/L (<=46); Albumin, Serum 4.4 g/dL (3.5-5.0); Alkaline Phosphatase 72 U/L (40-129); Anion Gap 10 (5-15); BUN 19 mg/dL (4-19); BUN/Creat Ratio 18.5 RATIO (10-20); Calcium,Total 9.6 mg/dL (7.6-11.0); Carbon Dioxide 25.6 mmol/L (21.0-32.0); Chloride 101 mmol/L (98-108); Ferritin 109 ng/mL (37-417); Globulin 2.5 g/dL (2.2-4.2); Glucose 102 mg/dL (70-99); Iron 53 ug/dL (65-175); Iron Binding Capacity,Total 336 ug/dL (250-450); Iron Binding Capacity,Unsat 283 ug/dL (228-428); Potassium 4.3 mmol/L (3.3-5.1)
== END | disposition home or self-care (01) ==
LOC: LAB 07:20
PROVIDERS: PCP Family Medicine; Referring Provider Family Medicine; Visit Provider Family Medicine
DX: D58.2 Other hemoglobinopathies (principal)
CPT/HCPCS: 36415; 80053; 82728; 83540; 83550; 85025; 85045

== ENCOUNTER → 2025-10-01 | Outpatient (CLI) | payer BC, SELFPAY ==
[2025-10-01 11:45] LABS: Hematocrit 52.0 % (40-54); Hemoglobin 16.9 g/dL (13.0-16.5); Immature Granulocytes Count 0.020 X10^3/uL (0.0-0.0); Mean Corp Hgb Conc 32.5 g/dL (32-36); Mean Corpuscular Volume 91.7 fL (80-94); Mean Platelet Vol. 10.3 fl (6.2-12.0); NRBC Flagged by Analyzer 0 % (0-5); Platelet Count 274 K/mm3 (150-450); RBC Distribution Width CV 13.1 % (11.6-14.6); RBC Distribution Width SD 43.3 fl (35.1-43.9); Red Blood Count 5.67 M/mm3 (4.6-6.2); White Blood Count 7.9 K/mm3 (4.4-11.0)
[2025-10-01 12:12] LABS: AST(SGOT) 23 U/L (<=37); Alanine Aminotransfer ALT/SGPT 22 U/L (<=46); Albumin, Serum 4.9 g/dL (3.5-5.0); Alkaline Phosphatase 70 U/L (40-129); Anion Gap 10 (5-15); BUN 16 mg/dL (4-19); BUN/Creat Ratio 16.1 RATIO (10-20); Calcium,Total 10.0 mg/dL (7.6-11.0); Carbon Dioxide 29.3 mmol/L (21.0-32.0); Chloride 100 mmol/L (98-108); Globulin 2.8 g/dL (2.2-4.2); Glucose 95 mg/dL (70-99); Potassium 4.3 mmol/L (3.3-5.1)
== END | disposition home or self-care (01) ==
LOC: LAB 11:28
PROVIDERS: PCP Family Medicine; Visit Provider Internal Medicine Rheumatology
DX: M06.4 Inflammatory polyarthropathy (principal); Z79.899 Other long term (current) drug therapy
CPT/HCPCS: 36415; 80053; 85025